=== PATIENT | female | born 1960 | race Caucasian/White ===

== ENCOUNTER → 2018-05-02 07:33 | Outpatient (CLI) | payer OTHER, SELFPAY ==
--- NOTE | 2018-05-02 07:35 | NM_ITS ---
CARDIOLITE SPECT MYOCARDIAL PERFUSION SCAN, REST AND STRESS: EXERCISE STRESS [facility] REVIEW QGS EF AND WALL MOTION EVALUATION: QPS - PERFUSION EVALUATION HISTORY: Chest pain, SOB, Syncope, Fatigue, CAD, HTN, Tobacco use DOSE: 10.11 mCi technetium 99m mibi intravenously at rest followed by 32.1 mCi technetium 99m mibi following the intravenous ministration of 0.4 mg of Lexiscan. Resting blood pressure is 151/78. Stress blood pressure 138/81. FINDINGS: Ejection fraction is calculated to be 74%. Uniform myocardial activity at both stress and rest gated images calculated ejection fraction of 74% with normal wall motion IMPRESSION: No scintigraphic evidence of Lexiscan-induced myocardial ischemia with normal ejection fraction normal wall motion
--- NOTE | 2018-05-02 07:54 | HMH.ITSHM ---
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 []PLAVIX ASA LISINOPRIL
== END ==
PROVIDERS: PCP Family Medicine; Visit Provider Internal Medicine
DX: I25.10 Atherosclerotic heart disease of native coronary artery without angina pectoris (principal); I20.9 Angina pectoris, unspecified; E78.5 Hyperlipidemia, unspecified; F17.200 Nicotine dependence, unspecified, uncomplicated; Z95.5 Presence of coronary angioplasty implant and graft
CPT/HCPCS: 78452; 93017; A9502; J2785

== ENCOUNTER 2018-10-07 07:42 | Day surgery (SDC) | payer MEDICAID, SELFPAY ==
[2018-10-07] VITALS (14 sets, daily range): BP systolic 96–120; BP diastolic 49–65; PULSE 55–68; RESP 16; TEMP 36.7; O2SAT 93–97; BMI 23.0
--- NOTE | 2018-10-07 07:30 | IR_ITS ---
CARDIAC CATHETERIZATION DATE OF CATHETERIZATION:10/07/2018 9:58 AM PROCEDURES: 1. Left heart catheterization 2. Left ventriculogram 3. Selective coronary angiogram 4. FFR of the left main and LAD artery 5. Drug-eluting stent deployment to the ostial left main artery INDICATION FOR TEST: 1. Typical angina pectoris 2. Coronary artery disease 3. Ischemic response to adenosine with an FFR index of 0.80 Informed consent was obtained prior to the procedure. COMPLICATIONS: None ESTIMATED BLOOD LOSS: Less than 10 ml. TECHNIQUE: One percent lidocaine used to anesthetize the right anterior aspect of the wrist. The right radial artery was accessed via the Seldinger technique. A 6 [place]an sheath was placed in the right radial artery. 2.5 mg of verapamil, 800 mcg of nitroglycerin, 1mg Lidocaine and 5000 U Heparin were given through the arterial sheath. The trap catheter was also used to perform left heart catheterization, left ventriculogram and selective coronary angiogram. At the end of the diagnostic angiogram 3000 units of heparin was administered intravenously giving an ACT of 247 seconds. An additional 2000 units of heparin was administered intravenously. A JL 3.5 guide catheter was placed in the ascending aorta and an FFR wire was normalized. The catheter was used intubate the left main artery and the wire was placed into the distal LAD. Adenosine was infused and the FFR index of 0.80. Given this met hemodynamic significance a 3.5 x 8 mm resolute Omi stent was deployed in the ostium the left main artery at 18 rigoberto reducing the hemodynamically severe stenosis to 0%. Excellent angiographic results were obtained at the end of procedure the apparatus was removed sheath was removed good hemostasis was achieved using TR banding patient transferred to the postop holding area in stable condition ANGIOGRAPHIC RESULTS: 1. The left main artery has an ostial eccentric angiographically indeterminate stenosis between 40 and 70% 2. The left anterior descending artery has proximal mild luminal irregularities and mid vessel mild luminal irregularities of 10% 3. The circumflex artery is a nondominant vessel with mild luminal irregularities of 10%. The first obtuse marginal artery is a small to medium 2 mm vessel and has a proximal eccentric 50% stenosis 4. The right coronary artery is a large dominant vessel and has stents in the proximal through mid segment. The stents have 30% concentric in-stent restenosis in the mid segment. Distally the vessel has mild luminal irregularities there are 20 and 30% stenoses in the proximal and mid PDA 5. The PERRY ventriculogram reveals normal 65% 6. The left ventricular end-diastolic pressure 20 to 25 mmHg IMPRESSION: 1. Angiographically indeterminate yet hemodynamically severe ostial LAD disease as described above 2. Successful stenting of the ostial left main artery hemodynamically severe disease reduced to 0% with 1 drug-eluting stent 3. Coronary artery disease as described above all of which is nonflow limiting 4. Normal ejection fraction 5. Elevated LVEDP consistent with diastolic dysfunction PLAN: 1. Dual antiplatelet therapy for one year because of the left main stent 2. Risk factor modification 3. LDL less than 55 4. Avoidance of tobacco products 5. Cardiac rehabilitation
[2018-10-07 08:38] LABS: Basophils # 0.1 K/mm3 (0-0.2); Basophils % 0.8 % (0.1-2.0); Eosinophils # 0.4 K/mm3 (0.0-0.4); Eosinophils % 3.7 % (0.1-12.0); Hematocrit 41.6 % (37.0-47.0); Hemoglobin 13.8 g/dL (12.2-16.2); Lymphocytes # 2.5 K/mm3 (0.7-4.5); Lymphocytes % 24.1 % (10-50); Mean Corpuscular HGB Conc 33.2 g/dL (31.8-35.4); Mean Corpuscular Hemoglobin 30.7 pg (27.0-31.2); Mean Corpuscular Volume 92.6 fl (81-99); Mean Platelet Volume 7.6 fl (7.4-10.4); Monocytes # 0.8 K/mm3 (0.1-1.0); Monocytes % 8.2 % (1.7-9.3); Neutrophils # 6.5 K/mm3 (1.8-7.8); Neutrophils % 63.2 % (37.0-80.0); Platelet Count 316 K/mm3 (142-424); Red Cell Distribution Width 14.1 % (11.5-17.5); White Blood Count 10.2 K/mm3 (4.8-10.8)
[2018-10-07 08:42] LABS: Anion Gap 13.1 mEq/L (5-15); Blood Urea Nitrogen 5 mg/dL (7-18); Carbon Dioxide 25 mmol/L (21.0-32.0); Chloride 106 mmol/L (98-107); Creatinine Clearance Estimated 71 mL/min (50-200); Creatinine,Serum 0.75 mg/dL (0.55-1.02); Estimated Glomerular Filt Rate 79 ml/min (>60); GFR (African American) 96 ML/MIN (>60); Glucose 99 mg/dL (74-106); Potassium 4.1 mmoL/L (3.5-5.1); Sodium 140 mmol/L (136-145)
[2018-10-07 13:15] LABS: CATHL Activated Clotting Time 247 SEC (74-125)
--- NOTE | 2018-10-07 13:59 | SUR.PHASEII ---
MEDICATION EDUCATION DONE BY DISCHARGING RN. NO NEW MEDICATIONS, ALL NECESSARY MEDICATIONS PREVIUSLY PRESCRIBED.
== END 2018-10-07 13:54 | disposition home or self-care (01) ==
LOC: CATHLAB 07:44
PROVIDERS: PCP Family Medicine; Visit Provider Internal Medicine
DX: I25.118 Atherosclerotic heart disease of native coronary artery with other forms of angina pectoris (principal); E78.4 Other hyperlipidemia; I11.9 Hypertensive heart disease without heart failure; I35.1 Nonrheumatic aortic (valve) insufficiency; R06.02 Shortness of breath
CPT/HCPCS: 80048; 85025; 85347; 92928; 93458; 93571; 99152; 99153; C1725; C1769; C1876; C9600; J0153; J1644; Q9967

== ENCOUNTER 2018-10-25 12:53 | Outpatient (RCR) | payer MEDICAID, SELFPAY | END 2018-12-30 13:13 | disposition home or self-care (01) | LOC: PT 12:53 | PROVIDERS: Visit Provider Internal Medicine | DX: Z95.5 Presence of coronary angioplasty implant and graft (principal) | CPT/HCPCS: 93798 ==

== ENCOUNTER → 2018-11-15 14:30 | Outpatient (CLI) | payer MEDICAID, SELFPAY ==
--- NOTE | 2018-11-15 14:51 | CA_ITS ---
PROCEDURE: 2-D M-mode and color Doppler study INDICATIONS FOR THE TEST: Chest pain COPD Heart Murmur Tobacco Smoking+ Palpitations Fatigue Syncope Edema Hypertension+Diabetes Mellitus Rheumatic Fever SOB+GOMEZ Obesity Hyperlipidemia+ Family History HD Additional History CAD PATIENT INFORMATION HEIGHT: 61 WEIGHT:118 GENDER: Female B/P:116/63 2-D/M-MODE INTERPRETATION: 2-D MEASUREMENTS OBSERVED VALUES IN CMS Right Ventricular Dimension (RVDd) 2.5 Interventricular Septum (Thickness)(IVsd) 0.7 Left Ventricular Internal Dimensions(LVIDd) 4.7 Left Ventricular Posterior Wall (Thickness)(LVPWd) 0.7 Aortic Root 2.5 Aortic Cusp Separation 1.9 Left Atrial Dimensions (LAD) 3.1 2D 1. Left atrium is mildly enlarged, left ventricle is normal size, left ventricle wall thickness is upper normal, preserved left ventricular systolic function, visually estimated ejection fraction 55% with no regional wall motion abnormality. 2. The right atrium and right ventricle are normal size and contractility. 3. The aortic valve is minimally thickened and fibrosed. 4. The mitral and tricuspid valve leaflets are minimally thickened. 5. The pulmonic valve is poorly visualized. 6. No significant pericardial effusion noted. DOPPLER INTERROGATION: Doppler interrogation of the aortic, mitral and tricuspid valvular presence of mild aortic, mild mitral and tricuspid regurgitation, calculated right ventricular systolic pressure is 28 mmHg, parameters are inconclusive. CONCLUSION: 1. Mildly enlarged left atrium, normal left ventricular size, visually estimated ejection fraction 55% with no regional wall motion abnormality, diastolic parameters are inconclusive. 2. Mild aortic, mild mitral and tricuspid regurgitation, calculated right ventricular systolic pressure is 28 mmHg. 3. No significant pericardial effusion noted.
[2018-11-15 16:03] LABS: Anion Gap 15.1 mEq/L (5-15); Blood Urea Nitrogen 7 mg/dL (7-18); Calcium 8.9 mg/dL (8.5-10.1); Carbon Dioxide 26 mmol/L (21.0-32.0); Chloride 103 mmol/L (98-107); Creatinine,Serum 0.89 mg/dL (0.55-1.02); Estimated Glomerular Filt Rate 65 ml/min (>60); GFR (African American) 79 ML/MIN (>60); Glucose 98 mg/dL (74-106); Potassium 4.1 mmoL/L (3.5-5.1); Sodium 140 mmol/L (136-145)
== END ==
PROVIDERS: Visit Provider Urology
DX: R06.02 Shortness of breath (principal); I25.10 Atherosclerotic heart disease of native coronary artery without angina pectoris; E78.5 Hyperlipidemia, unspecified; I11.9 Hypertensive heart disease without heart failure
CPT/HCPCS: 36415; 80048; 93306

== ENCOUNTER → 2019-11-06 07:18 | Outpatient (CLI) | payer OTHER, SELFPAY ==
--- NOTE | 2019-11-06 | CA_ITS ---
APPROVED REPORT Exam: Exercise Treadmill Technologist: Lorraine Jovel Ht: 5 ft 1 in Wt: 120 lbs BSA: 1.52 m2 HR: 74 bpm BP: 146/59 mmHg Indications: Chest pain, Shortness of Breath Medical History Medications: Alprazolam,,,,, Furosemide (LASIX),,,,, Isosorbide,,,,, Metoprolol,,,,, Atorvastatin,,,,, Montelukast,,,,, CloPIdogrel,,,,, BuPROPION,,,,, SpirOnolactone,,,,, Sumatriptan,,,,, Ranolazine,,,,, Stress Test Details Test: Talat HR Resting HR: 84 bpm Max Heart Rate (APMHR): 161 bpm Max HR Achieved: 135 bpm Target HR (85% APMHR): 136 bpm % of APMHR: 83 Recovery HR: 87 bpm BP Resting BP: 146.0/59.0 mmHg Max BP: 170.0/74.0 mmHg Recovery BP: 143.0/78.0 mmHg ECG Clinical Reason for Termination: Chest pain, Dyspnea Exercise duration: 09:33 min Highest Stage Achieved: Exercise capacity: 10.1 METs Stress ECG Conclusion Resting ECG: Normal sinus rhythm Abnormal stress test. Patient exercised on a talat protocol for 9 minutes and 33 seconds (stage III held) to peak heart rate of 135 bpm (target heart rate 137 bpm) without significant arrhythmias. She did have occasional PVC's. She complained of chest pain and shortness of air that prevented her from walking further. Less than 1.[address] segment depression noted inferiorly at peak stress. Maximum blood pressure 170/74 mmHg with 10.1 METS acheived. See the nuclear report for further information. Test Summary REST . . . . . . . Sitting REST 06:06 0.0 0.0 84 . 146/ 59 . . Stage 1 01:00 10.0 1.7 95 . . . . Stage 1 02:00 10.0 1.7 102 . . . . Stage 1 03:00 10.0 1.7 104 . 150/ 70 . . Stage 2 01:00 12.0 2.5 109 . . . . Stage 2 02:00 12.0 2.5 112 . . . . Stage 2 03:00 12.0 2.5 111 . 158/ 70 . . Stage 3 01:00 14.0 3.4 126 . . . . Stage 3 02:00 14.0 3.4 132 . . . . Stage 3 . . . . . . . Stage held Stage 3 03:00 14.0 3.4 132 . 170/ 74 . . Stage 3 . . . . . . . Stage resumed Stage 3 03:33 14.0 3.4 135 . 170/ 74 . Stop exercise at 09:33 RECOVERY 01:00 0.0 0.0 109 . 158/ 78 . . RECOVERY 02:00 0.0 0.0 91 . 158/ 78 . . RECOVERY 03:00 0.0 0.0 86 . 139/ 67 . . RECOVERY 04:00 0.0 0.0 85 . 139/ 67 . . RECOVERY 05:00 0.0 0.0 84 . 139/ 67 . . RECOVERY 06:00 0.0 0.0 83 . 139/ 67 . . RECOVERY 07:00 0.0 0.0 85 . 143/ 78 . . RECOVERY 07:17 0.0 0.0 85 . 143/ 78 . . Electronically signed by : Billy Adkins, 11/06/2019 21:07:00
--- NOTE | 2019-11-06 08:08 | NM_ITS ---
APPROVED REPORT Exam: Nuclear Stress Test Indication: chest pain, short of breath, fatigue Patient Location: Outpatient Stress Tech: Lorraine Jovel PR Tech:Tomasa BranchKARLA RT(R)(N) Ht: 5 ft 1 in Wt: 120 lbs HR: 74 bpm BP: 146/59 mmHg BSA: 1.52 m2 BMI: 22.6 History: chest pain, short of breath, fatigue Procedure: Patient exercised on Milind protocol 9.33 minutes and sec, resting heart rate 74 bpm, resting blood pressure 126/59 mmHg, with exercise maximum heart rate achived was 134 bpm which is Less than 85 % of the maximum predicted heart rate and blood pressure was 150/70 mmHg. Test was stopped due to Chest pain and shortness of breath. Patient has Good exercise capacity, achieved 10.1 METs of workload on treadmill, the blood pressure response to exercise was Adequate. Electrocardiogram Resting electrocardiogram showed sinus rhythm, with exercise there is less than 1.[address] segment depression noted from the baseline EKG. The EKG portion of the exercise Myoview is negative for ischemia. Cardiac Stress and Resting SPECT Images: Cardiac Stress and Resting SPECT images were obtained using technetium 99m Myoview 31.9 mCi stress and 10.70 mCi at rest. Gated SPECT for analysis of segmental wall motion and calculation of the ejection fraction also done. Cardiac stress and resting SPECT images show uniform myocardial activity without segmental perfusion abnormality, computer derived ejection fraction is over 65% with no regional wall motion abnormality, right ventricle is normal size and contractility. Conclusion: 1. The EKG portion of the exercise Myoview is negative for ischemia, patient has good exercise capacity achieved 10.1 mets of workload on treadmill, the blood pressure response to exercise was adequate, there was exercise-induced chest discomfort and shortness of breath. 2. No scintigraphic evidence of reversible ischemia seen at this level of exercise, computer derived ejection fraction is over 65% with no regional wall motion abnormality, right ventricle is normal size and contractility. 3. Abnormal stress test due to development chest pain and shortness of breath with exercise however the EKG and myocardial perfusion imaging did not show reversible ischemia. Electronically signed by : Billy Adkins, 11/06/2019 21:09:56
--- NOTE | 2019-11-06 08:56 | HMH.ITSHM ---
Current Home Medications as stated by this patient Alisa Dan or financial sales representative. [] spironolactone ranolazine metoprolol clopidpgrel atorvastatin asa protonix
== END ==
PROVIDERS: PCP Family Medicine; Visit Provider Urology
DX: R07.9 Chest pain, unspecified (principal); R06.02 Shortness of breath; R06.09 Other forms of dyspnea; R94.31 Abnormal electrocardiogram [ECG] [EKG]; I25.10 Atherosclerotic heart disease of native coronary artery without angina pectoris; E78.49 Other hyperlipidemia; F17.200 Nicotine dependence, unspecified, uncomplicated; I11.9 Hypertensive heart disease without heart failure; K21.9 Gastro-esophageal reflux disease without esophagitis
CPT/HCPCS: 78452; 93017; A9502

== ENCOUNTER 2019-11-28 08:22 | Day surgery (SDC) | payer OTHER, SELFPAY ==
[2019-11-28] VITALS (16 sets, daily range): BP systolic 139–149; BP diastolic 71–92; PULSE 65–84; RESP 16–20; TEMP 37; O2SAT 92–99; BMI 22.3
--- NOTE | 2019-11-28 | IR_ITS ---
APPROVED REPORT Patient Location: Outpatient PROCEDURES Left heart catheterization Left ventriculogram Selective coronary angiogram INDICATION Known coronary artery disease, Recurrent angina pectoris, Abnormal stress test Informed consent was obtained prior to the procedure. COMPLICATIONS None Estimated Blood Loss: less than 10 ml TECHNIQUE 1% lidocaine used anesthetize the right groin the right femoral artery was accessed via the Salinger technique and a 4 Lao sheath was placed in the right femoral artery. A JL4 JR4 catheter were used to perform left heart catheterization left ventriculogram and selective coronary angiogram. At the end of the procedure the patient was transferred to the postop holding area in stable condition for sheath removal ANGIOGRAPHIC RESULTS The left main artery Has a distal mild 20% [id number] stenosis The left anterior descending artery Has an ostial mild 20% stenosis with mild 10% mid vessel luminal irregularities The circumflex artery Nondominant normal The right coronary artery Is a dominant vessel and has a stent in the proximal through mid segment which has mild concentric 20 to 30% in-stent restenosis. There is excellent proximal distal transitioning of the stent. Distally the unga vessel has 20% and 30% stenoses The PERRY ventriculogram reveals Normal 65% The left ventricular end-diastolic pressure 10 mmHg IMPRESSION Coronary artery disease as described above Normal ejection fraction Widely patent right coronary stent as described above Normal left ventricular end-diastolic pressure PLAN 1. Medical management for likely endothelial dysfunction 2. Ongoing risk factor modification Electronically signed by : Cristóbal Carr, 11/28/2019 12:25:04
[2019-11-28 08:52] LABS: Chloride 109 mmol/L (98-107); Sodium 138 mmol/L (136-145)
[2019-11-28 08:53] LABS: Potassium 3.8 mmoL/L (3.5-5.1)
[2019-11-28 08:56] LABS: Anion Gap 6.8 mEq/L (5-15); Basophils # 0.1 K/mm3 (0-0.2); Blood Urea Nitrogen 8 mg/dl (7-17); Calcium 8.9 mg/dl (8.4-10.2); Carbon Dioxide 26 mmol/L (22.0-30.0); Creatinine Clearance Estimated 73 mL/min (50-200); Eosinophils # 0.3 K/mm3 (0.0-0.4); Eosinophils % 2.7 % (0.1-12.0); Estimated Glomerular Filt Rate 86 ml/min (>60); GFR (African American) 104 ML/MIN (>60); Glucose 102 mg/dl (74-100); Hematocrit 43.4 % (37.0-47.0); Hemoglobin 14.7 g/dL (12.2-16.2); Lymphocytes # 3.3 K/mm3 (0.7-4.5); Lymphocytes % 30.3 % (10-50); Mean Corpuscular HGB Conc 33.9 g/dL (31.8-35.4); Mean Corpuscular Hemoglobin 32.6 pg (27.0-31.2); Mean Platelet Volume 7.4 fl (7.4-10.4); Monocytes # 0.6 K/mm3 (0.1-1.0); Monocytes % 5.8 % (1.7-9.3); Neutrophils # 6.5 K/mm3 (1.8-7.8); Neutrophils % 60.3 % (37.0-80.0); Platelet Count 339 K/mm3 (142-424); Red Blood Count 4.52 M/mm3 (4.20-5.40); Red Cell Distribution Width 14.5 % (11.5-17.5); White Blood Count 10.8 K/mm3 (4.8-10.8)
== END 2019-11-28 15:13 | disposition home or self-care (01) ==
LOC: CATHLAB 08:23
PROVIDERS: PCP Family Medicine; Visit Provider Internal Medicine
DX: I25.118 Atherosclerotic heart disease of native coronary artery with other forms of angina pectoris (principal); I11.0 Hypertensive heart disease with heart failure; I50.30 Unspecified diastolic (congestive) heart failure; E78.5 Hyperlipidemia, unspecified; I35.1 Nonrheumatic aortic (valve) insufficiency; Z72.0 Tobacco use; Z95.5 Presence of coronary angioplasty implant and graft; Z79.02 Long term (current) use of antithrombotics/antiplatelets; Z79.899 Other long term (current) drug therapy
CPT/HCPCS: 80048; 85025; 93458; 99152; C1725; C1769; J1644; Q9967

== ENCOUNTER 2020-07-10 11:32 | Emergency (ER) | payer OTHER, SELFPAY ==
[2020-07-10 11:33] VITALS: BP 163/87; PULSE 83; RESP 18; TEMP 36.9; O2SAT 99; BMI 21.9
--- NOTE | 2020-07-10 11:33 | ECG_ITS ---
APPROVED REPORT Exam: Resting ECG HR:83 bpm ECG Measurements Heart Rate 83 AXES SD 122 P 72 QRSd 92 QRS 68 QT 372 T 45 QTc 437 Conclusion Normal sinus rhythm Normal ECG Electronically signed by : Parish Floyd, 07/11/2020 20:57:41
--- NOTE | 2020-07-10 11:35 | HMH.EDGENADL ---
ED Disposition Clinical Impression: Atypical chest pain Disposition: Home, Self-Care Condition on Discharge: Good Instructions: DI for Atypical Chest Pain Additional Instructions: Take blood pressure medication as instructed by Umer. Call Dr. Carr's office for follow-up appointment. Additional instructions for CHEST PAIN: Return immediately if worsening chest pain, vomiting, shortness of breath, fever, coughing of blood. Referrals: Celeste Hamilton [Primary Care Provider] - - Critical Care Critical Care Time: No Attestation: On , the high probability of a clinically significant, sudden or life threatening deterioration of the following system(s) required my full and direct attention, intervention and personal management. The time I documented below is in addition to time spent performing reported procedures but includes the following listed in this critical care notation. Medical Decision Making - Medical Records Medical records reviewed: Yes: I reviewed the patient's medical records. MR Mullins: Reviewed 3 prior left heart cath results, most recent one is in November 2019. See report below. Right coronary artery stent October 2017. Left main coronary artery stent September 2018. - Kael Inquiry Pt receiving controlled substance: No Vital Signs: 07/10/20 11:33 07/10/20 12:04 07/10/20 12:30 Temperature 98.4 F Temperature Source Oral Pulse Rate [Right Radial] 83 91 H 77 Respiratory Rate 18 Blood Pressure [Right Arm] 163/87 H 162/86 H 153/79 H Blood Pressure Mean [Right Arm] 112 111 103 Blood Pressure Source [Right Arm] Automatic Cuff Automatic Cuff Automatic Cuff Blood Pressure Position [Right Arm] Sitting Sitting Sitting 02 Sat by Pulse Oximetry 99 97 98 Oxygen Delivery Method Room Air Room Air Room Air 07/10/20 13:02 Temperature Temperature Source Pulse Rate [Right Radial] 75 Respiratory Rate Blood Pressure [Right Arm] 151/83 H Blood Pressure Mean [Right Arm] 105 Blood Pressure Source [Right Arm] Automatic Cuff Blood Pressure Position [Right Arm] Sitting 02 Sat by Pulse Oximetry 100 Oxygen Delivery Method Room Air - Lab Data Lab Results 07/10/20 11:39: WBC 8.7, RBC 4.44, Hgb 14.4, Hct 43.4, MCV 97.7, MCH 32.5 H, MCHC 33.3, RDW 14.5, Plt Count 342, MPV 7.8, Neut % (Auto) 55.5, Lymph % (Auto) 34.1, [place] % (Auto) 7.1, Eos % (Auto) 2.3, Baso % (Auto) 1.0, Neut # (Auto) 4.8, Lymph # (Auto) 3.0, [place] # (Auto) 0.6, Eos # (Auto) 0.2, Baso # (Auto) 0.1 07/10/20 11:39: Sodium 141, Potassium 3.9, Chloride 108 H, Carbon Dioxide 25, Anion Gap 11.9, BUN 6 L, Creatinine 0.70, Estimated Creat Clear 73, Estimated GFR 85, Est GFR ( Amer) 103, Glucose 111 H, Calcium 9.7, Troponin I < 0.01 07/10/20 11:39: SARS-CoV-2 IgG Ab (Rapid) Negative, SARS-CoV-2 IgM Ab (Rapid) Negative 07/10/20 14:13: Troponin I < 0.01 Result diagrams: 07/10/20 11:39 07/10/20 11:39 Orders (Tests/Meds): ED MEDICATIONS Discontinued Medications Generic Name Dose Route Start Last Admin Trade Name Freq PRN Reason Stop Dose Admin Aspirin 324 mg 07/10/20 11:41 07/10/20 11:43 Aspirin 81mg Chewable Tablet PO 07/10/20 11:42 324 mg ONCE ONE Administration ORDERS Category Date Time Status Consult to Cardiology [CONS] Routine Cons 07/10/20 13:47 Active Cervical spine XR 3 views [XR cervical spine 3V] Stat Exams 07/10/20 14:07 Taken Troponin I Q3H Lab 07/10/20 17:45 Ordered - Radiology Data #1 Image(s): Chest, C-Spine Image Reviewed: Yes I reviewed the patient's radiology image, Yes I have reviewed radiologist's interpretation PROCEDURE: XR CHEST 2V CLINICAL HISTORY: chest pain, SOA Chest pain and shortness of air, smoker COMPARISON: CR CXR2V XR chest 2V from 10/14/2017 CR CXR2V XR chest 2V from 10/10/[address] angio chest from 11/02/2018 CR CXR2V XR chest 2V from 11/02/2018 FINDINGS: The cardiomediastinal silhouette and pulmonary vascularity are within normal li
[2020-07-10 11:41] VITALS: BMI 21.9
--- NOTE | 2020-07-10 11:41 | XR_ITS ---
PROCEDURE: XR CHEST 2V CLINICAL HISTORY: chest pain, SOA Chest pain and shortness of air, smoker COMPARISON: CR CXR2V XR chest 2V from 10/14/2017 CR CXR2V XR chest 2V from 10/10/[address] angio chest from 11/02/2018 CR CXR2V XR chest 2V from 11/02/2018 FINDINGS: The cardiomediastinal silhouette and pulmonary vascularity are within normal limits. The lungs are clear without infiltrates, suspicious nodules, or pleural effusions. Changes of COPD. Coronary artery stent is present anteriorly No acute bony abnormalities. IMPRESSION: No acute findings. Dictated by: Viraj Cooper MD 07/10/2020 12:11 Viraj Cooper MD in [place] 07/10/2020 12:11
[2020-07-10 11:58] LABS: Basophils # 0.1 K/mm3 (0-0.2); Eosinophils # 0.2 K/mm3 (0.0-0.4); Eosinophils % 2.3 % (0.1-12.0); Hematocrit 43.4 % (37.0-47.0); Hemoglobin 14.4 g/dL (12.2-16.2); Lymphocytes % 34.1 % (10-50); Mean Corpuscular HGB Conc 33.3 g/dL (31.8-35.4); Mean Corpuscular Hemoglobin 32.5 pg (27.0-31.2); Mean Corpuscular Volume 97.7 fl (81-99); Mean Platelet Volume 7.8 fl (7.4-10.4); Monocytes # 0.6 K/mm3 (0.1-1.0); Monocytes % 7.1 % (1.7-9.3); Neutrophils # 4.8 K/mm3 (1.8-7.8); Neutrophils % 55.5 % (37.0-80.0); Platelet Count 342 K/mm3 (142-424); Red Blood Count 4.44 M/mm3 (4.20-5.40); Red Cell Distribution Width 14.5 % (11.5-17.5); White Blood Count 8.7 K/mm3 (4.8-10.8)
[2020-07-10 12:04] VITALS: BP 162/86; PULSE 91; O2SAT 97
[2020-07-10 12:04] LABS: Chloride 108 mmol/L (98-107); Sodium 141 mmol/L (136-145)
[2020-07-10 12:05] LABS: Potassium 3.9 mmoL/L (3.5-5.1)
[2020-07-10 12:07] LABS: Blood Urea Nitrogen 6 mg/dl (7-17); Creatinine Clearance Estimated 73 mL/min (50-200); Estimated Glomerular Filt Rate 85 ml/min (>60); GFR (African American) 103 ML/MIN (>60)
[2020-07-10 12:08] LABS: Anion Gap 11.9 mEq/L (5-15); Calcium 9.7 mg/dl (8.4-10.2); Carbon Dioxide 25 mmol/L (22.0-30.0); Glucose 111 mg/dl (74-100)
--- NOTE | 2020-07-10 12:12 | PC.NURSE ---
calling cardiology at this time.
[2020-07-10 12:20] LABS: Troponin I < 0.01 ng/ml (0.00-0.034)
[2020-07-10 12:26] LABS: Coronavirus 19 IgG Antibody Negative (Negative); Coronavirus 19 IgM Antibody Negative (Negative)
[2020-07-10 12:30] VITALS: BP 153/79; PULSE 77; O2SAT 98
[2020-07-10 13:02] VITALS: BP 151/83; PULSE 75; O2SAT 100
--- NOTE | 2020-07-10 13:41 | PC.NURSE ---
TREVON Champion to come see pt.
--- NOTE | 2020-07-10 14:07 | XR_ITS ---
PROCEDURE: XR CERVICAL SPINE 3V CLINICAL INDICATION: left arm pain COMPARISON: CT CSWO CT CERVICAL SPINE W/O CONT from 09/28/2013 CT CTAC CTA-CHEST from 06/05/[address] angio chest from 11/02/2018 FINDINGS: No fracture or dislocation. No lytic or blastic change. There is normal mineralization. Mild degenerative disc disease is present at C4-C5 and C5-C6. Small bilateral cervical ribs. Other findings:None. IMPRESSION: Degenerative changes with small bilateral cervical ribs Dictated by: Viraj Cooper MD 07/10/2020 15:09 Viraj Cooper MD in [facility] 07/10/2020 15:09
--- NOTE | 2020-07-10 14:18 | HMH.CNCARD ---
History of Present Illness Consult date: 07/10/20 Consult reason: chest pain Chief complaint: chest pain, left arm pain Additional Medical History:: 1. Coronary artery disease [facility], 2018, JOSE DAVID to RCA. [facility]. [facility], 09/2018, JOSE DAVID to ostial left main. Non-flow limiting CAD of remaining vessels. Normal LVEF. Elevated LVEDP. [facility]. [facility] 04/2019, 11/2019, ANGIOGRAPHIC RESULTS The left main artery Has a distal mild 20% [id number]-qlanyrmj stenosis The left anterior descending artery Has an ostial mild 20% stenosis with mild 10% mid vessel luminal irregularities The circumflex artery Nondominant normal The right coronary artery Is a dominant vessel and has a stent in the proximal through mid segment which has mild concentric 20 to 30% in-stent restenosis. There is excellent proximal distal transitioning of the stent. Distally the big sandy vessel has 20% and 30% stenoses The PERRY ventriculogram reveals Normal 65% The left ventricular end-diastolic pressure 10 mmHg IMPRESSION Coronary artery disease as described above Normal ejection fraction Widely patent right coronary stent as described above Normal left ventricular end-diastolic pressure PLAN 1. Medical management for likely endothelial dysfunction 2. Ongoing risk factor modification Electronically signed by : Cristóbal Carr, 11/28/2019 12:25:04 2. Hypertension A. [facility], 10/2018, 1. Mildly enlarged left atrium, normal left ventricular size, visually estimated ejection fraction 55% with no regional wall motion abnormality, diastolic parameters are inconclusive. 2. Mild aortic, mild mitral and tricuspid regurgitation, calculated right ventricular systolic pressure is 28 mmHg. 3. No significant pericardial effusion noted 3. Hyperlipidemia 4. Tobacco use History of present illness: 60-year-old white female with known coronary artery disease status post stenting of left main and RCA in the past with recent cardiac catheterization 11/2019 showing no significant coronary artery disease presented to the emergency department for complaint of left arm pain and chest pain. Patient relates a 3-day history of discomfort starting from mid forearm coming back up into the left shoulder and neck with some associated intermittent atypical stinging-like chest discomfort. Symptoms possibly worse with exercise but seem to be noticed more at rest. Left arm discomfort has been there off and on for 3 days with the intermittent chest discomfort lasting only seconds at a time. Patient denies missing any doses of her medications. She does not check her blood pressure at home. She denies any diaphoresis or significant shortness of breath associated with the symptoms. Patient was seen in the ER today with initial troponin being normal and EKG with no acute ST segment changes. Cardiology consulted for evaluation. History of left main stenting [facility] History Medical History: Reports:: Anxiety, Coronary Artery Disease, Hyperlipidemia, Hypertension Denies:: Cancer, Diabetes Mellitus Type 1, Diabetes Mellitus Type 2, Internal Pacemaker, MRSA, Seizures *Have you ever received a pneumonia vaccine?: No *Have you received a flu vaccine this season?: No Other Surgeries: Yes: Appendectomy (2010), Cardiac Catheterization, Coronary Stent, Hysterectomy-Partial (2003). No: Pacemaker Amputation: No Fractures: No - *Social History Smoking Status: Current every day smoker Tobacco Type: cigarettes # Packs/Day (cigarettes): 1 Alcohol Intake: never Substance Use Type: denies use *Occupational Status:: employed Housing: house Household Members: spouse *Travel in the last 8 weeks: Inside the [place] - Psychiatric History Pschychiatric History:: Reports:: Anxiety Family Hx:: Hypertension, Cancer Meds Home Medications Medication Instructions Recorded Confirmed Type Aspirin [Aspir 81] 81 mg PO DAILY 10/14/17 11/21/19 History Pantoprazole Sodium [Protonix 40mg 40 mg PO DAILY
[2020-07-10 14:50] LABS: Troponin I < 0.01 ng/ml (0.00-0.034)
[2020-07-10 15:11] VITALS: BP 149/85; PULSE 80; RESP 18; TEMP 36.9; O2SAT 100
== END 2020-07-10 15:11 | disposition home or self-care (01) ==
PROVIDERS: Emergency Provider Emergency Medicine; PCP Family Medicine
DX: R07.89 Other chest pain (principal); Z95.5 Presence of coronary angioplasty implant and graft; E78.5 Hyperlipidemia, unspecified; I10 Essential (primary) hypertension; I25.10 Atherosclerotic heart disease of native coronary artery without angina pectoris; F17.210 Nicotine dependence, cigarettes, uncomplicated; Z01.84 Encounter for antibody response examination; Z79.899 Other long term (current) drug therapy
CPT/HCPCS: 36415; 71046; 72040; 80048; 84484; 85025; 86328; 93005; 99283

== ENCOUNTER → 2020-09-17 10:33 | Outpatient (CLI) | payer OTHER, SELFPAY ==
--- NOTE | 2020-09-17 10:46 | XR_ITS ---
PROCEDURE: XR CHEST 2V CLINICAL HISTORY: chest pain COMPARISON: CR CXR2V XR chest 2V from 10/10/[address] angio chest from 11/02/2018 CR CXR2V XR chest 2V from 11/02/2018 CR XR CHEST 2V from 07/10/2020 FINDINGS: Background of chronic interstitial changes. No lobar consolidation, pleural effusions or pneumothorax. Cardiac size and central pulmonary vasculature within normal limits. Coronary arterial stents are noted. Visualized osseous structures are unremarkable. IMPRESSION: Background of chronic interstitial changes. No lobar consolidation or pleural effusions. Dictated by: Desire Grande 09/17/2020 11:13 Desire Grande in [facility] 09/17/2020 11:13
[2020-09-17 10:53] LABS: Basophils # 0.1 K/mm3 (0-0.2); Eosinophils # 0.3 K/mm3 (0.0-0.4); Eosinophils % 2.9 % (0.1-12.0); Hematocrit 44.3 % (37.0-47.0); Hemoglobin 14.3 g/dL (12.2-16.2); Lymphocytes # 2.5 K/mm3 (0.7-4.5); Lymphocytes % 23.3 % (10-50); Mean Corpuscular HGB Conc 32.3 g/dL (31.8-35.4); Mean Corpuscular Hemoglobin 31.9 pg (27.0-31.2); Mean Corpuscular Volume 98.7 fl (81-99); Mean Platelet Volume 7.6 fl (7.4-10.4); Monocytes # 0.7 K/mm3 (0.1-1.0); Monocytes % 6.1 % (1.7-9.3); Neutrophils % 66.7 % (37.0-80.0); Platelet Count 303 K/mm3 (142-424); Red Blood Count 4.49 M/mm3 (4.20-5.40); Red Cell Distribution Width 14.1 % (11.5-17.5); White Blood Count 10.5 K/mm3 (4.8-10.8)
[2020-09-17 11:12] LABS: Alanine Aminotransferase 13 U/L (12-78); Albumin Level 4.8 g/dl (3.5-5.0); Alkaline Phosphatase 91 U/L (38-126); Anion Gap 11.3 mEq/L (5-15); Aspartate Amino Transferase 20 U/L (14-36); Bilirubin,Direct 0.1 mg/dl (0.0-0.4); Bilirubin,Indirect 0.3 mg/dL (0.0-0.9); Bilirubin,Total 0.4 mg/dl (0.2-1.3); Bilirubin,Unconjugated 0.3 mg/dL (0.0-1.1); Blood Urea Nitrogen 8 mg/dl (7-17); Calcium 9.9 mg/dl (8.4-10.2); Carbon Dioxide 25 mmol/L (22.0-30.0); Chloride 107 mmol/L (98-107); Estimated Glomerular Filt Rate 85 ml/min (>60); GFR (African American) 103 ML/MIN (>60); Glucose 107 mg/dl (74-100); Potassium 4.3 mmoL/L (3.5-5.1); Sodium 139 mmol/L (136-145); Total Protein,Serum 7.7 g/dl (6.3-8.2)
[2020-09-17 11:23] LABS: Troponin I < 0.01 ng/ml (0.00-0.034)
[2020-09-17 11:29] LABS: Free T4 (Free Thyroxine) 1.32 ng/dl (0.78-2.19)
[2020-09-17 11:43] LABS: Thyroid Stimulating Hormone 3.12 uIU/mL (0.465-4.68)
== END ==
PROVIDERS: Visit Provider Urology
DX: R07.89 Other chest pain (principal); R06.02 Shortness of breath; I25.10 Atherosclerotic heart disease of native coronary artery without angina pectoris; I11.9 Hypertensive heart disease without heart failure; E78.5 Hyperlipidemia, unspecified
CPT/HCPCS: 36415; 71046; 80048; 80076; 84439; 84443; 84484; 85025

== ENCOUNTER → 2020-09-25 11:53 | Outpatient (CLI) | payer OTHER, SELFPAY ==
--- NOTE | 2020-09-25 | CA_ITS ---
APPROVED REPORT Exam: Pharmacologic Technologist: Lorraine Jovel Ht: 5 ft 2 in Wt: 123 lbs BSA: 1.55 m2 HR: 78 bpm BP: 151/84 mmHg Indications: Chest pain, Shortness of Breath Medical History Medications: Amlodipine,,,,, Alprazolam,,,,, Isosorbide,,,,, Aspirin,,,,, Metoprolol,,,,, Pantoprazole,,,,, Atorvastatin,,,,, Lasix,,,,, Montelukast,,,,, CloPIdogrel,,,,, SpirOnolactone,,,,, Sumatriptan,,,,, Stress Test Details Test: LEXISCAN HR Resting HR: 78 bpm Max Heart Rate (APMHR): 160.604021 bpm Max HR Achieved: 105 bpm Target HR (85% APMHR): 136.256827 bpm % of APMHR: 65.63 Recovery HR: 85 bpm BP Resting BP: 151.0/84.0 mmHg Max BP: 151.0/84.0 mmHg Recovery BP: 144.0/72.0 mmHg ECG Resting ECG: Normal sinus rhythm Clinical Exercise duration: 04:00 min Highest Stage Achieved: Stress ECG Conclusion Symptoms: Shortness of air, mild stomach discomfort, malaise. No chest pain. Arrhythmias/Ectopy: Occasional PVC ST-T Changes: No significant changes. Conclusion: Unremarkable Lexiscan stress. Myoview images reported separately. Electronically signed by : Cristóbal Carr, 09/27/2020 08:32:29
--- NOTE | 2020-09-25 11:53 | NM_ITS ---
APPROVED REPORT Exam: Nuclear Stress Test Indication: CAD, HTN, TOB USE, C.P., SPB, PALPTATIONS, SYNCOPE Patient Location: Outpatient Stress Tech: Lorraine Jovel OR Tech:Marlys LoyolaKARLA RT (R)(N)(M) Ht: 5 ft 1 in Wt: 123 lbs Bra Size: 32A HR: 78 bpm BP: 151/84 mmHg BSA: 1.54 m2 BMI: 23.2 History: CAD, HTN, TOB USE, C.P., SPB, PALPTATIONS, SYNCOPE Procedure: Patient received a 0.4 mg of intravenous Lexiscan, resting heart rate 78 bpm, resting blood pressure 151/84 mmHg, with Lexiscan maximum heart rate achived was 103 bpm which is % of the maximum predicted heart rate and blood pressure was 150/85 mmHg. With Lexiscan, patient denied any complaint of chest pain. SOA Cardiac Stress and Resting SPECT Images: Cardiac Stress and Resting SPECT images were obtained using technetium 99m Myoview 30.8 mCi stress and 10.73 mCi at rest. EF lower normal at 51%. No wall motion abnormalities. No fixed or reversible defects Conclusion: EF lower normal otherwise negative exam. Electronically signed by : Viraj Cooper MD 09/30/2020 13:28:07
== END ==
PROVIDERS: PCP Family Medicine; Visit Provider Physician Assistant
DX: R07.9 Chest pain, unspecified (principal); R06.02 Shortness of breath; I25.10 Atherosclerotic heart disease of native coronary artery without angina pectoris; I11.9 Hypertensive heart disease without heart failure; R94.31 Abnormal electrocardiogram [ECG] [EKG]; I51.89 Other ill-defined heart diseases; E78.5 Hyperlipidemia, unspecified; F17.200 Nicotine dependence, unspecified, uncomplicated
CPT/HCPCS: 78452; 93017; 93306; A9502; J2785

== ENCOUNTER → 2020-10-14 11:06 | Outpatient (CLI) | payer OTHER, SELFPAY | PROVIDERS: PCP Family Medicine; Visit Provider Urology | DX: R07.89 Other chest pain (principal); R06.02 Shortness of breath; R00.2 Palpitations; R94.31 Abnormal electrocardiogram [ECG] [EKG] | CPT/HCPCS: 93270 ==

== ENCOUNTER 2020-11-11 19:21 | Emergency (ER) | payer OTHER, SELFPAY ==
[2020-11-11 19:35] VITALS: BP 148/65; PULSE 86; RESP 21; TEMP 37; O2SAT 99; BMI 22.8
--- NOTE | 2020-11-11 19:52 | HMH.EDUTC ---
[facility] [place] Clinical Impression: Viral syndrome Disposition: Home, Self-Care Condition on Discharge: Good Instructions: DI for COVID-19 (Suspected or Confirmed ), Coronavirus Disease 2019, Preventing the Spread of Coronavirus Discharge Instructions Additional Instructions: *Monitor Temp, Over the counter Motrin or Tylenol as directed/as needed Tylenol every 4 hours and Motrin every 6 hours (as long as your family doctor has told you that you can take it) for fever or pain. and straight to ER if unable to lower temp less than 101.0 after medication given *Warm salt water gargles may help to soothe the throat *Throat Lozenges *Warm fluids like tea with honey may help to soothe the throat *Sleep elevated *Humidifier/Vaporizer Follow up IMMEDIATELY for new or worsening symptoms or no Noticeable improvement over the next 48-72 hours. 911 for difficulty breathing or swallowing You were tested for today for COVID19 your test result should be back in the next 24-48 hours, you may call to the [facility] to see if your test results are back in the next 48 hours [phone] [facility] hours are 9am-9pm You was given a handout with instructions for Self Quarantine and Self isolation for while you wait on test results and what to do if they are positive If you are positive the Health Dept will be contacting you also Referrals: Celeste Vazquez [Primary Care Provider] - As needed Forms: Work/School Release Time of Disposition: 19:56 Medical Decision Making - Kael Inquiry Pt receiving controlled substance: No Kael was queried for this patient: No Vital Signs: 11/11/20 19:35 Temperature 98.6 F Temperature Source Oral Pulse Rate [Right Brachial] 86 Respiratory Rate 21 Blood Pressure [Right Arm] 148/65 H Blood Pressure Mean [Right Arm] 92 Blood Pressure Source [Right Arm] Automatic Cuff Blood Pressure Position [Right Arm] Sitting 02 Sat by Pulse Oximetry 99 Oxygen Delivery Method Room Air Orders (Tests/Meds): ORDERS Category Date Time Status Covid-19 Nasal PCR ([facility]) Routine Lab 11/11/20 19:34 Received [facility] [place] - General Stated complaint: covid test Time Seen by Provider: 11/11/20 19:52 Mode of Arrival: Ambulatory Source of Information: Patient Limitations: No Limitations Description of Symptoms (Recalled from Triage Doc. by RN): PATIENT REQUESTING COVID TEST. 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 and her boss wanted her to come and get tested for COVID before returning to work - Related Data Home Medications Medication Instructions Recorded Confirmed Aspirin [Aspir 81] 81 mg PO DAILY 10/14/17 09/30/20 Pantoprazole Sodium [Protonix 40mg 40 mg PO DAILY 10/14/17 09/30/20 tablet] alprazolam 0.25 mg tablet 0.25 mg PO BID PRN 04/26/18 09/30/20 bupropion HCl 150 mg 24 hr tablet, 150 mg PO DAILY tab 10/31/19 09/30/20 extended release montelukast 10 mg tablet 10 mg PO DAILY tab 10/31/19 09/30/20 sumatriptan succinate 50 mg tablet 50 mg PO Q2H PRN tab 10/31/19 09/30/20 clopidogrel 75 mg tablet 75 mg PO DAILY tab 10/14/20 Previous Rx's Medication Instructions Recorded furosemide 20 mg tablet 20 mg PO DAILY #90 tab 09/12/19 ranolazine 1,000 mg 1,000 mg PO BID #180 tab 09/12/19 tablet,extended release,12 hr spironolactone 25 mg tablet 25 mg PO DAILY #90 tab 09/12/19 atorvastatin 40 mg tablet 40 mg PO DAILY #90 tab 06/27/20 metoprolol tartrate 100 mg tablet 100 mg PO BID #180 tab 07/15/20 isosorbide mo
[2020-11-11 19:53] VITALS: BP 148/65; PULSE 86; RESP 21; TEMP 37; O2SAT 99
== END 2020-11-11 19:55 | disposition home or self-care (01) ==
PROVIDERS: Emergency Provider Nurse Practitioner; PCP Family Medicine
DX: B34.9 Viral infection, unspecified (principal); Z20.822 Contact with and (suspected) exposure to COVID-19; I10 Essential (primary) hypertension; E78.5 Hyperlipidemia, unspecified; F41.9 Anxiety disorder, unspecified; F17.210 Nicotine dependence, cigarettes, uncomplicated; Z79.899 Other long term (current) drug therapy
CPT/HCPCS: 99202; G0463; U0003

== ENCOUNTER 2020-11-18 12:52 | Emergency (ER) | payer OTHER, SELFPAY ==
[2020-11-18 13:00] VITALS: BP 142/89; PULSE 81; RESP 22; TEMP 36.7; O2SAT 99; BMI 20.6
--- NOTE | 2020-11-18 13:26 | HMH.EDUTC ---
[facility] [place] Clinical Impression: COPD exacerbation Disposition: Home, Self-Care Condition on Discharge: Good Instructions: DI for Chronic Obstructive Pulmonary Disease Additional Instructions: Drink plenty of fluids. Take tylenol or ibuprofen for pain or fever. Take the medications as directed. Follow up with your regular doctor. GO TO THE ER FOR ANY WORSENING SYMPTOMS Don't start the oral steroids until tomorrow, since you had the shot here today. Prescriptions: methylPREDNISolone [Medrol] 4 mg PO DIRECTED 6 Days #21 tab.ds.pk Transmission Status: Received by [facility][id number] Benzonatate [Tessalon Perle 100mg Cap] 100 mg PO TIDP PRN #30 cap PRN Reason: Cough Transmission Status: Received by [facility][id number] Azithromycin [Z-Helio 250mg Tab*] 250 mg PO UD DOSE PK #6 tab Transmission Status: Received by [facility] #[id number] Referrals: Celeste Vazquez [Primary Care Provider] - Time of Disposition: 13:59 Medical Decision Making - Medical Records Medical records reviewed: No: I reviewed the patient's medical records. - Kael Inquiry Pt receiving controlled substance: No Vital Signs: 11/18/20 13:00 11/18/20 14:12 Temperature 98.1 F 98.1 F Temperature Source Oral Pulse Rate 81 Pulse Rate [Right Brachial] 81 Respiratory Rate 22 22 Blood Pressure 142/89 H Blood Pressure [Right Arm] 142/89 H Blood Pressure Mean [Right Arm] 106 Blood Pressure Source [Right Arm] Automatic Cuff Blood Pressure Position [Right Arm] Sitting 02 Sat by Pulse Oximetry 99 Oxygen Delivery Method Room Air Orders (Tests/Meds): ED MEDICATIONS Discontinued Medications Generic Name Dose Route Start Last Admin Trade Name Freq PRN Reason Stop Dose Admin Ceftriaxone Sodium 1 gm 11/18/20 13:56 11/18/20 14:11 Ceftriaxone 1gm Vial IM 11/18/20 13:57 1 gm ONCE ONE Administration Protocol Lidocaine HCl 0 ml 11/18/20 13:56 11/18/20 14:11 Lidocaine 1% 5ml Pf Vial IM 11/18/20 13:57 2.1 ml ONCE ONE Administration Methylprednisolone Sodium Succinate 125 mg 11/18/20 13:56 11/18/20 14:11 Methylprednisolone Sod Succ 125mg Vial IM 11/18/20 13:57 125 mg ONCE ONE Administration [facility] [place] - General Stated complaint: weezing, coughing Time Seen by Provider: 11/18/20 13:26 - History of Present Illness Provider Complaint: She states that she has been coughing and wheezing more that normal. She has a history of copd. She was recently treated with doxycycline for a sinus infection, but she states she has finished that antibiotic and now she is coughing and having chest congestion. She denies any fever/chills. - Related Data Home Medications Medication Instructions Recorded Confirmed Aspirin [Aspir 81] 81 mg PO DAILY 10/14/17 09/30/20 Pantoprazole Sodium [Protonix 40mg 40 mg PO DAILY 10/14/17 09/30/20 tablet] alprazolam 0.25 mg tablet 0.25 mg PO BID PRN 04/26/18 09/30/20 bupropion HCl 150 mg 24 hr tablet, 150 mg PO DAILY tab 10/31/19 09/30/20 extended release montelukast 10 mg tablet 10 mg PO DAILY tab 10/31/19 09/30/20 sumatriptan succinate 50 mg tablet 50 mg PO Q2H PRN tab 10/31/19 09/30/20 clopidogrel 75 mg tablet 75 mg PO DAILY tab 10/14/20 Previous Rx's Medication Instructions Recorded ranolazine 1,000 mg 1,000 mg PO BID #180 tab 09/12/19 tablet,extended release,12 hr spironolactone 25 mg tablet 25 mg PO DAILY #90 tab 09/12/19 atorvastatin 40 mg tablet 40 mg PO DAILY #90 tab 06/27/20 metoprolol tartrate 100 mg tablet 100 mg PO BID #180 tab 07/15/20 isosorbide mononitrate 60 mg 60 mg PO DAILY #30 tab 09/30/20 tablet,extended release 24 hr amlodipine 5 mg tablet 5 mg PO BID #60 tab 10/02/20 furosemide 20 mg tablet See Rx Instructions .ROUTE 11/15/20 .COMPLEX #90 tab Azithromycin [Z-Helio 250mg Tab*] 250 mg PO UD DOSE PK #6 tab 11/18/20 Benzonatate [Tessalon Perle 100mg 100 mg PO TIDP PRN #30 cap 11/18/20 Cap] meth
--- NOTE | 2020-11-18 13:29 | XR_ITS ---
PROCEDURE INFORMATION: Exam: XR Chest Exam date and time: 11/18/2020 1:29 PM Age: 60 years old Clinical indication: Patient HX: Smoker, h/o copd. C/O cough and SOB; Additional info: Cough, short of breath TECHNIQUE: Imaging protocol: XR of the chest. Views: 2 views. COMPARISON: CR XR CHEST 2V 09/17/2020 10:56 AM FINDINGS: Lungs: The lungs are hyperinflated, consistent with underlying small airways disease. Atelectatic changes within the lung bases without focal pneumonia. Pleural spaces: Unremarkable. No pleural effusion. No pneumothorax. Heart/Mediastinum: Unremarkable. No cardiomegaly. Bones/joints: Unremarkable. IMPRESSION: 1. The lungs are hyperinflated, consistent with underlying small airways disease. 2. Atelectatic changes within the lung bases without focal pneumonia.
[2020-11-18 14:12] VITALS: BP 142/89; PULSE 81; RESP 22; TEMP 36.7; O2SAT 99
== END 2020-11-18 14:25 | disposition home or self-care (01) ==
PROVIDERS: Emergency Provider Nurse Practitioner Family; PCP Family Medicine
DX: J44.1 Chronic obstructive pulmonary disease with (acute) exacerbation (principal); E78.5 Hyperlipidemia, unspecified; I10 Essential (primary) hypertension; F41.9 Anxiety disorder, unspecified; F17.210 Nicotine dependence, cigarettes, uncomplicated; Z79.899 Other long term (current) drug therapy
CPT/HCPCS: 71046; 96372; 99202; G0463

== ENCOUNTER → 2021-05-09 16:25 | Outpatient (CLI) | payer OTHER, SELFPAY ==
[2021-05-09 17:29] LABS: Basophils # 0.1 K/mm3 (0-0.2); Basophils % 1.3 % (0.1-2.0); Eosinophils # 0.2 K/mm3 (0.0-0.4); Eosinophils % 2.1 % (0.1-12.0); Hematocrit 41.7 % (37.0-47.0); Hemoglobin 14.1 g/dL (12.2-16.2); Lymphocytes % 31.4 % (10-50); Mean Corpuscular HGB Conc 33.9 g/dL (31.8-35.4); Mean Corpuscular Hemoglobin 31.4 pg (27.0-31.2); Mean Corpuscular Volume 92.6 fl (81-99); Mean Platelet Volume 8.3 fl (7.4-10.4); Monocytes # 0.6 K/mm3 (0.1-1.0); Neutrophils # 5.7 K/mm3 (1.8-7.8); Neutrophils % 59.2 % (37.0-80.0); Platelet Count 348 K/mm3 (142-424); Red Blood Count 4.51 M/mm3 (4.20-5.40); Red Cell Distribution Width 13.6 % (11.5-17.5); White Blood Count 9.6 K/mm3 (4.8-10.8)
[2021-05-09 17:42] LABS: Anion Gap 11.6 mEq/L (5-15); Blood Urea Nitrogen 9 mg/dl (7-17); Calcium 9.5 mg/dl (8.4-10.2); Carbon Dioxide 27 mmol/L (22.0-30.0); Chloride 106 mmol/L (98-107); Estimated Glomerular Filt Rate 73 ml/min (>60); GFR (African American) 89 ML/MIN (>60); Glucose 92 mg/dl (74-100); Potassium 4.6 mmoL/L (3.5-5.1); Sodium 140 mmol/L (136-145)
== END ==
PROVIDERS: Visit Provider Internal Medicine
DX: Z01.812 Encounter for preprocedural laboratory examination (principal); Z11.52 Encounter for screening for COVID-19; R06.02 Shortness of breath; I20.8 Other forms of angina pectoris; R94.31 Abnormal electrocardiogram [ECG] [EKG]; I11.9 Hypertensive heart disease without heart failure; E78.2 Mixed hyperlipidemia; I63.9 Cerebral infarction, unspecified; K21.9 Gastro-esophageal reflux disease without esophagitis; F17.200 Nicotine dependence, unspecified, uncomplicated
CPT/HCPCS: 36415; 80048; 85025; C9803; U0003; U0005

== ENCOUNTER 2021-05-12 06:47 | Day surgery (SDC) | payer OTHER, SELFPAY ==
[2021-05-12] VITALS (11 sets, daily range): BP systolic 142–190; BP diastolic 74–102; PULSE 63–71; RESP 12–18; TEMP 36.8; O2SAT 93–100; BMI 22.3
--- NOTE | 2021-05-12 07:08 | IR_ITS ---
APPROVED REPORT Patient Location: Outpatient Dolly Driver: KARLA Echols RT (R) PROCEDURES Left heart catheterization Left ventriculogram Selective coronary angiogram INDICATION History of left main artery stenting, Known multivessel coronary artery disease, Progressive angina pectoris Informed consent was obtained prior to the procedure. COMPLICATIONS None Estimated Blood Loss: less than 10 mls TECHNIQUE One percent lidocaine was used to anesthetize the right groin. The right femoral artery was accessed via the Seldinger technique. A 4-[place] sheath was placed in the right femoral artery. The JL-4 and JR-4 catheter was also used to perform left heart catheterization left ventriculogram and selective coronary angiogram. At the end of the procedure the patient was transferred to the post-op holding area in stable condition for arterial sheath removal. ANGIOGRAPHIC RESULTS The left main artery Has a stent in the ostial proximal segment which is widely patent free of in-stent restenosis with excellent proximal and distal transitioning The left anterior descending artery Has proximal smooth 10 to 20% stenosis with mild 10% diffuse luminal irregularities. Gives rise to a large bifurcating first diagonal artery which is widely patent The circumflex artery Is nondominant and has mild 10% luminal irregularities The right coronary artery Is a dominant vessel and has a stent in the mid segment which is widely patent with minimal smooth in-stent restenosis of approximately 10%. The distal vessel is widely patent The PERRY ventriculogram reveals Normal 65% The left ventricular end-diastolic pressure Elevated at 30 mmHg IMPRESSION Widely patent left main artery stent as described above is well is a widely patent mid dominant right coronary stent Normal ejection fraction Severely elevated LVEDP consistent with diastolic dysfunction which is almost certainly the etiology for patient's angina PLAN 1. Avoidance of pop and soft drinks 2. Treatment of diastolic dysfunction 3. Standard therapy for ischemic heart disease 4. Risk factor modification 5. Evaluation for obstructive sleep apnea Electronically signed by : Cristóbal Carr MD 05/12/2021 11:11:11
== END 2021-05-12 14:13 | disposition home or self-care (01) ==
LOC: CATHLAB 06:50
PROVIDERS: PCP Family Medicine; Visit Provider Internal Medicine
DX: I11.9 Hypertensive heart disease without heart failure (principal); I25.110 Atherosclerotic heart disease of native coronary artery with unstable angina pectoris; E78.2 Mixed hyperlipidemia; F17.210 Nicotine dependence, cigarettes, uncomplicated; K21.9 Gastro-esophageal reflux disease without esophagitis; R06.02 Shortness of breath; R94.31 Abnormal electrocardiogram [ECG] [EKG]; Z79.899 Other long term (current) drug therapy
CPT/HCPCS: 93458; 99152; C1725; C1769; J1644; Q9967

== ENCOUNTER → 2021-06-06 13:33 | Outpatient (CLI) | payer OTHER, SELFPAY ==
[2021-06-06 15:20] LABS: Anion Gap 11.3 mEq/L (5-15); Blood Urea Nitrogen 10 mg/dl (7-17); Calcium 9.7 mg/dl (8.4-10.2); Carbon Dioxide 27 mmol/L (22.0-30.0); Chloride 102 mmol/L (98-107); Estimated Glomerular Filt Rate 85 ml/min (>60); GFR (African American) 103 ML/MIN (>60); Glucose 88 mg/dl (74-100); Potassium 4.3 mmoL/L (3.5-5.1); Sodium 136 mmol/L (136-145)
== END ==
PROVIDERS: Urology; Visit Provider Internal Medicine
DX: R06.02 Shortness of breath (principal); R07.89 Other chest pain; I25.10 Atherosclerotic heart disease of native coronary artery without angina pectoris; I11.9 Hypertensive heart disease without heart failure; R94.31 Abnormal electrocardiogram [ECG] [EKG]; E78.2 Mixed hyperlipidemia; F17.200 Nicotine dependence, unspecified, uncomplicated; I51.89 Other ill-defined heart diseases; K21.9 Gastro-esophageal reflux disease without esophagitis
CPT/HCPCS: 36415; 80048

== ENCOUNTER → 2021-06-25 12:54 | Outpatient (CLI) | payer OTHER, SELFPAY ==
[2021-06-25 14:28] LABS: Anion Gap 10.1 mEq/L (5-15); Blood Urea Nitrogen 6 mg/dl (7-17); Calcium 9.2 mg/dl (8.4-10.2); Carbon Dioxide 30 mmol/L (22.0-30.0); Chloride 104 mmol/L (98-107); Estimated Glomerular Filt Rate 85 ml/min (>60); GFR (African American) 103 ML/MIN (>60); Glucose 100 mg/dl (74-100); Potassium 4.1 mmoL/L (3.5-5.1); Sodium 140 mmol/L (136-145)
== END ==
PROVIDERS: Visit Provider Physician Assistant
DX: I25.10 Atherosclerotic heart disease of native coronary artery without angina pectoris (principal); R06.02 Shortness of breath; R07.89 Other chest pain; I11.9 Hypertensive heart disease without heart failure; E78.5 Hyperlipidemia, unspecified; K21.9 Gastro-esophageal reflux disease without esophagitis; F17.200 Nicotine dependence, unspecified, uncomplicated
CPT/HCPCS: 36415; 80048

== ENCOUNTER 2021-08-31 14:13 | Emergency (ER) | payer OTHER, SELFPAY ==
[2021-08-31 15:14] VITALS: BP 157/82; PULSE 80; RESP 16; TEMP 36.8; O2SAT 96; BMI 22.8
--- NOTE | 2021-08-31 15:50 | HMH.EDUTC ---
[facility] – [place] Disposition Clinical Impression: TMJ (temporomandibular joint syndrome) Disposition: Home, Self-Care Condition on Discharge: Good Instructions: TMJ Syndrome (Alternative Therapy), Tension Headache, DI for Temporomandibular Disorder Additional Instructions: Take medication as prescribed FOllow up with Family Doctor if no improvement or any worsening of symptoms Follow up with ENT if pain in ear persists and dentist if you still continued to have TMJ pain Return if needed Straight to ER if any life threatening symptoms Prescriptions: Baclofen 5 mg PO TID PRN #15 tab PRN Reason: Muscle Spasm Transmission Status: Received by [id number] Referrals: Celeste Vazquez [Primary Care Provider] - Mannie Rodrigez MD [Physician] - Romeo Vides MD [Physician] - Time of Disposition: 16:31 Medical Decision Making - Kael Inquiry Pt receiving controlled substance: No Kael was queried for this patient: No Vital Signs: 08/31/21 15:14 08/31/21 16:37 Temperature 98.2 F 98.2 F Temperature Source Oral Pulse Rate 80 Pulse Rate [Left] 80 Respiratory Rate 16 16 Blood Pressure 157/82 H Blood Pressure [Right Arm] 157/82 H Blood Pressure Mean [Right Arm] 107 02 Sat by Pulse Oximetry 96 [facility] [place] HPI - General Stated complaint: lt ear/jaw pain Time Seen by Provider: 08/31/21 15:50 Mode of Arrival: Ambulatory Source of Information: Patient Limitations: No Limitations Description of Symptoms (Recalled from Triage Doc. by RN): pt c/o bilateral ear aches (L worse) radiating into her jaws and a BENJAMIN. x2 days HEENT Symptoms (Recalled from RN notes): Yes Resp Symptoms (Recalled from RN notes): No Skin Symptoms (Recalled from RN notes): No MS Symptoms (Recalled from RN notes): No Functional Status (Recalled from RN notes): wnl - History of Present Illness Provider Complaint: Patient states that she has been having muscle spasms in her neck and having tension headaches State that for the last couple of days she has been having bilateral ear pain and hurts around her ears when she opens her mouth pain shoots into both ears, State that she has been gritting her teeth where she is having pain in her neck/shoulders and not sure if that may have something to do with it or not but area under her ears are sore and hurt when she - Related Data Home Medications Medication Instructions Recorded Confirmed Aspirin [Aspir 81] 81 mg PO DAILY 10/14/17 07/08/21 Pantoprazole Sodium [Protonix 40mg 40 mg PO DAILY 10/14/17 07/08/21 tablet] alprazolam 0.25 mg tablet 0.25 mg PO BID PRN 04/26/18 07/08/21 bupropion HCl 150 mg 24 hr tablet, 150 mg PO DAILY tab 10/31/19 07/08/21 extended release montelukast 10 mg tablet 10 mg PO DAILY tab 10/31/19 07/08/21 sumatriptan succinate 50 mg tablet 50 mg PO Q2H PRN tab 10/31/19 07/08/21 clopidogrel 75 mg tablet 75 mg PO DAILY tab 10/14/20 07/08/21 Atorvastatin Calcium [Lipitor 40mg 40 mg PO DAILY 05/12/21 07/08/21 Tab] Ranolazine [Ranexa] 1,000 mg PO BID 05/12/21 07/08/21 Previous Rx's Medication Instructions Recorded spironolactone 50 mg tablet 50 mg PO DAILY #30 tab 05/26/21 metoprolol succinate 100 mg 100 mg PO DAILY #90 tab 06/10/21 tablet,extended release 24 hr amlodipine 10 mg tablet 10 mg PO BID #60 tab 07/08/21 losartan 100 mg tablet 100 mg PO DAILY #30 tab 07/08/21 furosemide 40 mg tablet See Rx Instructions .ROUTE 08/13/21 .COMPLEX #90 tab Baclofen 5 mg PO TID PRN #15 tab 08/31/21 Allergies Allergy/AdvReac Type Severity Reaction Status Date / Time No Known Allergies Allergy Verified 07/08/21 09:51 - Worker's Comp Is this a Worker's Comp case?: No H History - Hepatitis A Screen Drug use history?: No High risk sexual behaviors?: No History of sexually transmitted infection?: No Currently employed?: No Childcare worker?: No Do you have indoor plumbing?: Yes Do you have electricity?: Yes Attestation statement:: This
[2021-08-31 16:37] VITALS: BP 157/82; PULSE 80; RESP 16; TEMP 36.8
== END 2021-08-31 16:40 | disposition home or self-care (01) ==
PROVIDERS: Emergency Provider Nurse Practitioner; PCP Family Medicine
DX: M26.602 Left temporomandibular joint disorder, unspecified (principal); I10 Essential (primary) hypertension; E78.5 Hyperlipidemia, unspecified; F17.210 Nicotine dependence, cigarettes, uncomplicated; Z79.899 Other long term (current) drug therapy
CPT/HCPCS: 99213; G0463

== ENCOUNTER 2021-11-22 12:43 | Emergency (ER) | payer OTHER, SELFPAY ==
--- NOTE | 2021-11-22 12:46 | XR_ITS ---
PROCEDURE INFORMATION: Exam: XR Left Shoulder Exam date and time: 11/22/2021 12:55 PM Age: 61 years old Clinical indication: Pain and injury or trauma; Fall; Sprain or strain; Arm, lower and arm, upper; Upper arm; Injury date: 11/21/2021; Injury details: The PT fell down a ramp and tried to catch herself with her left arm. TECHNIQUE: Imaging protocol: XR Left shoulder. Views: 2 or more views. COMPARISON: CR XR HUMERUS LT 11/22/2021 12:52 PM FINDINGS: Bones/joints: Lateral down angulation of the acromion with respect to the humeral head. No evidence of acute osseous injury. Soft tissues: Normal. IMPRESSION: No evidence of acute osseous injury.
--- NOTE | 2021-11-22 12:46 | XR_ITS ---
PROCEDURE INFORMATION: Exam: XR Left Humerus Exam date and time: 11/22/2021 12:52 PM Age: 61 years old Clinical indication: Injury or trauma; Fall; Sprain or strain; Arm, lower and arm, upper; Injury date: 11/21/2021; Injury details: The PT fell down a ramp and tried to catch herself with her left arm. TECHNIQUE: Imaging protocol: XR Left humerus. Views: 2 or more views. COMPARISON: CR XR CHEST 2V 11/18/2020 1:41 PM FINDINGS: Bones/joints: Lateral down angulation of the acromion with respect to the humeral head. Soft tissues: Normal. IMPRESSION: 1. No evidence of acute osseous injury. 2. Potential for mild impingement mechanism.
[2021-11-22 12:56] VITALS: PULSE 85; RESP 17; TEMP 37.2; O2SAT 98; BMI 23.8
--- NOTE | 2021-11-22 13:18 | HMH.EDUTC ---
[facility] [place] Clinical Impression: Injury of left shoulder and upper arm Qualifiers: Encounter type: initial encounter Qualified Code(s): S49.92XA - Unspecified injury of left shoulder and upper arm, initial encounter Disposition: Home, Self-Care Condition on Discharge: Good Instructions: DI for Shoulder Pain Additional Instructions: Ice, gentle movements, meds as needed Follow up with PCP if no improvements. Xrays were negative for fracture, but may need MRI to rule out tear if still painful. Referrals: Celeste Vazquez [Primary Care Provider] - Forms: Work/School Release Time of Disposition: 13:45 Medical Decision Making - Kael Inquiry Pt receiving controlled substance: No Vital Signs: 11/22/21 12:56 Temperature 98.9 F Temperature Source Oral Pulse Rate [Left Radial] 85 Respiratory Rate 17 02 Sat by Pulse Oximetry 98 - Radiology Data #1 Image(s): Shoulder Image Reviewed: Yes I have reviewed radiologist's interpretation Preliminary Findings: Normal/NAD, No Fracture Seen PROCEDURE INFORMATION: Exam: XR Left Shoulder Exam date and time: 11/22/2021 12:55 PM Age: 61 years old Clinical indication: Pain and injury or trauma; Fall; Sprain or strain; Arm, lower and arm, upper; Upper arm; Injury date: 11/21/2021; Injury details: The PT fell down a ramp and tried to catch herself with her left arm. TECHNIQUE: Imaging protocol: XR Left shoulder. Views: 2 or more views. COMPARISON: CR XR HUMERUS LT 11/22/2021 12:52 PM FINDINGS: Bones/joints: Lateral down angulation of the acromion with respect to the humeral head. No evidence of acute osseous injury. Soft tissues: Normal. IMPRESSION: No evidence of acute osseous injury. #2 Image(s): Humerus Image Reviewed: Yes I have reviewed radiologist's interpretation Preliminary Findings: Normal/NAD, No Fracture Seen PROCEDURE INFORMATION: Exam: XR Left Humerus Exam date and time: 11/22/2021 12:52 PM Age: 61 years old Clinical indication: Injury or trauma; Fall; Sprain or strain; Arm, lower and arm, upper; Injury date: 11/21/2021; Injury details: The PT fell down a ramp and tried to catch herself with her left arm. TECHNIQUE: Imaging protocol: XR Left humerus. Views: 2 or more views. COMPARISON: CR XR CHEST 2V 11/18/2020 1:41 PM FINDINGS: Bones/joints: Lateral down angulation of the acromion with respect to the humeral head. Soft tissues: Normal. IMPRESSION: 1. No evidence of acute osseous injury. 2. Potential for mild impingement mechanism. [facility] [place] HPI - General Stated complaint: ao fall 11/21, left arm/shoulder pain Time Seen by Provider: 11/22/21 13:19 Source of Information: Patient Description of Symptoms (Recalled from Triage Doc. by RN): patient comes in today for left arm pain. patient fell over a yellow parking block last night. patient complains of pain in her left shoulder and humerus. HEENT Symptoms (Recalled from RN notes): No Resp Symptoms (Recalled from RN notes): No Skin Symptoms (Recalled from RN notes): No MS Symptoms (Recalled from RN notes): Yes Functional Status (Recalled from RN notes): wnl - History of Present Illness Provider Complaint: Patient was walking down a ramp last night, tripped, and landed on a concrete parking barrier. She isn't sure if she put her arm out to break her fall or not. She iced it last night and hoped it would feel better this morning. She is still having pain in her left shoulder. She is able to move it, but it is painful. No numbness or tingling in her hand. Onset (ago): day(s) (1) Location: left, upper extremity Radiation: non-radiation Relieving factors: none Exacerbating factors: none Associated symptoms: denies other symptoms Treatments prior to arrival: cold therapy - Related Data Home Medications
[2021-11-22 14:04] VITALS: BP 0/0; PULSE 85; RESP 17; TEMP 37.2
== END 2021-11-22 14:05 | disposition home or self-care (01) ==
PROVIDERS: Emergency Provider Physician Assistant; PCP Family Medicine
DX: S49.92XA Unspecified injury of left shoulder and upper arm, initial encounter (principal); I11.0 Hypertensive heart disease with heart failure; I50.9 Heart failure, unspecified; K21.9 Gastro-esophageal reflux disease without esophagitis; M25.50 Pain in unspecified joint; E78.5 Hyperlipidemia, unspecified; F41.9 Anxiety disorder, unspecified; Z79.02 Long term (current) use of antithrombotics/antiplatelets; Z79.82 Long term (current) use of aspirin; Z79.899 Other long term (current) drug therapy; Z82.49 Family history of ischemic heart disease and other diseases of the circulatory system; Z80.9 Family history of malignant neoplasm, unspecified; W01.198A Fall on same level from slipping, tripping and stumbling with subsequent striking against other object, initial encounter; Y92.481 Parking lot as the place of occurrence of the external cause
CPT/HCPCS: 73030; 73060; 99213; G0463

== ENCOUNTER 2022-02-10 12:33 | Emergency (ER) | payer OTHER, SELFPAY ==
[2022-02-10] VITALS (14 sets, daily range): BP systolic 169–193; BP diastolic 80–102; PULSE 72–87; RESP 16–18; TEMP 36.6–36.7; O2SAT 96–100; BMI 23.8; BMI 22.3
--- NOTE | 2022-02-10 12:31 | ECG_ITS ---
APPROVED REPORT Exam: Resting ECG HR:88 bpm ECG Measurements Heart Rate 88 AXES ME 116 P 55 QRSd 86 QRS 61 QT 361 T 26 QTc 407 Conclusion SINUS RHYTHM WITH SHORT ME INTERVAL POSSIBLE RIGHT VENTRICULAR CONDUCTION DELAY [RSR (QR) IN V1/V2] BORDERLINE ECG UNCONFIRMED REPORT Electronically signed by : Parish Floyd MD 02/10/2022 21:20:51
--- NOTE | 2022-02-10 13:00 | [facility]H.EDCP ---
ED Disposition Clinical Impression: Dizziness Chest pain Qualifiers: Chest pain type: unspecified Qualified Code(s): R07.9 - Chest pain, unspecified Disposition: Admitted As Inpatient Condition on Discharge: Fair Referrals: Provider,ReferralMD [Referring] - - Critical Care Critical Care Time: No Attestation: On 02/10/22, the high probability of a clinically significant, sudden or life threatening deterioration of the following system(s) required my full and direct attention, intervention and personal management. The time I documented below is in addition to time spent performing reported procedures but includes the following listed in this critical care notation. Medical Decision Making - Medical Records Medical records reviewed: Yes: I reviewed the patient's medical records. - Kael Inquiry Pt receiving controlled substance: No Vital Signs: 02/10/22 12:35 02/10/22 13:00 02/10/22 13:30 Temperature 98.1 F Temperature Source Oral Pulse Rate 84 81 Pulse Rate [Left Radial] 86 Respiratory Rate 18 18 18 Blood Pressure 179/95 H 181/94 H Blood Pressure [Right Arm] 169/86 H Blood Pressure Mean 116 124 Blood Pressure Mean [Right Arm] 113 Blood Pressure Source [Right Arm] Automatic Cuff Blood Pressure Position [Right Arm] Sitting 02 Sat by Pulse Oximetry 98 98 97 Oxygen Delivery Method Room Air 02/10/22 14:00 02/10/22 14:30 02/10/22 15:00 Temperature Temperature Source Pulse Rate 77 78 74 Pulse Rate [Left Radial] Respiratory Rate 18 18 18 Blood Pressure 171/85 H 181/90 H 191/90 H Blood Pressure [Right Arm] Blood Pressure Mean 113 112 117 Blood Pressure Mean [Right Arm] Blood Pressure Source [Right Arm] Blood Pressure Position [Right Arm] 02 Sat by Pulse Oximetry 99 100 100 Oxygen Delivery Method 02/10/22 15:30 02/10/22 16:00 02/10/22 16:30 Temperature Temperature Source Pulse Rate 73 78 77 Pulse Rate [Left Radial] Respiratory Rate 18 18 18 Blood Pressure 187/88 H 181/87 H 170/80 H Blood Pressure [Right Arm] Blood Pressure Mean 123 118 108 Blood Pressure Mean [Right Arm] Blood Pressure Source [Right Arm] Blood Pressure Position [Right Arm] 02 Sat by Pulse Oximetry 98 96 99 Oxygen Delivery Method - Lab Data Lab Results 02/10/22 12:40: WBC 10.7, RBC 4.91, Hgb 14.7, Hct 45.4, MCV 92.4, MCH 29.9, MCHC 32.3, RDW 13.6, Plt Count 344, MPV 9.5, Neut % (Auto) 60.2, Lymph % (Auto) 28.8, Toombs % (Auto) 7.5, Eos % (Auto) 2.0, Baso % (Auto) 1.5, Neut # (Auto) 6.4, Lymph # (Auto) 3.1, Toombs # (Auto) 0.8, Eos # (Auto) 0.2, Baso # (Auto) 0.2 02/10/22 12:40: Sodium 139, Potassium 3.7, Chloride 107, Carbon Dioxide 23, Anion Gap 12.7, BUN 5 L, Creatinine 0.70, Estimated Creat Clear 55, Estimated GFR 85, Est GFR ( Amer) 103, Glucose 112 H, Calcium 9.7, Troponin I < 0.01 Result diagrams: 02/10/22 12:40 02/10/22 12:40 Orders (Tests/Meds): ED MEDICATIONS Discontinued Medications Generic Name Dose Route Start Last Admin Trade Name Pato PRN Reason Stop Dose Admin Diazepam 2 mg 02/10/22 14:29 02/10/22 15:25 Diazepam 2mg Tablet PO 02/10/22 14:30 2 mg ONCE ONE Administration ORDERS Category Date Time Status Rapid PCR Covid and Flu A/B Stat Lab 02/10/22 16:48 Ordered Troponin I Q3H Lab 02/10/22 16:40 Received Troponin I Q3H Lab 02/10/22 19:30 Ordered Chest Pain HPI - General Chief Complaint: Chest Pain Stated Complaint: Chest Pain Time Seen by Provider: 02/10/22 13:00 Mode of Arrival: Ambulatory Limitations: No Limitations Description of Symptoms (Recalled from ER Triage Doc. by RN): c/o chest pain off and on for a week, states she almost passed out last night at work. - History of Present Illness HPI narrative: Patient presents complaining of episodic dizziness. She had an episode yesterday evening as well as again today. Symptoms lasted several minutes before subsiding spontaneously. S
--- NOTE | 2022-02-10 13:22 | XR_ITS ---
FINAL REPORT CLINICAL HISTORY: chest pain COMPARISON: November 18, 2020 FINDINGS: The heart size is normal. The mediastinum is normal. There is minimal scarring at the left lung base. There are no pleural effusions. There is no pneumothorax. There is no osseous abnormality. IMPRESSION: Minimal scarring at the left lung base. Reviewed, Interpreted and Dictated by Nacho Vila MD Transcribed by Kim Bean Authenticated and . [facility]
[2022-02-10 13:31] LABS: Basophils # 0.2 K/mm3 (0-0.2); Basophils % 1.5 % (0.1-2.0); Eosinophils # 0.2 K/mm3 (0.0-0.4); Hematocrit 45.4 % (37.0-47.0); Hemoglobin 14.7 g/dL (12.2-16.2); Lymphocytes # 3.1 K/mm3 (0.7-4.5); Lymphocytes % 28.8 % (10-50); Mean Corpuscular HGB Conc 32.3 g/dL (31.8-35.4); Mean Corpuscular Hemoglobin 29.9 pg (27.0-31.2); Mean Corpuscular Volume 92.4 fl (81-99); Mean Platelet Volume 9.5 fl (7.4-10.4); Monocytes # 0.8 K/mm3 (0.1-1.0); Monocytes % 7.5 % (1.7-9.3); Neutrophils # 6.4 K/mm3 (1.8-7.8); Neutrophils % 60.2 % (37.0-80.0); Platelet Count 344 K/mm3 (142-424); Red Blood Count 4.91 M/mm3 (4.20-5.40); Red Cell Distribution Width 13.6 % (11.5-17.5); White Blood Count 10.7 K/mm3 (4.8-10.8)
[2022-02-10 13:40] LABS: Anion Gap 12.7 mEq/L (5-15); Blood Urea Nitrogen 5 mg/dl (7-17); Calcium 9.7 mg/dl (8.4-10.2); Carbon Dioxide 23 mmol/L (22.0-30.0); Chloride 107 mmol/L (98-107); Creatinine Clearance Estimated 55 mL/min (50-200); Estimated Glomerular Filt Rate 85 ml/min (>60); GFR (African American) 103 ML/MIN (>60); Glucose 112 mg/dl (74-100); Potassium 3.7 mmoL/L (3.5-5.1); Sodium 139 mmol/L (136-145)
[2022-02-10 14:00] LABS: Troponin I < 0.01 ng/ml (0.00-0.034)
--- NOTE | 2022-02-10 14:26 | CT_ITS ---
FINAL REPORT CLINICAL HISTORY: dizzy FINDINGS: Axial images of the head were obtained without contrast. Coronal reformatted images were also obtained. This study was performed with techniques to keep radiation doses as low as reasonably achievable (ALARA). Individualized dose reduction techniques using automated exposure control or adjustment of mA and/or kV according to the patient's size were employed. There is mild atrophy. There is mild patchy decreased attenuation in the deep white matter which is greater than expected for patient's age. There is no evidence of intracranial hemorrhage or mass. There is no evidence of acute infarct. There is no evidence of shift of the midline structures. No skull abnormality is seen on the bone window images. IMPRESSION: Decreased attenuation in the deep white matter, greater than expected for patient's age. Recommend pre and post brain MRI. Reviewed, Interpreted and Dictated by Nacho Vila MD Transcribed by Hope Erickson Authenticated and [facility]
--- NOTE | 2022-02-10 16:48 | PC.NURSE ---
MAMI BEATTY on phone zhao j[facility]ston admit
--- NOTE | 2022-02-10 16:59 | PC.NURSE ---
obtained nasal swab on pt
[2022-02-10 17:04] LABS: Coronavirus 19, PCR Not Detected (NotDetected); Influenza A, PCR Not Detected (NotDetected); Influenza B, PCR Not Detected (NotDetected)
[2022-02-10 17:23] LABS: Troponin I < 0.01 ng/ml (0.00-0.034)
--- NOTE | 2022-02-10 18:52 | PC.NURSE ---
report called to floor
[2022-02-10 20:22] LABS: Troponin I < 0.01 ng/ml (0.00-0.034)
--- NOTE | 2022-02-10 21:53 | PC.NURSE ---
when doing assessment, pt decided to leave AMA, admission not completed due to this
== END 2022-02-10 19:17 | disposition admitted as inpatient to this hospital (09) ==
LOC: ER 16:56 → 2ND 18:42
PROVIDERS: Emergency Provider Emergency Medicine; PCP Family Medicine; Visit Provider Emergency Medicine
DX: R07.9 Chest pain, unspecified (principal); E78.5 Hyperlipidemia, unspecified; F17.210 Nicotine dependence, cigarettes, uncomplicated; I25.10 Atherosclerotic heart disease of native coronary artery without angina pectoris; I10 Essential (primary) hypertension; Z79.899 Other long term (current) drug therapy; Z95.5 Presence of coronary angioplasty implant and graft; Z20.822 Contact with and (suspected) exposure to COVID-19; R42 Dizziness and giddiness
CPT/HCPCS: 36415; 70450; 71045; 80048; 84484; 85025; 93005; 99284; C9803; G0378; U0003; U0005

== ENCOUNTER → 2022-02-12 09:38 | Outpatient (CLI) | payer OTHER, SELFPAY | PROVIDERS: Visit Provider Nurse Practitioner | DX: R42 Dizziness and giddiness (principal); R55 Syncope and collapse | CPT/HCPCS: 93270 ==

== ENCOUNTER → 2022-02-17 07:50 | Outpatient (CLI) | payer OTHER, SELFPAY ==
--- NOTE | 2022-02-17 07:51 | CA_ITS ---
FINAL REPORT TECHNIQUE: Color Doppler, duplex Doppler and caal scale sonography of the bilateral neck arterial vasculature was performed. Velocities were measured in the carotid arteries. Stenosis evaluation based on the validated velocity criteria. CLINICAL HISTORY: DIZZINESS,HTN,DM,SMOKER,HLD FINDINGS: The peak systolic velocity of the right common carotid artery is 77 cm/s. The peak systolic velocity of the right internal carotid artery is 96 cm/s and end diastolic velocity 12 cm/s. The ICA/CCA ratio is 1.32. A mild amount of plaque is present. The right external carotid artery is patent. The right vertebral artery is patent with antegrade flow. The peak systolic velocity of the left common carotid artery is 92 cm/s. The peak systolic velocity of the left internal carotid artery is 85 cm/s and end diastolic velocity 28 cm/s. The ICA/CCA ratio is 1.11. A mild amount of plaque is present. The left external carotid artery is patent.The left vertebral artery is patent with antegrade flow. IMPRESSION: Less than 50% bilateral carotid stenosis. Bilateral patent vertebral arteries with antegrade flow. If indicated, CTA or MRA could further evaluate. Reviewed, Interpreted and Dictated by Frandy Bui III, MD Transcribed by Ashley Patel Authenticated and . [facility]
--- NOTE | 2022-02-17 07:51 | CA_ITS ---
APPROVED REPORT EXAM: Comprehensive 2D, Doppler, and color-flow Echocardiogram Chairman And Ceo: Lara Maynard CRT Ht: 5 ft 2 in Wt: 125lbs BSA: 1.57 BP: 168/83 mmHg Indications: Shortness of Breath, Peripheral Edema, Hyperlipidemia, smoker,stents 2D Dimensions LVOT 2.02 cm (M/F) 1.5-2.5 LA Volume 25.40 mL LA Volume Index 16.20 mL/m2 (M/F) 16-34 M-Mode Dimensions RVDd 2.25 cm (0.9-2.6) LA Diam 2.78 cm (1.9-4.0) LVDd 4.54 cm (3.5-5.7) Ao Diam 3.73 cm (2.0-3.7) LVDs 3.29 cm (3.5-5.7) IVSd 1.40 cm (0.6-1.1) PWd 0.79 cm (0.6-1.1) EF (Teich) 53.60% FS 27.50% EDV (Teich) 94.40 mL TAPSE 1.43 (<1.7) ESV (Teich) 43.80 mL LV Diastology E Decel Time 247.00 (160-240 msec) E/A Ratio 0.60 MED E' 4.20 (< 7 cm/sec) MED A' 10.80 cm/s E'/MED E' Ratio 12.74 (>14) LAT E' 5.70 (<10 cm/sec) LAT A' 9.80 cm/s E/LAT E' Ratio 9.39 (>14) Aortic Valve AI PHT 458.00 ms AO Peak GR. 6.40 mmHg Mitral Valve MV E Max Mat. 54.00 (40-130 cm/s) MV A Velocity 88.00 (40-130 cm/s) E/A Ratio 0.60 MV Decel. Time 247.00 (160-240 ms) MV PHT 72.00 ms Pulmonary Valve PV Peak Velocity 143.00 (50-150 cm/s) Tricuspid Valve TR P. Velocity 209.00 cm/s RAP Estimate 10.00 mmHg RVSP 27.40 mmHg Left Ventricle Technically difficult study because of the patient factors and poor acoustic windows. Left atrium is mildly enlarged, left ventricle is normal size mild concentric left ventricular hypertrophy, estimated ejection fraction 55% with no regional wall motion abnormality, grade 1 diastolic dysfunction seen without tissue Doppler evidence of raise left atrial pressure. Right Ventricle Right atrium and right ventricle are normal size and contractility. Aortic Valve Aortic valve is thickened and calcified without aortic stenosis, there is mild aortic insufficiency. Mitral Valve Mitral valve is grossly normal, there is trace mitral regurgitation. Tricuspid Valve Tricuspid valve grossly normal, there is trace tricuspid regurgitation, tricuspid regurgitation jet velocity is inadequate for calculation of the right ventricular systolic pressure. Pulmonic Valve Pulmonic valve is poorly visualized. Great Vessels Aortic root is normal size. Inferior vena cava is poorly visualized. Pericardium No significant pericardial effusion noted. Conclusion 1. Mildly enlarged left atrium, normal left ventricular size, mild concentric left ventricular hypertrophy, estimated ejection fraction 55% with no regional wall motion abnormality, grade 1 diastolic dysfunction seen without tissue Doppler evidence of raise left atrial pressure. 2. Mild aortic, trace mitral and tricuspid regurgitation. 3. No significant pericardial effusion. 4. Inferior vena cava is poorly visualized. Electronically signed by : Billy Adkins MD 02/18/2022 07:15:02
--- NOTE | 2022-02-17 07:51 | CA_ITS ---
FINAL REPORT TECHNIQUE: Grayscale, color Doppler and duplex Doppler ultrasound of the kidneys, aorta and renal arteries was performed. Multiple velocities were measured. CLINICAL HISTORY: HTN,SMOKER,DM,HLD FINDINGS: Aorta velocity: 99 cm/sec Right kidney: 10.7 cm. No evidence of hydronephrosis or mass. Right intrarenal RI: 0.68 Right renal artery velocity: 192 cm/sec. Right RAR (Renal artery-Aortic Ratio): 1.94 Left Kidney: 10.1 cm. No evidence of hydronephrosis or mass. Left intrarenal RI: 0.70 Left renal artery velocity: 152 cm/sec. Left RAR (Renal Artery-Aortic Ratio): 1.53 IMPRESSION: No evidence of significant left renal artery stenosis. Less than 60% right renal artery stenosis. CT angiogram or postcontrast MR angiogram would be more sensitive for evaluation of possible renal artery stenosis. Reviewed, Interpreted and Dictated by Frandy Bui III, MD Transcribed by Ashley Patel Authenticated and [facility]
== END ==
PROVIDERS: Visit Provider Nurse Practitioner
DX: R06.09 Other forms of dyspnea (principal); R07.89 Other chest pain; R42 Dizziness and giddiness; R55 Syncope and collapse; I11.9 Hypertensive heart disease without heart failure; E78.2 Mixed hyperlipidemia
CPT/HCPCS: 93306; 93880; 93976

== ENCOUNTER → 2022-03-05 09:21 | Outpatient (CLI) | payer OTHER, SELFPAY ==
[2022-03-05 10:29] LABS: Blood Urea Nitrogen 7 mg/dl (7-17); Calcium 9.3 mg/dl (8.4-10.2); Carbon Dioxide 25 mmol/L (22.0-30.0); Chloride 105 mmol/L (98-107); Estimated Glomerular Filt Rate 85 ml/min (>60); GFR (African American) 103 ML/MIN (>60); Glucose 78 mg/dl (74-100); Sodium 140 mmol/L (136-145)
== END ==
PROVIDERS: PCP Family Medicine; Visit Provider Nurse Practitioner
DX: R06.02 Shortness of breath (principal); R07.89 Other chest pain; I25.10 Atherosclerotic heart disease of native coronary artery without angina pectoris; I11.9 Hypertensive heart disease without heart failure; R94.31 Abnormal electrocardiogram [ECG] [EKG]; E78.2 Mixed hyperlipidemia; I63.9 Cerebral infarction, unspecified; F17.200 Nicotine dependence, unspecified, uncomplicated
CPT/HCPCS: 36415; 80048

== ENCOUNTER 2022-04-25 13:04 | Emergency (ER) | payer OTHER, SELFPAY ==
--- NOTE | 2022-04-25 14:13 | EXP.UTC ---
Discharge Plan Disposition Patient Disposition: Home, Self-Care Condition: Good Prescriptions Prescriptions: New benzonatate [benzonatate] 100 mg capsule 100 mg PO TIDP PRN (Reason: Cough) Qty: 30 0RF methylprednisolone 4 mg Tablets,Dose Pack 4 mg PO DIRECTED Qty: 21 0RF cefdinir 300 mg capsule 300 mg PO BID Qty: 20 0RF No Action montelukast 10 mg tablet 10 mg PO DAILY sumatriptan succinate 50 mg tablet 50 mg PO Q2H PRN (Reason: migraines) ezetimibe 10 mg tablet 10 mg PO DAILY clopidogrel 75 mg tablet 75 mg PO DAILY citalopram 10 mg tablet 10 mg PO DAILY Label Comments: TAKE 1 TABLET BY MOUTH EVERY DAY cyanocobalamin (vitamin B-12) 1,000 mcg tablet 1,000 mcg PO DAILY cyanocobalamin (vitamin B-12) 1,000 mcg/mL solution 1,000 mcg SQ WEEKLY Label Comments: INJECT 1 ML INTO THE MUSCLE ONCE A WEEK FOR 30 DAYS. cholecalciferol (vitamin D3) 125 mcg (5,000 unit) tablet 125 mcg PO DAILY Label Comments: TAKE 1 TABLET BY MOUTH EVERY DAY valsartan 320 mg tablet 320 mg PO DAILY Qty: 30 5RF furosemide 40 mg tablet 40 mg PO DAILY Qty: 90 3RF Rx Instructions: TAKE 1 TABLET BY MOUTH EVERY DAY amlodipine 10 mg tablet 10 mg PO DAILY Qty: 30 5RF Rx Instructions: TAKE ONE TABLET BY MOUTH TWICE DAILY aspirin 81 MG tablet,delayed release (DR/EC) 81 mg PO DAILY pantoprazole 40 MG tablet,delayed release (DR/EC) 40 mg PO DAILY alprazolam 0.25 mg tablet 0.25 mg PO BID PRN (Reason: Anxiety) atorvastatin 40 MG tablet 40 mg PO DAILY ranolazine 1,000 MG tablet extended release 12 hr 1,000 mg PO BID metoprolol succinate 100 MG tablet extended release 24 hr 100 mg PO DAILY spironolactone 50 MG tablet 50 mg PO DAILY Referrals Follow up/Referrals: Provider,Referral, MD [Primary Care Provider] - See instructions Activity Restrictions/Add. Instructions Additional Instructions/Restrictions: Drink plenty of fluids. Take tylenol or ibuprofen for pain or fever. Take the medications as directed. Follow up with your regular doctor. GO TO THE ER FOR ANY WORSENING SYMPTOMS Don't start the oral steroids until tomorrow, since you had the shot here today. Clinical Impressions Clinical Impression: COPD exacerbation Stand Alone Forms Stand Alone Forms: Work/School Release Instructions Patient Instructions: Chronic Obstructive Pulmonary Disease Discharge ED [place]as [place] [facility] [place] Stated complaint: Cough,Whezzing,Congestion Time Seen by Provider: 04/25/22 14:13 History of Present Illness Provider Complaint: She states that she has been sick for the past 3 weeks. She has had a cough, chest congestion and sinus congestion. She took an antibiotic and pack of steroids that she finished about 4 days ago with no improvement in her cough or other symptoms. Related Data Home Medications Medication Instructions Recorded Confirmed aspirin 81 mg tablet,delayed 81 mg PO DAILY heart health 10/14/17 03/05/22 release pantoprazole 40 mg tablet,delayed 40 mg PO DAILY GERD 10/14/17 03/05/22 release alprazolam 0.25 mg tablet 0.25 mg PO BID PRN Anxiety 04/26/18 03/05/22 montelukast 10 mg tablet 10 mg PO DAILY COPD 10/31/19 03/05/22 sumatriptan succinate 50 mg tablet 50 mg PO Q2H PRN migraines 10/31/19 03/05/22 clopidogrel 75 mg tablet 75 mg PO DAILY antiplatelet 10/14/20 03/05/22 atorvastatin 40 mg tablet 40 mg PO DAILY Cholesterol 05/12/21 03/05/22 ranolazine 1,000 mg 1,000 mg PO BID Chest pain 05/12/21 03/05/22 tablet,extended release,12 hr metoprolol succinate 100 mg 100 mg PO DAILY High blood pressure 02/10/22 03/05/22 tablet,extended release 24 hr spironolactone 50 mg tablet 50 mg PO DAILY Edema 02/10/22 03/05/22 cholecalciferol (vitamin D3) 125 125 mcg PO DAILY 02/12/22 03/05/22 mcg (5,000 unit) tablet citalopram 10 mg tablet 10 m
--- NOTE | 2022-04-25 14:21 | XR_ITS ---
PROCEDURE INFORMATION: Exam: XR Chest Exam date and time: 04/25/2022 2:21 PM Age: 61 years old Clinical indication: Cough; Additional info: Cough, congestion TECHNIQUE: Imaging protocol: Radiologic exam of the chest. Views: 2 views. COMPARISON: CR XR CHEST PORTABLE 02/10/2022 1:35 PM FINDINGS: Lungs: Stable chronic interstitial prominence. No consolidation. Pleural spaces: Unremarkable. No pleural effusion. No pneumothorax. Heart/Mediastinum: Unremarkable. No cardiomegaly. Bones/joints: Unremarkable. IMPRESSION: No acute findings.
[2022-04-25 14:22] VITALS: BP 119/69; PULSE 74; RESP 17; TEMP 36.7; O2SAT 98; BMI 21.6
[2022-04-25 15:08] VITALS: BP 119/69; PULSE 74; RESP 17; TEMP 36.7
== END 2022-04-25 15:12 | disposition home or self-care (01) ==
PROVIDERS: Emergency Provider Nurse Practitioner Family
DX: J44.1 Chronic obstructive pulmonary disease with (acute) exacerbation (principal)
CPT/HCPCS: 71046; 96372; 99212; G0463; J0696

== ENCOUNTER 2022-09-09 17:13 | Emergency (ER) | payer OTHER, SELFPAY ==
[2022-09-09 17:35] VITALS: BP 188/84; PULSE 88; RESP 16; TEMP 36.8; O2SAT 99; BMI 22.8
--- NOTE | 2022-09-09 17:56 | XR_ITS ---
PROCEDURE INFORMATION: Exam: XR Chest Exam date and time: 09/09/2022 5:58 PM Age: 62 years old Clinical indication: Pain; On breathing; Additional info: Lung pain with cough TECHNIQUE: Imaging protocol: Radiologic exam of the chest. Views: 2 views. COMPARISON: CR XR CHEST 2V 04/25/2022 2:21 PM FINDINGS: Lungs: Unremarkable. No consolidation. Pleural spaces: Unremarkable. No pleural effusion. No pneumothorax. Heart/Mediastinum: Unremarkable. No cardiomegaly. Bones/joints: Unremarkable. IMPRESSION: No acute findings.
[2022-09-09 18:09] LABS: Apearance,Urine Clear (Clear); Color,Urine Yellow (Yellow)
[2022-09-09 18:10] LABS: Bilirubin,Urine Negative (Negative); Blood, Urine Negative (Negative); Glucose,Urine (UA) Negative (Negative); Ketones,Urine Negative (Negative); PH,Urine 5.5 (5.0-8.5); Protein,Urine Negative (Negative); Specific Gravity, Urine <= 1.005 (1.005-1.030); UTC Leukocyte Esterase,Urine Negative (Negative); UTC Nitrate,Urine Negative (Negative); Urobilinogen,Urine 0.2 EU/dl (0.2)
--- NOTE | 2022-09-09 18:23 | EXP.UTC ---
Discharge Plan Disposition Patient Disposition: Home, Self-Care Condition: Good Prescriptions Prescriptions: New fluticasone propionate [Flonase Allergy Relief] 50 mcg/actuation spray,suspension 1 spray intranasal DAILY Qty: 16 0RF Rx Instructions: administer into each nostril daily No Action montelukast 10 mg tablet 10 mg PO DAILY sumatriptan succinate 50 mg tablet 50 mg PO Q2H PRN (Reason: migraines) ezetimibe 10 mg tablet 10 mg PO DAILY clopidogrel 75 mg tablet 75 mg PO DAILY citalopram 10 mg tablet 10 mg PO DAILY Label Comments: TAKE 1 TABLET BY MOUTH EVERY DAY cyanocobalamin (vitamin B-12) 1,000 mcg tablet 1,000 mcg PO DAILY cyanocobalamin (vitamin B-12) 1,000 mcg/mL solution 1,000 mcg SQ WEEKLY Label Comments: INJECT 1 ML INTO THE MUSCLE ONCE A WEEK FOR 30 DAYS. cholecalciferol (vitamin D3) 125 mcg (5,000 unit) tablet 125 mcg PO DAILY Label Comments: TAKE 1 TABLET BY MOUTH EVERY DAY valsartan 320 mg tablet 320 mg PO DAILY Qty: 30 5RF furosemide 40 mg tablet 40 mg PO DAILY Qty: 90 3RF Rx Instructions: TAKE 1 TABLET BY MOUTH EVERY DAY amlodipine 10 mg tablet 10 mg PO DAILY Qty: 30 5RF Rx Instructions: TAKE ONE TABLET BY MOUTH TWICE DAILY spironolactone 50 mg tablet See Rx Instructions .ROUTE .COMPLEX Qty: 90 1RF Dose Instruction: TAKE 1 TABLET BY MOUTH EVERY DAY Rx Instructions: TAKE 1 TABLET BY MOUTH EVERY DAY aspirin 81 MG tablet,delayed release (DR/EC) 81 mg PO DAILY pantoprazole 40 MG tablet,delayed release (DR/EC) 40 mg PO DAILY alprazolam 0.25 mg tablet 0.25 mg PO BID PRN (Reason: Anxiety) atorvastatin 40 MG tablet 40 mg PO DAILY ranolazine 1,000 MG tablet extended release 12 hr 1,000 mg PO BID metoprolol succinate 100 MG tablet extended release 24 hr 100 mg PO DAILY benzonatate [benzonatate] 100 mg capsule 100 mg PO TIDP PRN (Reason: Cough) Qty: 30 0RF methylprednisolone 4 mg Tablets,Dose Pack 4 mg PO DIRECTED Qty: 21 0RF cefdinir 300 mg capsule 300 mg PO BID Qty: 20 0RF Referrals Follow up/Referrals: Provider,Referral, MD [Primary Care Provider] - See instructions Activity Restrictions/Add. Instructions Additional Instructions/Restrictions: Follow up with your Family Doctor if no improvemen or any worsening of symptoms in the next couple of days Straight to ER if develop any life threatening symptoms, fever chills or worsening of symptoms Over the counter Motrin and/or Tylenol if you have fever as directed on package Clinical Impressions Clinical Impression: Nasal sinus congestion Instructions Patient Instructions: DI for Nasal Congestion Discharge ED Provider: Nanette Carlisle [facility] [place] General Stated complaint: hurting in chest and lower back Mode of Arrival: Ambulatory Source of Information: Patient Limitations: No Limitations Time Seen by Provider: 09/09/22 18:24 Description of Symptoms (Recalled from Triage Doc. by RN): PATIENT C/O OCCASIONAL LUNG PAIN WITH COUGH, SINUS DRAINAGE, SORE THROAT, EAR ACHE, AND LOWER BACK PAIN HEENT Symptoms (Recalled from RN notes): No Resp Symptoms (Recalled from RN notes): Yes Skin Symptoms (Recalled from RN notes): No MS Symptoms (Recalled from RN notes): Yes Functional Status (Recalled from RN notes): WNL History of Present Illness Provider Complaint: Patient states that she has been having sinus pain and pressure, drainage in the back of her throat States that at times she has pain in her lower lungs in lower ribs front and back when she coughs but not every time, sore throat ear ache and achy like pain in her lower back on and off worse at times with movement States that she just got off antibiotics, State that she was worried that she may have sinus infection or something Related Data Home Medications Medication Instructions Recorded Confirmed aspi
[2022-09-09 18:46] VITALS: BP 188/84; PULSE 88; RESP 16; TEMP 36.8; O2SAT 99
== END 2022-09-09 19:08 | disposition home or self-care (01) ==
PROVIDERS: Emergency Provider Nurse Practitioner
DX: R07.89 Other chest pain (principal); M54.50 Low back pain, unspecified; R05.1 Acute cough; H92.03 Otalgia, bilateral; F17.210 Nicotine dependence, cigarettes, uncomplicated
CPT/HCPCS: 71046; 81003; 99212; 99214; G0463

== ENCOUNTER 2022-10-05 12:23 | Emergency (ER) | payer OTHER, SELFPAY ==
[2022-10-05 13:00] VITALS: BP 180/79; PULSE 78; RESP 20; TEMP 36.7; O2SAT 100; BMI 23.4
--- NOTE | 2022-10-05 13:12 | EXP.UTC ---
Discharge Plan Disposition Patient Disposition: Home, Self-Care Condition: Good Prescriptions Prescriptions: New meclizine 25 mg tablet 25 mg PO Q6HP PRN (Reason: dizziness) Qty: 30 1RF amoxicillin [amoxicillin] 875 mg tablet 875 mg PO Q12H Qty: 20 0RF methylprednisolone 4 mg Tablets,Dose Pack 4 mg PO DIRECTED Qty: 21 0RF No Action montelukast 10 mg tablet 10 mg PO DAILY sumatriptan succinate 50 mg tablet 50 mg PO Q2H PRN (Reason: migraines) ezetimibe 10 mg tablet 10 mg PO DAILY clopidogrel 75 mg tablet 75 mg PO DAILY citalopram 10 mg tablet 10 mg PO DAILY Label Comments: TAKE 1 TABLET BY MOUTH EVERY DAY cyanocobalamin (vitamin B-12) 1,000 mcg tablet 1,000 mcg PO DAILY cyanocobalamin (vitamin B-12) 1,000 mcg/mL solution 1,000 mcg SQ WEEKLY Label Comments: INJECT 1 ML INTO THE MUSCLE ONCE A WEEK FOR 30 DAYS. cholecalciferol (vitamin D3) 125 mcg (5,000 unit) tablet 125 mcg PO DAILY Label Comments: TAKE 1 TABLET BY MOUTH EVERY DAY valsartan 320 mg tablet 320 mg PO DAILY Qty: 30 5RF furosemide 40 mg tablet 40 mg PO DAILY Qty: 90 3RF Rx Instructions: TAKE 1 TABLET BY MOUTH EVERY DAY amlodipine 10 mg tablet 10 mg PO DAILY Qty: 30 5RF Rx Instructions: TAKE ONE TABLET BY MOUTH TWICE DAILY spironolactone 50 mg tablet See Rx Instructions .ROUTE .COMPLEX Qty: 90 1RF Dose Instruction: TAKE 1 TABLET BY MOUTH EVERY DAY Rx Instructions: TAKE 1 TABLET BY MOUTH EVERY DAY aspirin 81 MG tablet,delayed release (DR/EC) 81 mg PO DAILY pantoprazole 40 MG tablet,delayed release (DR/EC) 40 mg PO DAILY alprazolam 0.25 mg tablet 0.25 mg PO BID PRN (Reason: Anxiety) atorvastatin 40 MG tablet 40 mg PO DAILY ranolazine 1,000 MG tablet extended release 12 hr 1,000 mg PO BID metoprolol succinate 100 MG tablet extended release 24 hr 100 mg PO DAILY benzonatate [benzonatate] 100 mg capsule 100 mg PO TIDP PRN (Reason: Cough) Qty: 30 0RF methylprednisolone 4 mg Tablets,Dose Pack 4 mg PO DIRECTED Qty: 21 0RF cefdinir 300 mg capsule 300 mg PO BID Qty: 20 0RF fluticasone propionate [Flonase Allergy Relief] 50 mcg/actuation spray,suspension 1 spray intranasal DAILY Qty: 16 0RF Rx Instructions: administer into each nostril daily Referrals Follow up/Referrals: Celeste Muniz MD [Primary Care Provider] - See instructions Activity Restrictions/Add. Instructions Additional Instructions/Restrictions: Drink plenty of fluids. Take tylenol or ibuprofen for pain or fever. Take the medications as directed. Follow up with your regular doctor. GO TO THE ER FOR ANY WORSENING SYMPTOMS Clinical Impressions Clinical Impression: Otitis media, Benign paroxysmal positional vertigo Stand Alone Forms Stand Alone Forms: Work/School Release Instructions Patient Instructions: Middle Ear Infection, Benign Paroxysmal Positional Vertigo Discharge ED Provider: Blas Mayer [facility] General Stated complaint: dizzy,weakness,SOA Time Seen by Provider: 10/05/22 13:12 History of Present Illness Provider Complaint: She states that for the past 3 days she has had ear pain, sinus congestion, cough and dizziness. Related Data Home Medications Medication Instructions Recorded Confirmed aspirin 81 mg tablet,delayed 81 mg PO DAILY heart health 10/14/17 03/05/22 release pantoprazole 40 mg tablet,delayed 40 mg PO DAILY GERD 10/14/17 03/05/22 release alprazolam 0.25 mg tablet 0.25 mg PO BID PRN Anxiety 04/26/18 03/05/22 montelukast 10 mg tablet 10 mg PO DAILY COPD 10/31/19 03/05/22 sumatriptan succinate 50 mg tablet 50 mg PO Q2H PRN migraines 10/31/19 03/05/22 clopidogrel 75 mg tablet 75 mg PO DAILY antiplatelet 10/14/20 03/05/22 atorvastatin 40 mg tablet 40 mg PO DAILY Cholesterol 05/12/21 03/05/22 ranolazine 1,000 mg 1,000 mg
[2022-10-05 14:03] VITALS: BP 180/79; PULSE 78; RESP 20; TEMP 36.7; O2SAT 100
== END 2022-10-05 14:03 | disposition home or self-care (01) ==
PROVIDERS: Emergency Provider Nurse Practitioner Family; PCP Family Medicine
DX: H81.10 Benign paroxysmal vertigo, unspecified ear (principal); H66.90 Otitis media, unspecified, unspecified ear; R05.9 Cough, unspecified; J44.9 Chronic obstructive pulmonary disease, unspecified; F17.210 Nicotine dependence, cigarettes, uncomplicated; I11.9 Hypertensive heart disease without heart failure; E78.5 Hyperlipidemia, unspecified; K21.9 Gastro-esophageal reflux disease without esophagitis
CPT/HCPCS: 99212; 99214; G0463

== ENCOUNTER 2022-11-04 09:41 | Emergency (ER) | payer OTHER, SELFPAY ==
--- NOTE | 2022-11-04 09:39 | ECG_ITS ---
APPROVED REPORT Exam: Resting ECG HR:90 bpm ECG Measurements Heart Rate 90 AXES VA 134 P 55 QRSd 82 QRS 55 QT 362 T 30 QTc 410 Conclusion SINUS RHYTHM WITH OCCASIONAL VENTRICULAR PREMATURE COMPLEXES LEFT ATRIAL abnormality BORDERLINE ECG UNCONFIRMED REPORT Electronically signed by : Parish Floyd MD 11/05/2022 21:42:13
[2022-11-04 09:42] VITALS: BP 165/76; PULSE 94; RESP 20; TEMP 37; O2SAT 99; BMI 22.8
--- NOTE | 2022-11-04 09:44 | XR_ITS ---
FINAL REPORT CLINICAL HISTORY: chest pain for a few weeks COMPARISON: 09/09/2022 FINDINGS: A single portable view of the chest was obtained. The heart size and pulmonary vascularity are within normal limits. The mediastinum is within normal limits. No acute pulmonary abnormality is identified. The bony thorax is intact. IMPRESSION: No active cardiopulmonary disease. Reviewed, Interpreted and Dictated by Frandy Bui III, MD Transcribed by Francheska King Authenticated and . [facility]
--- NOTE | 2022-11-04 09:46 | HMH.EDGENADL ---
Discharge Plan Disposition Patient Disposition: Home, Self-Care Condition: Good Prescriptions Prescriptions: New azithromycin 250 mg tablet 250 mg PO DAILY 4 Days Qty: 4 0RF Rx Instructions: start on day 2 of therapy albuterol sulfate 90 mcg/actuation HFA aerosol inhaler 2 inh inhalation Q6H PRN (Reason: shortness of breath or wheezing) Qty: 8.5 0RF prednisone 20 mg tablet 60 mg PO BID 4 Days Qty: 12 0RF No Action montelukast 10 mg tablet 10 mg PO DAILY sumatriptan succinate 50 mg tablet 50 mg PO Q2H PRN (Reason: migraines) ezetimibe 10 mg tablet 10 mg PO DAILY clopidogrel 75 mg tablet 75 mg PO DAILY citalopram 10 mg tablet 10 mg PO DAILY Label Comments: TAKE 1 TABLET BY MOUTH EVERY DAY cyanocobalamin (vitamin B-12) 1,000 mcg tablet 1,000 mcg PO DAILY cyanocobalamin (vitamin B-12) 1,000 mcg/mL solution 1,000 mcg SQ WEEKLY Label Comments: INJECT 1 ML INTO THE MUSCLE ONCE A WEEK FOR 30 DAYS. cholecalciferol (vitamin D3) 125 mcg (5,000 unit) tablet 125 mcg PO DAILY Label Comments: TAKE 1 TABLET BY MOUTH EVERY DAY valsartan 320 mg tablet 320 mg PO DAILY Qty: 30 5RF furosemide 40 mg tablet 40 mg PO DAILY Qty: 90 3RF Rx Instructions: TAKE 1 TABLET BY MOUTH EVERY DAY amlodipine 10 mg tablet 10 mg PO DAILY Qty: 30 5RF Rx Instructions: TAKE ONE TABLET BY MOUTH TWICE DAILY spironolactone 50 mg tablet See Rx Instructions .ROUTE .COMPLEX Qty: 90 1RF Dose Instruction: TAKE 1 TABLET BY MOUTH EVERY DAY Rx Instructions: TAKE 1 TABLET BY MOUTH EVERY DAY aspirin 81 MG tablet,delayed release (DR/EC) 81 mg PO DAILY pantoprazole 40 MG tablet,delayed release (DR/EC) 40 mg PO DAILY alprazolam 0.25 mg tablet 0.25 mg PO BID PRN (Reason: Anxiety) atorvastatin 40 MG tablet 40 mg PO DAILY ranolazine 1,000 MG tablet extended release 12 hr 1,000 mg PO BID metoprolol succinate 100 MG tablet extended release 24 hr 100 mg PO DAILY benzonatate [benzonatate] 100 mg capsule 100 mg PO TIDP PRN (Reason: Cough) Qty: 30 0RF methylprednisolone 4 mg Tablets,Dose Pack 4 mg PO DIRECTED Qty: 21 0RF cefdinir 300 mg capsule 300 mg PO BID Qty: 20 0RF meclizine 25 mg tablet 25 mg PO Q6HP PRN (Reason: dizziness) Qty: 30 1RF amoxicillin [amoxicillin] 875 mg tablet 875 mg PO Q12H Qty: 20 0RF methylprednisolone 4 mg Tablets,Dose Pack 4 mg PO DIRECTED Qty: 21 0RF fluticasone propionate [Flonase Allergy Relief] 50 mcg/actuation spray,suspension 1 spray intranasal DAILY Qty: 16 0RF Rx Instructions: administer into each nostril daily Clinical Impressions Clinical Impression: Chest pain, COPD exacerbation Instructions Patient Instructions: Chronic Obstructive Pulmonary Disease, DI for Atypical Chest Pain Print Language Print Language: Bulgarian Discharge ED Provider: Milind Sam General Adult HPI General Chief complaint: Chest Pain Stated complaint: shortness of breath Time Seen by Provider: 11/04/22 11:25 History of Present Illness HPI narrative: Patient presents to the emergency department with 3-day history of progressive symptoms. Patient has had intermittent left-sided chest pain with associated shortness of breath and coughing. She states her pain is worse with coughing. Has a history of coronary artery disease with stenting x3. Denies any fever. Admits to chills. States she has been more short of breath with exertion. Describes a history of COPD Related Data Home Medications Medication Instructions Recorded Confirmed aspirin 81 mg tablet,delayed 81 mg PO DAILY heart health 10/14/17 03/05/22 release pantoprazole 40 mg tablet,delayed 40 mg PO DAILY GERD 10/14/17 03/05/22 release alprazolam 0.25 mg tablet 0.25 mg PO BID PRN Anxiety 04/26/18 03/05/22 montelukast 10 mg tablet 10 mg PO DAILY C
--- NOTE | 2022-11-04 09:51 | PC.NURSE ---
gave warm blanket
[2022-11-04 09:55] LABS: Coronavirus 19, PCR Not Detected (NotDetected); Influenza A, PCR Not Detected (NotDetected); Influenza B, PCR Not Detected (NotDetected)
[2022-11-04 09:58] LABS: Basophils # 0.1 K/mm3 (0-0.2); Basophils % 0.6 % (0.1-2.0); Eosinophils # 0.3 K/mm3 (0.0-0.4); Eosinophils % 2.1 % (0.1-12.0); Hematocrit 43.9 % (37.0-47.0); Hemoglobin 14.3 g/dL (12.2-16.2); Lymphocytes # 2.4 K/mm3 (0.7-4.5); Lymphocytes % 15.7 % (10-50); Mean Corpuscular HGB Conc 32.5 g/dL (31.8-35.4); Mean Corpuscular Volume 92.1 fl (81-99); Mean Platelet Volume 7.6 fl (7.4-10.4); Monocytes # 0.9 K/mm3 (0.1-1.0); Monocytes % 5.9 % (1.7-9.3); Neutrophils # 11.4 K/mm3 (1.8-7.8); Neutrophils % 75.6 % (37.0-80.0); Platelet Count 487 K/mm3 (142-424); Red Blood Count 4.77 M/mm3 (4.20-5.40); Red Cell Distribution Width 13.4 % (11.5-17.5); White Blood Count 15.1 K/mm3 (4.8-10.8)
[2022-11-04 10:00] VITALS: BP 118/105; PULSE 88; O2SAT 100
[2022-11-04 10:02] LABS: Alanine Aminotransferase 28 U/L (12-78); Albumin Level 4.3 g/dl (3.5-5.0); Albumin/Globulin Ratio 1.2 (1.1-1.8); Alkaline Phosphatase 146 U/L (38-126); Anion Gap 18.6 mEq/L (5-15); Aspartate Amino Transferase 37 U/L (14-36); Bilirubin,Total 0.4 mg/dl (0.2-1.3); Blood Urea Nitrogen 8 mg/dl (7-17); Calcium 9.2 mg/dl (8.4-10.2); Carbon Dioxide 23 mmol/L (22.0-30.0); Chloride 102 mmol/L (98-107); Creatinine Clearance Estimated 52 mL/min (50-200); Estimated Glomerular Filt Rate 101 ml/min (>60); GFR (African American) 123 ML/MIN (>60); Globulin 3.6 g/dL (1.3-3.2); Glucose 131 mg/dl (74-100); Potassium 3.6 mmoL/L (3.5-5.1); Sodium 140 mmol/L (136-145); Total Protein,Serum 7.9 g/dl (6.3-8.2)
[2022-11-04 10:05] LABS: MANUAL DIFFERENTIAL MANUAL DIFFERENTIAL (MANUAL DIFF)
[2022-11-04 10:24] LABS: Troponin I < 0.01 ng/ml (0.00-0.034)
[2022-11-04 10:29] VITALS: BMI 34.2
[2022-11-04 10:30] VITALS: BP 142/81; PULSE 89; O2SAT 98
[2022-11-04 10:34] VITALS: BMI 23.0
--- NOTE | 2022-11-04 10:58 | PC.NURSE ---
rounded on pt unhooked from data machine so pt could use restroom
[2022-11-04 11:02] LABS: Eosinophils % 1 % (0-3); Lymphocytes % 27 % (10-50); Monocytes % 2 % (2-9); Neutrophils % 70 % (42-76); Platelet Estimate Slight Increase; RBC Morphology Normal; Total Cells Counted 100
--- NOTE | 2022-11-04 11:05 | PC.NURSE ---
pt is now back in bed rehooked up, tap butt at bedside
--- NOTE | 2022-11-04 11:20 | PC.NURSE ---
MD at bedside, discussing care with patient
[2022-11-04 12:05] VITALS: BP 139/78; PULSE 84; RESP 16; TEMP 36.8; O2SAT 98
== END 2022-11-04 12:07 | disposition home or self-care (01) ==
PROVIDERS: Emergency Provider Emergency Medicine; PCP Family Medicine
DX: J44.1 Chronic obstructive pulmonary disease with (acute) exacerbation (principal); R07.9 Chest pain, unspecified; F17.210 Nicotine dependence, cigarettes, uncomplicated
CPT/HCPCS: 71045; 80053; 84484; 85007; 85025; 87635; 87636; 93005; 99285; C9803; U0003; U0005

== ENCOUNTER 2023-02-25 08:28 | Day surgery (SDC) | payer OTHER, SELFPAY ==
[2023-02-25] VITALS (15 sets, daily range): BP systolic 148–187; BP diastolic 71–108; PULSE 68–84; RESP 16–20; TEMP 36.9; O2SAT 93–100; BMI 23.8
--- NOTE | 2023-02-25 07:19 | IR_ITS ---
APPROVED REPORT Patient Location: Outpatient Retail Financial Analyst: KARLA Torrez RT (R) PROCEDURES Left heart catheterization Left ventriculogram Selective coronary angiogram Pigtail catheter in the abdominal aorta Abdominal aortography Repositioning of the pigtail catheter in the abdominal aorta Bilateral iliofemoral runoff INDICATION Coronary artery disease, History of coronary artery left main stenting, Progressive and accelerated angina pectoris, Known peripheral artery disease, Claudication Burnside class III, Informed consent was obtained prior to the procedure. COMPLICATIONS NONE Estimated Blood Loss: LESS THAN 10 ML TECHNIQUE One percent lidocaine was used to anesthetize the right groin. The right femoral artery was accessed via the Seldinger technique. A 5-Paraguayan sheath was placed in the right femoral artery. The JL-4 and JR-4 catheter was also used to perform left heart catheterization left ventriculogram and selective coronary angiogram. At the end of the cardiac catheterization a pigtail catheter was placed in the abdominal aorta and abdominal aortography was performed. The catheter was then repositioned and bilateral iliofemoral runoff was performed. At the end the procedure the apparatus was removed the patient was transferred to the postop putting in stable condition for sheath removal ANGIOGRAPHIC RESULTS The left main artery Has a stent in the proximal segment which extends the proximal LAD. The stent is widely patent with mild distal in-stent restenosis approximately 10% The left anterior descending artery Has a stent of the left main artery where the ostium is widely patent. There is a proximal 30 to 40% stenosis followed by wide patency until the midportion and then a concentric 40% stenosis is present. The LAD is large and wraps the apex. A large first diagonal artery is widely patent The circumflex artery Nondominant and normal The right coronary artery Is dominant and has has a stent in the proximal to mid segment which is widely patent with mild 30% mid vessel in-stent restenosis. The posterolateral branch has a mid vessel 30% stent The PERRY ventriculogram reveals Normal 60% The left ventricular end-diastolic pressure Elevated at 22 mmHg Suprarenal abdominal aorta is normal Renal arteries are normal Infrarenal abdominal aorta has 30% atheromatous plaque followed by tandem small aneurysms Bilateral common internal and external iliac arteries are patent with mild nonflow limiting atheromatous plaque Bilateral common femoral arteries are patent Bilateral profunda femoris arteries are patent Bilateral SFA and popliteal arteries are patent with mild atheromatous plaque There is three-vessel runoff below the knee bilaterally IMPRESSION Coronary disease as described above Preserved ejection fraction Elevated LVEDP 2 small infrarenal abdominal aortic aneurysms Slow flow down the lower extremities with no significant macrovascular atheromatous disease PLAN 1. Discontinue atorvastatin at this point given leg pain 2. Empirically start Requip 1 mg nightly for possible restless leg syndrome 3. If symptoms maximo in the next 4 to 6 weeks restart statin and see if symptoms recur 4. Medical management for coronary disease 5. Avoidance of tobacco products 6. Recommend abdominal CTA or abdominal aortic ultrasound to better quantitate size of abdominal aortic aneurysms 7. Consider Leqvio or other therapy to achieve therapeutic LDL Electronically signed by : Cristóbal Carr MD 02/25/2023 13:17:21
[2023-02-25 09:06] LABS: Basophils # 0.1 K/mm3 (0-0.2); Basophils % 0.8 % (0.1-2.0); Eosinophils # 0.2 K/mm3 (0.0-0.4); Eosinophils % 2.4 % (0.1-12.0); Hematocrit 44.6 % (37.0-47.0); Hemoglobin 14.6 g/dL (12.2-16.2); Lymphocytes # 2.7 K/mm3 (0.7-4.5); Lymphocytes % 28.7 % (10-50); Mean Corpuscular HGB Conc 32.7 g/dL (31.8-35.4); Mean Corpuscular Hemoglobin 29.3 pg (27.0-31.2); Mean Corpuscular Volume 89.5 fl (81-99); Mean Platelet Volume 8.3 fl (7.4-10.4); Monocytes # 0.6 K/mm3 (0.1-1.0); Monocytes % 6.1 % (1.7-9.3); Neutrophils # 5.9 K/mm3 (1.8-7.8); Neutrophils % 62.1 % (37.0-80.0); Platelet Count 321 K/mm3 (142-424); Red Blood Count 4.98 M/mm3 (4.20-5.40); Red Cell Distribution Width 14.2 % (11.5-17.5); White Blood Count 9.5 K/mm3 (4.8-10.8)
[2023-02-25 09:15] LABS: Anion Gap 12.8 mEq/L (5-15); Blood Urea Nitrogen 7 mg/dl (7-17); Calcium 9.1 mg/dl (8.4-10.2); Carbon Dioxide 22 mmol/L (22.0-30.0); Chloride 109 mmol/L (98-107); Creatinine Clearance Estimated 54 mL/min (50-200); Estimated Glomerular Filt Rate 73 ml/min (>60); GFR (African American) 88 ML/MIN (>60); Glucose 108 mg/dl (74-100); Potassium 3.8 mmoL/L (3.5-5.1); Sodium 140 mmol/L (136-145)
== END 2023-02-25 15:45 | disposition home or self-care (01) ==
PROVIDERS: PCP Family Medicine; Visit Provider Internal Medicine
DX: I25.118 Atherosclerotic heart disease of native coronary artery with other forms of angina pectoris (principal); F17.210 Nicotine dependence, cigarettes, uncomplicated; E78.5 Hyperlipidemia, unspecified; I70.213 Atherosclerosis of native arteries of extremities with intermittent claudication, bilateral legs; R94.31 Abnormal electrocardiogram [ECG] [EKG]; T82.855A Stenosis of coronary artery stent, initial encounter; Z79.899 Other long term (current) drug therapy; Z79.01 Long term (current) use of anticoagulants; I10 Essential (primary) hypertension
CPT/HCPCS: 36247; 75625; 80048; 85025; 93458; 99152; 99153; C1725; C1769; C1894; J1644; Q9966

== ENCOUNTER 2023-08-13 13:59 | Emergency (ER) | payer OTHER, SELFPAY ==
[2023-08-13 14:25] VITALS: BP 133/82; PULSE 87; RESP 20; TEMP 37; O2SAT 97; BMI 39.2
--- NOTE | 2023-08-13 14:40 | ED_ITS ---
Discharge Plan Disposition Patient Disposition: Home, Self-Care Condition: Good Prescriptions Prescriptions: New amoxicillin [amoxicillin] 500 mg tablet 500 mg PO TID 10 Days Qty: 30 0RF benzonatate [benzonatate] 100 mg capsule 100 mg PO TIDP PRN (Reason: Cough) Qty: 30 0RF ondansetron 4 mg Tablet,Disintegrating 4 mg PO Q8H PRN (Reason: Nausea) Qty: 8 0RF No Action montelukast 10 mg tablet 10 mg PO DAILY sumatriptan succinate 50 mg tablet 50 mg PO Q2H PRN (Reason: migraines) ezetimibe 10 mg tablet 10 mg PO DAILY clopidogrel 75 mg tablet 75 mg PO DAILY citalopram 10 mg tablet 10 mg PO DAILY Patient Comments: TAKE 1 TABLET BY MOUTH EVERY DAY cyanocobalamin (vitamin B-12) 1,000 mcg/mL solution 1,000 mcg SQ WEEKLY Patient Comments: INJECT 1 ML INTO THE MUSCLE ONCE A WEEK FOR 30 DAYS. cholecalciferol (vitamin D3) 125 mcg (5,000 unit) tablet 125 mcg PO DAILY Patient Comments: TAKE 1 TABLET BY MOUTH EVERY DAY amlodipine 10 mg tablet 10 mg PO DAILY Qty: 30 5RF Rx Instructions: TAKE ONE TABLET BY MOUTH TWICE DAILY furosemide 40 mg tablet 40 mg PO DAILY Qty: 90 3RF Rx Instructions: TAKE 1 TABLET BY MOUTH EVERY DAY ropinirole 1 mg tablet See Rx Instructions .ROUTE .COMPLEX Qty: 180 1RF Dose Instruction: TAKE 1 TABLET ORALLY TWICE A DAY Rx Instructions: TAKE 1 TABLET ORALLY TWICE A DAY aspirin 81 MG tablet,delayed release (DR/EC) 81 mg PO DAILY pantoprazole 40 MG tablet,delayed release (DR/EC) 40 mg PO DAILY alprazolam 0.25 mg tablet 0.25 mg PO BID PRN (Reason: Anxiety) metoprolol succinate 100 MG tablet extended release 24 hr 100 mg PO DAILY meclizine 25 mg tablet 25 mg PO Q6HP PRN (Reason: dizziness) Qty: 30 1RF albuterol sulfate 90 mcg/actuation HFA aerosol inhaler 2 inh inhalation Q6H PRN (Reason: shortness of breath or wheezing) Qty: 8.5 0RF valsartan 320 mg tablet 320 mg PO DAILY fluticasone propionate [Flonase Allergy Relief] 50 mcg/actuation spray,suspension 1 spray intranasal DAILY Rx Instructions: administer into each nostril daily spironolactone 50 mg tablet See Rx Instructions .ROUTE .COMPLEX Rx Instructions: TAKE 1 TABLET BY MOUTH EVERY DAY Referrals Follow up/Referrals: Celeste Muniz MD [Primary Care Provider] - See instructions Activity Restrictions/Add. Instructions Additional Instructions/Restrictions: Drink plenty of fluids. Take tylenol or ibuprofen for pain or fever. Take the medications as directed. Follow up with your regular doctor. GO TO THE ER FOR ANY WORSENING SYMPTOMS Clinical Impressions Clinical Impression: Bronchitis, Acute viral syndrome Instructions Patient Instructions: DI for Acute Bronchitis, DI for Viral Syndrome Discharge ED Provider: Blas Mayer [facility] General Stated complaint: cough, congestion, fever Mode of Arrival: Ambulatory Source of Information: Patient Limitations: No Limitations Time Seen by Provider: 08/13/23 14:30 Description of Symptoms (Recalled from Triage Doc. by RN): RECENTLY EXPOSED TO FLU HEENT Symptoms (Recalled from RN notes): Yes Resp Symptoms (Recalled from RN notes): No Skin Symptoms (Recalled from RN notes): No MS Symptoms (Recalled from RN notes): No Functional Status (Recalled from RN notes): WNL History of Present Illness Provider Complaint: She states that for the past 3 days she has had fever/chills/body aches, cough and congestion. Related Data Home Medications Medication Instructions Recorded Confirmed aspirin 81 mg tablet,delayed 81 mg PO DAILY heart health 10/14/17 02/25/23 release pantoprazole 40 mg tablet,delayed 40 mg PO DAILY GERD 10/14/17 02/25/23 release alprazolam 0.25 mg tablet 0.25 mg PO BID PRN Anxiety 04/26/18 02/25/23 montelukast 10 mg tablet 10 mg PO DAILY COPD 10/31/19 02/25/23 sumatriptan succinate 50 mg tablet 50 mg PO Q2H PRN migraines 10/31/19 02/25/23 clopidogrel 75 mg tablet 75 mg PO DAILY antiplatelet 10/14/20 02/25/23 metoprolol succinate 100 mg 100 mg PO DAILY High blood pressure 02/10/22 02/25/23 tablet,extended release 24 hr cholecalciferol (vitamin D3) 125 125 mcg PO DAILY . 02/12/22 02/25/23 mcg (5,000 unit) tablet citalopram 10 mg tablet 10 mg PO DAILY . 02/12/22 02/25/23 cyanocobalamin (vitamin B-12) 1,000 mcg SQ WEEKLY . 02/12/22 02/25/23 1,000 mcg/mL injection solution ezetimibe 10 mg tablet 10 mg PO DAILY . 03/05/22 02/25/23 fluticasone propionate 50 1 spray intranasal DAILY . 02/25/23 02/25/23 mcg/actuation nasal spray,suspension (Flonase Allergy Relief) spironolactone 50 mg tablet See Rx Instructions .Route 02/25/23 02/25/23 .COMPLEX . valsartan 320 mg tablet 320 mg PO DAILY . 02/25/23 02/25/23 Previous Rx's Medication Instructions Recorded amlodipine 10 mg tablet 10 mg PO DAILY High blood pressure 03/19/22 #30 tabs meclizine 25 mg tablet 25 mg PO Q6HP PRN dizziness #30 10/05/22 tabs albuterol sulfate 90 mcg/actuation 2 inh inhalation Q6H PRN shortness 11/04/22 aerosol inhaler of breath or wheezing #8.5 grams furosemide 40 mg tablet 40 mg PO DAILY Edema #90 tabs 11/17/22 ropinirole 1 mg tablet See Rx Instructions .Route 05/18/23 .COMPLEX #180 tabs amoxicillin 500 mg tablet 500 mg PO TID 10 days #30 tabs 08/13/23 benzonatate 100 mg capsule 100 mg PO TIDP PRN Cough #30 caps 08/13/23 ondansetron 4 mg disintegrating 4 mg PO Q8H PRN Nausea #8 tabs 08/13/23 tablet Allergies Allergy/AdvReac Type Severity Reaction Status Date / Time No Known Allergies Allergy Verified 02/10/23 15:03 Worker's Comp Is this a Worker's Comp case?: No [facility] Disclaimer: The information contained in this section may have been updated after the patient was seen, as this information can be updated by other users. Medical History Acid reflux Atypical angina HHD (hypertensive heart disease) HLD (hyperlipidemia) Social History Smoking Status: Current every day smoker tobacco type: cigarettes packs per day: 1 second hand exposure: No alcohol intake: never substance use type: denies use current occupational status: employed Travel in the last 8 weeks: None household members: significant other housing: house current occupational exposures/hazards: No ROS Obtained: Yes All systems reviewed & no additional complaints except as documented Constitutional Constitutional: Reports chills and Reports fever(s) Eyes Eyes: Denies eye discharge ENT Ears, Nose, Mouth, and Throat: Reports as per HPI Cardiovascular Cardiovascular: Denies chest pain Respiratory Respiratory: Denies chest congestion and Reports cough Gastrointestinal Gastrointestingal: Reports nausea; Denies abdominal pain, constipation, cramping, diarrhea or vomiting Musculoskeletal Musculoskeletal: Denies arthralgias Integumentary/Breasts Skin/Breast: Denies rash Neurologic Neurologic: Denies paresthesias Physical Exam General General appearance: alert and in no apparent distress Eye Eye exam: Present normal appearance, PERRL and EOMI ENT ENT exam: Present mucous membranes moist and normal external ear exam Expanded ENT Exam External ear exam: Present normal external inspection TM/Canal exam: Bilateral TM: erythema and bulging Nose exam: Absent sinus tenderness Nasal speculum exam: Bilateral: normal Mouth exam: Present normal external inspection; Absent drooling Teeth exam: Present normal inspection Throat exam: Present tonsillar erythema and tonsillomegaly Neck Neck exam: Present normal inspection, full ROM and trachea midline; Absent tenderness, lymphadenopathy or thyromegaly Chest Chest inspection: Present normal inspection and symmetric chest wall rise; Absent tenderness or rash Respiratory Respiratory exam: Present normal lung sounds bilaterally; Absent respiratory distress, wheezes, stridor or accessory muscle use Cardiovascular Cardiovascular exam: Present regular rate, normal rhythm and normal heart sounds Abdominal Exam Abdominal exam: Present soft; Absent distention, tenderness, guarding, rebound or rigidity Extremities Exam Extremities exam: Present normal inspection, full ROM and normal capillary refill; Absent tenderness or calf tenderness Back Exam Back exam: Present normal inspection and full ROM; Absent tenderness Neurological Exam Neurological exam: Present alert and oriented X3 Psychiatric Psychiatric exam: Present normal affect and normal mood Skin Skin exam: Present warm, dry, intact and normal color Lymphatic Lymphatic Findings: no adenopathy Medical Decision Making Medical Records Medical records reviewed: No I reviewed the patient's medical records. Kael Inquiry Pt receiving controlled substance: No Vital Signs: 08/13/23 14:25 Temperature 99.7 F H Temperature Source Oral Pulse Rate [Right Brachial] 99 H Respiratory Rate 20 Blood Pressure [Right Arm] 138/88 Blood Pressure Mean [Right Arm] 104 Blood Pressure Source [Right Arm] Automatic Cuff Blood Pressure Position [Right Arm] Sitting 02 Sat by Pulse Oximetry 97 Oxygen Delivery Method Room Air Lab Data Lab results reviewed: Yes I reviewed the patient's lab results.
[2023-08-13 14:59] LABS: UTC Influenza A Antigen Negative (Negative)
[2023-08-13 15:00] LABS: UTC Influenza B Antigen Negative (Negative)
[2023-08-13 15:07] VITALS: BP 133/82; PULSE 87; RESP 20; TEMP 37; O2SAT 97
[2023-08-13 15:23] LABS: Coronavirus 19, PCR Not Detected (NotDetected); Influenza B, PCR Not Detected (NotDetected)
[2023-08-13 16:39] LABS: Influenza A, PCR Detected (NotDetected)
== END 2023-08-13 15:18 | disposition home or self-care (01) ==
PROVIDERS: Emergency Provider Nurse Practitioner Family; PCP Family Medicine
DX: J10.1 Influenza due to other identified influenza virus with other respiratory manifestations (principal); J20.9 Acute bronchitis, unspecified; R50.9 Fever, unspecified; R05.9 Cough, unspecified; R09.81 Nasal congestion; F17.210 Nicotine dependence, cigarettes, uncomplicated; K21.9 Gastro-esophageal reflux disease without esophagitis; I10 Essential (primary) hypertension; E78.5 Hyperlipidemia, unspecified
CPT/HCPCS: 87636; 87804; 99212; 99214; G0463

== ENCOUNTER 2023-11-16 11:44 | Outpatient (CLI) | payer OTHER, SELFPAY ==
[2023-11-16 12:25] LABS: Basophils # 0.1 K/mm3 (0-0.2); Basophils % 1.5 % (0.1-2.0); Eosinophils # 0.3 K/mm3 (0.0-0.4); Eosinophils % 3.2 % (0.1-12.0); Hematocrit 43.1 % (37.0-47.0); Hemoglobin 14.3 g/dL (12.2-16.2); Lymphocytes # 2.6 K/mm3 (0.7-4.5); Lymphocytes % 30.2 % (10-50); Mean Corpuscular HGB Conc 33.1 g/dL (31.8-35.4); Mean Corpuscular Hemoglobin 30.3 pg (27.0-31.2); Mean Corpuscular Volume 91.4 fl (81-99); Mean Platelet Volume 7.8 fl (7.4-10.4); Monocytes # 0.7 K/mm3 (0.1-1.0); Neutrophils # 4.8 K/mm3 (1.8-7.8); Neutrophils % 57.1 % (37.0-80.0); Platelet Count 342 K/mm3 (142-424); Red Blood Count 4.72 M/mm3 (4.20-5.40); Red Cell Distribution Width 13.7 % (11.5-17.5); White Blood Count 8.5 K/mm3 (4.8-10.8)
[2023-11-16 12:40] LABS: D-Dimer 0.53 ug/mL (0.0-0.5)
[2023-11-16 12:55] LABS: Alanine Aminotransferase 26 U/L (12-78); Albumin Level 4.4 g/dl (3.5-5.0); Alkaline Phosphatase 96 U/L (38-126); Anion Gap 13.1 mEq/L (5-15); Aspartate Amino Transferase 25 U/L (14-36); Bilirubin,Direct 0.1 mg/dl (0.0-0.4); Bilirubin,Indirect 0.3 mg/dL (0.0-0.9); Bilirubin,Total 0.4 mg/dl (0.2-1.3); Bilirubin,Unconjugated 0.3 mg/dL (0.0-1.1); Blood Urea Nitrogen 5 mg/dl (7-17); Calcium 10.2 mg/dl (8.4-10.2); Carbon Dioxide 26 mmol/L (22.0-30.0); Chloride 106 mmol/L (98-107); Chol/HDL Ratio 6.9 (1-3.5); Cholesterol 249 mg/dl (140-200); Estimated Glomerular Filt Rate 72 ml/min (>60); GFR (African American) 88 ML/MIN (>60); Glucose 99 mg/dl (74-100); HDL Cholesterol 36 mg/dl (40-60); Magnesium 2.1 mg/dl (1.6-2.3); Potassium 4.1 mmoL/L (3.5-5.1); Sodium 141 mmol/L (136-145); Total Protein,Serum 7.3 g/dl (6.3-8.2); Triglycerides 340 mg/dl (30-150); VLDL Cholesterol 68 mg/dL (0-40)
[2023-11-16 13:06] LABS: Direct LDL Cholesterol 147.51 mg/dL (100-129)
[2023-11-16 13:11] LABS: Free T4 (Free Thyroxine) 1.15 ng/dl (0.78-2.19)
[2023-11-16 13:20] LABS: Troponin I < 0.01 ng/ml (0.00-0.034)
[2023-11-16 13:25] LABS: Thyroid Stimulating Hormone 2.21 uIU/mL (0.465-4.68)
== END 2023-11-16 23:59 | disposition home or self-care (01) ==
LOC: LAB 11:45
PROVIDERS: PCP Student in an Organized Health Care Education/Training Program; Visit Provider Nurse Practitioner
DX: R55 Syncope and collapse (principal); R42 Dizziness and giddiness; R06.02 Shortness of breath; R07.9 Chest pain, unspecified; R60.9 Edema, unspecified; I25.10 Atherosclerotic heart disease of native coronary artery without angina pectoris; R00.0 Tachycardia, unspecified; Z79.899 Other long term (current) drug therapy
CPT/HCPCS: 36415; 80048; 80061; 80076; 83735; 84439; 84443; 84484; 85025; 85378; 93270

== ENCOUNTER 2023-11-16 15:46 | Outpatient (CLI) | payer OTHER, SELFPAY ==
--- NOTE | 2023-11-16 15:51 | CT_ITS ---
FINAL REPORT TECHNIQUE: The patient was injected with IV contrast. Axial images were obtained through the chest in a PE protocol. 3-D reconstruction images were also performed. Individualized dose reduction techniques using automated exposure control or adjustment of the MA and/or KV according to patient's size were employed. CLINICAL HISTORY: dsypnea, chest pain, +ddimer COMPARISON: None FINDINGS: Mediastinal vasculature is adequately opacified. No pulmonary artery filling defects are identified to suggest PE. There is no aortic dissection. There is no axillary adenopathy. There is no hilar or mediastinal adenopathy. The heart size is normal. There is no pericardial or pleural effusion. Mild changes of centrilobular emphysema are present. There are a few scattered ground glass opacities noted in the lung hughes. There is a spiculated nodule in the left upper lobe measuring 7 mm in diameter, best seen on image #33. There is lobular wall thickening in the proximal abdominal aorta, likely secondary to mural thrombus. IMPRESSION: No pulmonary embolus or dissection. Spiculated left upper lobe nodule, 7 mm in size, as described above. According to Fleischner criteria, a follow-up CT in 6 months is recommended for further evaluation. Mild changes of centrilobular emphysema. Lobular wall thickening in the proximal abdominal aorta, likely mural thrombus. Reviewed, Interpreted and Dictated by Nacho Vila MD Transcribed by Beverly Fernandez Authenticated and . [facility]
[2023-11-16] MEDS: SODIUM CHLORIDE 0.9% 10ML SYR (RAD ONLY) 10 ML IV (16:15)
[2023-11-16] MEDS: 0.9 % SODIUM CHLORIDE 50 ML VIAL IV (16:15)
[2023-11-16] MEDS: IOPAMIDOL-370 (76%);100ML BOTTLE 70 ML IV (16:15)
== END 2023-11-16 23:59 | disposition home or self-care (01) ==
LOC: RAD 15:46
PROVIDERS: PCP Student in an Organized Health Care Education/Training Program; Visit Provider Nurse Practitioner
DX: R79.89 Other specified abnormal findings of blood chemistry (principal)
CPT/HCPCS: 71275; Q9967

== ENCOUNTER 2023-11-24 07:21 | Outpatient (CLI) | payer OTHER, SELFPAY ==
--- NOTE | 2023-11-24 | CA_ITS ---
APPROVED REPORT Exam: Pharmacologic Technologist: Suzy Mejía, Ht: 5 ft 2 in Wt: 140 lbs BSA: 1.64 m2 HR: 64 bpm BP: 164/92 mmHg Rhythm: NSR, low voltage QRS Medical History Medications: Amlodipine,,,,, Alprazolam,,,,, Aspirin,,,,, Metoprolol,,,,, Ropinirole,,,,, Albuterol,,,,, Montelukast,,,,, CloPIdogrel,,,,, Famotidine,,,,, BenzONATATE,,,,, Pantroprazole,,,,, Furosemide,,,,, Cardiac Risk Factors: HTN Stress Test Details Test: Milind HR Resting HR: 90 bpm Max Heart Rate (APMHR): 157 bpm Max HR Achieved: 148 bpm Target HR (85% APMHR): 133 bpm % of APMHR: 94 Recovery HR: 82 bpm HR response to stress: Normal HR response to stress BP Resting BP: 147.0/79 mmHg Max BP: 196/86 mmHg Recovery BP: 149.0/88.0 mmHg BP response to stress: Normal blood pressure response to stress. ECG Resting ECG: NSR, low voltage QRS, nonspecific T wave changes, Stress EC.[address] depression Arrhythmia: PVCs Recovery ECG: Return to baseline within 3 minutes of recovery Recovery Arrhythmia: PVCs Clinical Exercise duration: 07:16 min Highest Stage Achieved: Exercise capacity: 10.1 METs Overall Exercise Capacity for Age: Average Stress ECG Conclusion The patient was able to exercise for a total of 7 minutes, 17 seconds. She achieved a total of 10.1 METS. She has an average exercise capacity compared to age and sex matched peers. She has normal HR and BP response to exercise. She experinced mild SOA and head discomfort. No CP noted. Ectopy: Rare PVC noted. ST changes: 0.[address] depression Conclusion: Average exercise capacity. No ischemic changes on EKG at peak stress. Myoview images are reported separately. Test Summary REST . . . . . . . Sitting REST . . . . . . . Standing REST 04:28 0.0 0.0 90 . 147/ 79 . . Stage 1 01:00 10.0 1.7 104 . . . . Stage 1 02:00 10.0 1.7 109 . . . . Stage 1 03:00 10.0 1.7 116 . 188/ 80 . . Stage 2 01:00 12.0 2.5 122 . . . . Stage 2 02:00 12.0 2.5 124 . . . . Stage 2 03:00 12.0 2.5 126 . 196/ 86 . . Stage 3 01:00 14.0 3.4 136 . . . . Stage 3 01:16 14.0 3.4 141 . . . Stop exercise at 07:16 RECOVERY 01:00 0.0 0.0 123 . . . . RECOVERY 02:00 0.0 0.0 112 . 159/ 68 . . RECOVERY 03:00 0.0 0.0 101 . 149/ 80 . . RECOVERY 04:00 0.0 0.0 96 . 149/ 80 . . RECOVERY 05:00 0.0 0.0 93 . 149/ 73 . . RECOVERY 05:31 0.0 0.0 93 . 149/ 73 . . Electronically signed by : Krystal Benito MD 11/27/2023 01:43:56
--- NOTE | 2023-11-24 07:21 | NM_ITS ---
APPROVED REPORT Exam: Nuclear Stress Test Indication: CAD, HTN, HYPERLIPIDEMIA, TOB USE, FM HX, C.P., SOB, FATIGUE EDEMA Patient Location: Outpatient Stress Tech: Suzy Mejía MS Tech:Marlys Loyola KARLA RT (R)(N)(M) Ht: 5 ft 2 in Wt: 140 lbs Bra Size: 32B HR: 84 bpm BP: 142/87 mmHg BSA: 1.64 m2 TID: 1.17 BMI: 25.6 History: CAD, HTN, HYPERLIPIDEMIA, TOB USE, FM HX, C.P., SOB, FATIGUE EDEMA Procedure: Patient exercised on Milind protocol 7:16 minutes and sec, resting heart rate 84 bpm, resting blood pressure 142/87 mmHg, with exercise maximum heart rate achived was 142 bpm which is 90 % of the maximum predicted heart rate and blood pressure was 196/86 mmHg. Test was stopped due to FATIGUE. Patient denied any complaint of chest pain. Patient has average exercise capacity, achieved 10.1 METs of workload on treadmill, the blood pressure response to exercise was normal . Cardiac Stress and Resting SPECT Images: Cardiac Stress and Resting SPECT images were obtained using technetium 99m Myoview 31.9 mCi stress and 10.82 mCi at rest. Resting and stress imaging in supine and prone positions demonstrate no evidence of fixed or reversible perfusion defects. Gated imaging demonstrates normal global and regional LV systolic function. LVEF is calculated at 63%. Conclusion: No evidence of fixed or reversible perfusion defects. Gated imaging demonstrates normal global and regional LV systolic function. LVEF is calculated at 63%. Electronically signed by : Krystal Benito MD 11/27/2023 01:45:06
[2023-11-24] MEDS: SODIUM CHLORIDE 0.9% 10ML SYR (RAD ONLY) 10 ML IV ×2 (07:30→08:30)
[2023-11-24] MEDS: ISOTOPE MYOVIEW (PER STUDY) 1 DOSE IV (09:39)
== END 2023-11-24 23:59 | disposition home or self-care (01) ==
LOC: RAD 07:21
PROVIDERS: Visit Provider Nurse Practitioner
DX: R60.9 Edema, unspecified (principal); I25.10 Atherosclerotic heart disease of native coronary artery without angina pectoris; R55 Syncope and collapse; R06.02 Shortness of breath; R07.9 Chest pain, unspecified; R00.0 Tachycardia, unspecified; F17.210 Nicotine dependence, cigarettes, uncomplicated; I11.0 Hypertensive heart disease with heart failure
CPT/HCPCS: 78452; 93017; 93018; A9502

== ENCOUNTER 2023-11-30 07:49 | Outpatient (CLI) | payer OTHER, SELFPAY ==
--- NOTE | 2023-11-30 07:50 | US_ITS ---
FINAL REPORT CLINICAL HISTORY: hx of AAA COMPARISON: None FINDINGS: Sonographic images were obtained of the abdominal aorta. The abdominal aorta measures up to 1.8 cm in greatest dimension. The common iliac arteries are not well-seen secondary to overlying bowel gas but appear grossly unremarkable.. IMPRESSION: No evidence of aortic aneurysm. Reviewed, Interpreted and Dictated by Frandy Bui III, MD Transcribed by Beverly Fernandez Authenticated and [facility]
--- NOTE | 2023-11-30 08:17 | CA_ITS ---
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 Brake Repair: CHANO Zaldivar, RVS Ht: 5 ft 2 in Wt: 140lbs BSA: 1.64 BP: 146/61 mmHg Indications: AAA, Cp, Smoker, Edema, CAD-stents, SOA 2D Dimensions Left Atrium 2.71 cm F: 2.7 - 3.8 LA Volume 23.10 mL LA Volume Index [id number] mL/m2 (M/F) 16-34 M-Mode Dimensions RVDd 2.24 cm (0.9-2.6) LA Diam 3.40 cm (1.9-4.0) LVDd 5.16 cm (3.5-5.7) LVDs 3.32 cm (3.5-5.7) IVSd 0.84 cm (0.6-1.1) PWd 0.84 cm (0.6-1.1) EF (Teich) 64.80% EPSs 0.64 cm FS 35.70% EDV (Teich) 127.20 mL TAPSE 1.28 (<1.7) ESV (Teich) 44.80 mL LV Diastology E Decel Time 247 (160-240 msec) E/A Ratio 0.78 MED A' 8.20 cm/s LAT A' 10.20 cm/s Aortic Valve ANTONIO Index 1.76 cm2/m2 AoV Peak Mat. 148.0 (50-130 cm/s) AI PHT 332.00 ms AO Peak GR. 8.70 mmHg AO Mean GR. 4.10 (<5 mmHg) AO VTI 27.0 (18-25 cm) ANTONIO (VTI) 2.96 (2.5-4.5 cm2) Mitral Valve MV A Velocity 99.0 (40-130 cm/s) E/A Ratio 0.78 MV Mean Gr. 1.60 (<2mmHg) Tricuspid Valve TR P. Velocity 207.00 cm/s RAP Estimate 10.00 mmHg RVSP 27.20 mmHg Left Ventricle The left ventricle is normal size. The left ventricular systolic function is normal. The left ventricular ejection fraction is within the normal range. There is increased LV wall thickness. There is normal LV segmental wall motion. Transmitral Doppler flow pattern suggests impaired LV relaxation. LVEF is 55%. Right Ventricle The right ventricle is normal size. The right ventricular systolic function is normal. Atria The left atrium size is normal. The right atrium size is normal. The interatrial septum is not well-visualized. Aortic Valve The aortic valve is mildly thickened. There is no aortic valvular stenosis. Mild aortic regurgitation. Mitral Valve The mitral valve is normal in structure. No evidence of mitral valve stenosis. Trace mitral regurgitation. Tricuspid Valve The tricuspid valve leaflets are thin and pliable. Mild tricuspid regurgitation. RVSP is 20-25 mmHg. Pulmonic Valve The pulmonary valve is normal in structure. Trace pulmonic regurgitation. Great Vessels The aortic root is normal in size. The ascending aorta is not well-visualized. IVC is normal in size and collapses >50% with inspiration. Pericardium There is no pericardial effusion. Other Information Study Quality: Fair Conclusion Normal biventricular systolic function. Mild AI, mild TR. Electronically signed by : Krystal Benito MD 12/02/2023 11:02:03
== END 2023-11-30 23:59 | disposition home or self-care (01) ==
LOC: RAD 07:50
PROVIDERS: Visit Provider Nurse Practitioner
DX: I71.40 Abdominal aortic aneurysm, without rupture, unspecified (principal); R60.9 Edema, unspecified; R06.02 Shortness of breath; R00.0 Tachycardia, unspecified
CPT/HCPCS: 76770; 93306

== ENCOUNTER 2023-12-08 09:59 | Emergency (ER) | payer OTHER, SELFPAY ==
[2023-12-08 10:00] VITALS: BP 148/75; PULSE 92; RESP 18; TEMP 36.6; O2SAT 98; BMI 25.2
--- NOTE | 2023-12-08 10:14 | ECG_ITS ---
APPROVED REPORT Exam: Resting ECG HR:86 bpm ECG Measurements Heart Rate 86 AXES PA 134 P 58 QRSd 90 QRS 52 QT 351 T 20 QTc 394 Conclusion SINUS RHYTHM POSSIBLE LEFT ATRIAL ENLARGEMENT [-0.1mV P-WAVE IN V1/V2] POSSIBLE RIGHT VENTRICULAR CONDUCTION DELAY [RSR (QR) IN V1/V2] MODERATE ST DEPRESSION [0.05+ mV ST DEPRESSION] ABNORMAL ECG Electronically signed by : ROSSY SHAW, 12/08/2023 15:17:11
[2023-12-08 10:33] LABS: Microscopic, Urine URINE MICROSCOPIC (MICROSCOPIC)
[2023-12-08 10:45] VITALS: BP 132/77; PULSE 82; O2SAT 96
[2023-12-08 10:51] LABS: Chloride 103 mmol/L (98-107); Sodium 139 mmol/L (136-145)
--- NOTE | 2023-12-08 10:52 | XR_ITS ---
FINAL REPORT CLINICAL HISTORY: Nonspecific chest pain, shortness of breath COMPARISON: 11/04/2022 FINDINGS: No acute pulmonary opacity is present. There is no evidence of effusion or pneumothorax. Mediastinum is unremarkable. Heart size is normal. IMPRESSION: No acute abnormality. Reviewed, Interpreted and Dictated by Deborah Rendon MD Transcribed by Francheska King Authenticated and [facility]
[2023-12-08 10:53] LABS: Blood Urea Nitrogen 8 mg/dl (7-17); Creatinine Clearance Estimated 57 mL/min (50-200); Estimated Glomerular Filt Rate 72 ml/min (>60); GFR (African American) 88 ML/MIN (>60)
--- NOTE | 2023-12-08 10:53 | ED_ITS ---
Discharge Plan Disposition Patient Disposition: Home, Self-Care Chief Complaint: Recheck/Abnormal Lab/Rx Prescriptions Prescriptions: No Action montelukast 10 mg tablet 10 mg PO DAILY sumatriptan succinate 50 mg tablet 50 mg PO Q2H PRN (Reason: migraines) ezetimibe 10 mg tablet 10 mg PO DAILY methocarbamol 500 mg tablet PO Patient Comments: TAKE 1 TABLET BY MOUTH TWICE A DAY famotidine 40 mg tablet PO Patient Comments: TAKE 1 TABLET BY MOUTH TWICE A DAY citalopram 20 mg tablet PO Patient Comments: TAKE 1 TABLET BY MOUTH EVERY DAY folic acid 1 mg tablet PO Patient Comments: TAKE 1 TABLET BY MOUTH EVERY DAY clopidogrel 75 mg tablet 75 mg PO DAILY cyanocobalamin (vitamin B-12) 1,000 mcg/mL solution 1,000 mcg SQ WEEKLY Patient Comments: INJECT 1 ML INTO THE MUSCLE ONCE A WEEK FOR 30 DAYS. cholecalciferol (vitamin D3) 125 mcg (5,000 unit) tablet 125 mcg PO DAILY Patient Comments: TAKE 1 TABLET BY MOUTH EVERY DAY amlodipine 10 mg tablet 10 mg PO DAILY Qty: 30 5RF Rx Instructions: TAKE ONE TABLET BY MOUTH TWICE DAILY furosemide 40 mg tablet 40 mg PO DAILY Qty: 90 3RF Rx Instructions: TAKE 1 TABLET BY MOUTH EVERY DAY spironolactone 50 mg tablet See Rx Instructions .ROUTE .COMPLEX Qty: 90 1RF Dose Instruction: TAKE 1 TABLET BY MOUTH EVERY DAY Rx Instructions: TAKE 1 TABLET BY MOUTH EVERY DAY ropinirole 1 mg tablet See Rx Instructions .ROUTE .COMPLEX Qty: 180 1RF Dose Instruction: TAKE 1 TABLET ORALLY TWICE A DAY Rx Instructions: TAKE 1 TABLET ORALLY TWICE A DAY aspirin 81 MG tablet,delayed release (DR/EC) 81 mg PO DAILY pantoprazole 40 MG tablet,delayed release (DR/EC) 40 mg PO DAILY alprazolam 0.25 mg tablet 0.25 mg PO BID PRN (Reason: Anxiety) metoprolol succinate 100 MG tablet extended release 24 hr 100 mg PO DAILY meclizine 25 mg tablet 25 mg PO Q6HP PRN (Reason: dizziness) Qty: 30 1RF albuterol sulfate 90 mcg/actuation HFA aerosol inhaler 2 inh inhalation Q6H PRN (Reason: shortness of breath or wheezing) Qty: 8.5 0RF amoxicillin [amoxicillin] 500 mg tablet 500 mg PO TID 10 Days Qty: 30 0RF benzonatate [benzonatate] 100 mg capsule 100 mg PO TIDP PRN (Reason: Cough) Qty: 30 0RF ondansetron 4 mg Tablet,Disintegrating 4 mg PO Q8H PRN (Reason: Nausea) Qty: 8 0RF valsartan 320 mg tablet 320 mg PO DAILY fluticasone propionate [Flonase Allergy Relief] 50 mcg/actuation spray,suspension 1 spray intranasal DAILY Rx Instructions: administer into each nostril daily Referrals Follow up/Referrals: Radha Wise DO [Primary Care Provider] - See instructions Activity Restrictions/Add. Instructions Additional Instructions/Restrictions: At this time it was felt you are safe to be discharged home. If new or worsening symptoms please do not hesitate to return the emergency department. Please follow-up in 48 hours for repeat blood work as discussed. Please do not take your Lasix and have your medications adjusted by cardiology as discussed. Clinical Impressions Clinical Impression: Acute hypokalemia Discharge ED Provider: Clayton Mae General Adult HPI General Chief complaint: Recheck/Abnormal Lab/Rx Stated complaint: low potassium Time Seen by Provider: 12/08/23 10:15 Mode of Arrival: Ambulatory Source of Information: Patient Limitations: No Limitations Description of Symptoms (Recalled from ER Triage Doc. by RN): critically low potassium. was told to come here by pcp History of Present Illness HPI narrative: Patient is a 63-year-old female with past medical history of coronary artery disease status post stenting, COPD, hypertension, hyperlipidemia, leg swelling on Lasix who presents emergency department for evaluation of hypokalemia. Patient was reportedly seen by PCP for leg swelling and was started on Lasix daily over a month ago. Cath report from last year shows normal ejection fraction. When swelling got bad she was instructed to take Lasix twice a day for which she has. She reportedly had a potassium of 2.6 at clinic on Wednesday and had a repeated few days later for which it was still 2.7 after stopping the Lasix. No oral potassium repletion was prescribed at that point. Due to persistently low potassium she presents here for continued evaluation. She has had a dull achiness in her chest but states that is not true chest pain over the last 48 hours, no shortness of breath, no abdominal pain. There is some cramping of her legs with ambulation and generalized weakness. No other acute complaints at this time. Related Data Home Medications Medication Instructions Recorded Confirmed aspirin 81 mg tablet,delayed 81 mg PO DAILY heart health 10/14/17 11/16/23 release pantoprazole 40 mg tablet,delayed 40 mg PO DAILY GERD 10/14/17 11/16/23 release alprazolam 0.25 mg tablet 0.25 mg PO BID PRN Anxiety 04/26/18 11/16/23 montelukast 10 mg tablet 10 mg PO DAILY COPD 10/31/19 11/16/23 sumatriptan succinate 50 mg tablet 50 mg PO Q2H PRN migraines 10/31/19 11/16/23 clopidogrel 75 mg tablet 75 mg PO DAILY antiplatelet 10/14/20 11/16/23 metoprolol succinate 100 mg 100 mg PO DAILY High blood pressure 02/10/22 11/16/23 tablet,extended release 24 hr cholecalciferol (vitamin D3) 125 125 mcg PO DAILY . 02/12/22 11/16/23 mcg (5,000 unit) tablet cyanocobalamin (vitamin B-12) 1,000 mcg SQ WEEKLY . 02/12/22 11/16/23 1,000 mcg/mL injection solution ezetimibe 10 mg tablet 10 mg PO DAILY . 03/05/22 11/16/23 fluticasone propionate 50 1 spray intranasal DAILY . 02/25/23 11/16/23 mcg/actuation nasal spray,suspension (Flonase Allergy Relief) valsartan 320 mg tablet 320 mg PO DAILY . 02/25/23 11/16/23 citalopram 20 mg tablet mg PO 11/16/23 11/16/23 famotidine 40 mg tablet mg PO 11/16/23 11/16/23 folic acid 1 mg tablet PO 11/16/23 11/16/23 methocarbamol 500 mg tablet mg PO 11/16/23 11/16/23 Previous Rx's Medication Instructions Recorded amlodipine 10 mg tablet 10 mg PO DAILY High blood pressure 03/19/22 #30 tabs meclizine 25 mg tablet 25 mg PO Q6HP PRN dizziness #30 10/05/22 tabs albuterol sulfate 90 mcg/actuation 2 inh inhalation Q6H PRN shortness 11/04/22 aerosol inhaler of breath or wheezing #8.5 grams furosemide 40 mg tablet 40 mg PO DAILY Edema #90 tabs 05/30/23 amoxicillin 500 mg tablet 500 mg PO TID 10 days #30 tabs 08/13/23 benzonatate 100 mg capsule 100 mg PO TIDP PRN Cough #30 caps 08/13/23 ondansetron 4 mg disintegrating 4 mg PO Q8H PRN Nausea #8 tabs 08/13/23 tablet spironolactone 50 mg tablet See Rx Instructions .Route 10/14/23 .COMPLEX #90 tabs ropinirole 1 mg tablet See Rx Instructions .Route 11/18/23 .COMPLEX #180 tabs Allergies Allergy/AdvReac Type Severity Reaction Status Date / Time No Known Allergies Allergy Verified 11/16/23 11:05 [facility] Disclaimer: The information contained in this section may have been updated after the patient was seen, as this information can be updated by other users. Medical History Atypical angina Acid reflux HLD (hyperlipidemia) HHD (hypertensive heart disease) Social History Smoking Status: Current every day smoker tobacco type: cigarettes packs per day: 1 second hand exposure: No alcohol intake: never substance use type: denies use current occupational status: employed Travel in the last 8 weeks: None household members: significant other housing: house current occupational exposures/hazards: No ROS Obtained: Yes Systems reviewed as appropriate & no additional complaints except as documented Physical Exam General General appearance: alert and in no apparent distress Head Head exam: atraumatic and normocephalic Eye Eye exam: Present PERRL ENT ENT exam: Present mucous membranes moist Neck Neck exam: Present normal inspection Chest Chest inspection: Present normal inspection and symmetric chest wall rise Respiratory Respiratory exam: Present normal lung sounds bilaterally; Absent respiratory distress Cardiovascular Cardiovascular exam: Present regular rate and normal rhythm Abdominal Exam Abdominal exam: Present soft; Absent tenderness Extremities Exam Extremities exam: Present normal inspection Neurological Exam Neurological exam: Present alert and CN II-XII intact; Absent motor sensory deficit Psychiatric Psychiatric exam: Present normal affect Skin Skin exam: Present warm and dry Medical Decision Making Kael Inquiry Pt receiving controlled substance: No Vital Signs: 12/08/23 10:00 12/08/23 10:45 12/08/23 11:00 Temperature 97.9 F Temperature Source Oral Pulse Rate 82 83 Pulse Rate [Right] 92 H Respiratory Rate 18 Blood Pressure 132/77 132/77 Blood Pressure [Right Arm] 148/75 H Blood Pressure Mean [Right Arm] 99 02 Sat by Pulse Oximetry 98 96 97 Oxygen Delivery Method Room Air Room Air Room Air Lab Data Lab Results 12/08/23 10:20: WBC 8.8, RBC 4.84, Hgb 14.7, Hct 44.3, MCV 91.5, MCH 30.3, MCHC 33.1, RDW 13.6, Plt Count 355, MPV 8.1, Neut % (Auto) 59.8, Lymph % (Auto) 27.8, Kimble % (Auto) 7.8, Eos % (Auto) 2.6, Baso % (Auto) 1.9, Neut # (Auto) 5.3, Lymph # (Auto) 2.5, Kimble # (Auto) 0.7, Eos # (Auto) 0.2, Baso # (Auto) 0.2, Sodium 139, Potassium 3.0 L, Chloride 103, Carbon Dioxide 27, Anion Gap 12.0, BUN 8, Creatinine 0.80, Estimated Creat Clear 57, Estimated GFR 72, Est GFR ( Amer) 88, Glucose 113 H, Calcium 9.8, Magnesium 2.2, Total Bilirubin 0.3, AST 28, ALT 26, Alkaline Phosphatase 102, Troponin I < 0.01, Total Protein 8.0, Albumin 4.5, Globulin 3.5 H, Albumin/Globulin Ratio 1.3 12/08/23 10:29: Urine Color Yellow, Urine Appearance Clear, Urine pH 6.5, Ur Specific Danielson <= 1.005, Urine Protein Negative, Urine Glucose (UA) Negative, Urine Ketones Negative, Urine Blood Negative, Urine Nitrate Negative, Urine Bilirubin Negative, Urine Urobilinogen 0.2, Ur Leukocyte Esterase Negative, Urine WBC Occasional, Ur Squamous Epith Cells 5-10, Amorphous Sediment 1+, Urine Bacteria 1+ 12/08/23 10:20 12/08/23 10:20 Orders (Tests/Meds): ED MEDICATIONS Generic Name Dose Route Start Last Admin Trade Name Freq PRN Reason Stop Dose Admin Potassium Chloride/Water 100 mls @ 50 mls/hr 12/08/23 10:57 12/08/23 13:07 Potassium Chloride 20meq/100ml Ivpb IV 12/08/23 14:56 Not Given Q2H MARIO Sodium Chloride 10 ml 12/08/23 10:28 Sodium Chloride 0.9% 10ml Flush Syringe IV 01/07/24 10:27 NEEDED PRN Maintain IV Site Discontinued Medications Generic Name Dose Route Start Last Admin Trade Name Freq PRN Reason Stop Dose Admin Potassium Chloride 40 meq 12/08/23 10:57 12/08/23 11:05 Potassium Chloride 20meq Tab PO 12/08/23 10:58 40 meq ONCE ONE Administration ORDERS Category Date Time Status CXR --portable [XR chest portable] Stat Exams 12/08/23 10:52 Completed Complete Blood Count Auto Diff Stat Lab 12/08/23 10:20 Completed Comprehensive Metabolic Panel Stat Lab 12/08/23 10:20 Completed MG [Magnesium] Stat Lab 12/08/23 10:20 Completed Trop I [Troponin I] Stat Lab 12/08/23 10:20 Completed Troponin I Q3H Lab 12/08/23 14:00 Ordered Troponin I Q3H Lab 12/08/23 17:00 Ordered UA [Urinalysis and Microscopic] Stat Lab 12/08/23 10:29 Completed ECG Data Tracing #1: Independently interpreted by me rate is 86, rhythm is regular, axis is normal, no ST elevation in anatomical contiguous leads, QTc 394. Nonspecific changes in lateral leads. Medical Decision Narrative: In summary patient is a 63-year-old female past medical history described above presents emergency department for evaluation of hypokalemia and chest achiness. Patient is hemodynamically stable and nontoxic-appearing upon arrival, afebrile. Unfortunately I cannot see the potassium in the system, last potassium over a month ago was normal that was obtained here. Given this based on history I suspect hypokalemia secondary to Lasix. Lasix has been discontinued for a few days now. She will be given 40 mg orally empirically and workup will be conducted with hematologic labs, chest x-ray, EKG, troponin. Initial workup reviewed by me, hematologic labs remarkable for hypokalemia of 3.0 which will be repleted orally and IV. Initial troponin undetectably low. Urinalysis interpreted by me and not consistent with infection. Chest x-ray informally visualized by me, no acute lobar opacity or large pneumothorax. Formal read shows no acute abnormality. The patient was placed in observation status at 11:57 AM. Medical necessity for observational status is potassium repletion and cardiac monitoring. The patient was provided serial reevaluations and cardiac monitoring while awaiting results. After potassium repletion patient continued to be well-appearing. Given this patient is appropriate for discharge at this time we will follow-up on an outpatient basis within the next 48 hours for repeat blood work. 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
[2023-12-08 10:54] LABS: Alanine Aminotransferase 26 U/L (12-78); Albumin Level 4.5 g/dl (3.5-5.0); Albumin/Globulin Ratio 1.3 (1.1-1.8); Alkaline Phosphatase 102 U/L (38-126); Aspartate Amino Transferase 28 U/L (14-36); Bilirubin,Total 0.3 mg/dl (0.2-1.3); Carbon Dioxide 27 mmol/L (22.0-30.0); Globulin 3.5 g/dL (1.3-3.2)
[2023-12-08 10:54] LABS: Appearance,Urine CLEAR (Clear); Bilirubin,Urine Negative (Negative); Blood, Urine Negative (Negative); Color,Urine YELLOW (Yellow); Glucose,Urine (UA) Negative (Negative); Ketones,Urine Negative (Negative); Leukocyte Esterase,Urine Negative (Negative); Nitrate,Urine Negative (Negative); PH,Urine 6.5 (5.0-8.5); Protein,Urine Negative (Negative); Specific Gravity, Urine <= 1.005 (1.005-1.030); Urobilinogen,Urine 0.2 EU/dl (0.2)
[2023-12-08 10:55] LABS: Calcium 9.8 mg/dl (8.4-10.2); Glucose 113 mg/dl (74-100)
--- NOTE | 2023-12-08 10:59 | PC.NURSE ---
Dr. Mae notified of Potassium of 3.0.
[2023-12-08 11:00] VITALS: BP 132/77; PULSE 83; O2SAT 97
[2023-12-08] MEDS: KCl 20mEq/100ml 100 ML 50 MEQ IV (11:05)
[2023-12-08] MEDS: POTASSIUM CHLORIDE 20MEQ TAB 40 MEQ PO (11:05)
[2023-12-08 11:19] LABS: Basophils # 0.2 K/mm3 (0-0.2); Basophils % 1.9 % (0.1-2.0); Eosinophils # 0.2 K/mm3 (0.0-0.4); Eosinophils % 2.6 % (0.1-12.0); Hematocrit 44.3 % (37.0-47.0); Hemoglobin 14.7 g/dL (12.2-16.2); Lymphocytes # 2.5 K/mm3 (0.7-4.5); Lymphocytes % 27.8 % (10-50); Mean Corpuscular HGB Conc 33.1 g/dL (31.8-35.4); Mean Corpuscular Hemoglobin 30.3 pg (27.0-31.2); Mean Corpuscular Volume 91.5 fl (81-99); Mean Platelet Volume 8.1 fl (7.4-10.4); Monocytes # 0.7 K/mm3 (0.1-1.0); Monocytes % 7.8 % (1.7-9.3); Neutrophils # 5.3 K/mm3 (1.8-7.8); Neutrophils % 59.8 % (37.0-80.0); Platelet Count 355 K/mm3 (142-424); Red Blood Count 4.84 M/mm3 (4.20-5.40); Red Cell Distribution Width 13.6 % (11.5-17.5); White Blood Count 8.8 K/mm3 (4.8-10.8)
[2023-12-08 11:26] LABS: Magnesium 2.2 mg/dl (1.6-2.3)
[2023-12-08 11:39] LABS: Amorphous Sediment,Urine 1+ /lpf; Bacteria,Urine 1+ /lpf
[2023-12-08 11:40] LABS: WBC,Urine Occasional #/hpf (0-3)
[2023-12-08 11:46] LABS: Troponin I < 0.01 ng/ml (0.00-0.034)
[2023-12-08 13:28] VITALS: BP 132/77; PULSE 81; RESP 20; TEMP 36.7; O2SAT 99
== END 2023-12-08 13:29 | disposition home or self-care (01) ==
PROVIDERS: Emergency Provider Emergency Medicine; PCP Student in an Organized Health Care Education/Training Program
DX: E87.6 Hypokalemia (principal); M62.831 Muscle spasm of calf; R53.1 Weakness; J44.9 Chronic obstructive pulmonary disease, unspecified; F17.210 Nicotine dependence, cigarettes, uncomplicated; K21.9 Gastro-esophageal reflux disease without esophagitis; I11.9 Hypertensive heart disease without heart failure; I25.119 Atherosclerotic heart disease of native coronary artery with unspecified angina pectoris; E78.5 Hyperlipidemia, unspecified; Z95.5 Presence of coronary angioplasty implant and graft; Z79.899 Other long term (current) drug therapy
CPT/HCPCS: 71045; 80053; 81001; 83735; 84484; 85025; 93005; 96365; 96366; 99285

== ENCOUNTER 2024-01-03 13:38 | Emergency (ER) | payer OTHER, SELFPAY ==
[2024-01-03 13:50] VITALS: BP 154/73; PULSE 99; RESP 16; TEMP 36.7; O2SAT 97; BMI 25.6
--- NOTE | 2024-01-03 14:03 | XR_ITS ---
FINAL REPORT CLINICAL HISTORY: PAIN x 3 days. no known trauma FINDINGS: RIGHT KNEE 3 views of the right knee were obtained. There is no acute fracture or dislocation. Visualized joint spaces are normally aligned. Soft tissues are unremarkable. IMPRESSION: No acute bony abnormality. Reviewed, Interpreted and Dictated by Marybel Laboy MD Transcribed by Brenda Bueno Authenticated and [facility]
--- NOTE | 2024-01-03 14:17 | EXP.UTC ---
Discharge Plan Disposition Patient Disposition: Home, Self-Care Condition: Good Prescriptions Prescriptions: New diclofenac sodium [Arthritis Pain (diclofenac)] 1 % gel 2 g topical BID PRN (Reason: pain) Qty: 100 0RF Rx Instructions: apply to right knee as directed No Action montelukast 10 mg tablet 10 mg PO DAILY sumatriptan succinate 50 mg tablet 50 mg PO Q2H PRN (Reason: migraines) ezetimibe 10 mg tablet 10 mg PO DAILY methocarbamol 500 mg tablet PO Patient Comments: TAKE 1 TABLET BY MOUTH TWICE A DAY famotidine 40 mg tablet PO Patient Comments: TAKE 1 TABLET BY MOUTH TWICE A DAY citalopram 20 mg tablet PO Patient Comments: TAKE 1 TABLET BY MOUTH EVERY DAY folic acid 1 mg tablet PO Patient Comments: TAKE 1 TABLET BY MOUTH EVERY DAY furosemide [Lasix] 40 mg tablet 40 mg PO DAILY Qty: 30 3RF potassium chloride 10 mEq tablet extended release 10 meq PO DAILY Qty: 30 3RF ranolazine 500 mg tablet extended release 12 hr 500 mg PO BID Qty: 60 3RF clopidogrel 75 mg tablet 75 mg PO DAILY cyanocobalamin (vitamin B-12) 1,000 mcg/mL solution 1,000 mcg SQ WEEKLY Patient Comments: INJECT 1 ML INTO THE MUSCLE ONCE A WEEK FOR 30 DAYS. cholecalciferol (vitamin D3) 125 mcg (5,000 unit) tablet 125 mcg PO DAILY Patient Comments: TAKE 1 TABLET BY MOUTH EVERY DAY amlodipine 10 mg tablet 10 mg PO DAILY Qty: 30 5RF Rx Instructions: TAKE ONE TABLET BY MOUTH TWICE DAILY ropinirole 1 mg tablet See Rx Instructions .ROUTE .COMPLEX Qty: 180 1RF Dose Instruction: TAKE 1 TABLET ORALLY TWICE A DAY Rx Instructions: TAKE 1 TABLET ORALLY TWICE A DAY aspirin 81 MG tablet,delayed release (DR/EC) 81 mg PO DAILY pantoprazole 40 MG tablet,delayed release (DR/EC) 40 mg PO DAILY alprazolam 0.25 mg tablet 0.25 mg PO BID PRN (Reason: Anxiety) metoprolol succinate 100 MG tablet extended release 24 hr 100 mg PO DAILY meclizine 25 mg tablet 25 mg PO Q6HP PRN (Reason: dizziness) Qty: 30 1RF albuterol sulfate 90 mcg/actuation HFA aerosol inhaler 2 inh inhalation Q6H PRN (Reason: shortness of breath or wheezing) Qty: 8.5 0RF ondansetron 4 mg Tablet,Disintegrating 4 mg PO Q8H PRN (Reason: Nausea) Qty: 8 0RF valsartan 320 mg tablet 320 mg PO DAILY fluticasone propionate [Flonase Allergy Relief] 50 mcg/actuation spray,suspension 1 spray intranasal DAILY Rx Instructions: administer into each nostril daily Referrals Follow up/Referrals: Radha Wise DO [Primary Care Provider] - See instructions Activity Restrictions/Add. Instructions Additional Instructions/Restrictions: Use topical Medication as prescribed Follow up with your Family Doctor if knee pain continues or does not improve Return if needed Straight to ER if any life threatening symptoms Clinical Impressions Clinical Impression: Knee pain Instructions Patient Instructions: Diclofenac Topical (arthritis pain), How to Apply an Marvin Wrap Discharge ED Provider: Nanette Carlisle [facility] General Stated complaint: Pain swell/redness in R knee Mode of Arrival: Ambulatory Source of Information: Patient Limitations: No Limitations Time Seen by Provider: 01/03/24 14:17 Description of Symptoms (Recalled from Triage Doc. by RN): PATIENT C/O RIGHT KNEE PAIN THAT STARTED 2 DAYS AGO, NO KNOWN INJURY HEENT Symptoms (Recalled from RN notes): No Resp Symptoms (Recalled from RN notes): No Skin Symptoms (Recalled from RN notes): No MS Symptoms (Recalled from RN notes): Yes Functional Status (Recalled from RN notes): WNL History of Present Illness Provider Complaint: Patient state that she started having pain in her right knee States that pain is worse when tries to walk on the inside of her right knee States she has been taking Tylenol and ibuprofen but not helped much so today when it was still bothering her she came in to get it checked Denies known injury Related Data Home Medications Medication Instructions Recorded Confirmed aspirin 81 mg tablet,delayed 81 mg PO DAILY heart health 10/14/17 12/16/23 release pantoprazole 40 mg tablet,delayed 40 mg PO DAILY GERD 10/14/17 12/16/23 release alprazolam 0.25 mg tablet 0.25 mg PO BID PRN Anxiety 04/26/18 12/16/23 montelukast 10 mg tablet 10 mg PO DAILY COPD 10/31/19 12/16/23 sumatriptan succinate 50 mg tablet 50 mg PO Q2H PRN migraines 10/31/19 12/16/23 clopidogrel 75 mg tablet 75 mg PO DAILY antiplatelet 10/14/20 12/16/23 metoprolol succinate 100 mg 100 mg PO DAILY High blood pressure 02/10/22 12/16/23 tablet,extended release 24 hr cholecalciferol (vitamin D3) 125 125 mcg PO DAILY . 02/12/22 12/16/23 mcg (5,000 unit) tablet cyanocobalamin (vitamin B-12) 1,000 mcg SQ WEEKLY . 02/12/22 12/16/23 1,000 mcg/mL injection solution ezetimibe 10 mg tablet 10 mg PO DAILY . 03/05/22 12/16/23 fluticasone propionate 50 1 spray intranasal DAILY . 02/25/23 12/16/23 mcg/actuation nasal spray,suspension (Flonase Allergy Relief) valsartan 320 mg tablet 320 mg PO DAILY . 02/25/23 12/16/23 citalopram 20 mg tablet mg PO 11/16/23 12/16/23 famotidine 40 mg tablet mg PO 11/16/23 12/16/23 folic acid 1 mg tablet PO 11/16/23 12/16/23 methocarbamol 500 mg tablet mg PO 11/16/23 12/16/23 Previous Rx's Medication Instructions Recorded amlodipine 10 mg tablet 10 mg PO DAILY High blood pressure 03/19/22 #30 tabs meclizine 25 mg tablet 25 mg PO Q6HP PRN dizziness #30 10/05/22 tabs albuterol sulfate 90 mcg/actuation 2 inh inhalation Q6H PRN shortness 11/04/22 aerosol inhaler of breath or wheezing #8.5 grams ondansetron 4 mg disintegrating 4 mg PO Q8H PRN Nausea #8 tabs 08/13/23 tablet ropinirole 1 mg tablet See Rx Instructions .Route 11/18/23 .COMPLEX #180 tabs furosemide 40 mg tablet (Lasix) 40 mg PO DAILY #30 tabs 12/16/23 potassium chloride 10 mEq 10 meq PO DAILY #30 tabs 12/16/23 tablet,extended release ranolazine 500 mg tablet,extended 500 mg PO BID #60 tabs 12/16/23 release,12 hr diclofenac sodium 1 % topical gel 2 g topical BID PRN pain #100 grams 01/03/24 (Arthritis Pain (diclofenac)) Allergies Allergy/AdvReac Type Severity Reaction Status Date / Time No Known Allergies Allergy Verified 12/16/23 10:36 Worker's Comp Is this a Worker's Comp case?: No [facility] Disclaimer: The information contained in this section may have been updated after the patient was seen, as this information can be updated by other users. Medical History Atypical angina Acid reflux HLD (hyperlipidemia) HHD (hypertensive heart disease) Social History Smoking Status: Current every day smoker tobacco type: cigarettes packs per day: 1 second hand exposure: No alcohol intake: never substance use type: denies use current occupational status: employed Travel in the last 8 weeks: None household members: significant other housing: house current occupational exposures/hazards: No ROS Obtained: Yes All systems reviewed & no additional complaints except as documented and Yes Systems reviewed as appropriate & no additional complaints except as documented Constitutional Constitutional: Reports system reviewed and no additional complaints, except as documented, Reports as per HPI and Denies fever(s) ENT Ears, Nose, Mouth, and Throat: Reports system reviewed and no additional complaints, except as documented and Reports as per HPI Cardiovascular Cardiovascular: Reports system reviewed and no additional complaints, except as documented and Reports as per HPI Respiratory Respiratory: Reports system reviewed and no additional complaints, except as documented and Reports as per HPI Gastrointestinal Gastrointestingal: Reports system reviewed and no additional complaints, except as documented and as per HPI Musculoskeletal Musculoskeletal: Reports system reviewed and no additional complaints, except as documented, Reports as per HPI and Reports other Comments: Pain in right knee worse with walking denies known injury Physical Exam General General appearance: alert and in no apparent distress ENT ENT exam: Present mucous membranes moist Respiratory Respiratory exam: Present normal lung sounds bilaterally; Absent respiratory distress or wheezes Cardiovascular Cardiovascular exam: Present regular rate, normal rhythm and normal heart sounds Expanded Lower Extremity Exam Right: Leg image: 1. reports tenderness and pain when she walks or moves it certain ways, no discoloration noted, no swelling, no redness or warmth Knee exam: Present tenderness; Absent swelling, ecchymosis or erythema Lower leg exam: Present normal inspection Ankle exam: Present normal inspection Foot/toe exam: Present normal inspection Neurological Exam Neurological exam: Present alert, oriented X3 and normal gait Medical Decision Making Kael Inquiry Pt receiving controlled substance: No Kael was queried for this patient: No Vital Signs: 01/03/24 13:50 Temperature 98.1 F Temperature Source Oral Pulse Rate [Left Brachial] 99 H Respiratory Rate 16 Blood Pressure [Left Arm] 154/73 H Blood Pressure Mean [Left Arm] 100 Blood Pressure Source [Left Arm] Automatic Cuff Blood Pressure Position [Left Arm] Sitting 02 Sat by Pulse Oximetry 97 Oxygen Delivery Method Room Air Orders (Tests/Meds): ORDERS Category Date Time Status Knee XR right 3 views [XR knee RT 3V] Stat Exams 01/03/24 14:03 Ordered Radiology Data #1: Image(s): Knee Image Reviewed: Yes I have reviewed radiologist's interpretation No acute Bony abnormality
--- NOTE | 2024-01-03 15:41 | PC.NURSE ---
Rounded on pt. Updated that we are waiting on xray read. Pt provided with water.
[2024-01-03 16:48] VITALS: BP 154/73; PULSE 99; RESP 16; TEMP 36.7; O2SAT 97
== END 2024-01-03 16:51 | disposition home or self-care (01) ==
PROVIDERS: Emergency Provider Nurse Practitioner; PCP Student in an Organized Health Care Education/Training Program
DX: M25.561 Pain in right knee (principal)
CPT/HCPCS: 73562; 99212; 99214; G0463

== ENCOUNTER 2024-09-04 10:08 | Outpatient (CLI) | payer OTHER, SELFPAY ==
[2024-09-04 11:02] LABS: Chol/HDL Ratio 6.6 (1-3.5); Cholesterol 239 mg/dl (140-200); HDL Cholesterol 36 mg/dl (40-60); Triglycerides 203 mg/dl (30-150); VLDL Cholesterol 41 mg/dL (0-40)
[2024-09-04 11:13] LABS: Direct LDL Cholesterol 187.27 mg/dL (100-129)
== END 2024-09-04 23:59 | disposition home or self-care (01) ==
LOC: LAB 10:09
PROVIDERS: PCP Student in an Organized Health Care Education/Training Program; Visit Provider Nurse Practitioner
DX: I25.10 Atherosclerotic heart disease of native coronary artery without angina pectoris (principal); R07.89 Other chest pain; E78.2 Mixed hyperlipidemia
CPT/HCPCS: 36415; 80061

== ENCOUNTER 2024-09-14 07:40 | Outpatient (CLI) | payer OTHER, SELFPAY ==
--- NOTE | 2024-09-14 | CA_ITS ---
APPROVED REPORT Exam: Pharmacologic Technologist: Mago Lin Ht: 5 ft 2 in Wt: 139 lbs BSA: 1.64 m2 HR: 70 bpm BP: 145/76 mmHg Rhythm: Nsr Medical History Medical History: HTN, Hyperlipidemia, Smoking Medications: Albuterol, Alprazolam, Amlodipine, Aspirin, Citalopram, Clopidogrel, Famotidine, Flonase, Folic Acid, Meclizine, Ondansetron, Pantooprazole, Ranolazine ER, Ropinirole, Metopolol Succinate ER, Sumatriptan Succinate Allergies: No known drug allergies Cardiac Risk Factors: HTN, Hyperlipidemia, Smoking Stress Test Details Test: Lexiscan HR Resting HR: 70 bpm Max Heart Rate (APMHR): 156 bpm Target HR (85% APMHR): 133 bpm Recovery HR: 83 bpm BP Resting BP: 145.0/70.0 mmHg Recovery BP: 130.0/73.0 mmHg ECG Resting ECG: Nsr Stress ECG Conclusion Pt had no symptoms Pvcs, Freguent Trigeminy <1.5mm ST segment changes Non-diagnostic Lexiscan stress test Electronically signed by : Krystal Benito MD 09/17/2024 21:49:12
--- NOTE | 2024-09-14 08:00 | NM_ITS ---
APPROVED REPORT Exam: Nuclear Stress Test Indication: cad, 3 stents, htn, hyperlipidemia, tob use, fm hx, c.p., sob, palpitations, fatigue Patient Location: Outpatient Stress Tech: M[facility] Tech:Tomasa Branch, ARRT RT(R)(N) Ht: 5 ft 2 in Wt: 140 lbs HR: 71 bpm BP: 145/76 mmHg BSA: 1.64 m2 TID: 0.96 BMI: 25.6 History: cad, 3 stents, htn, hyperlipidemia, tob use, fm hx, c.p., sob, palpitations, fatigue Procedure: Patient received 0.4 mg of intravenous Lexiscan, resting heart rate 71 bpm, resting blood pressure 145/76 mmHg, with Lexiscan maximum heart rate achieved was 97 bpm which is % of the maximum predicted heart rate and blood pressure was 142/80 mmHg. With Lexiscan, patient denied any complaint of chest pain. Cardiac Stress and Resting SPECT Images: Cardiac Stress and Resting SPECT images were obtained using technetium 99m Myoview 32.0 mCi stress and 10.98 mCi at rest. Resting and stress imaging in supine and prone positions demonstrate no evidence of fixed or reversible perfusion defects. Gated imaging demonstrates normal global and regional LV systolic function. LVEF is calculated at 61%. Conclusion: No evidence of fixed or reversible perfusion defects. Gated imaging demonstrates normal global and regional LV systolic function. LVEF is calculated at 61%. Electronically signed by : Krystal Benito MD 09/17/2024 21:46:26
[2024-09-14] MEDS: REGADENOSON 0.4MG/5ML SYRINGE 0.4 MG IV (09:43)
[2024-09-14] MEDS: SODIUM CHLORIDE 0.9% 10ML SYR (RAD ONLY) 10 ML IV ×2 (09:44)
[2024-09-14] MEDS: ISOTOPE MYOVIEW (PER STUDY) 1 DOSE IV (09:44)
== END 2024-09-14 23:59 | disposition home or self-care (01) ==
LOC: RAD 07:41
PROVIDERS: PCP Student in an Organized Health Care Education/Training Program; Visit Provider Nurse Practitioner
DX: R07.89 Other chest pain (principal); I25.10 Atherosclerotic heart disease of native coronary artery without angina pectoris; E78.2 Mixed hyperlipidemia
CPT/HCPCS: 78452; 93017; 93018; A9502; J2785

== ENCOUNTER 2024-10-04 12:33 | Emergency (ER) | payer OTHER, SELFPAY ==
[2024-10-04] VITALS (7 sets, daily range): BP systolic 126–140; BP diastolic 65–75; PULSE 65–80; RESP 16–18; TEMP 36.6; O2SAT 96–98; BMI 24.7
--- NOTE | 2024-10-04 12:46 | CT_ITS ---
FINAL REPORT TECHNIQUE: Thin section axial images were obtained through the abdomen and pelvis after contrast injection per CT angiogram protocol. Multiplanar reconstruction images were obtained from the axial data. This exam was performed with techniques to keep radiation dose as low as reasonably achievable. This includes automated exposure control, adjustment of the MA and KVP, and iterative reconstruction technique. CLINICAL HISTORY: pain-aaa? FINDINGS: CTA: No abdominal aortic aneurysm or aortic dissection. There is mural thrombus within the abdominal aorta which is somewhat irregular with ulcerated plaque. The mesenteric arteries are normal. The renal arteries are patent. There is stenosis of the right renal artery at its origin. The iliac arteries are normal with mild atherosclerotic disease. NONVASCULAR: The gallbladder is present. There is a small exophytic lesion arising from the lower pole of the left kidney measuring 9 mm, indeterminate. The remaining solid abdominal organs are without acute abnormality. The GI tract is without acute abnormality. No lymphadenopathy or free fluid. No acute osseous abnormality. IMPRESSION: Abdominal aortic aneurysm. Atherosclerotic disease with ulcerated plaque of the patent branch vessels from the abdominal aorta. Reviewed, Interpreted and Dictated by Marybel Laboy MD Transcribed by Hope Erickson Authenticated and [facility]
--- NOTE | 2024-10-04 12:46 | CT_ITS ---
FINAL REPORT TECHNIQUE: Axial imaging of the chest is obtained after the administration of contrast. 3-D MIP reformatted images were also obtained and reviewed per PE protocol. This study was performed with techniques to keep radiation doses as low as reasonably achievable, (ALARA). Individualized dose reduction techniques using automated exposure control or adjustment of mA and/or kV according to the patient's size were employed. CLINICAL HISTORY: pain in chest, AAA? COMPARISON: 11/16/2023 FINDINGS: The pulmonary arteries are well filled. There is no evidence of pulmonary embolus. There is no aortic dissection. There is a small focal dissection of the proximal brachiocephalic artery well-seen on axial image 24, unchanged from prior. Heart size is normal. There is stable bilateral AP window lymphadenopathy. No hilar adenopathy is identified. There is a spiculated left upper lobe nodule, now measuring 10 mm on image 33 of series 5. Groundglass nodules are seen on image #37. One is seen in the left upper lobe and one in the left lower lobe, both are stable measuring 8 and 13 mm respectively. There is a 4 mm subpleural left lower lobe nodule well-seen on image 60, stable. There is a subpleural right lower lobe nodule measuring less than 5 mm, stable. No new nodules are seen on the right. There is no evidence of consolidation. There is no pleural or pericardial effusion. No acute osseous abnormality. IMPRESSION: No evidence of pulmonary embolism or aortic dissection. 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 Interval increase in size in left upper lobe spiculated nodule. Recommend PET/CT. Additional groundglass and less than 5 mm nodules, stable. Reviewed, Interpreted and Dictated by Marybel Laboy MD Transcribed by Hope Erickson Authenticated and [facility]
--- NOTE | 2024-10-04 12:51 | ED_ITS ---
Discharge Plan Disposition Patient Disposition: Home, Self-Care Condition: Good Chief Complaint: PAIN Prescriptions Prescriptions: No Action sumatriptan succinate 50 mg tablet 50 mg PO Q2H PRN (Reason: migraines) famotidine 40 mg tablet PO Patient Comments: TAKE 1 TABLET BY MOUTH TWICE A DAY citalopram 20 mg tablet PO Patient Comments: TAKE 1 TABLET BY MOUTH EVERY DAY folic acid 1 mg tablet PO Patient Comments: TAKE 1 TABLET BY MOUTH EVERY DAY clopidogrel 75 mg tablet 75 mg PO DAILY metoprolol succinate 25 mg tablet extended release 24 hr 25 mg PO DAILY Qty: 90 3RF rosuvastatin [Crestor] 40 mg tablet 40 mg PO DAILY Qty: 90 3RF Anoro Ellipta 62.5-25 mcg/actuation blister with device 1 inh inhalation ONCE Patient Comments: TAKE 1 PUFF BY MOUTH EVERY DAY Repatha SureClick 140 mg/mL pen injector 140 mg SQ Q2W Qty: 1 3RF amlodipine 10 mg tablet 10 mg PO DAILY Qty: 30 5RF Rx Instructions: TAKE ONE TABLET BY MOUTH TWICE DAILY aspirin 81 MG tablet,delayed release (DR/EC) 81 mg PO DAILY pantoprazole 40 MG tablet,delayed release (DR/EC) 40 mg PO DAILY alprazolam 0.25 mg tablet 0.25 mg PO BID PRN (Reason: Anxiety) meclizine 25 mg tablet 25 mg PO Q6HP PRN (Reason: dizziness) Qty: 30 1RF albuterol sulfate 90 mcg/actuation HFA aerosol inhaler 2 inh inhalation Q6H PRN (Reason: shortness of breath or wheezing) Qty: 8.5 0RF fluticasone propionate [Flonase Allergy Relief] 50 mcg/actuation spray,suspension 1 spray intranasal DAILY Rx Instructions: administer into each nostril daily Referrals Follow up/Referrals: Radha Wise DO [Primary Care Provider] - See instructions Activity Restrictions/Add. Instructions Additional Instructions/Restrictions: Follow-up with PCP as soon as possible regarding test results If symptoms worsen or or return return to the ER Potassium enriched foods such as bananas, melons, tomatoes, Clinical Impressions Clinical Impression: Acute chest wall pain, Abdominal aneurysm, Acute hypokalemia, Lung nodule, multiple Instructions Patient Instructions: Aortic Aneurysm, DI for Pulmonary Nodule Print Language Print Language: Kyrgyz Discharge ED Provider: DeJohn,Luz M General Adult HPI <Marco Antonio Fang ([facility]), FIELD SPECIALIST - Last Filed: 10/04/24 15:17> General Chief complaint: PAIN Stated complaint: Spasming pain under left breast Time Seen by Provider: 10/04/24 12:41 Mode of Arrival: Ambulatory Source of Information: Patient Limitations: No Limitations History of Present Illness HPI narrative: 67-year-old female presents for pain just under the left breast for over 3 weeks but has increased the last couple of days. Patient states just after her stress test she started having these muscle cramps that are so bad they can bring her to her knees. Related Data Home Medications ?Medication ?Instructions ?Recorded ?Confirmed aspirin 81 mg tablet,delayed 81 mg PO DAILY heart health 10/14/17 09/18/24 release pantoprazole 40 mg tablet,delayed 40 mg PO DAILY GERD 10/14/17 09/18/24 release alprazolam 0.25 mg tablet 0.25 mg PO BID PRN Anxiety 04/26/18 09/18/24 sumatriptan succinate 50 mg tablet 50 mg PO Q2H PRN migraines 10/31/19 09/18/24 clopidogrel 75 mg tablet 75 mg PO DAILY antiplatelet 10/14/20 09/18/24 fluticasone propionate 50 1 spray intranasal DAILY . 02/25/23 09/18/24 mcg/actuation nasal spray,suspension (Flonase Allergy Relief) citalopram 20 mg tablet mg PO 11/16/23 09/18/24 famotidine 40 mg tablet mg PO 11/16/23 09/18/24 folic acid 1 mg tablet PO 11/16/23 09/18/24 umeclidinium 62.5 mcg-vilanterol 1 inh inhalation ONCE 09/18/24 09/18/24 25 mcg/actuation powdr for inhalation (Anoro Ellipta) Previous Rx's ?Medication ?Instructions ?Recorded amlodipine 10 mg tablet 10 mg PO DAILY High blood pressure 03/19/22 #30 tabs meclizine 25 mg tablet 25 mg PO Q6HP PRN dizziness #30 10/05/22 tabs albuterol sulfate 90 mcg/actuation 2 inh inhalation Q6H PRN shortness 11/04/22 aerosol inhaler of breath or wheezing #8.5 grams metoprolol succinate 25 mg 25 mg PO DAILY #90 tabs 09/04/24 tablet,extended release 24 hr rosuvastatin 40 mg tablet (Crestor) 40 mg PO DAILY #90 tabs 09/04/24 evolocumab 140 mg/mL subcutaneous 140 mg SQ Q2W #1 mL 09/18/24 pen injector (Arabella MargaritoGera) Allergies Allergy/AdvReac Type Severity Reaction Status Date / Time No Known Allergies Allergy Verified 09/18/24 09:57 PFSH <Marco Antonio Fang ([facility]), FIELD SPECIALIST - Last Filed: 10/04/24 15:17> PFSH Disclaimer: The information contained in this section may have been updated after the patient was seen, as this information can be updated by other users. Medical History (Reviewed 10/04/24 @ 12:53 by Marco Antonio Fang ([facility]), FIELD SPECIALIST) Atypical angina Acid reflux HLD (hyperlipidemia) HHD (hypertensive heart disease) Social History (Reviewed 10/04/24 @ 12:53 by Marco Antonio [facility] FIELD SPECIALIST) Smoking Status: Current every day smoker tobacco type: cigarettes packs per day: 1 second hand exposure: No alcohol intake: never substance use type: denies use current occupational status: employed Travel in the last 8 weeks: None household members: significant other housing: house current occupational exposures/hazards: No Have you lived/traveled outside [place] in past 30 days?: No Contact w/someone who lives/traveled outside [place] past 30 days?: No Exposure to someone with infectious disease in past 14 days?: No Do you have a fever (greater than 100.4 F or 38 C)?: No Have you tested positive for COVID-19: No Exposed to someone with COVID-19 in past 14 days?: No Do you have a sore throat?: No Do you have a cough?: No Do you have any weakness?: No Do you have any diarrhea?: No Are you experiencing any unusual bleeding?: No Do you have any muscle aches/pain?: Yes Do you have any abdominal pain?: No Are you experiencing loss of taste or smell?: No Other Medical History Have you received the Flu Vaccine for this season: No Have you received the Pneumonia Vaccine: No <[facility] FIELD SPECIALIST - Last Filed: 04/16/25 15:17> ROS Obtained: Yes Systems reviewed as appropriate & no additional complaints except as documented Musculoskeletal Musculoskeletal: Reports system reviewed and no additional complaints, except as documented, Reports as per HPI and Reports muscle cramps Physical Exam <Marco Antonio Fang ([facility]), FIELD SPECIALIST - Last Filed: 10/04/24 15:17> General General appearance: alert and in no apparent distress Eye Eye exam: Present normal appearance ENT ENT exam: Present normal exam and mucous membranes moist Chest Chest inspection: Present normal inspection, symmetric chest wall rise and tenderness (Just under left breast) Respiratory Respiratory exam: Present normal lung sounds bilaterally Cardiovascular Cardiovascular exam: Present regular rate and normal rhythm Neurological Exam Neurological exam: Present alert and oriented X3 Skin Skin exam: Present warm and intact Lymphatic Lymphatic Findings: no adenopathy Medical Decision Making <Marco Antonio Fang ([facility]), FIELD SPECIALIST - Last Filed: 10/04/24 15:17> Medical Records Medical records reviewed: Yes I reviewed the patient's medical records. Screening: Per USPSTF and CDC recommendations, given the prevalence of disease in our region, it is our hospital?s policy to screen for HIV and viral Hepatitis for all patients aged 18 and over and those with ongoing risk factors. Kael Inquiry Pt receiving controlled substance: No Kael was queried for this patient: No Vital Signs: 10/04/24 12:39 10/04/24 12:45 10/04/24 12:49 Temperature 97.8 F Temperature Source Oral Pulse Rate 80 76 Pulse Rate [Radial] 78 Respiratory Rate 18 Blood Pressure 139/75 Blood Pressure [Right Arm] 139/75 Blood Pressure Mean [Right Arm] 96 Blood Pressure Source [Right Arm] Automatic Cuff Blood Pressure Position [Right Arm] Sitting 02 Sat by Pulse Oximetry 98 98 97 Oxygen Delivery Method Room Air 10/04/24 14:00 10/04/24 14:04 Temperature Temperature Source Pulse Rate 66 67 Pulse Rate [Radial] Respiratory Rate Blood Pressure 140/74 126/65 Blood Pressure [Right Arm] Blood Pressure Mean [Right Arm] Blood Pressure Source [Right Arm] Blood Pressure Position [Right Arm] 02 Sat by Pulse Oximetry 98 96 Oxygen Delivery Method Room Air Room Air Lab Data Lab results reviewed: Yes I reviewed the patient's lab results. Lab Results 10/04/24 13:03: WBC 12.8 H, RBC 4.86, Hgb 14.2, Hct 41.6, MCV 85.6, MCH 29.2, MCHC 34.1, RDW 13.5, Plt Count 384, MPV 9.3, Neut % (Auto) 69.3, Lymph % (Auto) 21.9, Harper % (Auto) 6.1, Eos % (Auto) 1.7, Baso % (Auto) 0.7, Neut # (Auto) 8.9 H, Lymph # (Auto) 2.8, Harper # (Auto) 0.8, Eos # (Auto) 0.2, Baso # (Auto) 0.1, Sodium 142, Potassium 3.1 L, Chloride 107, Carbon Dioxide 23, Anion Gap 15.1 H, BUN 7, Creatinine 0.80, Estimated Creat Clear 55, Estimated GFR 72, Est GFR ( Amer) 87, Glucose 119 H, Calcium 9.1, Magnesium 2.3, Total Bilirubin 0.4, AST 18, ALT 17, Alkaline Phosphatase 110, Troponin I < 0.01, Total Protein 7.8, Albumin 4.3, Globulin 3.5 H, Albumin/Globulin Ratio 1.2, HCV Ab ROYAL w/Rflx PCR Qn Negative, HIV Ag/Ab Combo Qual Negative 10/04/24 13:03 10/04/24 13:03 Orders (Tests/Meds): ED MEDICATIONS Discontinued Medications Generic Name Dose Route Start Last Admin Trade Name Freq PRN Reason Stop Dose Admin Iopamidol 80 ml 10/04/24 13:49 10/04/24 13:50 Iopamidol-370 (76%);100ml Bottle IV 10/04/24 13:50 80 ml ONCE ONE Administration Potassium Chloride 20 meq 10/04/24 14:55 10/04/24 15:04 Potassium Chloride 20meq Tab PO 10/04/24 14:56 20 meq ONCE ONE Administration Sodium Chloride 40 ml 10/04/24 13:49 10/04/24 13:50 0.9 % Sodium Chloride 50 Ml Vial IV 10/04/24 13:50 40 ml ONCE ONE Administration Sodium Chloride 10 ml 10/04/24 13:49 10/04/24 13:50 Sodium Chloride 0.9% 10ml Syr (Rad Only) IV 10/04/24 13:50 10 ml ONCE ONE Administration ORDERS Category Date Time Status CT angio abdomen pelvis Stat Cat Scan 10/04/24 12:46 Completed CTA Chest [CT angio chest PE protocol] Stat Cat Scan 10/04/24 12:46 Completed POCUS Point of Care (ER Only) Stat Exams 10/04/24 12:49 Completed CBC w/Auto Diff [Complete Blood Count Auto Diff] Stat Lab 10/04/24 13:03 Completed CMP [Comprehensive Metabolic Panel] Stat Lab 10/04/24 13:03 Completed HIV Combo Stat Lab 10/04/24 13:03 Completed Hepatitis C Ab Qual. W/ RFX Stat Lab 10/04/24 13:03 Completed Magnesium Stat Lab 10/04/24 13:03 Completed Trop I [Troponin I] Stat Lab 10/04/24 13:03 Completed Medical Decision Narrative: In summary patient is a 64-year-old female who presents to the emergency department for evaluation of pain just below the left breast for couple of months but over the last few days the pain has increased. Patient is hemodynamically stable upon arrival, afebrile. Unremarkable physical exam. Differential diagnosis includes PE, muscle cramp. Initial workup will be conducted with labs which show a low potassium, CT abdomen that shows abdominal aneurysm and CT chest shows multiple nodules patient notified the need to follow-up with PCP for further workup. Initial inventions include CT scan, p.o. challenge patient tolerated well, p.o. potassium given for hypokalemia. Initial workup reviewed by dc labs shows low potassium p.o. potassium given, CTA shows abdominal aneurysm, CTA of chest shows multiple lung nodules,no PE. Upon repeat evaluation patient was able to tolerate p.o. fluids and pain has improved. Given this patient is appropriate for discharge at this time with close follow- up with PCP regarding CTA of the chest and CTA of the abdomen <Luz Nance MD - Last Filed: 10/04/24 13:16> Vital Signs: 10/04/24 12:39 10/04/24 12:45 10/04/24 12:49 Temperature 97.8 F Temperature Source Oral Pulse Rate 80 76 Pulse Rate [Radial] 78 Respiratory Rate 18 Blood Pressure 139/75 Blood Pressure [Right Arm] 139/75 Blood Pressure Mean [Right Arm] 96 Blood Pressure Source [Right Arm] Automatic Cuff Blood Pressure Position [Right Arm] Sitting 02 Sat by Pulse Oximetry 98 98 97 Oxygen Delivery Method Room Air 10/04/24 14:00 10/04/24 14:04 Temperature Temperature Source Pulse Rate 66 67 Pulse Rate [Radial] Respiratory Rate Blood Pressure 140/74 126/65 Blood Pressure [Right Arm] Blood Pressure Mean [Right Arm] Blood Pressure Source [Right Arm] Blood Pressure Position [Right Arm] 02 Sat by Pulse Oximetry 98 96 Oxygen Delivery Method Room Air Room Air Lab Data Lab Results 10/04/24 13:03: WBC 12.8 H, RBC 4.86, Hgb 14.2, Hct 41.6, MCV 85.6, MCH 29.2, MCHC 34.1, RDW 13.5, Plt Count 384, MPV 9.3, Neut % (Auto) 69.3, Lymph % (Auto) 21.9, Harper % (Auto) 6.1, Eos % (Auto) 1.7, Baso % (Auto) 0.7, Neut # (Auto) 8.9 H, Lymph # (Auto) 2.8, Harper # (Auto) 0.8, Eos # (Auto) 0.2, Baso # (Auto) 0.1, Sodium 142, Potassium 3.1 L, Chloride 107, Carbon Dioxide 23, Anion Gap 15.1 H, BUN 7, Creatinine 0.80, Estimated Creat Clear 55, Estimated GFR 72, Est GFR ( Amer) 87, Glucose 119 H, Calcium 9.1, Magnesium 2.3, Total Bilirubin 0.4, AST 18, ALT 17, Alkaline Phosphatase 110, Troponin I < 0.01, Total Protein 7.8, Albumin 4.3, Globulin 3.5 H, Albumin/Globulin Ratio 1.2, HCV Ab ROYAL w/Rflx PCR Qn Negative, HIV Ag/Ab Combo Qual Negative Orders (Tests/Meds): ED MEDICATIONS Discontinued Medications Generic Name Dose Route Start Last Admin Trade Name Freq PRN Reason Stop Dose Admin Iopamidol 80 ml 10/04/24 13:49 10/04/24 13:50 Iopamidol-370 (76%);100ml Bottle IV 10/04/24 13:50 80 ml ONCE ONE Administration Potassium Chloride 20 meq 10/04/24 14:55 10/04/24 15:04 Potassium Chloride 20meq Tab PO 10/04/24 14:56 20 meq ONCE ONE Administration Sodium Chloride 40 ml 10/04/24 13:49 10/04/24 13:50 0.9 % Sodium Chloride 50 Ml Vial IV 10/04/24 13:50 40 ml ONCE ONE Administration Sodium Chloride 10 ml 10/04/24 13:49 10/04/24 13:50 Sodium Chloride 0.9% 10ml Syr (Rad Only) IV 10/04/24 13:50 10 ml ONCE ONE Administration ORDERS Category Date Time Status CT angio abdomen pelvis Stat Cat Scan 10/04/24 12:46 Completed CTA Chest [CT angio chest PE protocol] Stat Cat Scan 10/04/24 12:46 Completed POCUS Point of Care (ER Only) Stat Exams 10/04/24 12:49 Completed CBC w/Auto Diff [Complete Blood Count Auto Diff] Stat Lab 10/04/24 13:03 Completed CMP [Comprehensive Metabolic Panel] Stat Lab 10/04/24 13:03 Completed HIV Combo Stat Lab 10/04/24 13:03 Completed Hepatitis C Ab Qual. W/ RFX Stat Lab 10/04/24 13:03 Completed Magnesium Stat Lab 10/04/24 13:03 Completed Trop I [Troponin I] Stat Lab 10/04/24 13:03 Completed Procedures <Luz Nance MD - Last Filed: 10/04/24 13:16> Limited Ultrasound Indication:: soft tissue pain Findings:: Indication: Soft tissue pain Identified structures: Ribs and intercostal muscles breast tissue Location: Left inframammary fold Findings: Normal no lymph nodes or masses visualized or patient has point tenderness Impression: Normal limited soft tissue ultrasound Images saved saved to the permanent archive. The study was technically adequate. Soft tissue CPT codes Neck: 43651-10 Upper extremity: 33104-22 Axilla: 27353-67 Chest wall: 00161-85 Breast: 78815-77 (complete), 27494-71-[RT/LT] (limited) Upper back: 46445-31 Abdominal wall: 40399-78 Pelvic wall: 15786-03 Lower extremity: 08437-90 Other soft tissue: 55234-06 This study was performed by me, and I personally interpreted all images/videos. Based on my clinical judgment, these images were [adequate/inadequate] and [did/did not] necessitate further imaging. Critical Care <Marco Antonio Fang ([facility]), FIELD SPECIALIST - Last Filed: 10/04/24 15:17> Critical Care Time Critical Care Time: No
--- NOTE | 2024-10-04 13:04 | ECG_ITS ---
APPROVED REPORT Exam: Resting ECG HR:72 bpm ECG Measurements Heart Rate 72 AXES ME 147 P 68 QRSd 90 QRS 75 QT 373 T 58 QTc 397 Conclusion SINUS RHYTHM POSSIBLE RIGHT VENTRICULAR CONDUCTION DELAY [RSR (QR) IN V1/V2] No STEMI Electronically signed by : ANJALI MIRELES, 10/06/2024 23:31:03
[2024-10-04 13:16] LABS: Basophils # 0.1 K/mm3 (0-0.2); Basophils % 0.7 % (0.1-2.0); Eosinophils # 0.2 K/mm3 (0.0-0.4); Eosinophils % 1.7 % (0.1-12.0); Hematocrit 41.6 % (37.0-47.0); Hemoglobin 14.2 g/dL (12.2-16.2); Lymphocytes # 2.8 K/mm3 (0.7-4.5); Lymphocytes % 21.9 % (10-50); Mean Corpuscular HGB Conc 34.1 g/dL (31.8-35.4); Mean Corpuscular Hemoglobin 29.2 pg (27.0-31.2); Mean Corpuscular Volume 85.6 fl (81-99); Mean Platelet Volume 9.3 fl (7.4-10.4); Monocytes # 0.8 K/mm3 (0.1-1.0); Monocytes % 6.1 % (1.7-9.3); Neutrophils # 8.9 K/mm3 (1.8-7.8); Neutrophils % 69.3 % (37.0-80.0); Nucleated Red Blood Cells # 0 10^3/uL; Nucleated Red Blood Cells % 0 %; Platelet Count 384 K/mm3 (142-424); Red Blood Count 4.86 M/mm3 (4.20-5.40); Red Cell Distribution Width 13.5 % (11.5-17.5); White Blood Count 12.8 K/mm3 (4.8-10.8)
[2024-10-04 13:28] LABS: Alanine Aminotransferase 17 U/L (12-78); Albumin Level 4.3 g/dl (3.5-5.0); Albumin/Globulin Ratio 1.2 (1.1-1.8); Alkaline Phosphatase 110 U/L (38-126); Anion Gap 15.1 mEq/L (5-15); Aspartate Amino Transferase 18 U/L (14-36); Bilirubin,Total 0.4 mg/dl (0.2-1.3); Blood Urea Nitrogen 7 mg/dl (7-17); Calcium 9.1 mg/dl (8.4-10.2); Carbon Dioxide 23 mmol/L (22.0-30.0); Chloride 107 mmol/L (98-107); Creatinine Clearance Estimated 55 mL/min (50-200); Estimated Glomerular Filt Rate 72 ml/min (>60); GFR (African American) 87 ML/MIN (>60); Globulin 3.5 g/dL (1.3-3.2); Glucose 119 mg/dl (74-100); Magnesium 2.3 mg/dl (1.6-2.3); Potassium 3.1 mmoL/L (3.5-5.1); Sodium 142 mmol/L (136-145); Total Protein,Serum 7.8 g/dl (6.3-8.2)
[2024-10-04 13:49] LABS: Troponin I < 0.01 ng/ml (0.00-0.034)
[2024-10-04] MEDS: SODIUM CHLORIDE 0.9% 10ML SYR (RAD ONLY) 10 ML IV (13:50)
[2024-10-04] MEDS: IOPAMIDOL-370 (76%);100ML BOTTLE 80 ML IV (13:50)
[2024-10-04] MEDS: 0.9 % SODIUM CHLORIDE 50 ML VIAL 40 ML IV (13:50)
[2024-10-04 14:30] LABS: HIV Combo NEGATIVE (Negative)
[2024-10-04 14:37] LABS: Hepatitis C Ab Qual. W/ RFX NEGATIVE (Negative)
[2024-10-04] MEDS: POTASSIUM CHLORIDE 20MEQ TAB 20 MEQ PO (15:04)
== END 2024-10-04 15:26 | disposition home or self-care (01) ==
PROVIDERS: Nurse Practitioner Family; Emergency Provider Student in an Organized Health Care Education/Training Program; PCP Student in an Organized Health Care Education/Training Program
DX: R07.89 Other chest pain (principal); I71.40 Abdominal aortic aneurysm, without rupture, unspecified; E87.6 Hypokalemia; R91.8 Other nonspecific abnormal finding of lung field; Z11.59 Encounter for screening for other viral diseases; Z11.4 Encounter for screening for human immunodeficiency virus [HIV]
CPT/HCPCS: 71275; 74174; 80053; 83735; 84484; 85025; 86803; 87389; 93005; 99285; Q9967

== ENCOUNTER 2025-04-05 10:20 | Outpatient (CLI) | payer OTHER, SELFPAY ==
[2025-04-05 10:53] LABS: Hematocrit 38.4 % (37.0-47.0); Hemoglobin 12.4 g/dL (12.2-16.2); Immature Granulocytes % 0.3 %; Mean Corpuscular HGB Conc 32.3 g/dL (31.8-35.4); Mean Corpuscular Hemoglobin 29.5 pg (27.0-31.2); Mean Corpuscular Volume 91.2 fl (81-99); Nucleated Red Blood Cells % 0 %; Platelet Count 325 K/mm3 (142-424); Red Blood Count 4.21 M/mm3 (4.20-5.40); Red Cell Distribution Width-SD 47.0 fL; White Blood Count 10.1 K/mm3 (4.8-10.8)
[2025-04-05 11:20] LABS: Alanine Aminotransferase 16 U/L (12-78); Albumin Level 4.0 g/dl (3.5-5.0); Alkaline Phosphatase 113 U/L (38-126); Anion Gap 14.4 mEq/L (5-15); Aspartate Amino Transferase 15 U/L (14-36); Bilirubin,Direct 0.2 mg/dl (0.0-0.4); Bilirubin,Indirect 0.2 mg/dL (0.0-0.9); Bilirubin,Total 0.4 mg/dl (0.2-1.3); Bilirubin,Unconjugated 0.2 mg/dL (0.0-1.1); Blood Urea Nitrogen 12 mg/dl (7-17); Calcium 9.2 mg/dl (8.4-10.2); Carbon Dioxide 22 mmol/L (22.0-30.0); Chloride 109 mmol/L (98-107); Cholesterol 70 mg/dl (140-200); Creatinine,Serum 0.80 mg/dl (0.52-1.04); Estimated Glomerular Filt Rate 72 ml/min (>60); GFR (African American) 87 ML/MIN (>60); Glucose 110 mg/dl (74-100); HDL Cholesterol 36 mg/dl (40-60); Magnesium 2.3 mg/dl (1.6-2.3); Potassium 4.4 mmoL/L (3.5-5.1); Sodium 141 mmol/L (136-145); Total Protein,Serum 6.4 g/dl (6.3-8.2); Triglycerides 117 mg/dl (30-150)
[2025-04-05 11:35] LABS: Free T4 (Free Thyroxine) 1.18 ng/dl (0.78-2.19)
[2025-04-05 11:50] LABS: Thyroid Stimulating Hormone 2.93 uIU/mL (0.465-4.68)
== END 2025-04-05 23:59 | disposition home or self-care (01) ==
LOC: LAB 10:21
PROVIDERS: PCP Student in an Organized Health Care Education/Training Program; Visit Provider Nurse Practitioner
DX: E78.5 Hyperlipidemia, unspecified (principal); I25.10 Atherosclerotic heart disease of native coronary artery without angina pectoris; I11.9 Hypertensive heart disease without heart failure
CPT/HCPCS: 36415; 80048; 80061; 80076; 83735; 84439; 84443; 85025

== ENCOUNTER 2025-05-31 15:35 | Inpatient (IN) | payer OTHER, SELFPAY ==
[2025-05-31] VITALS (8 sets, daily range): BP systolic 121–146; BP diastolic 68–77; PULSE 66–90; RESP 17–24; TEMP 36.9–37.2; O2SAT 93–100; BMI 23.8; BMI 24.6
--- NOTE | 2025-05-31 15:37 | ECG_ITS ---
APPROVED REPORT Exam: Resting ECG HR:81 bpm ECG Measurements Heart Rate 81 AXES ID 146 P 79 QRSd 86 QRS 77 QT 359 T 38 QTc 397 Conclusion Normal sinus rhythm Normal axis Normal intervals No STEMI Electronically signed by : Dusty Landrum, 05/31/2025 23:21:58
--- NOTE | 2025-05-31 15:51 | XR_ITS ---
PROCEDURE INFORMATION: Exam: XR Chest Exam date and time: 05/31/2025 4:33 PM Age: 64 years old Clinical indication: Pain; Chest pressure; Additional info: Epigastic/chest pain TECHNIQUE: Imaging protocol: Radiologic exam of the chest. Views: 1 view. COMPARISON: CT ANGIO CHEST 05/31/2025 4:31 PM FINDINGS: Lungs: Mild scarring and atelectasis in the lower lungs. Mildly flat diaphragms suggests underlying emphysema. Pleural spaces: Unremarkable. No pleural effusion. No pneumothorax. Heart/Mediastinum: Unremarkable. No cardiomegaly. Vasculature: Vascular calcifications. Bones/joints: Unremarkable. IMPRESSION: No acute findings.
[2025-05-31 15:58] LABS: Hematocrit 39.4 % (37.0-47.0); Hemoglobin 12.5 g/dL (12.2-16.2); Immature Granulocytes % 0.4 %; Mean Corpuscular HGB Conc 31.7 g/dL (31.8-35.4); Mean Corpuscular Hemoglobin 28.8 pg (27.0-31.2); Mean Corpuscular Volume 90.8 fl (81-99); Nucleated Red Blood Cells % 0 %; Platelet Count 349 K/mm3 (142-424); Red Blood Count 4.34 M/mm3 (4.20-5.40); Red Cell Distribution Width-SD 45.2 fL; White Blood Count 13.4 K/mm3 (4.8-10.8)
[2025-05-31 16:05] LABS: Albumin Level 4.6 g/dl (3.5-5.0); Chloride 109 mmol/L (98-107); Potassium 3.4 mmoL/L (3.5-5.1); Sodium 144 mmol/L (136-145)
[2025-05-31 16:08] LABS: Alanine Aminotransferase 12 U/L (12-78); Albumin/Globulin Ratio 1.4 (1.1-1.8); Alkaline Phosphatase 93 U/L (38-126); Anion Gap 14.4 mEq/L (5-15); Aspartate Amino Transferase 17 U/L (14-36); Bilirubin,Total 0.4 mg/dl (0.2-1.3); Blood Urea Nitrogen 8 mg/dl (7-17); Carbon Dioxide 24 mmol/L (22.0-30.0); Creatinine Clearance Estimated 53 mL/min (50-200); Creatinine,Serum 0.80 mg/dl (0.52-1.04); Estimated Glomerular Filt Rate 72 ml/min (>60); GFR (African American) 87 ML/MIN (>60); Globulin 3.2 g/dL (1.3-3.2); Lipase 48 U/L (23-300); Total Protein,Serum 7.8 g/dl (6.3-8.2)
[2025-05-31 16:09] LABS: Calcium 9.1 mg/dl (8.4-10.2); Glucose 108 mg/dl (74-100)
[2025-05-31] MEDS: FAMOTIDINE 20MG/2ML VIAL 20 MG IV (16:22)
[2025-05-31] MEDS: ASPIRIN 325MG TABLET 325 MG PO (16:22)
[2025-05-31] MEDS: SODIUM CHLORIDE 0.9% 10ML VIAL 8 ML IV (16:22)
--- NOTE | 2025-05-31 16:25 | CT_ITS ---
PROCEDURE INFORMATION: Exam: CTA Abdomen and Pelvis With Contrast Exam date and time: 05/31/2025 4:31 PM Age: 64 years old Clinical indication: Abdominal pain; Generalized; Prior surgery; Surgery date: 6+ months; Surgery type: Appendix removed; Additional info: Abdominal pain, radiating to chest and back TECHNIQUE: Imaging protocol: Computed tomographic angiography of the abdomen and pelvis with contrast. Exam focused on the arteries. 3D rendering (Not supervised by radiologist): MIP and/or 3D reconstructed images were created by the technologist. Radiation optimization: All CT scans at this facility use at least one of these dose optimization techniques: automated exposure control; mA and/or kV adjustment per patient size (includes targeted exams where dose is matched to clinical indication); or iterative reconstruction. Contrast material: ISO 370; Contrast volume: 80 ml; Contrast route: INTRAVENOUS (IV); COMPARISON: CT ANGIO ABDOMEN PELVIS 10/04/2024 1:47 PM FINDINGS: Aorta: Moderate intra-arterial plaque/thrombus in the abdominal aorta. There is a focal chronic dissection of the infrarenal abdominal aorta. Celiac and mesenteric arteries: Mild chronic SMA stenosis. Renal arteries: Mild stenosis of the origin of the right renal artery. There is an accessory left renal artery. 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 Left iliac arteries: No occlusion or significant stenosis. Other arteries: The arteries demonstrate severe atherosclerotic disease. Liver: Hyperemia of the liver around the gallbladder. Gallbladder and biliary ducts: Dilated gallbladder with gallbladder wall thickening and pericholecystic edema. Pancreas: Unremarkable. No mass. No ductal dilation. Spleen: Unremarkable. No splenomegaly. Adrenal glands: Unremarkable. No mass. Kidneys and ureters: Low attenuation renal lesions measuring up to 7 mm in diameter are incompletely characterized, but are likely cysts. No followup imaging is warranted. Stomach and bowel: Small duodenal diverticulum. Appendix: The appendix is absent. Intraperitoneal space: Unremarkable. No free air. No significant fluid collection. Lymph nodes: Unremarkable. No enlarged lymph nodes. Urinary bladder: Limited evaluation of the urinary bladder due to low urine volume. Reproductive: Status post hysterectomy. Bones/joints: No acute fracture. Soft tissues: Tiny fat containing umbilical hernia. Other findings: Please see separate report for CT chest. IMPRESSION: 1. Acute cholecystitis. 2. Limited evaluation of the urinary bladder due to low urine volume. Please exclude infection clinically.
--- NOTE | 2025-05-31 16:25 | CT_ITS ---
PROCEDURE INFORMATION: Exam: CTA Chest With Contrast Exam date and time: 05/31/2025 4:31 PM Age: 64 years old Clinical indication: Pain; Chest pressure; Additional info: Abdominal pain, radiating to back and chest TECHNIQUE: Imaging protocol: Computed tomographic angiography of the chest with contrast. Exam focused on the arteries. 3D rendering (Not supervised by radiologist): MIP and/or 3D reconstructed images were created by the technologist. Radiation optimization: All CT scans at this facility use at least one of these dose optimization techniques: automated exposure control; mA and/or kV adjustment per patient size (includes targeted exams where dose is matched to clinical indication); or iterative reconstruction. Contrast material: ISO 370; Contrast volume: 80 ml; Contrast route: INTRAVENOUS (IV); COMPARISON: CT ANGIO CHEST PE PROTOCOL 10/04/2024 1:47 PM FINDINGS: Pulmonary arteries: No pulmonary emboli. Aorta: No aortic dissection. Lungs: Status post left upper lobectomy. Mild scarring and atelectasis in the lower lungs. Mild centrilobular emphysema. Pleural spaces: Unremarkable. No pneumothorax. No pleural effusion. Heart: Unremarkable. No cardiomegaly. No pericardial effusion. Coronary arteries: Moderate to severe coronary arterial calcification, indicating the presence of coronary artery disease. Lymph nodes: Unremarkable. No enlarged lymph nodes. Bones/joints: Unremarkable. No acute fracture. Soft tissues: Unremarkable. Other findings: Please see separate report for abdomen/pelvis. IMPRESSION: 1. No aortic dissection. 2. No pulmonary emboli. 3. Moderate to severe coronary arterial calcification, indicating the presence of coronary artery disease. If the patient has associated symptoms, recommend management as per chest pain guidelines. If the patient is asymptomatic, consider reviewing modifiable cardiovascular risk factors and managing as per guidelines for primary prevention. COMMENTS: The presence of pulmonary emphysema on CT is an independent risk factor for lung cancer. In the absence of a history or active diagnosis of lung cancer, it is recommended that this patient with emphysema be evaluated for enrollment in a low dose CT lung cancer screening program.
[2025-05-31 16:37] LABS: Troponin I < 0.01 ng/ml (0.00-0.034)
[2025-05-31] MEDS: IOPAMIDOL-370 (76%);100ML BOTTLE 80 ML IV (16:38)
[2025-05-31] MEDS: SODIUM CHLORIDE 0.9% 10ML SYR (RAD ONLY) 10 ML IV (16:38)
[2025-05-31] MEDS: 0.9 % SODIUM CHLORIDE 50 ML VIAL IV (16:38)
--- NOTE | 2025-05-31 16:53 | [facility].EDCP ---
Discharge Plan Disposition Patient Disposition: Admitted Condition: Good Prescriptions Prescriptions: No Action sumatriptan succinate 50 mg tablet 50 mg PO Q2H PRN (Reason: migraines) famotidine 40 mg tablet PO Patient Comments: TAKE 1 TABLET BY MOUTH TWICE A DAY citalopram 20 mg tablet PO Patient Comments: TAKE 1 TABLET BY MOUTH EVERY DAY folic acid 1 mg tablet PO Patient Comments: TAKE 1 TABLET BY MOUTH EVERY DAY clopidogrel 75 mg tablet 75 mg PO DAILY metoprolol succinate 25 mg tablet extended release 24 hr 25 mg PO DAILY Qty: 90 3RF rosuvastatin [Crestor] 40 mg tablet 40 mg PO DAILY Qty: 90 3RF Anoro Ellipta 62.5-25 mcg/actuation blister with device 1 inh inhalation ONCE Patient Comments: TAKE 1 PUFF BY MOUTH EVERY DAY montelukast 10 mg tablet 10 mg PO DAILY Patient Comments: TAKE 1 TABLET BY MOUTH NIGHTLY. AT BEDTIME potassium chloride 10 mEq tablet,ER particles/crystals 10 meq PO ONCE Patient Comments: TAKE 1 TABLET BY MOUTH EVERY DAY dapagliflozin propanediol [Farxiga] 10 mg tablet 10 mg PO DAILY Patient Comments: TAKE 1 TABLET BY MOUTH EVERY DAY amlodipine 10 mg tablet 10 mg PO DAILY Qty: 30 5RF Rx Instructions: TAKE ONE TABLET BY MOUTH TWICE DAILY Repatha SureClick 140 mg/mL pen injector 140 mg SQ Q2W 90 Days Qty: 7 3RF aspirin 81 MG tablet,delayed release (DR/EC) 81 mg PO DAILY pantoprazole 40 MG tablet,delayed release (DR/EC) 40 mg PO DAILY alprazolam 0.25 mg tablet 0.25 mg PO BID PRN (Reason: Anxiety) meclizine 25 mg tablet 25 mg PO Q6HP PRN (Reason: dizziness) Qty: 30 1RF albuterol sulfate 90 mcg/actuation HFA aerosol inhaler 2 inh inhalation Q6H PRN (Reason: shortness of breath or wheezing) Qty: 8.5 0RF fluticasone propionate [Flonase Allergy Relief] 50 mcg/actuation spray,suspension 1 spray intranasal DAILY Rx Instructions: administer into each nostril daily Referrals Follow up/Referrals: Radha Wise DO [Primary Care Provider, Family Practice] - See instructions Clinical Impressions Clinical Impression: Acute cholecystitis Print Language Print Language: Honduran Discharge ED Provider: Dusty Landrum General Chief Complaint: Chest Pain Stated Complaint: CP Time Seen by Provider: 05/31/25 15:46 Mode of Arrival: Ambulatory Source of Information: Patient Description of Symptoms (Recalled from ER Triage Doc. by RN): PATIENT PRESENTS TO ED FOR MID EPIGASTRIC PAIN THAT RADIATES TO THE CHEST AND BACK. STATES THIS PAIN STARTED LAST NIGHT AND HAS ONLY GOTTEN WORSE. REPORTS SOME NAUSEA, NO V/D. History of Present Illness HPI narrative: This is a 64-year-old female patient, with past medical history of hypertension, hyperlipidemia, COPD, and known aortic aneurysm with mural thrombus, who is presenting to the emergency department today for evaluation of epigastric abdominal pain. Patient tells me that last night she was sleeping and was woken up from sleep with acute onset substernal pain that radiated upwards into the chest as well as into her back. She states that today her pain has somewhat decreased in nature but is still persisted. She states that she still does feel pain in her back and between her shoulder blades. She has not had any nausea or vomiting. She did not note diaphoresis at the onset of her pain. Her pain does not radiate into her arms or her jaws. She has had no gastrointestinal symptoms otherwise. Related Data Home Medications ?Medication ?Instructions ?Recorded ?Confirmed aspirin 81 mg tablet,delayed 81 mg PO DAILY heart health 10/14/17 04/05/25 release pantoprazole 40 mg tablet,delayed 40 mg PO DAILY GERD 10/14/17 04/05/25 release alprazolam 0.25 mg tablet 0.25 mg PO BID PRN Anxiety 04/26/18 04/05/25 sumatriptan succinate 50 mg tablet 50 mg PO Q2H PRN migraines 10/31/19 04/05/25 clopidogrel 75 mg tablet 75 mg PO DAILY antiplatelet 10/14/20 04/05/25 fluticasone propionate 50 1 spray intranasal DAILY . 02/25/23 04/05/25 mcg/actuation nasal spray,suspension (Flonase Allergy Relief) citalopram 20 mg tablet mg PO 11/16/23 04/05/25 famotidine 40 mg tablet mg PO 11/16/23 04/05/25 folic acid 1 mg tablet PO 11/16/23 04/05/25 umeclidinium 62.5 mcg-vilanterol 1 inh inhalation ONCE 09/18/24 04/05/25 25 mcg/actuation powdr for inhalation (Anoro Ellipta) dapagliflozin propanediol 10 mg 10 mg PO DAILY 04/05/25 04/05/25 tablet (Farxiga) montelukast 10 mg tablet 10 mg PO DAILY 04/05/25 04/05/25 potassium chloride 10 mEq 10 meq PO ONCE 04/05/25 04/05/25 tablet,extended release(part/cryst) Previous Rx's ?Medication ?Instructions ?Recorded amlodipine 10 mg tablet 10 mg PO DAILY High blood pressure 03/19/22 #30 tabs meclizine 25 mg tablet 25 mg PO Q6HP PRN dizziness #30 10/05/22 tabs albuterol sulfate 90 mcg/actuation 2 inh inhalation Q6H PRN shortness 11/04/22 aerosol inhaler of breath or wheezing #8.5 grams metoprolol succinate 25 mg 25 mg PO DAILY #90 tabs 09/04/24 tablet,extended release 24 hr rosuvastatin 40 mg tablet (Crestor) 40 mg PO DAILY #90 tabs 09/04/24 evolocumab 140 mg/mL subcutaneous 140 mg SQ Q2W 90 days #7 mL 01/09/25 pen injector (Repatha SureClick) Allergies Allergy/AdvReac Type Severity Reaction Status Date / Time No Known Allergies Allergy Verified 04/05/25 09:49 [facility] Disclaimer: The information contained in this section may have been updated after the patient was seen, as this information can be updated by other users. Medical History Atypical angina Acid reflux HLD (hyperlipidemia) HHD (hypertensive heart disease) Social History Smoking Status: Current every day smoker tobacco type: cigarettes packs per day: 1 second hand exposure: No alcohol intake: never substance use type: denies use current occupational status: employed Travel in the last 8 weeks?: None household members: significant other housing: house current occupational exposures/hazards: No Have you lived/traveled outside [place] in past 30 days?: No Contact w/someone who lives/traveled outside US past 30 days?: No Exposure to someone with infectious disease in past 14 days?: No Do you have a fever (greater than 100.4 F or 38 C)?: No Have you tested positive for COVID-19?: No Exposed to someone with COVID-19 in past 14 days?: No Do you have a sore throat?: No Do you have a cough?: No Do you have any weakness?: No Do you have any diarrhea?: No Are you experiencing any unusual bleeding?: No Do you have any muscle aches/pain?: No Do you have any abdominal pain?: No Are you experiencing loss of taste or smell?: No Other Medical History Have you received the Flu Vaccine for this season: No Have you received the Pneumonia Vaccine: No ROS Obtained: Yes Systems reviewed as appropriate & no additional complaints except as documented Physical Exam General General appearance: other (See MDM) Respiratory Respiratory exam: Present other (See MDM) Cardiovascular Cardiovascular exam: Present other (See MDM) Neurological Exam Neurological exam: Present other (See MDM) HEART Score HEART Score HEART Score assessment performed?: No Procedures Miscellaneous Procedure Procedure Performed: Limited cardiac ultrasound note Indication: Substernal pain. Identified cardiac views: [Cardiac parasternal long axis] [Cardiac parasternal short axis] [Cardiac apical four-chamber] [Cardiac subxiphoid] Findings: Cardiac activity: Present Gross wall motion: Normal Pericardial effusion: Absent Right heart strain: Absent Impression: Normal limited cardiac echo Images were saved to permanent archive This study was technically adequate CPT: 20793 This study was performed by nc and I personally interpreted all images/videos. Based on my clinical judgment these images were adequate and did not necessitate further imaging. Limited right upper quadrant ultrasound Indication: Epigastric and right upper quadrant tenderness Identified structures: Gallbladder, gallbladder wall, bile duct Findings: Sonographic Blue sign: Absent Gallstones: Absent Sludge: Absent Pericholecystic fluid: Absent Maximal gallbladder wall thickness (mm): Less than 3 mm normal Common bile duct with (mm): Less than 6 mm normal Impression: Normal gallbladder without cholelithiasis, cholecystitis, or choledocholithiasis Images were saved to permanent archive This study was technically adequate CPT: 48455-37 This study was performed by nc and I personally interpreted all images/videos. Based on my clinical judgment these images were adequate and did not necessitate further imaging. Limited aortic ultrasound note Indication: Epigastric and back pain Identified structures: The abdominal aorta was examined in both transverse and longitudinal, from the diaphragmatic hiatus to the aortic bifurcation. Findings No evidence of aortic aneurysm Impression: Normal limited ultrasound of the aorta Images were saved to permanent archive This study was technically adequate CPT: 92369-50 This study was performed by me and I personally interpreted all images/videos. Based on my clinical judgment these images were adequate and did necessitate further imaging. Critical Care Critical Care Time Critical Care Time: No Medical Decision Making Medical Records Medical records reviewed: Yes I reviewed the patient's medical records. Kael Inquiry Pt receiving controlled substance: No Kael was queried for this patient: No Vital Signs Vital Signs: 05/31/25 15:38 05/31/25 15:42 05/31/25 15:42 Temperature 98.5 F 98.5 F Temperature Source Oral Pulse Rate 90 83 Pulse Rate [Right] 83 Respiratory Rate 20 20 Blood Pressure 146/74 H 146/74 H Blood Pressure [Right Arm] 146/74 H Blood Pressure Mean [Right Arm] 98 02 Sat by Pulse Oximetry 98 100 100 Oxygen Delivery Method 05/31/25 16:00 05/31/25 16:30 05/31/25 17:00 Temperature Temperature Source Pulse Rate 81 79 66 Pulse Rate [Right] Respiratory Rate 20 24 24 Blood Pressure 128/77 141/77 H 143/68 H Blood Pressure [Right Arm] Blood Pressure Mean [Right Arm] 02 Sat by Pulse Oximetry 99 93 L 95 Oxygen Delivery Method Room Air 05/31/25 17:32 Temperature Temperature Source Pulse Rate Pulse Rate [Right] Respiratory Rate 21 Blood Pressure 121/76 Blood Pressure [Right Arm] Blood Pressure Mean [Right Arm] 02 Sat by Pulse Oximetry Oxygen Delivery Method Lab Data Labs: Lab Results 05/31/25 15:44: WBC 13.4 H, RBC 4.34, Hgb 12.5, Hct 39.4, MCV 90.8, MCH 28.8, MCHC 31.7 L, RDW 13.4, Plt Count 349, MPV 9.6, Neut % (Auto) 66.1, Lymph % (Auto) 22.3, Faulk % (Auto) 8.6, Eos % (Auto) 2.2, Baso % (Auto) 0.4, Neut # (Auto) 8.9 H, Lymph # (Auto) 3.0, Faulk # (Auto) 1.2 H, Eos # (Auto) 0.3, Baso # (Auto) 0.1, Sodium 144, Potassium 3.4 L, Chloride 109 H, Carbon Dioxide 24, Anion Gap 14.4, BUN 8, Creatinine 0.80, Estimated Creat Clear 53, Estimated GFR 72, Est GFR ( Amer) 87, Glucose 108 H, Calcium 9.1, Total Bilirubin 0.4, AST 17, ALT 12, Alkaline Phosphatase 93, Troponin I < 0.01, Total Protein 7.8, Albumin 4.6, Globulin 3.2, Albumin/Globulin Ratio 1.4, Lipase 48 05/31/25 15:44 05/31/25 15:44 Response Orders (Tests/Meds): ED MEDICATIONS Generic Name Dose Route Start Last Admin Trade Name Freq PRN Reason Stop Dose Admin Piperacillin Sod/Tazobactam 100 mls @ 200 mls/hr 05/31/25 17:45 Sod 4.5 gm/ Sodium Chloride IV 06/10/25 17:44 Q8H MARIO Sodium Chloride 8 ml 05/31/25 15:51 05/31/25 16:22 Sodium Chloride 0.9% 10ml Vial IV 06/30/25 15:50 8 ml NEEDED PRN Administration dilute pepcid Sodium Chloride 10 ml 05/31/25 16:36 05/31/25 16:38 Sodium Chloride 0.9% 10ml Syr (Rad Only) IV 06/30/25 16:35 10 ml NEEDED PRN Administration Maintain IV Site Discontinued Medications Generic Name Dose Route Start Last Admin Trade Name Freq PRN Reason Stop Dose Admin Aspirin 325 mg 05/31/25 15:51 05/31/25 16:22 Aspirin 325mg Tablet PO 05/31/25 15:52 325 mg ONCE ONE Administration Famotidine 20 mg 05/31/25 15:51 05/31/25 16:22 Famotidine 20mg/2ml Vial IV 05/31/25 15:52 20 mg ONCE ONE Administration Iopamidol 80 ml 05/31/25 16:36 05/31/25 16:38 Iopamidol-370 (76%);100ml Bottle IV 05/31/25 16:37 80 ml ONCE ONE Administration Potassium Chloride 40 meq 05/31/25 16:49 05/31/25 17:16 Potassium Chloride 20meq/15ml Udc PO 05/31/25 16:50 40 meq ONCE ONE Administration Sodium Chloride 50 ml 05/31/25 16:36 05/31/25 16:38 0.9 % Sodium Chloride 50 Ml Vial IV 05/31/25 16:37 50 ml ONCE ONE Administration ORDERS Category Date Time Status CT angio abdomen pelvis Stat Cat Scan 05/31/25 16:25 Completed CTA Chest [CT angio chest - dissection] Stat Cat Scan 05/31/25 16:25 Completed Chest XR -- portable [XR chest portable] Stat Exams 05/31/25 15:51 Completed POCUS Point of Care (ER Only) Stat Exams 05/31/25 16:01 Ordered CBC w/Auto Diff [Complete Blood Count Auto Diff] Stat Lab 05/31/25 15:44 Completed CMP [Comprehensive Metabolic Panel] Stat Lab 05/31/25 15:44 Completed Lipase Stat Lab 05/31/25 15:44 Completed Troponin I Q3H Lab 05/31/25 19:00 Ordered Troponin I Q3H Lab 05/31/25 22:00 Ordered Troponin I Stat Lab 05/31/25 15:44 Completed MDM Narrative Medical Decision Narrative: This is a 64-year-old female patient who is presenting to the emergency department today for evaluation of sudden onset epigastric pain that woke her from sleep last night and radiates into her chest as well into her back and between her shoulder blades. Patient's comorbidities include hypertension, hyperlipidemia, COPD, GERD, and known aortic aneurysm with known thrombus. On initial evaluation of the patient they were resting comfortably in no acute distress and nontoxic in appearance. They are hemodynamically stable, saturating well room air, and are neurologically intact. On physical examination her heart and lungs are clear to auscultation bilaterally. She has epigastric tenderness of the right upper quadrant abdominal tenderness. No lower abdominal tenderness. No lower extremity pitting edema or erythema. Differential diagnosis includes ACS/NJ, aortic dissection, pericarditis, myocarditis, pancreatitis, gastritis, Diana lithiasis, choledocholithiasis, cholecystitis, intra-abdominal abscess, pneumoperitoneum, among others. Workup was initiated with hematologic labs as well as a chest x-ray, CTA of the chest, and CTA of the abdomen and pelvis. I did also perform bedside POCUS assessment of the gallbladder, heart, and aorta. I did not appreciate any aneurysmal dilation of the aorta within the abdomen. I did not appreciate any evidence of reduced ejection fraction, large pericardial effusion, or evidence of right heart strain. No evidence of cholecystitis, pericholecystic fluid, or cholelithiasis. The patient does have a sonographic Blue sign, but she also has tenderness when the probe is over other regions of the abdomen as well. Labs were personally turbid by me and demonstrate a mild leukocytosis of 13. No actionable anemia. She has mild hypokalemia with no other electrolyte derangements or evidence of acute kidney injury. Troponin is less than 0.01. LFTs are normal. Given my ultrasounds were unremarkable for right upper quadrant pathology and she does have a history of aortic pathology I decided to proceed with a CTA of the chest abdomen and pelvis. The CTAs were interpreted by radiology and they actually called acute cholecystitis with pericholecystic edema. Following CT scan I did evaluate the patient with ultrasound again at the bedside and I still do not see any pericholecystic fluid or any other abnormalities that are appreciated on the scan. Given that I have 2 conflicting studies, I discussed this case directly with general surgery who stated that in the setting of right upper quadrant tenderness, a CT read showing acute cholecystitis, and a leukocytosis that they would admit the patient to the hospital for IV antibiotics and further workup in the morning with a formal right upper quadrant ultrasound. I discussed this case directly with the internal medicine service who agreed to evaluate the patient in the emergency department. After our discussion and their evaluation have agreed to admit the patient to their service and accept primary responsibility of the patient moving forward.
[2025-05-31] MEDS: POTASSIUM CHLORIDE 20MEQ/15ML UDC 40 MEQ PO (17:16)
--- NOTE | 2025-05-31 17:29 | PC.NURSE ---
Gen surgery parks recreation coordinator, , paged for
--- NOTE | 2025-05-31 17:48 | PC.NURSE ---
HS notified of the need for a bed to admit to the hospitalist.
--- NOTE | 2025-05-31 17:51 | P.HP_ITS ---
History of Present Illness *Admission Date: 05/31/25 *Reason for visit:: abdominal pain *History of present illness: Ms. Ponce is a 64-year-old female with history of lung cancer status post lobectomy in January, COPD, CAD, hypertension. Presents with abdominal pain that started last night. Woke her from sleep. CTA of the abdomen showed acute cholecystitis with Tyrese cholecystic fluid. Pain radiates to her chest and back. Has not had anything to eat today. Does have some nausea but no eamon vomiting. Denies fever. On workup in the ER, found of elevated white count of [address] as stated above with cholecystitis. [id number] ultrasound performed by ER physician however was reported relatively unremarkable. Surgery was consulted and recommended admission and formal ultrasound in the morning. Will initiate Zosyn and have repeat labs in the morning. N.p.o. at midnight. Patient stable on room air. On evaluation after arrival to the floor, she is independently mobile and ambulatory to the bathroom. Has pain in her abdomen on exam, most exquisite in right upper quadrant. Stable on room air. Alert and oriented x 4. [facility] Disclaimer: The information contained in this section may have been updated after the patient was seen, as this information can be updated by other users. Medical History Atypical angina Acid reflux HLD (hyperlipidemia) HHD (hypertensive heart disease) Social History Smoking Status: Current every day smoker tobacco type: cigarettes packs per day: 1 second hand exposure: No alcohol intake: never substance use type: denies use current occupational status: employed Travel in the last 8 weeks?: None household members: significant other housing: house current occupational exposures/hazards: No Have you lived/traveled outside US in past 30 days?: No Contact w/someone who lives/traveled outside US past 30 days?: No Exposure to someone with infectious disease in past 14 days?: No Do you have a fever (greater than 100.4 F or 38 C)?: No Have you tested positive for COVID-19?: No Exposed to someone with COVID-19 in past 14 days?: No Do you have a sore throat?: No Do you have a cough?: No Do you have any weakness?: No Do you have any diarrhea?: No Are you experiencing any unusual bleeding?: No Do you have any muscle aches/pain?: No Do you have any abdominal pain?: No Are you experiencing loss of taste or smell?: No Other Medical History Have you received the Flu Vaccine for this season: No Have you received the Pneumonia Vaccine: No Review of Systems Review of Systems Review of systems (narrative): 14 point review of systems performed, pertinent positives and negatives as per [facility] Meds Home Medications and Allergies Home Medications ?Medication ?Instructions ?Recorded ?Confirmed ?Type aspirin 81 mg tablet,delayed 81 mg PO DAILY heart heal th 10/14/17 04/05/25 History release pantoprazole 40 mg tablet,delayed 40 mg PO DAILY GERD 10/14/17 04/05/25 History release alprazolam 0.25 mg tablet 0.25 mg PO BID PRN Anxiety 1 06/26/17 04/05/25 History sumatriptan succinate 50 mg tablet 50 mg PO Q2H PRN mi graines 10/31/19 04/05/25 History clopidogrel 75 mg tablet 75 mg PO DAILY antiplatelet 10/14/20 04/05/25 History amlodipine 10 mg tablet 10 mg PO DAILY High blood pr essure 03/19/22 04/05/25 Rx #30 tabs meclizine 25 mg tablet 25 mg PO Q6HP PRN dizziness #30 10/05/22 04/05/25 Rx tabs albuterol sulfate 90 mcg/actuation 2 inh inhalation Q6 H PRN shortness 11/04/22 04/05/25 Rx aerosol inhaler of breath or wheezing #8.5 g angel fluticasone propionate 50 1 spray intranasal DAILY . 0 02/25/23 04/05/25 History mcg/actuation nasal spray,suspension (Flonase Allergy Relief) citalopram 20 mg tablet mg PO 11/16/23 04/05/25 Hist ory famotidine 40 mg tablet mg PO 11/16/23 04/05/25 Hist ory folic acid 1 mg tablet PO 11/16/23 04/05/25 History metoprolol succinate 25 mg 25 mg PO DAILY #90 tabs 04/05/25 Rx tablet,extended release 24 hr rosuvastatin 40 mg tablet (Crestor) 40 mg PO DAILY #90 tabs 09/04/24 04/05/25 Rx umeclidinium 62.5 mcg-vilanterol 1 inh inhalation ONCE 09/18/24 04/05/25 History 25 mcg/actuation powdr for inhalation (Anoro Ellipta) evolocumab 140 mg/mL subcutaneous 140 mg SQ Q2W 90 day s #7 mL 01/09/25 04/05/25 Rx pen injector (Repatha SureClick) dapagliflozin propanediol 10 mg 10 mg PO DAILY 5 04/05/25 History tablet (Farxiga) montelukast 10 mg tablet 10 mg PO DAILY 04/05/2503/21 History potassium chloride 10 mEq 10 meq PO ONCE 04/05/2503/21 History tablet,extended release(part/cryst) New Prescriptions to Start Prescriptions: Allergies Allergy/AdvReac Type Severity Reaction Status Date / Time No Known Allergies Allergy Verified 04/05/25 09:49 Exam Data for Last 24 hours Vital signs and Labs for Last 24 Hours: Temp Pulse Resp BP Pulse Ox O2 Del Method 98.5 F 66 21 121/76 95 Room Air 05/31/25 15:42 05/31/25 17:00 05/31/25 17:32 05/31/25 17:32 05/31/25 17:00 05/31/25 16:00 Laboratory Results - last 24 hr 05/31/25 15:44: WBC 13.4 H, RBC 4.34, Hgb 12.5, Hct 39.4, MCV 90.8, MCH 28.8, MCHC 31.7 L, RDW 13.4, Plt Count 349, MPV 9.6, Neut % (Auto) 66.1, Lymph % (Auto) 22.3, [place] % (Auto) 8.6, Eos % (Auto) 2.2, Baso % (Auto) 0.4, Neut # (Auto) 8.9 H, Lymph # (Auto) 3.0, [place] # (Auto) 1.2 H, Eos # (Auto) 0.3, Baso # (Auto) 0.1, Sodium 144, Potassium 3.4 L, Chloride 109 H, Carbon Dioxide 24, Anion Gap 14.4, BUN 8, Creatinine 0.80, Estimated Creat Clear 53, Estimated GFR 72, Est GFR ( Amer) 87, Glucose 108 H, Calcium 9.1, Total Bilirubin 0.4, AST 17, ALT 12, Alkaline Phosphatase 93, Troponin I < 0.01, Total Protein 7.8, Albumin 4.6, Globulin 3.2, Albumin/Globulin Ratio 1.4, Lipase 48 I & O for Last 24 hours: Intake & Output 05/28/25 05/29/25 05/30/25 05/31/25 23:59 23:59 23:59 23:59 Weight 58.967 kg Constitutional Constitutional: no acute distress, average body habitus and cooperative *Routine HEENT Exam Head: Present normocephalic Eye: Present EOMI and PERRL ENT: Present mucous membranes moist *Routine Neck Exam Neck: Present supple; Absent lymphadenopathy Routine Chest/Breast/Axilla Exam Comments: Scar left side of chest consistent with lobectomy. Well-healed *Routine Respiratory Exam Respiratory: Present CTA bilaterally and prolonged expiratory phase; Absent wheezes or crackles *Routine Cardiovascular Exam Cardiovascular: Present RRR *Routine Abdominal Exam Abdominal: Present soft, normoactive bowel sounds and tenderness (Diffuse but most exquisite in right upper quadrant.); Absent rebound *Routine Rectal Exam Rectal:: deferred *Routine Genitalia Exam Genitalia:: deferred *Routine Extremities Exam Extremities: Absent cyanosis, clubbing or edema *Routine Skin Exam Skin: Present warm; Absent rash *Routine Neurological Exam Neurological: Present alert, oriented X3 and moving all extremities; Absent altered mental status Assessment and Plan *Assessment and plan (1) Acute cholecystitis: Status: Acute Category: Medical Code(s): K81.0 - Acute cholecystitis (2) HLD (hyperlipidemia): Status: Chronic Qualifiers: Hyperlipidemia type: mixed hyperlipidemia Qualified Code(s): E78.2 - Mixed hyperlipidemia Category: Medical Code(s): E78.5 - Hyperlipidemia, unspecified (3) HHD (hypertensive heart disease): Status: Chronic Qualifiers: Heart failure presence: without heart failure Qualified Code(s): I11.9 - Hypertensive heart disease without heart failure Category: Medical Code(s): I11.9 - Hypertensive heart disease without heart failure (4) Tobacco dependence syndrome: Status: Chronic Category: Medical Code(s): F17.200 - Nicotine dependence, unspecified, uncomplicated (5) Coronary arteriosclerosis: Status: Chronic Category: Medical Code(s): I25.10 - Atherosclerotic heart disease of [place] coronary artery without angina pectoris (6) COPD (chronic obstructive pulmonary disease): Status: Acute Category: Medical Code(s): J44.9 - Chronic obstructive pulmonary disease, unspecified Plan 64-year-old female with history of lung cancer status post lobectomy, hypertension, CAD, COPD, questionable aortic aneurysm with mural thrombus. Evaluated for abdominal pain. Discussed case with ER physician, request admission for further evaluation and treatment of suspected cholecystitis. I did do a admit for further care. Surgery consulted to evaluate the morning. Initiate empiric antibiotics. Ultrasound ordered for the morning. Problems addressed as follows: Right upper quadrant pain Suspected acute cholecystitis Leukocytosis - CT per my review with Tyrese cholecystic fluid. Exam consistent with Blue sign. White count 13. Initiate Zosyn 4.5 g every 8 hours. - Repeat CBC, CMP, magnesium ordered for the morning. - Hemoglobin 12.5. Bilirubin 0.4, AST 17, ALT 12, alk phos 93. Lipase normal at 48. - Morphine 4 mg as needed every 4 hours for moderate to severe pain. Hydrocodone 5 mg as needed every 6 hours for mild to moderate pain. Tylenol as needed 650 mg every 4-6 hours for mild pain. Monitor for toxicity. - N.p.o. at midnight, initiate LR at 100 cc an hour starting at 1 AM. Clear liquids until midnight - Surgery consulted to evaluate in the morning. - Kidney function normal BUN 8, creatinine 0.8. Surgical optimization: - Echo obtained 11/30/2023 showing normal BiV function with mild AI and mild TR. RVSP 20 to 25 mmHg. EF 55%. - Patient follows with cardiology, last seen on 04/05/2025. - Was seen for hypertension, CAD, questionable abdominal aortic aneurysm with mural thrombus. CT obtained this year with no abdominal aortic aneurysm. There is mural thrombus with ulcerated plaque of the patent branch vessels from the abdominal aorta however. Given her normal Myoview earlier this year, stable blood pressure, normal echo, no indication for further optimization at this time. - Follows with oncology for history of lung cancer, had lobectomy of left upper lobe performed in January of this year. Stable on room air. Caution with anesthesia but given her stability on room air, no indication for further pulmonary clearance prior to surgery. - Patient is average risk for elevated risk procedure of cholecystectomy/intra- abdominal procedure. - No history of cirrhosis, diabetes, end-stage renal disease. Able to perform ADLs without chest pain or anginal equivalents. Does have some mild shortness of breath with exertion after lobectomy but has never required oxygen. -Recommend proceeding with cholecystectomy if deemed necessary by surgery. COPD: Continue DuoNebs as needed every 6 hours. Resume umeclidinium/vilanterol daily CAD Hypertension -Reports it has been well over a year since her last heart cath. No stents in the past year. - Will hold home Crestor, dapagliflozin Plavix, aspirin, Repatha in the setting of potential surgery. - Hold amlodipine 10 mg in the morning for now surgery due to risk of intraoperative hypotension. - Hold metoprolol succinate 25 mg daily unless blood pressure elevated in the morning above systolic 160 full code N.p.o. at midnight Holding on anticoagulation with possible surgery in the
--- NOTE | 2025-05-31 18:22 | PC.NURSE ---
report called to KEVIN Carter for room 214
[2025-05-31 19:50] LABS: Troponin I < 0.01 ng/ml (0.00-0.034)
[2025-05-31] MEDS: MORPHINE 4MG/ML SYRINGE 4 MG IV (20:21)
[2025-05-31] MEDS: PIPERACILLIN/TAZO 4.5 GM in 0.9 % SODIUM CHLORIDE 100 ML IV (20:21)
[2025-05-31] MEDS: PANTOPRAZOLE 40MG TABLET 40 MG PO (20:22)
[2025-05-31] MEDS: HYDROCODONE/APAP 5/325 MG TABLET 1 TAB PO (20:59)
[2025-06-01] VITALS (17 sets, daily range): BP systolic 97–152; BP diastolic 43–79; PULSE 66–84; RESP 14–19; TEMP 36.1–37; O2SAT 94–99; BMI 25.2
--- NOTE | 2025-06-01 | US_ITS ---
FINAL REPORT CLINICAL HISTORY: abd pain FINDINGS: RIGHT UPPER QUADRANT ULTRASOUND Technique: Ultrasound images of the right upper quadrant were obtained. Limited images of the liver parenchyma is normal in echogenicity. Trace amount of sludge is seen in the gallbladder. The gallbladder wall measures in the upper limits of normal with pericholecystic fluid. The common duct measures 7 mm. There may be sludge in the distal common duct. There may be a small echogenic focus in the distal common duct, cannot exclude a small stone. The right kidney is unremarkable. IMPRESSION: Sludge and possible small stone in the distal common bile duct. Please correlate with laboratory values. Gallbladder wall thickening with trace pericholecystic fluid, acute cholecystitis is not excluded in the appropriate clinical setting Reviewed, Interpreted and Dictated by Nacho Vila MD Transcribed by Hope Erickson Authenticated and [facility]
[2025-06-01] MEDS: LACTATED RINGERS 1000ML 1,000 ML 100 ML IV (00:50)
[2025-06-01] MEDS: PIPERACILLIN/TAZO 4.5 GM in 0.9 % SODIUM CHLORIDE 100 ML IV ×4 (00:50→21:12)
--- NOTE | 2025-06-01 02:50 | PC.NURSE ---
Pt AOx4, pleasant. C/o some abdominal pain earlier in the shift, which was treated per AUG. Pt reports pain relief since then. Currently NPO for possible procedure in the AM. Pt tolerating room air. Currently resting in bed with eyes open. Denies pain or any additional needs at this time. Respirations even and unlabored. Bed is low, locked, and call light is in reach.
[2025-06-01 06:03] LABS: Hematocrit 34.3 % (37.0-47.0); Immature Granulocytes % 0.3 %; Mean Corpuscular HGB Conc 31.5 g/dL (31.8-35.4); Mean Corpuscular Hemoglobin 29.0 pg (27.0-31.2); Mean Corpuscular Volume 92.0 fl (81-99); Nucleated Red Blood Cells % 0 %; Platelet Count 295 K/mm3 (142-424); Red Blood Count 3.73 M/mm3 (4.20-5.40); Red Cell Distribution Width-SD 45.8 fL; White Blood Count 10.3 K/mm3 (4.8-10.8)
--- NOTE | 2025-06-01 06:03 | EXP.SURG.CON ---
History of Present Illness *Admission Date: 05/31/25 *Reason for visit:: Cholecystitis *History of present illness: Patient is a 64-year-old female from [facility] with history of lung cancer status post lobectomy (left upper lobe) in January with COPD, coronary artery disease, prior CVA, hypertension, GERD. On dual antiplatelet therapy. She awoke on 05/31/2025 with abdominal pain radiating into her chest and back with associated nausea. Evaluation in the emergency department revealed mild leukocytosis. She was found to have right upper quadrant tenderness. [id number] ultrasound done by the ER physician was reportedly unremarkable. CTA of the abdomen and pelvis revealed findings of acute cholecystitis. She was admitted for inpatient management for presumed cholecystitis and started on antibiotics. . [facility] Disclaimer: The information contained in this section may have been updated after the patient was seen, as this information can be updated by other users. Medical History Atypical angina Acid reflux HLD (hyperlipidemia) HHD (hypertensive heart disease) Social History Smoking Status: Current every day smoker tobacco type: cigarettes packs per day: 1 second hand exposure: No alcohol intake: never substance use type: denies use current occupational status: employed Travel in the last 8 weeks?: None household members: significant other housing: house current occupational exposures/hazards: No Have you lived/traveled outside US in past 30 days?: No Contact w/someone who lives/traveled outside US past 30 days?: No Exposure to someone with infectious disease in past 14 days?: No Do you have a fever (greater than 100.4 F or 38 C)?: No Have you tested positive for COVID-19?: No Exposed to someone with COVID-19 in past 14 days?: No Do you have a sore throat?: No Do you have a cough?: No Do you have any weakness?: No Do you have any diarrhea?: No Are you experiencing any unusual bleeding?: No Do you have any muscle aches/pain?: No Do you have any abdominal pain?: No Are you experiencing loss of taste or smell?: No Meds Home Medications and Allergies Home Medications ?Medication ?Instructions ?Recorded ?Confirmed ?Type aspirin 81 mg tablet,delayed 81 mg PO DAILY heart health 10/14/17 05/31/25 History release pantoprazole 40 mg tablet,delayed 40 mg PO DAILY GERD 10/14/17 05/31/25 History release alprazolam 0.25 mg tablet 0.25 mg PO BID PRN Anxiety 04/26/18 05/31/25 History sumatriptan succinate 50 mg tablet 50 mg PO DAILYP PRN migraines 10/31/19 06/01/25 History clopidogrel 75 mg tablet 75 mg PO DAILY antiplatelet 10/14/20 05/31/25 History amlodipine 10 mg tablet 10 mg PO DAILY High blood pressure 03/19/22 05/31/25 Rx #30 tabs meclizine 25 mg tablet 25 mg PO Q6HP PRN dizziness #30 10/05/22 05/31/25 Rx tabs albuterol sulfate 90 mcg/actuation 2 inh inhalation Q6H PRN shortness 11/04/22 05/31/25 Rx aerosol inhaler of breath or wheezing #8.5 grams fluticasone propionate 50 1 spray intranasal DAILY . 02/25/23 05/31/25 History mcg/actuation nasal spray,suspension (Flonase Allergy Relief) citalopram 20 mg tablet 20 mg PO DAILY 11/16/23 05/31/25 History famotidine 40 mg tablet 40 mg PO BID 11/16/23 05/31/25 History folic acid 1 mg tablet 1 mg PO DAILY 11/16/23 05/31/25 History metoprolol succinate 25 mg 25 mg PO DAILY #90 tabs 09/04/24 05/31/25 Rx tablet,extended release 24 hr rosuvastatin 40 mg tablet (Crestor) 40 mg PO DAILY #90 tabs 09/04/24 05/31/25 Rx umeclidinium 62.5 mcg-vilanterol 1 inh inhalation DAILY 09/18/24 06/01/25 History 25 mcg/actuation powdr for inhalation (Anoro Ellipta) evolocumab 140 mg/mL subcutaneous 140 mg SQ Q2W 90 days #7 mL 01/09/25 05/31/25 Rx pen injector (Arabella Wei) dapagliflozin propanediol 10 mg 10 mg PO DAILY 04/05/25 05/31/25 History tablet (Farxiga) montelukast 10 mg tablet 10 mg PO HS 04/05/25 06/01/25 History gabapentin 300 mg capsule 300 mg PO BID 05/31/25 05/31/25 History New Prescriptions to Start Prescriptions: Allergies Allergy/AdvReac Type Severity Reaction Status Date / Time No Known Allergies Allergy Verified 04/05/25 09:49 Exam (Inpt) Vital signs and Labs for Last 24 Hours: Temp Pulse Resp BP Pulse Ox O2 Del Method 98.4 F 66 16 97/43 L 97 Room Air 06/01/25 04:00 06/01/25 04:00 06/01/25 04:00 06/01/25 04:00 06/01/25 04:00 06/01/25 05:00 Laboratory Results - last 24 hr 05/31/25 15:44: WBC 13.4 H, RBC 4.34, Hgb 12.5, Hct 39.4, MCV 90.8, MCH 28.8, MCHC 31.7 L, RDW 13.4, Plt Count 349, MPV 9.6, Neut % (Auto) 66.1, Lymph % (Auto) 22.3, [place] % (Auto) 8.6, Eos % (Auto) 2.2, Baso % (Auto) 0.4, Neut # (Auto) 8.9 H, Lymph # (Auto) 3.0, [place] # (Auto) 1.2 H, Eos # (Auto) 0.3, Baso # (Auto) 0.1, Sodium 144, Potassium 3.4 L, Chloride 109 H, Carbon Dioxide 24, Anion Gap 14.4, BUN 8, Creatinine 0.80, Estimated Creat Clear 53, Estimated GFR 72, Est GFR ( Amer) 87, Glucose 108 H, Calcium 9.1, Total Bilirubin 0.4, AST 17, ALT 12, Alkaline Phosphatase 93, Troponin I < 0.01, Total Protein 7.8, Albumin 4.6, Globulin 3.2, Albumin/Globulin Ratio 1.4, Lipase 48 05/31/25 19:05: Troponin I < 0.01 I & O for Labs for Last 24 Hours: Intake & Output 05/29/25 05/30/25 05/31/25 06/01/25 11:59 11:59 11:59 11:59 Intake Total 200 / 200 Output Total 0 / 0 Balance 200 / 200 Weight 137 lb 8 oz Constitutional: no acute distress Head: Present normocephalic GI: Present soft and tenderness Comments:: Tenderness, right upper quadrant Results Labs 06/01/25 05:17 06/01/25 05:17 Labs: Laboratory Results - last 24 hr 05/31/25 15:44: WBC 13.4 H, RBC 4.34, Hgb 12.5, Hct 39.4, MCV 90.8, MCH 28.8, MCHC 31.7 L, RDW 13.4, Plt Count 349, MPV 9.6, Neut % (Auto) 66.1, Lymph % (Auto) 22.3, [place] % (Auto) 8.6, Eos % (Auto) 2.2, Baso % (Auto) 0.4, Neut # (Auto) 8.9 H, Lymph # (Auto) 3.0, [place] # (Auto) 1.2 H, Eos # (Auto) 0.3, Baso # (Auto) 0.1, Sodium 144, Potassium 3.4 L, Chloride 109 H, Carbon Dioxide 24, Anion Gap 14.4, BUN 8, Creatinine 0.80, Estimated Creat Clear 53, Estimated GFR 72, Est GFR ( Amer) 87, Glucose 108 H, Calcium 9.1, Total Bilirubin 0.4, AST 17, ALT 12, Alkaline Phosphatase 93, Troponin I < 0.01, Total Protein 7.8, Albumin 4.6, Globulin 3.2, Albumin/Globulin Ratio 1.4, Lipase 48 05/31/25 19:05: Troponin I < 0.01 Assessment and Plan *Assessment and plan (1) Acute cholecystitis: Status: Acute Category: Medical Code(s): K81.0 - Acute cholecystitis Plan Clinical acute cholecystitis. Check official ultrasound. Consider risk assessment from cardiopulmonary standpoint. If patient clinically improves with antibiotics potential for holding on urgent cholecystectomy several days while holding clopidogrel.
[2025-06-01 06:11] LABS: Hemoglobin 11.0 g/dL (12.2-16.2)
[2025-06-01 06:14] LABS: Albumin Level 3.6 g/dl (3.5-5.0); Chloride 112 mmol/L (98-107)
[2025-06-01 06:15] LABS: Potassium 3.8 mmoL/L (3.5-5.1); Sodium 141 mmol/L (136-145)
[2025-06-01 06:17] LABS: Alanine Aminotransferase 85 U/L (12-78); Alkaline Phosphatase 116 U/L (38-126); Anion Gap 10.8 mEq/L (5-15); Aspartate Amino Transferase 217 U/L (14-36); Bilirubin,Total 0.4 mg/dl (0.2-1.3); Blood Urea Nitrogen 7 mg/dl (7-17); Carbon Dioxide 22 mmol/L (22.0-30.0); Creatinine Clearance Estimated 56 mL/min (50-200); Creatinine,Serum 0.80 mg/dl (0.52-1.04); Estimated Glomerular Filt Rate 72 ml/min (>60); GFR (African American) 87 ML/MIN (>60)
[2025-06-01 06:18] LABS: Albumin/Globulin Ratio 1.4 (1.1-1.8); Calcium 8.1 mg/dl (8.4-10.2); Globulin 2.5 g/dL (1.3-3.2); Glucose 91 mg/dl (74-100); Magnesium 2.4 mg/dl (1.6-2.3); Total Protein,Serum 6.1 g/dl (6.3-8.2)
--- NOTE | 2025-06-01 07:39 | HMH.PHAINT1 ---
Pharmacy Intervention Comments: HOME MEDICATION LIST VERIFIED USING LIST FROM OUTPATIENT PHARMACY AND PT INTERVIEW
[2025-06-01] MEDS: HYDROCODONE/APAP 5/325 MG TABLET 1 TAB PO ×2 (08:13→21:13)
--- NOTE | 2025-06-01 08:42 | HMH.PHAAMS2 ---
- Antimicrobial Stewardship Review culture & sensitivity review Stewardship interventions: culture & sensitivity review
--- NOTE | 2025-06-01 08:46 | HMH.PHAAMS2 ---
- Antimicrobial Stewardship Review culture & sensitivity review Stewardship interventions: culture & sensitivity review (CURRENTLY ON ZOSYN FOR ACUTE ABDOMEN, WBC DOWN FROM 13.4K TO 10.3K, AFEBRILE.)
--- NOTE | 2025-06-01 12:11 | EXP.ACUTE.PN ---
Subjective *Date: 06/01/25 *Time: 12:47 Interval history: Still having upper abdominal pain, most prominent right upper quadrant. Interval improvement today. Labs show improvement in white count but bump in liver enzymes. Stable on room air. Afebrile. No nausea or vomiting. Ultrasound obtained today. Medical Exam Vital signs and Labs for Last 24 Hours: Vital Signs Temp Pulse Pulse Resp BP BP Pulse Ox 06/01/25 09:00 06/01/25 08:00 06/01/25 08:00 98.6 F 78 16 98/46 L 97 06/01/25 06:33 06/01/25 05:00 06/01/25 04:00 98.4 F 66 16 97/43 L 97 06/01/25 03:00 06/01/25 01:00 05/31/25 23:00 05/31/25 21:00 05/31/25 20:00 05/31/25 19:00 05/31/25 18:30 98.7 F 75 23 138/75 98 05/31/25 18:30 17 138/75 05/31/25 18:30 99.0 F 74 20 138/75 05/31/25 18:09 05/31/25 18:00 23 145/72 H 05/31/25 17:32 21 121/76 05/31/25 17:00 66 24 143/68 H 95 05/31/25 16:30 79 24 141/77 H 93 L 05/31/25 16:00 81 20 128/77 99 05/31/25 15:42 98.5 F 83 20 146/74 H 100 05/31/25 15:42 98.5 F 83 20 146/74 H 100 05/31/25 15:38 90 146/74 H 98 O2 Del Method 06/01/25 09:00 Room Air 06/01/25 08:00 Room Air 06/01/25 08:00 Room Air 06/01/25 06:33 Room Air 06/01/25 05:00 Room Air 06/01/25 04:00 Room Air 06/01/25 03:00 Room Air 06/01/25 01:00 Room Air 05/31/25 23:00 Room Air 05/31/25 21:00 Room Air 05/31/25 20:00 Room Air 05/31/25 19:00 Room Air 05/31/25 18:30 Room Air 05/31/25 18:30 05/31/25 18:30 05/31/25 18:09 Room Air 05/31/25 18:00 05/31/25 17:32 05/31/25 17:00 05/31/25 16:30 05/31/25 16:00 Room Air 05/31/25 15:42 05/31/25 15:42 05/31/25 15:38 Intake and Output 05/31/25 06/01/25 06/01/25 23:59 07:59 15:59 Intake Total 100 / 100 100 / 200 100 / 200 Output Total 0 / 0 Balance 100 / 100 100 / 200 100 / 200 Intake: Intake, Total IV Amount 100 / 100 100 / 200 100 / 200 Piperacillin/Tazo 4.5 gm In 0.9 100 / 100 % Sodium Chloride 100 ml @ 200 mls/hr IV Q6H [facility] Rx#:[id number] Piperacillin/Tazo 4.5 gm In 0.9 100 / 100 100 / 100 % Sodium Chloride 100 ml @ 200 mls/hr IV Q8H [facility] Rx#: [id number] Output: Output, Urine Amount 0 / 0 Other: Number of Unmeasured Voids 1 Weight 60.781 kg 62.369 kg Patient Weight 06/01/25 23:59 Weight 62.369 kg Laboratory Results - last 24 hr 05/31/25 15:44: WBC 13.4 H, RBC 4.34, Hgb 12.5, Hct 39.4, MCV 90.8, MCH 28.8, MCHC 31.7 L, RDW 13.4, Plt Count 349, MPV 9.6, Neut % (Auto) 66.1, Lymph % (Auto) 22.3, [place] % (Auto) 8.6, Eos % (Auto) 2.2, Baso % (Auto) 0.4, Neut # (Auto) 8.9 H, Lymph # (Auto) 3.0, [place] # (Auto) 1.2 H, Eos # (Auto) 0.3, Baso # (Auto) 0.1, Sodium 144, Potassium 3.4 L, Chloride 109 H, Carbon Dioxide 24, Anion Gap 14.4, BUN 8, Creatinine 0.80, Estimated Creat Clear 53, Estimated GFR 72, Est GFR ( Amer) 87, Glucose 108 H, Calcium 9.1, Total Bilirubin 0.4, AST 17, ALT 12, Alkaline Phosphatase 93, Troponin I < 0.01, Total Protein 7.8, Albumin 4.6, Globulin 3.2, Albumin/Globulin Ratio 1.4, Lipase 48 05/31/25 19:05: Troponin I < 0.01 06/01/25 05:17: WBC 10.3, RBC 3.73 L, Hgb 11.0 L D, Hct 34.3 L, MCV 92.0, MCH 29.0, MCHC 31.5 L, RDW 13.6, Plt Count 295, MPV 9.9, Neut % (Auto) 62.5, Lymph % (Auto) 23.4, [place] % (Auto) 10.9 H, Eos % (Auto) 2.2, Baso % (Auto) 0.7, Neut # (Auto) 6.4, Lymph # (Auto) 2.4, [place] # (Auto) 1.1 H, Eos # (Auto) 0.2, Baso # (Auto) 0.1, Sodium 141, Potassium 3.8, Chloride 112 H, Carbon Dioxide 22, Anion Gap 10.8, BUN 7, Creatinine 0.80, Estimated Creat Clear 56, Estimated GFR 72, Est GFR ( Amer) 87, Glucose 91, Calcium 8.1 L, Magnesium 2.4 H, Total Bilirubin 0.4, AST 217 H D, ALT 85 H D, Alkaline Phosphatase 116, Total Protein 6.1 L, Albumin 3.6 D, Globulin 2.5, Albumin/Globulin Ratio 1.4 I & O for Labs for Last 24 Hours: Intake & Output 05/29/25 05/30/25 05/31/25 06/01/25 23:59 23:59 23:59 23:59 Intake Total 100 / 100 200 / 200 Output Total 0 / 0 Balance 100 / 100 200 / 200 Weight 60.781 kg 62.369 kg Constitutional: Present no acute distress, average body habitus, chronically ill appearing and cooperative Respiratory: Present normal respiratory effort; Absent rhonchi, wheezes or crackles Cardiac: Present Reg Rate and Rhythm GI: Present soft, tenderness (Right upper quadrant, positive Blue sign) and normal bowel sounds; Absent distention, guarding or rebound Extremities: Present normal inspection and full ROM Skin: Present intact; Absent erythema Neuro: Present Grossly Intact, alert, awake, oriented x 3 and moves all extremities Assessment and Plan *Assessment and plan (1) Acute cholecystitis: Status: Acute Category: Medical Code(s): K81.0 - Acute cholecystitis (2) HLD (hyperlipidemia): Status: Chronic Qualifiers: Hyperlipidemia type: mixed hyperlipidemia Qualified Code(s): E78.2 - Mixed hyperlipidemia Category: Medical Code(s): E78.5 - Hyperlipidemia, unspecified (3) HHD (hypertensive heart disease): Status: Chronic Qualifiers: Heart failure presence: without heart failure Qualified Code(s): I11.9 - Hypertensive heart disease without heart failure Category: Medical Code(s): I11.9 - Hypertensive heart disease without heart failure (4) Tobacco dependence syndrome: Status: Chronic Category: Medical Code(s): F17.200 - Nicotine dependence, unspecified, uncomplicated (5) Coronary arteriosclerosis: Status: Chronic Category: Medical Code(s): I25.10 - Atherosclerotic heart disease of [place] coronary artery without angina pectoris (6) COPD (chronic obstructive pulmonary disease): Status: Acute Category: Medical Code(s): J44.9 - Chronic obstructive pulmonary disease, unspecified Plan 64-year-old female with history of lung cancer status post lobectomy, hypertension, CAD, COPD, questionable aortic aneurysm with mural thrombus. Evaluated for abdominal pain. Discussed case with ER physician, request admission for further evaluation and treatment of suspected cholecystitis. I did do a admit for further care. Surgery consulted to evaluate the morning. Initiate empiric antibiotics. Ultrasound ordered for the morning. Problems addressed as follows: Right upper quadrant pain Suspected acute cholecystitis Leukocytosis - White count improved to 10.3. Hemoglobin 11. Liver enzymes bumped with bilirubin 0.4, AST 217, ALT 85. Kidney function stable with BUN 7, creatinine 0.8 - Repeat CBC, CMP, magnesium ordered for the morning. -Given elevation in liver enzymes, ultrasound obtained of the right upper quadrant. Shows concern for common bile duct at 7 mm. Possible stone in distal CBD. Gallbladder has sludge and noncalcified stones. -Discussed case with surgery, recommend GI consult prior to cholecystectomy given possible CBD obstruction. Discussed case with, planning to do ERCP today. Continue to keep patient n.p.o. -Aspirin and Plavix have been on hold since yesterday morning - Morphine 4 mg as needed every 4 hours for moderate to severe pain. Hydrocodone 5 mg as needed every 6 hours for mild to moderate pain. Tylenol as needed 650 mg every 4-6 hours for mild pain. Monitor for toxicity. -Remains NPO. Surgical optimization: - Echo obtained 11/30/2023 showing normal BiV function with mild AI and mild TR. RVSP 20 to 25 mmHg. EF 55%. - Patient follows with cardiology, last seen on 04/05/2025. - Was seen for hypertension, CAD, questionable abdominal aortic aneurysm with mural thrombus. CT obtained this year with no abdominal aortic aneurysm. There is mural thrombus with ulcerated plaque of the patent branch vessels from the abdominal aorta however. Given her normal Myoview earlier this year, stable blood pressure, normal echo, no indication for further optimization at this time. - Follows with oncology for history of lung cancer, had lobectomy of left upper lobe performed in January of this year. Stable on room air. Caution with anesthesia but given her stability on room air, no indication for further pulmonary clearance prior to surgery. - Patient is average risk for elevated risk procedure of cholecystectomy/intra-abdominal procedure. - No history of cirrhosis, diabetes, end-stage renal disease. Able to perform ADLs without chest pain or anginal equivalents. Does have some mild shortness of breath with exertion after lobectomy but has never required oxygen. -Recommend proceeding with cholecystectomy if deemed necessary by surgery. - Aspirin and Plavix last dose taken morning of 05/31 COPD: Continue DuoNebs as needed every 6 hours. Continue umeclidinium/vilanterol daily CAD Hypertension -Reports it has been well over a year since her last heart cath. No stents in the past year. - Will hold home Crestor, dapagliflozin Plavix, aspirin, Repatha in the setting of potential surgery. - Hold amlodipine 10 mg in the morning for now surgery due to risk of intraoperative hypotension. - Hold metoprolol succinate 25 mg daily unless blood pressure elevated in the morning above systolic 160 - Blood pressure soft this morning at 98/46. full code N.p.o. at midnight Holding on anticoagulation with possible surgery in the
[2025-06-01] MEDS: UMECLIDINIUM/VILANTEROL 62.5/25MCG INHALER 1 PUFF IH (13:00)
--- NOTE | 2025-06-01 14:04 | EXP.HP ---
History of Present Illness *Admission Date: 05/31/25 *History of present illness: Mrs. Dan is a 64-year-old inpatient female scheduled this afternoon for ERCP secondary to choledocholithiasis. The patient presented with primarily right upper quadrant abdominal pain. This radiated into the chest and back with associated nausea. She had mild leukocytosis. Her xnaaz-hq-phov ultrasound by the ED physician was unremarkable. Her CTA of the abdomen revealed findings of acute cholecystitis. Her right upper quadrant ultrasound today showed sludge and possible small stone in the distal common bile duct with some gallbladder wall thickening and trace of pericholecystic fluid. Her liver chemistries yesterday were normal but today her AST alejo to 217 (from 17) and ALT 285 (from 12). Her alkaline phosphatase 116 and total bilirubin 0.4 were normal. The examination is deemed medically necessary for diagnostic/therapeutic ERCP. The patient has been seen, interviewed and examined prior to the procedure by both myself and the anesthesia provider. [facility] Disclaimer: The information contained in this section may have been updated after the patient was seen, as this information can be updated by other users. Medical History Atypical angina Acid reflux HLD (hyperlipidemia) HHD (hypertensive heart disease) Social History Smoking Status: Current every day smoker tobacco type: cigarettes packs per day: 1 second hand exposure: No alcohol intake: never substance use type: denies use current occupational status: employed Travel in the last 8 weeks?: None household members: significant other housing: house current occupational exposures/hazards: No Have you lived/traveled outside [place] in past 30 days?: No Contact w/someone who lives/traveled outside US past 30 days?: No Exposure to someone with infectious disease in past 14 days?: No Do you have a fever (greater than 100.4 F or 38 C)?: No Have you tested positive for COVID-19?: No Exposed to someone with COVID-19 in past 14 days?: No Do you have a sore throat?: No Do you have a cough?: No Do you have any weakness?: No Do you have any diarrhea?: No Are you experiencing any unusual bleeding?: No Do you have any muscle aches/pain?: No Do you have any abdominal pain?: No Are you experiencing loss of taste or smell?: No Other Medical History Have you received the Flu Vaccine for this season: No Have you received the Pneumonia Vaccine: No Review of Systems Review of Systems Review of systems (narrative): Negative *Cardiovascular Comments: Negative *Gastrointestinal Comments: Negative *Genitourinary Comments: Negative *Musculoskeletal Comments: Negative *Neurologic Comments: Negative Meds Home Medications and Allergies Home Medications ?Medication ?Instructions ?Recorded ?Confirmed ?Type aspirin 81 mg tablet,delayed 81 mg PO DAILY heart health 10/14/17 05/31/25 History release pantoprazole 40 mg tablet,delayed 40 mg PO DAILY GERD 10/14/17 05/31/25 History release alprazolam 0.25 mg tablet 0.25 mg PO BID PRN Anxiety 04/26/18 05/31/25 History sumatriptan succinate 50 mg tablet 50 mg PO DAILYP PRN migraines 10/31/19 06/01/25 History clopidogrel 75 mg tablet 75 mg PO DAILY antiplatelet 10/14/20 05/31/25 History amlodipine 10 mg tablet 10 mg PO DAILY High blood pressure 03/19/22 05/31/25 Rx #30 tabs meclizine 25 mg tablet 25 mg PO Q6HP PRN dizziness #30 10/05/22 05/31/25 Rx tabs albuterol sulfate 90 mcg/actuation 2 inh inhalation Q6H PRN shortness 11/04/22 05/31/25 Rx aerosol inhaler of breath or wheezing #8.5 grams fluticasone propionate 50 1 spray intranasal DAILY . 02/25/23 05/31/25 History mcg/actuation nasal spray,suspension (Flonase Allergy Relief) citalopram 20 mg tablet 20 mg PO DAILY 11/16/23 05/31/25 History famotidine 40 mg tablet 40 mg PO BID 11/16/23 05/31/25 History folic acid 1 mg tablet 1 mg PO DAILY 11/16/23 05/31/25 History metoprolol succinate 25 mg 25 mg PO DAILY #90 tabs 09/04/24 05/31/25 Rx tablet,extended release 24 hr rosuvastatin 40 mg tablet (Crestor) 40 mg PO DAILY #90 tabs 09/04/24 05/31/25 Rx umeclidinium 62.5 mcg-vilanterol 1 inh inhalation DAILY 09/18/24 06/01/25 History 25 mcg/actuation powdr for inhalation (Anoro Ellipta) evolocumab 140 mg/mL subcutaneous 140 mg SQ Q2W 90 days #7 mL 01/09/25 05/31/25 Rx pen injector (Repgaila MargaritoClick) dapagliflozin propanediol 10 mg 10 mg PO DAILY 04/05/25 05/31/25 History tablet (Farxiga) montelukast 10 mg tablet 10 mg PO HS 04/05/25 06/01/25 History gabapentin 300 mg capsule 300 mg PO BID 05/31/25 05/31/25 History New Prescriptions to Start Prescriptions: Allergies Allergy/AdvReac Type Severity Reaction Status Date / Time No Known Allergies Allergy Verified 04/05/25 09:49 Exam Data for Last 24 hours Vital signs and Labs for Last 24 Hours: Temp Pulse Resp BP Pulse Ox O2 Del Method 98.6 F 78 16 98/46 L 97 Room Air 06/01/25 13:30 06/01/25 13:30 06/01/25 13:30 06/01/25 13:30 06/01/25 13:30 06/01/25 13:30 Laboratory Results - last 24 hr 05/31/25 15:44: WBC 13.4 H, RBC 4.34, Hgb 12.5, Hct 39.4, MCV 90.8, MCH 28.8, MCHC 31.7 L, RDW 13.4, Plt Count 349, MPV 9.6, Neut % (Auto) 66.1, Lymph % (Auto) 22.3, [place] % (Auto) 8.6, Eos % (Auto) 2.2, Baso % (Auto) 0.4, Neut # (Auto) 8.9 H, Lymph # (Auto) 3.0, [place] # (Auto) 1.2 H, Eos # (Auto) 0.3, Baso # (Auto) 0.1, Sodium 144, Potassium 3.4 L, Chloride 109 H, Carbon Dioxide 24, Anion Gap 14.4, BUN 8, Creatinine 0.80, Estimated Creat Clear 53, Estimated GFR 72, Est GFR ( Amer) 87, Glucose 108 H, Calcium 9.1, Total Bilirubin 0.4, AST 17, ALT 12, Alkaline Phosphatase 93, Troponin I < 0.01, Total Protein 7.8, Albumin 4.6, Globulin 3.2, Albumin/Globulin Ratio 1.4, Lipase 48 05/31/25 19:05: Troponin I < 0.01 06/01/25 05:17: WBC 10.3, RBC 3.73 L, Hgb 11.0 L D, Hct 34.3 L, MCV 92.0, MCH 29.0, MCHC 31.5 L, RDW 13.6, Plt Count 295, MPV 9.9, Neut % (Auto) 62.5, Lymph % (Auto) 23.4, [place] % (Auto) 10.9 H, Eos % (Auto) 2.2, Baso % (Auto) 0.7, Neut # (Auto) 6.4, Lymph # (Auto) 2.4, [place] # (Auto) 1.1 H, Eos # (Auto) 0.2, Baso # (Auto) 0.1, Sodium 141, Potassium 3.8, Chloride 112 H, Carbon Dioxide 22, Anion Gap 10.8, BUN 7, Creatinine 0.80, Estimated Creat Clear 56, Estimated GFR 72, Est GFR ( Amer) 87, Glucose 91, Calcium 8.1 L, Magnesium 2.4 H, Total Bilirubin 0.4, AST 217 H D, ALT 85 H D, Alkaline Phosphatase 116, Total Protein 6.1 L, Albumin 3.6 D, Globulin 2.5, Albumin/Globulin Ratio 1.4 I & O for Last 24 hours: Intake & Output 05/29/25 05/30/25 05/31/25 06/01/25 23:59 23:59 23:59 23:59 Intake Total 100 / 100 200 / 200 Output Total 0 / 0 Balance 100 / 100 200 / 200 Weight 134 lb 137 lb 8 oz *Routine HEENT Exam Head: Present normocephalic Eye: Present EOMI and PERRL ENT: Present mucous membranes moist *Routine Neck Exam Neck: Present supple *Routine Respiratory Exam Respiratory: Present CTA bilaterally *Routine Cardiovascular Exam Cardiovascular: Present RRR *Routine Abdominal Exam Abdominal: Present soft and normoactive bowel sounds; Absent tenderness *Routine Rectal Exam Rectal:: deferred *Routine Genitalia Exam Genitalia:: deferred *Routine Extremities Exam Extremities: Absent cyanosis, clubbing or edema *Routine Skin Exam Skin: Present warm; Absent rash *Routine Neurological Exam Neurological: Present alert and oriented X3 Assessment and Plan *Assessment and plan (1) Choledocholithiasis: Status: Acute Category: Medical Code(s): K80.50 - Calculus of bile duct without cholangitis or cholecystitis without obstruction (2) Right upper quadrant abdominal pain: Status: Acute Category: Medical Code(s): R10.11 - Right upper quadrant pain (3) Transaminitis: Status: Acute Category: Medical Code(s): R74.01 - Elevation of levels of liver transaminase levels Plan A/P: 1. Right upper quadrant abdominal pain with spike in transaminases and sonographic evidence of choledocholithiasis is the preprocedural diagnosis. The patient will be anesthetized/sedated using MAC sedation. The patient has been seen and examined. Cardiac and lung assessment prior to the examination is stable. Proceed with planned diagnostic/therapeutic ERCP.
--- NOTE | 2025-06-01 14:11 | P.PCN_ITS ---
[facility] Procedure Note Date: 06/01/25 Time: 15:38 Procedure Note:: ERCP procedure Report: Endoscopic retrograde cholangiopancreatography with needle-knife sphincterotomy Endoscopist: Dinh Brown II, MD Referring Physician: Blas Thakur MD/Radha Wise DO Date of Procedure: June 01, 2025 Equipment: Olympus 180 side viewing endoscope duodenoscope Sedation: MAC sedation Indication: Mrs. Dan is a 64-year-old inpatient female scheduled this afternoon for ERCP secondary to choledocholithiasis. The patient presented with primarily right upper quadrant abdominal pain. This radiated into the chest and back with associated nausea. She had mild leukocytosis. Her teero-vs-ynnp ultrasound by the ED physician was unremarkable. Her CTA of the abdomen revealed findings of acute cholecystitis. Her right upper quadrant ultrasound today showed sludge and possible small stone in the distal common bile duct with some gallbladder wall thickening and trace of pericholecystic fluid. Her liver chemistries yesterday were normal but today her AST alejo to 217 (from 17) and ALT to 85 (from 12). Her alkaline phosphatase 116 and total bilirubin 0.4 were normal. The patient has been on anticoagulation with Plavix and her last dose was yesterday. The examination is deemed medically necessary for diagnostic/therapeutic ERCP. Procedure: Prior to the procedure, a history and physical exam was performed, and patient's medications and allergies were reviewed. The risks (including pancreatitis), benefits and alternatives of the sedation and procedure were discussed with the patient. All questions were answered and informed consent was obtained. The patient was brought to the fluoroscopic radiology room. Patient identification and proposed procedure were verified by the physician and the nurse. The patient was placed in a swimmer's position between left lateral decubitus and prone position and the scope was passed under direct vision. Throughout the procedure, the patient's blood pressure, pulse, and oxygen saturations were monitored continuously. The ERCP was accomplished without difficulty. The patient tolerated the procedure well. Findings: The duodenoscope was passed directly into the upper esophagus and advanced to the second portion of the duodenum. The esophagus, stomach and duodenum were grossly normal. The fluoroscopic C arm was then placed into position prior to cannulation with the duodenoscope was centered in a L-shaped position fluoroscopically in the second portion of duodenum. The entire endoscopic exam was done in conjunction with fluoroscopy. The cannula was then inserted through the duodenoscope channel and preloaded with low osmolar contrast. The ampulla was located within a duodenal diverticulum making the positioning for cannulation more difficult and complicated. The ampulla was gently pulled via traction of the adjacent left-sided mucosa into a position where cannulation was more readily achieved. The pancreatic duct was freely cannulated very easily but there was a common channel making bile duct cannulation more difficult. A guidewire was placed deeply into the pancreatic duct and then a needle-knife was utilized to do needle-knife biliary sphincterotomy. After this needle-knife biliary sphincterotomy there was marked extravasation of bile without any sludge or stones. Free guidewire cannulation of the common bile duct was not achieved after several attempts because of the positioning of ampulla, diverticulum and common channel. After several attempts and the passage of a large amount of berry bile, the procedure was ended. Impression: 1. Presumptive choledocholithiasis status post needle-knife sphincterotomy with appearance of decompression and excellent bile flow into the duodenum Plan: I will follow the patient for clinical and biochemical improvement. The ampulla location (within duodenal diverticulum) made biliary cannulation difficult so needle-knife sphincterotomy was performed with excellent extravasation of bile. I will administer Indocin x 2 suppositories (100 mg) since this positioning can be associated with greater risk of pancreatitis.
[2025-06-01] MEDS: INDOMETHACIN 50MG SUPPOSITORY 100 MG RC (15:17)
--- NOTE | 2025-06-01 15:44 | P.PNANES_ITS ---
[facility] Anesthesia Record Part I Anesthesia Record I Intake, IV Amount: 700 Hydration: Adequate Estimated blood loss (mL): 0 Urine output (mL): 0 Blood Products used (#): none Blood Pressure: 134/71 SaO2: 95 Pulse Rate: 68 Airway Patency: Patent Respiratory Rate: 16 Temperature: 97 F Patient is:: Drowsy and Stable Stable to PACU at:: 15:40
--- NOTE | 2025-06-01 15:44 | EXP.ANES.CKL ---
[facility] Disclaimer: The information contained in this section may have been updated after the patient was seen, as this information can be updated by other users. Medical History Atypical angina Acid reflux HLD (hyperlipidemia) HHD (hypertensive heart disease) Social History Smoking Status: Current every day smoker tobacco type: cigarettes packs per day: 1 second hand exposure: No alcohol intake: never substance use type: denies use current occupational status: employed Travel in the last 8 weeks?: None household members: significant other housing: house current occupational exposures/hazards: No [facility] Anesthesia Checklist Patient Identification Patient Identification: Arm Band Structural Data Admitted From: Inpatient Planned Operative Procedure/s: ERCP Consent for Planned Operative Procedure(s) Verified: Yes Verified Documents: Surgical Consent and History and Physical NPO Status Verified Time NPO: 00:00 Additional verifications Anesthesia Reactions: No Airway Assessment Mallampati Score:: Class II C-Spine Mobility Assessed: Yes TMJ Mobility Assessed: Yes Dentition: Good Dentition Neurological Assessment Level of Consciousness: Awake, Alert and Appropriate Anesthesia Plan Anesthesia Risk discussed: Yes Anesthesia Plan: Verified ASA Class: III Anesthesia Type: General
--- NOTE | 2025-06-01 15:52 | XR_ITS ---
FINAL REPORT CLINICAL HISTORY: ERCP IN OR 73.47 MGY 1:59 MIN FINDINGS: FLUOROSCOPY LESS THAN 1 HOUR HISTORY: Fluoroscopy guidance. FINDINGS: Fluoroscopic guidance was provided for ERCP in the OR. A single spot film was obtained. A total of 1:59 minutes of fluoroscopy time were used. DAP: 73.47 mGy IMPRESSION: As above. Reviewed, Interpreted and Dictated by Nacho Vila MD Transcribed by Francheska King Authenticated and [facility]
--- NOTE | 2025-06-01 15:55 | SUR.PHASEI ---
called report to arturo reeves
--- NOTE | 2025-06-01 19:48 | P.PNANES_ITS ---
[facility] Anesthesia Record Part II Anesthesia Record Part II Discharge Time: 16:10 Destination: Medical Surgical Department PACU nurse assessment reviewed?: Yes Patient Condition:: Good Anesthesia Complications:: None Swallowing reflex intact?: Yes Airway Patency: Patent Cyanosis?: No Blood Pressure: 129/69 SaO2: 99 Respiratory Rate: 16 Pulse Rate: 70 Temperature: 97.9 F Mental Status: Alert & Oriented Pain level:: 0 Nausea and/or vomitting:: None Intake, IV Amount: 0 Hydration: Adequate
[2025-06-01] MEDS: PANTOPRAZOLE 40MG TABLET 40 MG PO (21:12)
[2025-06-02] VITALS: BP 105/56; PULSE 70; RESP 16; TEMP 36.8; O2SAT 96
[2025-06-02] MEDS: PIPERACILLIN/TAZO 4.5 GM in 0.9 % SODIUM CHLORIDE 100 ML IV ×2 (02:18→09:52)
[2025-06-02 04:00] VITALS: BP 100/52; PULSE 76; RESP 16; TEMP 36.8; O2SAT 97; BMI 25.1
[2025-06-02] MEDS: UMECLIDINIUM/VILANTEROL 62.5/25MCG INHALER 1 PUFF IH (06:19)
[2025-06-02 07:24] LABS: Albumin Level 3.8 g/dl (3.5-5.0); Chloride 113 mmol/L (98-107); Potassium 3.8 mmoL/L (3.5-5.1); Sodium 143 mmol/L (136-145)
[2025-06-02 07:26] LABS: Blood Urea Nitrogen 14 mg/dl (7-17); Creatinine Clearance Estimated 56 mL/min (50-200); Creatinine,Serum 0.80 mg/dl (0.52-1.04); Estimated Glomerular Filt Rate 72 ml/min (>60); GFR (African American) 87 ML/MIN (>60); Hematocrit 33.1 % (37.0-47.0); Hemoglobin 10.8 g/dL (12.2-16.2); Immature Granulocytes % 0.3 %; Mean Corpuscular HGB Conc 32.6 g/dL (31.8-35.4); Mean Corpuscular Hemoglobin 29.5 pg (27.0-31.2); Mean Corpuscular Volume 90.4 fl (81-99); Nucleated Red Blood Cells % 0 %; Platelet Count 301 K/mm3 (142-424); Red Blood Count 3.66 M/mm3 (4.20-5.40); Red Cell Distribution Width-SD 43.0 fL; White Blood Count 9.9 K/mm3 (4.8-10.8)
[2025-06-02 07:27] LABS: Alanine Aminotransferase 129 U/L (12-78); Albumin/Globulin Ratio 1.5 (1.1-1.8); Alkaline Phosphatase 145 U/L (38-126); Anion Gap 14.8 mEq/L (5-15); Aspartate Amino Transferase 208 U/L (14-36); Bilirubin,Total 0.7 mg/dl (0.2-1.3); Calcium 8.1 mg/dl (8.4-10.2); Carbon Dioxide 19 mmol/L (22.0-30.0); Globulin 2.6 g/dL (1.3-3.2); Glucose 96 mg/dl (74-100); Magnesium 2.3 mg/dl (1.6-2.3); Total Protein,Serum 6.4 g/dl (6.3-8.2)
[2025-06-02 07:53] VITALS: BP 109/61; PULSE 81; RESP 18; TEMP 36.7; O2SAT 97
--- NOTE | 2025-06-02 09:04 | HMH.PHAAMS2 ---
- Antimicrobial Stewardship Review culture & sensitivity review Stewardship interventions: culture & sensitivity review, reviewed - no change Comments: NO SPECIMAN, UNDERWENT ERCP YESTERDAY, CURRENTLY ON ZOSYN FOR CHOLECYSTITIS, WBC DOWN FROM 10.3K/mm3 TO 9.9 K/mm3, REMAINS AFEBRILE OVER 24 HR.
--- NOTE | 2025-06-02 09:58 | EXP.SURG.PN ---
Subjective Narrative: States she is feeling pretty good this morning. Wanting to try liquids. Requesting to go home, if at all possible. Exam Data for Last 24 hours Vital signs and Labs for Last 24 Hours: Temp Pulse Resp BP Pulse Ox O2 Del Method 98.1 F 81 18 109/61 L 97 Room Air 06/02/25 07:53 06/02/25 07:53 06/02/25 07:53 06/02/25 07:53 06/02/25 07:53 06/02/25 07:53 Laboratory Results - last 24 hr 06/02/25 06:30: WBC 9.9, RBC 3.66 L, Hgb 10.8 L, Hct 33.1 L, MCV 90.4, MCH 29.5, MCHC 32.6, RDW 13.1, Plt Count 301, MPV 10.0, Neut % (Auto) 75.2, Lymph % (Auto) 17.5, [place] % (Auto) 6.5, Eos % (Auto) 0.0 L, Baso % (Auto) 0.5, Neut # (Auto) 7.4, Lymph # (Auto) 1.7, [place] # (Auto) 0.6, Eos # (Auto) 0.0, Baso # (Auto) 0.1, Sodium 143, Potassium 3.8, Chloride 113 H, Carbon Dioxide 19 L, Anion Gap 14.8, BUN 14 D, Creatinine 0.80, Estimated Creat Clear 56, Estimated GFR 72, Est GFR ( Amer) 87, Glucose 96, Calcium 8.1 L, Magnesium 2.3, Total Bilirubin 0.7, AST 208 H, ALT 129 H D, Alkaline Phosphatase 145 H, Total Protein 6.4, Albumin 3.8, Globulin 2.6, Albumin/Globulin Ratio 1.5 I & O for Last 24 hours: Intake & Output 05/30/25 05/31/25 06/01/25 06/02/25 23:59 23:59 23:59 23:59 Intake Total 100 / 100 2099 100 / 100 Output Total 0 / 0 0 / 0 Balance 100 / 100 2099 100 / 100 Weight 60.781 kg 62.369 kg 61.915 kg Constitutional Constitutional: no acute distress and cooperative Comments: Does not appear to be in pain. *Routine Respiratory Exam Respiratory: Present normal respiratory effort and able to speak in complete sentences Comments: No audible wheezing. No dyspnea. *Routine Cardiovascular Exam Comments: Regular. *Routine Abdominal Exam Comments: Soft. Focally tender RUQ and epigastrium (moreso RUQ) without guarding. No diffuse tenderness. No distention. No hernias. *Routine Extremities Exam Comments: No edema. Progress Note: A&P Assessment and plan (1) Acute cholecystitis: Status: Acute Assessment and plan: Tender exam. Transaminitis likely due to inflamed GB. ERCP demonstrated free flow of bile, strongly suggesting no CDL. LFTs this am slightly worse than yesterday. Possibly due to ERCP instrumentation of CBD. Patient strongly desires to go home. I recommend starting clears and advancing to full liquids. Will also repeat CMP this afternoon. IF she can tolerate full liquids without worsening symptoms AND her LFTs are improving, I would be comfortable with discharge and short-interval follow-up with local surgeons on Mon/Tue while DAPT continues to wear off. If either of these are not true, I would plan cholecystectomy tomorrow. Risks and benefits of the surgery were discussed with the patient. She states she understands and agrees with this plan. (2) Choledocholithiasis: Status: Acute (3) Transaminitis: Status: Acute
--- NOTE | 2025-06-02 12:52 | EXP.DC.SUM ---
General Admission date:: 05/31/25 Discharge date: 06/02/25 HPI HPI HPI: Mrs. Dan is a 64-year-old inpatient female scheduled this afternoon for ERCP secondary to choledocholithiasis. The patient presented with primarily right upper quadrant abdominal pain. This radiated into the chest and back with associated nausea. She had mild leukocytosis. Her [id number] ultrasound by the ED physician was unremarkable. Her CTA of the abdomen revealed findings of acute cholecystitis. Her right upper quadrant ultrasound today showed sludge and possible small stone in the distal common bile duct with some gallbladder wall thickening and trace of pericholecystic fluid. Her liver chemistries yesterday were normal but today her AST alejo to 217 (from 17) and ALT 285 (from 12). Her alkaline phosphatase 116 and total bilirubin 0.4 were normal. The examination is deemed medically necessary for diagnostic/therapeutic ERCP. The patient has been seen, interviewed and examined prior to the procedure by both myself and the anesthesia provider. Hospital Course Hospital Course Hospital Course: 64-year-old female with history of lung cancer status post lobectomy, hypertension, CAD, COPD, questionable aortic aneurysm with mural thrombus. Evaluated for abdominal pain. Discussed case with ER physician, request admission for further evaluation and treatment of suspected cholecystitis. Admitted for evaluation and surgical consultation. Found to have choledocholithiasis. GI consulted and performed ERCP. Given her interval improvement in symptoms, will discharge home and have close follow-up to allow for 5 days of being off DAPT therapy prior to cholecystectomy. Tolerating liquid diet. Problems addressed as follows: Right upper quadrant pain Suspected acute cholecystitis Leukocytosis -White count elevated on admission at 13. Initiated on empiric antibiotics with Zosyn. Showed improvement with normal white count at 9.9 on day of discharge. LFTs marginally elevated with bilirubin normal at 0.5, AST dropped from 280-124. ALT and alk phos elevated but stable on serial labs after ERCP at 123 and 148 respectively. Given elevation in liver enzymes, ultrasound obtained of the right upper quadrant. Shows concern for common bile duct at 7 mm. Possible stone in distal CBD. Gallbladder has sludge and noncalcified stones. GI was consulted along with surgery. Surgery recommended ERCP prior to cholecystectomy given CBD obstruction and questionable dilation. ERCP performed on 06/01. Sphincterotomy performed. Had drainage of sludge and bile. Tolerated procedure well. Following morning symptoms showing some improvement. LFTs with marginal bump. Improved on serial monitoring however. Tolerating p.o. intake without pain. Discharged home with recommendation of continuing liquid diet. Hold aspirin and Plavix until follows up with surgery for cholecystectomy. Counseled on return criteria including fever, nausea, vomiting, worsening abdominal pain. Last dose of aspirin and Plavix taken on the morning of 05/31. Surgical optimization: - Echo obtained 11/30/2023 showing normal BiV function with mild AI and mild TR. RVSP 20 to 25 mmHg. EF 55%. - Patient follows with cardiology, last seen on 04/05/2025. - Was seen for hypertension, CAD, questionable abdominal aortic aneurysm with mural thrombus. CT obtained this year with no abdominal aortic aneurysm. There is mural thrombus with ulcerated plaque of the patent branch vessels from the abdominal aorta however. Given her normal Myoview earlier this year, stable blood pressure, normal echo, no indication for further optimization at this time. - Follows with oncology for history of lung cancer, had lobectomy of left upper lobe performed in January of this year. Stable on room air. Caution with anesthesia but given her stability on room air, no indication for further pulmonary clearance prior to surgery. - Patient is average risk for elevated risk procedure of cholecystectomy/intra-abdominal procedure. - No history of cirrhosis, diabetes, end-stage renal disease. Able to perform ADLs without chest pain or anginal equivalents. Does have some mild shortness of breath with exertion after lobectomy but has never required oxygen. -Recommend proceeding with cholecystectomy if deemed necessary by surgery. - Aspirin and Plavix last dose taken morning of 05/31 COPD: Continue umeclidinium/vilanterol daily. Stable on room air CAD Hypertension -Reports it has been well over a year since her last heart cath. No stents in the past year. Will hold home Crestor, dapagliflozin Plavix, aspirin, Repatha in the setting of potential surgery. Resume blood pressure regimen at discharge. Total time spent on discharge 32 minutes in counseling, documentation, chart review, and direct care with patient. Exam Data for Last 24 hours Vital signs and Labs for Last 24 Hours: Temp Pulse Resp BP Pulse Ox O2 Del Method 98.1 F 81 18 109/61 L 97 Room Air 06/02/25 07:53 06/02/25 07:53 06/02/25 07:53 06/02/25 07:53 06/02/25 07:53 06/02/25 10:22 Laboratory Results - last 24 hr 06/02/25 06:30: WBC 9.9, RBC 3.66 L, Hgb 10.8 L, Hct 33.1 L, MCV 90.4, MCH 29.5, MCHC 32.6, RDW 13.1, Plt Count 301, MPV 10.0, Neut % (Auto) 75.2, Lymph % (Auto) 17.5, [place] % (Auto) 6.5, Eos % (Auto) 0.0 L, Baso % (Auto) 0.5, Neut # (Auto) 7.4, Lymph # (Auto) 1.7, [place] # (Auto) 0.6, Eos # (Auto) 0.0, Baso # (Auto) 0.1, Sodium 143, Potassium 3.8, Chloride 113 H, Carbon Dioxide 19 L, Anion Gap 14.8, BUN 14 D, Creatinine 0.80, Estimated Creat Clear 56, Estimated GFR 72, Est GFR ( Amer) 87, Glucose 96, Calcium 8.1 L, Magnesium 2.3, Total Bilirubin 0.7, AST 208 H, ALT 129 H D, Alkaline Phosphatase 145 H, Total Protein 6.4, Albumin 3.8, Globulin 2.6, Albumin/Globulin Ratio 1.5 I & O for Last 24 hours: Intake & Output 05/30/25 05/31/25 06/01/25 06/02/25 23:59 23:59 23:59 23:59 Intake Total 100 / 100 2099 / 2099 200 / 200 Output Total 0 / 0 Balance 100 / 100 2099 / 2099 199 / 199 Weight 60.781 kg 62.369 kg 61.915 kg Constitutional Constitutional: no acute distress and chronically ill appearing *Routine HEENT Exam Head: Present normocephalic Eye: Present EOMI and PERRL ENT: Present mucous membranes moist *Routine Neck Exam Neck: Present supple; Absent lymphadenopathy *Routine Respiratory Exam Respiratory: Present CTA bilaterally; Absent respiratory distress, rhonchi, stridor or wheezes *Routine Cardiovascular Exam Cardiovascular: Present RRR *Routine Abdominal Exam Abdominal: Present soft, normoactive bowel sounds and tenderness (Mild tenderness in right upper quadrant, improved from admission. No rebound or guarding) *Routine Rectal Exam Patient deferred: visual exam *Routine Exam Patient deferred: external exam *Routine Extremities Exam Extremities: Absent cyanosis, clubbing or edema *Routine Skin Exam Skin: Present intact and warm; Absent rash *Routine Neurological Exam Neurological: Present alert, oriented X3 and moving all extremities; Absent altered mental status Routine Psychiatric Exam Psychiatric: Present anxious Results Data Completed and Pending Labs on day of discharge: Labs from last 24 hours 06/02/25 06:30 WBC 9.9 RBC 3.66 L Hgb 10.8 L Hct 33.1 L MCV 90.4 MCH 29.5 MCHC 32.6 RDW 13.1 Plt Count 301 MPV 10.0 Neut % (Auto) 75.2 Lymph % (Auto) 17.5 [place] % (Auto) 6.5 Eos % (Auto) 0.0 L Baso % (Auto) 0.5 Neut # (Auto) 7.4 Lymph # (Auto) 1.7 [place] # (Auto) 0.6 Eos # (Auto) 0.0 Baso # (Auto) 0.1 Sodium 143 Potassium 3.8 Chloride 113 H Carbon Dioxide 19 L Anion Gap 14.8 BUN 14 D Creatinine 0.80 Estimated Creat Clear 56 Estimated GFR 72 Est GFR ( Amer) 87 Glucose 96 Calcium 8.1 L Magnesium 2.3 Total Bilirubin 0.7 AST 208 H ALT 129 H D Alkaline Phosphatase 145 H Total Protein 6.4 Albumin 3.8 Globulin 2.6 Albumin/Globulin Ratio 1.5 DS: Diagnosis Discharge Diagnosis (1) Acute cholecystitis: Status: Acute Code(s): K81.0 - Acute cholecystitis (2) Choledocholithiasis: Status: Acute Code(s): K80.50 - Calculus of bile duct without cholangitis or cholecystitis without obstruction (3) Transaminitis: Status: Acute Code(s): R74.01 - Elevation of levels of liver transaminase levels (4) COPD (chronic obstructive pulmonary disease): Status: Chronic Code(s): J44.9 - Chronic obstructive pulmonary disease, unspecified (5) Infrarenal abdominal aortic aneurysm, without rupture: Status: Chronic Code(s): I71.43 - Infrarenal abdominal aortic aneurysm, without rupture (6) CAD (coronary artery disease): Status: Chronic Code(s): I25.10 - Atherosclerotic heart disease of [place] coronary artery without angina pectoris (7) Tobacco dependence syndrome: Status: Chronic Code(s): F17.200 - Nicotine dependence, unspecified, uncomplicated (8) History of lobectomy of lung: Status: Acute Code(s): Z90.2 - Acquired absence of lung [part of] Meds Home Medications and Allergies Home Medications ?Medication ?Instructions ?Recorded ?Confirmed ?Type aspirin 81 mg tablet,delayed 81 mg PO DAILY heart health 10/14/17 05/31/25 History release Held on 06/02/25. Instructions: pending surgical removal of Gallbladder pantoprazole 40 mg tablet,delayed 40 mg PO DAILY GERD 10/14/17 05/31/25 History release alprazolam 0.25 mg tablet 0.25 mg PO BID PRN Anxiety 04/26/18 05/31/25 History sumatriptan succinate 50 mg tablet 50 mg PO DAILYP PRN migraines 10/31/19 06/01/25 History clopidogrel 75 mg tablet 75 mg PO DAILY antiplatelet 10/14/20 05/31/25 History Held on 06/02/25. Instructions: pending surgical removal of Gallbladder amlodipine 10 mg tablet 10 mg PO DAILY High blood pressure 03/19/22 05/31/25 Rx Held on 06/02/25. #30 tabs Instructions: pending surgical removal of Gallbladder meclizine 25 mg tablet 25 mg PO Q6HP PRN dizziness #30 10/05/22 05/31/25 Rx tabs albuterol sulfate 90 mcg/actuation 2 inh inhalation Q6H PRN shortness 11/04/22 05/31/25 Rx aerosol inhaler of breath or wheezing #8.5 grams fluticasone propionate 50 1 spray intranasal DAILY . 02/25/23 05/31/25 History mcg/actuation nasal spray,suspension (Flonase Allergy Relief) citalopram 20 mg tablet 20 mg PO DAILY 11/16/23 05/31/25 History famotidine 40 mg tablet 40 mg PO BID 11/16/23 05/31/25 History folic acid 1 mg tablet 1 mg PO DAILY 11/16/23 05/31/25 History metoprolol succinate 25 mg 25 mg PO DAILY #90 tabs 09/04/24 05/31/25 Rx tablet,extended release 24 hr rosuvastatin 40 mg tablet (Crestor) 40 mg PO DAILY #90 tabs 09/04/24 05/31/25 Rx Held on 06/02/25. Instructions: pending surgical removal of Gallbladder umeclidinium 62.5 mcg-vilanterol 1 inh inhalation DAILY 09/18/24 06/01/25 History 25 mcg/actuation powdr for inhalation (Anoro Ellipta) evolocumab 140 mg/mL subcutaneous 140 mg SQ Q2W 90 days #7 mL 01/09/25 05/31/25 Rx pen injector (gailvaleriano PimentelElijahdom) dapagliflozin propanediol 10 mg 10 mg PO DAILY 04/05/25 05/31/25 History tablet (Farxiga) montelukast 10 mg tablet 10 mg PO HS 04/05/25 06/01/25 History gabapentin 300 mg capsule 300 mg PO BID 05/31/25 05/31/25 History amoxicillin 875 mg-potassium 1 tab PO BID 5 days #10 tabs 06/02/25 Rx clavulanate 125 mg tablet hydrocodone 5 mg-acetaminophen 325 1 tab PO Q6HP PRN Mild To Moderate 06/02/25 Rx mg tablet Pain (1-6) 3 days #11 tabs New Prescriptions to Start Prescriptions: amoxicillin-pot clavulanate Blas Thakur hydrocodone-acetaminophen Blas Thakur Allergies Allergy/AdvReac Type Severity Reaction Status Date / Time No Known Allergies Allergy Verified 04/05/25 09:49 Discharge Plan Disposition Patient Disposition: Home, Self-Care Condition: Good Discharge Order Discharge Orders: Discharge Order (Routine); Ordered 06/02/25 Ordered By: Blas Thakur Follow up Plan Follow up with: Frandy Stratton MD [Staff Physician, General Surgery] - 06/07/25 9:45 am Prescriptions/Medication Reconciliation: New hydrocodone-acetaminophen 5-325 mg Tablet 1 tab PO Q6HP PRN (Reason: Mild To Moderate Pain (1-6)) 3 Days Qty: 11 0RF amoxicillin-pot clavulanate 875-125 mg tablet 1 tab PO BID 5 Days Qty: 10 0RF Continued sumatriptan succinate 50 mg tablet 50 mg PO DAILYP PRN (Reason: migraines) famotidine 40 mg tablet 40 mg PO BID Patient Comments: TAKE 1 TABLET BY MOUTH TWICE A DAY citalopram 20 mg tablet 20 mg PO DAILY Patient Comments: TAKE 1 TABLET BY MOUTH EVERY DAY folic acid 1 mg tablet 1 mg PO DAILY Patient Comments: TAKE 1 TABLET BY MOUTH EVERY DAY metoprolol succinate 25 mg tablet extended release 24 hr 25 mg PO DAILY Qty: 90 3RF Anoro Ellipta 62.5-25 mcg/actuation blister with device 1 inh inhalation DAILY Patient Comments: TAKE 1 PUFF BY MOUTH EVERY DAY montelukast 10 mg tablet 10 mg PO HS Patient Comments: TAKE 1 TABLET BY MOUTH NIGHTLY. AT BEDTIME dapagliflozin propanediol [Farxiga] 10 mg tablet 10 mg PO DAILY Patient Comments: TAKE 1 TABLET BY MOUTH EVERY DAY Repatha SureClick 140 mg/mL pen injector 140 mg SQ Q2W 90 Days Qty: 7 3RF pantoprazole 40 MG tablet,delayed release (DR/EC) 40 mg PO DAILY alprazolam 0.25 mg tablet 0.25 mg PO BID PRN (Reason: Anxiety) meclizine 25 mg tablet 25 mg PO Q6HP PRN (Reason: dizziness) Qty: 30 1RF albuterol sulfate 90 mcg/actuation HFA aerosol inhaler 2 inh inhalation Q6H PRN (Reason: shortness of breath or wheezing) Qty: 8.5 0RF fluticasone propionate [Flonase Allergy Relief] 50 mcg/actuation spray,suspension 1 spray intranasal DAILY Rx Instructions: administer into each nostril daily gabapentin 300 mg capsule 300 mg PO BID Held clopidogrel 75 mg tablet 75 mg PO DAILY Hold Instructions: pending surgical removal of Gallbladder rosuvastatin [Crestor] 40 mg tablet 40 mg PO DAILY Qty: 90 3RF Hold Instructions: pending surgical removal of Gallbladder amlodipine 10 mg tablet 10 mg PO DAILY Qty: 30 5RF Hold Instructions: pending surgical removal of Gallbladder Rx Instructions: TAKE ONE TABLET BY MOUTH TWICE DAILY aspirin 81 MG tablet,delayed release (DR/EC) 81 mg PO DAILY Hold Instructions: pending surgical removal of Gallbladder Problem Reconciliation Problems Reviewed?: Yes Patient Discharge Instructions ACTIVITY: Continue current activity DIET: continue same diet Patient Instructions: Endoscopic Retrograde Cholangiopancreatography, DI for Chronic Obstructive Pulmonary Disease, DI for Cholecystitis, Stop Light COPD Print Language: Ukrainian Providers Primary Care Provider: Radha Wise Provider: Blas Thakur Attending Provider: Blas Thakur
[2025-06-02 13:24] LABS: Albumin Level 4.4 g/dl (3.5-5.0); Chloride 114 mmol/L (98-107); Sodium 145 mmol/L (136-145)
[2025-06-02 13:25] LABS: Potassium 3.5 mmoL/L (3.5-5.1)
[2025-06-02 13:27] LABS: Alanine Aminotransferase 123 U/L (12-78); Anion Gap 16.5 mEq/L (5-15); Aspartate Amino Transferase 124 U/L (14-36); Blood Urea Nitrogen 26 mg/dl (7-17); Carbon Dioxide 18 mmol/L (22.0-30.0); Creatinine Clearance Estimated 56 mL/min (50-200); Creatinine,Serum 0.90 mg/dl (0.52-1.04); Estimated Glomerular Filt Rate 63 ml/min (>60); GFR (African American) 76 ML/MIN (>60)
[2025-06-02 13:28] LABS: Albumin/Globulin Ratio 1.6 (1.1-1.8); Alkaline Phosphatase 148 U/L (38-126); Bilirubin,Total 0.5 mg/dl (0.2-1.3); Calcium 8.9 mg/dl (8.4-10.2); Globulin 2.8 g/dL (1.3-3.2); Glucose 93 mg/dl (74-100); Total Protein,Serum 7.2 g/dl (6.3-8.2)
--- NOTE | 2025-06-04 10:07 | SW/DCPLANNER ---
Spoke with patient on the phone. Patient stated that she is doing good. Patient stated that she is aware of her upcoming appointment. 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 Patient stated that she has no concerns or questions at this time. Tramaine Zapata
== END 2025-06-02 14:51 | disposition home or self-care (01) | DRG 446 ==
LOC: ER 17:50 → 2ND 18:10
PROVIDERS: Internal Medicine Gastroenterology; Admitting Provider Internal Medicine Adolescent Medicine; Emergency Provider Student in an Organized Health Care Education/Training Program; PCP Student in an Organized Health Care Education/Training Program; Visit Provider Internal Medicine Adolescent Medicine
PROC: 0FJB8ZZ Inspection of Hepatobiliary Duct, Via Natural or Artificial Opening Endoscopic (ICD-10-PCS; CPT 43260; principal; 2025-06-01 14:30)
DX: K80.42 Calculus of bile duct with acute cholecystitis without obstruction (principal); I25.10 Atherosclerotic heart disease of native coronary artery without angina pectoris; J44.9 Chronic obstructive pulmonary disease, unspecified; R74.01 Elevation of levels of liver transaminase levels; E78.2 Mixed hyperlipidemia; I51.3 Intracardiac thrombosis, not elsewhere classified; K57.10 Diverticulosis of small intestine without perforation or abscess without bleeding; I11.9 Hypertensive heart disease without heart failure; F17.210 Nicotine dependence, cigarettes, uncomplicated; K21.9 Gastro-esophageal reflux disease without esophagitis; Z85.118 Personal history of other malignant neoplasm of bronchus and lung; Z90.2 Acquired absence of lung [part of]; Z79.82 Long term (current) use of aspirin; Z79.02 Long term (current) use of antithrombotics/antiplatelets; Z79.899 Other long term (current) drug therapy
CPT/HCPCS: 36415; 71045; 71275; 74019; 74174; 76000; 76705; 80053; 83690; 83735; 84484; 85025; 93005; 94640; 99231; 99285; C1769; C1889; J1308; J2270; J2543; J7120; Q9967

== ENCOUNTER 2025-06-08 12:17 | Outpatient (CLI) | payer OTHER, SELFPAY ==
--- OUTSIDE RECORDS SUMMARY | 2025-04-09 12:00 | XMS_ITS | Encounter Summary ---
Author Organization [place] [address] Care Team Providers Care Airplane Gas Tank Liner Assembler Name Role Phone Kathryn Newell MD Unavailable [phone] Cristóbal Carr MD Unavailable [phone] Radha Wise DO Primary Care Provider [phone] Naz Lara RN Unavailable Resendizseptember CLINICAL DOCUMENTATION SPEC Unavailable [phone] Corry Bansal RN Unavailable [phone] Reason for Referral * MRI/CAT Scan (Urgent) - Closed Specialty Diagnoses / Procedures Referred By Contac t Referred To Contact Radiology Diagnoses Adenocarcinoma of lung, unspecified laterality (HCC) Procedures MRI BRAIN W WO CONTRAST Tara Fofana MD [address] [place] [address] Phone: tel: fax: [facility] [address] [facility] [place] [address] Phone: tel: Referral ID Status Reason Start Date Expiration Date Visits Re quested Visits Authorized [id number] Closed 03/01/2025 03/01/2026 1 1 Reason for Visit * MRI/CAT Scan (Urgent) - Closed Specialty Diagnoses / Procedures Referred By Contjack t Referred To Contact Radiology Diagnoses Adenocarcinoma of lung, unspecified laterality (HCC) Procedures MRI BRAIN W WO CONTRAST Tara Fofana MD [address] [place] [id number] Phone: tel: fax: [facility] [address] [place] [address] Phone: tel: Referral ID Status Reason Start Date Expiration Date Visits Re quested Visits Authorized [id number] Closed 03/01/2025 03/01/2026 1 1 Encounter Details Date Type Department Care Team (Latest Contact Info) Description 04/09/2025 1:00 PM EDT - 04/09/2025 11:59 PM EDT Hospital Encounter [facility] [address] [place] [address] Tara Fofana MD [address] [place] [address] Adenocarcinoma of lung, unspecified laterality (HCC) Discharge Disposition: Home or Self Care Social History Tobacco Use Types Packs/Day Years Used Date Smoking Tobacco: Every Day Cigarettes 0.8 49.1 Started: 04/17/1976; Last attempted to quit: 01/21/2025 Smokeless Tobacco: Never Comments:She has nicotine pa tches that she will be starting in the future Alcohol Use Standard Drinks/Week Comments Not Currently 0 (1 standard drink = 0.6 oz pur e alcohol) [facility] Utilities Answer Date Recorded In the past 12 months has e [employer], gas, oil, or water [employer] threatened to shut off services in your home? No 01/23/2025 Overall Financial Resource Strain (CARDIA) Answe r Date Recorded How hard is it for you to pa y for the very basics like food, housing, medical care, and heating? Somewhat hard 01/23/2025 PHQ-2 Answer Date Recorded PHQ-2 Total Score 0 01/23/2025 [facility] Occupat ional Health - Occupational Stress Questionnaire Answer Date Recorded Do you feel stress - tense, restless, nervous, or anxious, or unable to sleep at night because your mind is troubled all the time - these days? To some extent 01/23/2025 Exercise Vital Sign Answer Date Recorde d On average, how many days pe r week do you engage in moderate to strenuous exercise (like a brisk walk)? 0 days 01/23/2025 On average, how many minutes do you engage in exercise at this level? 0 min 01/23/2025 Hunger Vital Sign Answer Date Recorded Within the past 12 months, y ou worried that your food would run out before you got the money to buy more. Sometimes true Within the past 12 months, t he food you bought just didn't last and you didn't have money to get more. Sometimes true [facility]24 [facility] IP Transportation Answer D ate Recorded In the past 12 months, has l ack of reliable transportation kept you from medical appointments, meetings, work or from getting things needed for daily living? No 01/23/2025 Comments No Sex and Gender Information Value Date Recorded Sex Assigned at Not on file Legal Sex Female 5:11 AM EDT Gender Identity Not on file Sexual Orientation Not on file documented as of this encounter Functional Status * Is the person deaf or does he/she have serious difficulty hearing? Answer Date of Assessment Author No 06/23/2019 4:41 PM Anuradha Hooker RMA * Is the person blind or does he/she have serious difficulty seeing even when wearing glasses? Answer Date of Assessment Author No 06/23/2019 4:41 PM Anuradha Hooker RMA * Does this person have serious difficulty walking or climbing stairs? Answer Date of Assessment Author No 06/23/2019 4:41 PM Anuradha Hooker RMA * Does this person have difficulty dressing or bathing? Answer Date of Assessment Author No 06/23/2019 4:41 PM Anuradha Hooker RMA * Because of a physical, mental or emotional condition, does this person have difficulty doing errands alone such as visiting a doctor's office or shopping? Answer Date of Assessment Author No 06/23/2019 4:41 PM Anuradha Hooker RMA documented as of this encounter Mental Status * Because of a physical, mental or emotional condition, does this person have serious difficulty concentrating, remembering or making decisions? Answer Entry Date Author No 06/23/2019 4:41 PM Anuradha Hooker RMA documented in this encounter Medications at Time of Discharge acetaminophen 325 mg Oral Tab Take by mouth every 4 hours as needed for Pain. amLODIPine (NORVASC) 10 mg Oral Tablet TAKE 1 TABLET BY MOUTH EVERY DAY 100 Tablet 1 5 aspirin 81 mg Oral Tablet, Delayed Release (E.C.) Take 1 Tablet by mouth every morning. 5 Blood-Glucose Meter [facility] KitIndications:Gluc ose intolerance (impaired glucose tolerance) Use to check blood sugars up to twice daily 1 Kit 2 citalopram (CELEXA) 20 mg Oral TabletIndications:G AD (generalized anxiety disorder) Take 1 Tablet by mouth daily. 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 5 EASY TOUCH ALCOHOL PREP PADS Top Pads, MedicatedIndication s:Glucose intolerance (impaired glucose tolerance) USE WHEN CHECK BLOOD SUGARS UP TO TWICE DAILY 100 Each 11 3 folic acid (FOLVITE) 1 mg Oral Tablet TAKE 1 TABLET BY MOUTH EVERY DAY 100 Tablet 1 5 FREESTYLE LITE STRIPS [facility] StripIndications:Gl ucose intolerance (impaired glucose tolerance) USE TO CHECK BLOOD SUGARS UP TO TWICE DAILY 100 Strip 11 4 Lancets [facility] MiscIndications:Glu cose intolerance (impaired glucose tolerance) Use to check blood sugars up to twice daily 100 Each 11 2 metoprolol succinate (TOPROL-XL) 25 mg Oral Tablet Sustained Release 24 hr Take 25 mg by mouth every morning. 5 montelukast (SINGULAIR) 10 mg Oral TabletIndications:S easonal allergic rhinitis, unspecified trigger Take 1 Tablet by mouth nightly. at bedtime 90 Tablet 3 4 pantoprazole (PROTONIX) 40 mg Oral Tablet, Delayed Release (E.C.) Take 1 Tablet by mouth 2 times daily. 90 Tablet 3 5 potassium chloride SA (KLOR-CON M) 10 mEq Oral Tab Sust.Rel. Particle/CrystalInd ications:Hypokalemi a TAKE 1 TABLET BY MOUTH EVERY DAY 30 Tablet 5 REPATHA SURECLICK 140 mg/mL SubQ Pen Injector INJECT 140 MG SUBCUTANEOUSLY EVERY 2 WEEKS 5 rosuvastatin (CRESTOR) 40 mg Oral TabletIndications:O ther hyperlipidemia Take 1 Tablet by mouth nightly for 360 days. 90 Tablet 3 5 03/03/20 26 albuterol-ipratropi um (DUO-NEB) 3 mg-0.5 mg(2.5 mg base)/3 mL Inhl Solution for NebulizationIndicat ions:COPD with acute exacerbation (HCC) Take 3 mL by nebulization every 6 hours as needed for Shortness of Breath. 12 mL 1 5 05/21/20 25 ALPRAZolam (XANAX) 0.25 mg Oral TabletIndications:G AD (generalized anxiety disorder) Take 1 Tablet by mouth 2 times daily as needed. for anxiety 60 Tablet 2 5 05/21/20 25 dapagliflozin propanediol (FARXIGA) 10 mg Oral Tablet Take 1 Tablet by mouth daily. 90 Tablet 5 05/21/20 25 ketorolac (TORADOL) 10 mg Oral TabletIndications:A denocarcinoma of left lung (HCC) Take 1 Tablet by mouth every 6 hours for 4 days. 16 Tablet 5 04/13/20 25 lidocaine (LIDODERM) 5 % Top Adhesive Patch, MedicatedIndication s:Rib pain Place 1 Patch onto the skin every 12 hours. 10 Patch 5 04/20/20 25 SUMAtriptan (IMITREX) 50 mg Oral TabletIndications:O ther migraine, not intractable, without status migrainosus Take 1 Tablet by mouth once as needed for up to 1 dose. 1 Tablet 5 04/20/20 25 documented as of this encounter Discharge Disposition Disposition Code Departure Means Destination Home or Self Care documented in this encounter Plan of Treatment Upcoming Encounters Date Type Department Care Team (Late st Contact Info) Description 07/04/2025 1:45 PM EST Office Visit [facility] Pulmonology [facility] [address] [phone] Franklin Salmeron MD [address] [address] 07/27/2025 11:00 AM EST Appointment [facility] [place] [facility] [address] [address] Tara Fofana MD [address] [place] [address] 07/30/2025 11:00 AM EST Appointment [facility] [place] [address] 07/30/2025 11:40 AM EST [facility]ment [facility] [place] [address] Tara Fofana MD [address] [place] [address] documented as of this encounter Goals Goal Patient Goal Type Associated Problems Recent Progress Patient-Stated? Author Blood Pressure < 140/90 Blood Pressure 132/78(2024 11:49 AM EST) No Nicole Amador LPN Maintain a healthy diet, exercise regularly and maintain an ideal body weight General No Anuradha Haro, RMA BMI (Calculated) < 30 General 24.2(05/07/20 25 11:45 AM EST) No Nicole Amador LPN Stay Tobacco Free Lifestyle No Anuradha Haro, RMA HEMOGLOBIN A1C < 7.0 Result Component 6.1( 2:05 PM EST) No Nicole Amador LPN documented as of this encounter Procedures Procedure Name Priority Date/Time Associated Diagnosis Comments MRI BRAIN W WO CONTRAST MARCO ANTONIO 04/09/2025 3:41 PM EDT Adenocarcinoma of lung, unspecified laterality (HCC) documented in this encounter Results * MRI BRAIN W WO CONTRAST (04/09/2025 3:41 PM EDT) Anatomical Region Laterality Modality Head Magnetic Resonan ce 04/09/2025 3:41 PM EDT Impressions 04/09/2025 4:00 PM EDT No acute or enhancing abnormality. Moderate but chronic periventricular and subcortical white matter disease. No evidence of metastatic disease or malignancy. - Note: Radiology results need to be interpreted within a comprehensive clinical context. If you have questions about the radiology report, please contact the office of the ordering clinician. Narrative 04/09/2025 4:00 PM EDT MRI BRAIN W WO CONTRAST 04/09/2025 3:41 PM CLINICAL HISTORY: C34.90-Malignant neoplasm of unspecified part of unspecified bronchus or lung (HCC)-ICD-10-CM. COMPARISON: 03/04/2022 PROCEDURE COMMENTS: Multiplanar multiecho MR imaging of the brain per protocol before and following IV contrast administration. Gadolinium contrast given as recorded in Epic. FINDINGS: Midline structures normally formed. Ventricles normal. No evidence of acute stroke, mass, or hemorrhage. Diffusion imaging normal. No abnormal enhancement. Major vascular flow voids preserved, suggesting patency. Moderate periventricular and subcortical white matter change present unchanged from the prior study and compatible with small vessel ischemic change with demyelinating disease not excluded but less likely. Included portions of the paranasal sinuses, mastoids, and orbits unremarkable. Procedure Note Blsa Galvan MD - 04/09/2025 MRI BRAIN W WO CONTRAST 04/09/2025 3:41 PM CLINICAL HISTORY: C34.90-Malignant neoplasm of unspecified part ofunspecified bronchus or lung (HCC)-ICD-10-CM. COMPARISON: 03/04/2022 PROCEDURE COMMENTS: Multiplanar multiecho MR imaging of the brain perprotocol before and following IV contrast administration. Gadolinium contrast givenas recorded in Epic. FINDINGS: Midline structures normally formed. Ventricles normal. No evidence ofacute stroke, mass, or hemorrhage. Diffusion imaging normal. No abnormal enhancement. Major vascular flow voids preserved, suggesting patency.Moderate periventricular and subcortical white matter change present unchanged fromthe prior study and compatible with small vessel ischemic change withdemyelinating disease not excluded but less likely. Included portions of the paranasal sinuses, mastoids, and orbitsunremarkable. IMPRESSION: No acute or enhancing abnormality. Moderate but chronic periventricular and subcortical white matter disease. No evidence ofmetastatic disease or malignancy. - Note: Radiology results need to be interpreted within a comprehensiveclinical context. If you have questions about the radiology report, please contactthe office of the ordering clinician. Tara Fofana MD [facility] [place] ORDERABLES Final Result documented in this encounter Visit Diagnoses Diagnosis Adenocarcinoma of lung, unspecified laterality (HCC) documented in this encounter Administered Medications Inactive Administered Medications - up to 1 most recent administrations Medication Order MAR Action Action Date Dose Rate Site gadoterate meglumine (DOTAREM) solution 10 mL 10 mL, Intravenous, ONCE PRN, 1 dose, Starting on Wed04/09/25 at 1453, Until Wed04/09/25 at 1528, Radiology Procedure, VESICANT , MRI (Contrasts) Given 04/09/2025 3:28 PM EDT 10 mL Right Arm sodium chloride 0.9% syringe Intravenous, ONCE PRN, 1 dose, Starting on Wed04/09/25 at 1453, Until Wed04/09/25 at 1529, Line Care, Flush peripheral lines every 12 hours, central lines every 8 hours, and after IV medication, MRI (Contrasts) Given 04/09/2025 3:29 PM EDT Right Arm documented in this encounter Care Teams Airplane Gas Tank Liner Assembler Relationship Specialty Start Date End Date Radha Wise DO [address] [place] [address] PCP - General Family Medicine 10/02/23 Kathryn Newell MD Physician Internal Medicine-Gastroenter ology 11/27/14 Cristóbal Carr MD [address] [facility] [address] [place], [place] [id number] Physician Internal Medicine-Cardiovascu lar Disease 02/13/22 Naz Lara, RN Oncology Nurse Navigator 10/13/2404/14 Jinny Resendiz, CLINICAL DOCUMENTATION SPEC Sql Engineer 10/16/24 Corry Bansal, RN Registered Nurse 02/07/25 documented as of this encounter
--- OUTSIDE RECORDS SUMMARY | 2025-04-12 13:45 | XMS_ITS | Encounter Summary ---
Author Organization [place] [address] Care Team Providers Care Entry Examiner Name Role Phone Kathryn Newell MD Unavailable [phone] Cristóbal Carr MD Unavailable [phone] Radha Wise DO Primary Care Provider [phone] Naz Lara RN Unavailable ResendizSeptember WEB DEVELOPMENT MANAGER Unavailable [phone] Corry Bansal RN Unavailable Encounter Details Date Type Department Care Team (Latest Contact Info) Description 04/12/2025 2:45 PM EDT - 04/12/2025 2:56 PM EDT Hospital Encounter [place] [address] [place] [address] Adenocarcinoma of lung, unspecified laterality (HCC) Discharge [...] drink = 0.6 oz pur e alcohol) [facility] Utilities Answer Date Recorded In the past 12 months has e electric, gas, oil, or water company threatened to shut off services in your home? No 01/23/2025 Overall Financial Resource Strain (CARDIA) Answe r Date Recorded How hard is it for you to pa y for the very basics like food, housing, medical care, and heating? Somewhat hard 01/23/2025 PHQ-2 Answer Date Recorded PHQ-2 Total Score 0 01/23/2025 [facility] Occupat ional Health - Occupational Stress [...] money to get more. Sometimes true 10/2024 [facility] IP Transportation Answer D ate Recorded In [...] by mouth every morning. 5 Blood-Glucose Meter [facility] [place] KitIndications:Gluc ose intolerance (impaired glucose tolerance) Use to check blood sugars up to twice daily 1 Kit 2 citalopram (CELEXA) 20 mg Oral TabletIndications:G AD (generalized anxiety disorder) Take 1 Tablet by mouth daily. 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 5 EASY TOUCH ALCOHOL PREP PADS Top Pads, MedicatedIndication s:Glucose intolerance (impaired glucose tolerance) USE WHEN CHECK BLOOD SUGARS UP TO TWICE DAILY 100 Each 11 3 folic acid (FOLVITE) 1 mg Oral Tablet TAKE 1 TABLET BY MOUTH EVERY DAY 100 Tablet 1 5 FREESTYLE LITE STRIPS [facility] [place] StripIndications:Gl ucose intolerance (impaired glucose tolerance) USE TO CHECK BLOOD SUGARS UP TO TWICE DAILY 100 Strip 11 4 Lancets Misc MiscIndications:Glu cose intolerance (impaired glucose tolerance) Use [...] hours for 4 days. 16 Tablet 5 10/24/20 25 lidocaine (LIDODERM) 5 % Top Adhesive Patch, MedicatedIndication s:Rib pain Place 1 Patch onto the skin every 12 hours. 10 Patch 5 04/20/20 SUMAtriptan (IMITREX) 50 mg Oral TabletIndications:O ther migraine, not intractable, without status migrainosus Take 1 Tablet by mouth once as needed for up to 1 dose. 1 Tablet 04/20/20 documented as of this encounter Discharge Disposition Disposition Code Departure Means Destination Home or Self Care documented in this encounter Plan of Treatment Upcoming Encounters Date Type Department Care Team (Late st Contact Info) Description 07/04/2025 1:45 PM EST Office Visit [facility] Pulmonology [facility] [address] [place] [address] [phone] Franklin Salmeron MD [address] [address] 07/27/2025 11:00 AM EST Appointment [facility] [place] [facility] [address] [place] [address] Tara Fofana MD [address] [place] [phone] 07/30/2025 11:00 AM EST Appointment [facility] [place], [place] [phone] 07/30/2025 11:40 AM EST Appointment [facility] [place], [place] [phone] Tara Fofana MD [address] [place] [phone] documented as of this encounter Goals Goal Patient Goal Type Associated Problems Recent Progress Patient-Stated? Author Blood Pressure < 140/90 Blood Pressure 132/78(2024 11:49 AM EST) No Nicole Amador LPN Maintain a healthy diet, exercise regularly and maintain an ideal body weight General No Anuradha Haro ZENIAJordi BMI (Calculated) < 30 General 24.2(05/07/20 25 11:45 AM EST) No Nicole Amador LPN Stay Tobacco Free Lifestyle No Anuradha Haro ZENIAJordi HEMOGLOBIN A1C < 7.0 Result Component 6.1( 2:05 PM EST) No Nicole Amador LPN documented as of this encounter Procedures Procedure Name Priority Date/Time Associated Diagnosis Comments CBC WITH DIFF STAT 04/12/2025 2:56 PM EDT Adenocarcinoma of lung, unspecified laterality (HCC) COMPREHENSIVE METABOLIC PANEL STAT 04/12/2025 2:56 PM EDT Adenocarcinoma of lung, unspecified laterality (HCC) documented in this encounter Results * (ABNORMAL) COMPREHENSIVE METABOLIC PANEL (04/12/2025 2:56 PM EDT) Sodium 142 136 - 145 mmol/L 04/12/2025 3:25 PM EDT [facility] Potassium 3.8 3.5 - 5.0 mmol/L 04/12/2025 3:25 PM EDT [facility] Chloride 107 98 - 107 mmol/L 04/12/2025 3:25 PM EDT [facility] Total CO2 22 22 - 29 mmol/L 04/12/2025 3:25 PM EDT [facility] Anion Gap 13 7 - 16 mmol/L 04/12/2025 3:25 PM EDT [facility] Calcium 9.5 8.8 - 10.4 mg/dL 04/12/2025 3:25 PM EDT [facility] Glucose Lvl 116(H) 70 - 99 mg/dL 04/12/2025 3:25 PM EDT [facility] BUN 9 8 - 23 mg/dL 04/12/2025 3:25 PM EDT [facility] Creatinine 0.82 0.51 - 1.30 mg/dL 04/12/2025 3:25 PM EDT [facility] Albumin 4.4 3.2 - 4.6 gm/dL 04/12/2025 3:25 PM EDT [facility] Total Protein 7.4 6.4 - 8.3 gm/dL 04/12/2025 3:25 PM EDT [facility] Bili Total 0.3 0.2 - 1.3 mg/dL 04/12/2025 3:25 PM EDT [facility] ALT 9 <=41 U/L 04/12/2025 3:25 PM EDT [facility] AST 9 <=40 U/L 04/12/2025 3:25 PM EDT [facility] Alk Phos 120 36 - 123 U/L 04/12/2025 3:25 PM EDT [facility] eGFR (CKD-EPIcr 2020) 79 >=60 mL/min/1.7 3 m2 04/12/2025 3:25 PM EDT [facility] Comment:Estimated GFR was ca lculated using the CKD-EPIcr (2020) equation refit without race. The equation is recommended by the National Kidney Foundation - [place] [employer] of Nephrology Task Force. Blood VENOUS BLOOD / Unknown Venipuncture / Unknown 04/12/2025 2:56 PM EDT 04/12/2025 2:56 PM EDT Tara Fofana MD CHEMISTRY ORDERABLES Fin al Result [facility] [address] [place] [id number] * (ABNORMAL) CBC WITH DIFF (04/12/2025 2:56 PM EDT) WBC 8.5 3.7 - 10.3 x10(3)/mcL 04/12/2025 3:10 PM EDT [facility] RBC 4.32 3.90 - 5.20 x10(6)/mcL 04/12/2025 3:10 PM EDT [facility] Hgb 12.8 11.2 - 15.7 g/dL 04/12/2025 3:10 PM EDT [facility] Hct 39.6 34.0 - 45.0 % 04/12/2025 3:10 PM EDT [facility] MCV 91.7 80.0 - 100.0 fL 04/12/2025 3:10 PM EDT [facility] MCH 29.6 26.0 - 34.0 pg 04/12/2025 3:10 PM EDT [facility] MCHC 32.3 30.7 - 35.5 g/dL 04/12/2025 3:10 PM EDT [facility] RDW 13.7 <=14.9 % 04/12/2025 3:10 PM EDT [facility] Platelet 370(H) 155 - 369 x10(3)/mcL 04/12/2025 3:10 PM EDT [facility] MPV 9.6 8.8 - 12.5 fL 04/12/2025 3:10 PM EDT [facility] Neut # Prelim 4.1 1.6 - 6.1 x10(3)/mcL 04/12/2025 3:10 PM EDT [facility] Comment:Preliminary automate d absolute neutrophil count. Value may change if manual differential is indicated. Neut Percent 48.4 % 04/12/2025 3:10 PM EDT [facility] Comment:Neutrophils equals s egs plus bands Imm Gran% 0.1 % 04/12/2025 3:10 PM EDT [facility] Comment:Automated count of m etamyelocytes, myelocytes and promyelocytes. Lymph Percent 35.0 % 04/12/2025 3:10 PM EDT [facility] Meigs Percent 8.3 % 04/12/2025 3:10 PM EDT [facility] Eos Percent 7.8 % 04/12/2025 3:10 PM EDT [facility] Baso Percent 0.4 % 04/12/2025 3:10 PM EDT [facility] Neut # 4.1 1.6 - 6.1 x10(3)/mcL 04/12/2025 3:10 PM EDT [facility] Comment:Neutrophils equals s egs plus bands IMMGRAN# 0.0 0.0 - 0.1 x10(3)/mcL 04/12/2025 3:10 PM EDT [facility] Comment:Automated count of m etamyelocytes, myelocytes and promyelocytes. An absolute IG <0.1 is reported as 0.0. Lymph # 3.0 1.2 - 3.9 x10(3)/mcL 04/12/2025 3:10 PM EDT [facility] Meigs # 0.7 0.3 - 0.9 x10(3)/mcL 04/12/2025 3:10 PM EDT [facility] Eos# 0.7(H) 0.0 - 0.5 x10(3)/mcL 04/12/2025 3:10 PM EDT [facility] Baso # 0.0 0.0 - 0.1 x10(3)/mcL 04/12/2025 3:10 PM EDT [facility] Blood VENOUS BLOOD / Unknown Venipuncture / Unknown 04/12/2025 2:56 PM EDT 04/12/2025 2:56 PM EDT Tara Fofana MD HEMATOLOGY ORDERABLES Fi nal Result [facility] [address] [place] [address] documented in this encounter Visit Diagnoses Diagnosis Adenocarcinoma of lung, unspecified laterality (HCC) documented in this encounter Care Teams Entry Examiner Relationship Specialty Start Date End Date Radha Wise DO [address] [place], [place] [phone] PCP - General Family Medicine 10/02/23 Kathryn Newell MD Physician Internal Medicine-Gastroenter ology 11/27/14 Cristóbal Carr MD [address] [facility] [address] [place], [place] [phone] Physician Internal Medicine-Cardiovascu lar Disease 02/13/22 Naz Lara, RN Oncology Nurse Navigator 10/13/2404/14 Jinny Resendiz, WEB DEVELOPMENT MANAGER Mold Closer Helper 10/16/24 Corry Bansal, RN Registered Nurse 02/07/25 documented as of this encounter
--- OUTSIDE RECORDS SUMMARY | 2025-04-12 13:57 | XMS_ITS | Encounter Summary ---
Author [place] [address] Care Team Providers Care Senior Inspector Name Role Phone Kathryn Newell MD Unavailable [phone] Cristóbal Carr MD Unavailable [phone] Radha Wise DO Primary Care Provider [phone] Naz Lara RN Unavailable Resendizseptember LAP MACHINE TENDER Unavailable [phone] Corry Bansal RN Unavailable [phone] Reason for Visit * Reason Comments Follow-up Adenocarcinoma of le ft lung Encounter Details Date Type Department Care Team (Latest Contact Info) Description 04/12/2025 2:57 PM EDT - 04/12/2025 11:59 PM EDT Hospital Encounter [facility] [place] [address] Radah Wise DO [address] [place] [address] Tara Fofana MD [address] [place] [id number] Adenocarcinoma of left lung (HCC) (Primary Dx) Discharge Disposition: Home or Self Care Social History Tobacco Use Types Packs/Day Years Used Date Smoking Tobacco: Every Day Cigarettes 0.8 49.1 Started: 04/17/1976; Last attempted to quit: 01/21/2025 Smokeless Tobacco: Never Tobacco Cessation:Ready to Q uit: Not Asked; Counseling Given: Not Answered Comments:She has nicotine patches that she will be starting in the future Alcohol Use Standard Drinks/Week Comments Not Currently 0 (1 standard drink = 0.6 oz pur e alcohol) [facility] Utilities Answer Date Recorded In the past 12 months has th e electric, gas, oil, or water company threatened to shut off services in your home? No 01/23/2025 Overall Financial Resource Strain (CARDIA) Answe r Date Recorded How hard is it for you to pa y for the very basics like food, housing, medical care, and heating? Somewhat hard 01/23/2025 PHQ-2 Answer Date Recorded PHQ-2 Total Score 0 01/23/2025 [facility] - Occupational Stress [...] money to get more. Sometimes true 10/2024 [facility] IP Transportation Answer D [...] on file documented as of this encounter Last Filed Vital Signs Vital Sign Reading Time Taken Comments Blood Pressure 125/67 04/12/2025 3:06 PM EDT Pulse 81 04/12/2025 3:06 PM EDT Temperature 36.9 C (98.4 F) 04/12/2025 3:06 PM EDT Respiratory Rate 16 04/12/2025 3:06 PM EDT Oxygen Saturation 98% 04/12/2025 3:06 PM EDT Inhaled Oxygen Concentration - - Weight 58.3 kg (128 lb 8 oz) 04/12/2025 3:06 PM EDT Height 157.5 cm (5' 2 ) 04/12/2025 3:06 PM EDT Body Mass Index 23.5 04/12/2025 3:06 PM EDT documented in this encounter Functional Status * Is the [...] by mouth every morning. 5 Blood-Glucose Meter [facility] KitIndications:Gluc ose intolerance (impaired glucose tolerance) Use to check blood sugars up to twice daily 1 Kit 2 citalopram (CELEXA) 20 mg Oral TabletIndications:G AD (generalized anxiety disorder) Take 1 Tablet by mouth daily. 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 5 dexAMETHasone (DECADRON) 4 mg Oral TabletIndications:A denocarcinoma of left lung (HCC) Take 1 tablet (4 mg) orally twice daily day before chemotherapy and days 2, 3, 4 each cycle (skip day 1 as will receive IV in treatment suite). 24 Tablet 1 5 EASY TOUCH ALCOHOL PREP PADS Top Pads, MedicatedIndication s:Glucose intolerance (impaired glucose tolerance) USE WHEN CHECK BLOOD SUGARS UP TO TWICE DAILY 100 Each 11 3 folic acid (FOLVITE) 1 mg Oral Tablet TAKE 1 TABLET BY MOUTH EVERY DAY 100 Tablet 1 5 FREESTYLE LITE STRIPS [facility] StripIndications:Gl ucose intolerance (impaired glucose tolerance) USE TO CHECK BLOOD SUGARS UP TO TWICE DAILY 100 Strip 11 4 Lancets [facility] MiscIndications:Glu cose intolerance (impaired glucose tolerance) Use [...] BY MOUTH EVERY DAY 30 Tablet 5 prochlorperazine (COMPAZINE) 10 mg Oral TabletIndications:A denocarcinoma of left lung (HCC) Take 1 tablet by mouth every 6 hours as needed for nausea and vomiting. 30 Tablet 5 5 REPATHA SURECLICK 140 mg/mL SubQ Pen [...] or Self Care documented in this encounter Progress Notes * Tara Fofana MD - 04/12/2025 3:00 PM EDT Images from the original note were not included. Patient: Alisa Dan [facility]: [id number] Date of : 1960 Age: 64 y.o. Date of Service: 04/12/2025 HEMATOLOGY/ONCOLOGY FOLLOW-UP NOTE Primary adapted physical education aide/oncologist: No care forensics team director to display CANCER DIAGNOSIS: [id number] - Lung adenocarcinoma, left OTHER PERTINENT MEDICAL HISTORY: COPD, HTN, DM CAD s/p PC TREATMENT: 01/22/2025: SOHAM and MLND INTERVAL HISTORY: Chief Complaint Patient presents with Follow-up Adenocarcinoma of left lung Patient is a 64 y.o. female who presents for follow-up. She feels okay and does not have any new complaints. Overall doing good. She still has pain at the surgical site and had ablation which did notreally help. She says she would like to go ahead with chemotherapy. REVIEW OF SYSTEMS: Review of Systems Constitutional: Negative for malaise/fatigue and weight loss. Respiratory: Negative for cough and shortness of breath. Neurological: Negative for dizziness. HISTORY: Medical, Surgical, Social, Family histories were reviewed MEDICATIONS: Current Outpatient Medications Medication acetaminophen 325 mg Oral Tab albuterol-ipratropium (DUO-NEB) 3 mg-0.5 mg(2.5 mg base)/3 mL Inhl Solution for Nebulization ALPRAZolam (XANAX) 0.25 mg Oral Tablet amLODIPine (NORVASC) 10 mg Oral Tablet aspirin 81 mg Oral Tablet, Delayed Release (E.C.) Blood-Glucose Meter [facility] Kit citalopram (CELEXA) 20 mg Oral Tablet clopidogreL (PLAVIX) 75 mg Oral Tablet dapagliflozin propanediol (FARXIGA) 10 mg Oral Tablet EASY TOUCH ALCOHOL PREP PADS Top Pads, Medicated folic acid (FOLVITE) 1 mg Oral Tablet FREESTYLE LITE STRIPS [facility] Strip ketorolac (TORADOL) 10 mg Oral Tablet Lancets [facility] lidocaine (LIDODERM) 5 % Top Adhesive Patch, Medicated metoprolol succinate (TOPROL-XL) 25 mg Oral Tablet Sustained Release 24 hr montelukast (SINGULAIR) 10 mg Oral Tablet pantoprazole (PROTONIX) 40 mg Oral Tablet, Delayed Release (E.C.) potassium chloride SA (KLOR-CON M) 10 mEq Oral Tab Sust.Rel. Particle/Crystal REPATHA SURECLICK 140 mg/mL SubQ Pen Injector rosuvastatin (CRESTOR) 40 mg Oral Tablet Current Facility-Administered Medications Medication Dose Route Frequency Last Rate Last Admin cyanocobalamin injection 1,000 mcg 1,000 mcg Intramuscular Q30 Days 1,000 mcg at 10/29/23 1433 PHYSICAL EXAM: Vitals: 04/12/25 1506 BP: 125/67 Pulse: 81 Resp: 16 Temp: 98.4 ??F (36.9 ??C) SpO2: 98% Wt Readings from Last 3 Encounters: 04/12/25 128 lb 8 oz (58.3 kg) 03/30/25 131 lb (59.4 kg) 03/26/25 130 lb (59 kg) ECO Physical Exam Constitutional: General: She is not in acute distress. Appearance: Normal appearance. She is not ill-appearing. Eyes: Extraocular Movements: Extraocular movements intact. Cardiovascular: Rate and Rhythm: Normal rate. Pulmonary: Effort: Pulmonary effort is normal. No respiratory distress. Abdominal: General: Abdomen is flat. Musculoskeletal: General: Normal range of motion. Neurological: General: No focal deficit present. Mental Status: She is alert and oriented to person, place, and time. LABS: WBC (x10(3)/mcL) Date Value 04/12/2025 8.5 10/05/2016 8.5 Hgb Date Value 04/12/2025 12.8 g/dL 10/05/2016 13.8 gm/dL Hct (%) Date Value 04/12/2025 39.6 10/05/2016 40.9 Platelet (x10(3)/mcL) Date Value 04/12/2025 370 (H) 10/05/2016 321 Neut Percent (%) Date Value 04/12/2025 48.4 10/05/2016 46.4 Total Protein (gm/dL) Date Value 03/08/2025 7.4 01/22/2017 7.7 Albumin (gm/dL) Date Value 03/08/2025 4.3 01/22/2017 4.4 Bili Total (mg/dL) Date Value 03/08/2025 0.3 01/22/2017 0.2 ALT Date Value 03/08/2025 9 U/L 01/22/2017 8 IU/L Alk Phos Date Value 03/08/2025 117 U/L 01/22/2017 103 IU/L Sodium (mmol/L) Date Value 03/30/2025 142 01/22/2017 143 Potassium (mmol/L) Date Value 03/30/2025 3.5 01/22/2017 3.8 Anion Gap (mmol/L) Date Value 03/30/2025 14 01/22/2017 17 (H) Calcium (mg/dL) Date Value 03/30/2025 9.1 01/22/2017 9.4 Glucose Lvl (mg/dL) Date Value 03/30/2025 112 (H) 01/22/2017 84 BUN (mg/dL) Date Value 03/30/2025 9 01/22/2017 6 Creatinine (mg/dL) Date Value 03/30/2025 0.77 01/22/2017 0.75 Creatinine-iSTAT (mg/dL) Date Value 02/03/2023 0.7 GFR Non Afr Am Date Value 01/15/2021 83 mL/min/1.73 m2 01/22/2017 >60 IMAGING: MRI BRAIN W WO CONTRAST Result Date: 04/09/2025 No acute or enhancing abnormality. Moderate but chronic periventricular and subcortical white matter disease. No evidence of metastatic disease or malignancy. - Note: Radiology results need to be interpreted within a comprehensive clinical context. If you have questions about the radiology report, please contact the office of the ordering clinician. XR CHEST AP PORTABLE Result Date: 03/27/2025 Lungs clear. Heart size normal. No acute disease. No evidence of pneumothorax. Stable appearance ofchest in comparison to prior study of 03/14/2025. IR US GUIDED NEEDLE PLACEMENT Result Date: 03/27/[address] guided cryoneurolysis of left 8th-10 ICNs. See that report for further details. CT CRYOABLATION UPPER EXTREMITY NERVE Result Date: 03/27/[address]-guided cryoneurolysis the left eighth-10th rib intercostal nerves. IR INJECTION ANESTHETIC AGENT INTERCOSTAL NERVE MULTIPLE Result Date: 03/14/2025 Uncomplicated left eighth-10th intercostal nerve blocks. XR CHEST AP PORTABLE Result Date: 03/14/2025 No pneumothorax. - Note: Radiology results need to be interpreted within a comprehensive clinical context. If you have questions about the radiology report, please contact the office of the ordering clinician. PATHOLOGY/INVESTIGATIONS REVIEWED: Lab Results Component Value Date FINALDX 01/22/2025 A) Lymph nodes, station 10L, excision: - Two benign lymph nodes. - Negative for cytologic atypia or malignancy. B) Lymph nodes, station 7, excision: - Two benign lymph nodes. - Negative for cytologic atypia or malignancy. C) Lymph nodes, station 5, excision: - Two benign lymph nodes. - Negative for cytologic atypia or malignancy. D) Lymph nodes, station 11L, excision: - One of nine lymph nodes positive for metastatic carcinoma, metastatic tumor size: 1.5 mm. E) Lymph nodes, station 9L, excision: - Two benign lymph nodes. - Negative for cytologic atypia or malignancy. F) Lung, left upper lobe, lobectomy: - Moderately differentiated adenocarcinoma, solid and acinar subtype, size: 1.4 cm. - Second synchronous primary well-differentiated adenocarcinoma, acinar and lepidic subtype, size: 6 mm. - Atypica adenomatous hyperplasia, size: 2 mm. - No visceral pleura invasion is identified. - All surgical margins are negative for tumor. - Five benign peribronchial lymph nodes and one benign intraparenchymal lymph nodes. FINALDX 10/31/2024 Lung, left upper lobe, biopsy: - Fragments of bronchial type mucosa, fibrovascular tissue and fibrin, negative for granuloma or malignancy. ASSESSMENT & PLAN Assessment & Plan 64 yo F w/ PMH of COPD, HTN, DM and CAD s/p PCI recently diagnosed with [id number] Lung adenocarcinoma of left side s/p surgery - here to discuss adjuvant therapy. I reviewed her path in detail again and explained that she had 1 small metastatic focus in the lymph node which makes it stage II disease. 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 Based on these findings I think chemotherapy in the adjuvant setting would be a reasonable idea. Reviewed benefit and risks of chemotherapy and survival advantagewhich is small but real. Reviewed side effects and expected toxicities and answered all the questions. She would like to wait for a week before starting treatment. She does not want port. MRI brain was negative. Plan: NSCLC: s/p surgery. Needs adjuvant chemotherapy. She would be a candidate for [id number] clinical trial Diabetes mellitus: Follow-up with primary care. Dispo: No follow-ups on file. Thank you for the opportunity to assist in the care of this patient, please feel free to contact meif I can be of any assistance. Tara Fofana MD Hematology and Medical Oncology [facility] documented in this encounter Plan of Treatment Upcoming Encounters Date Type Department Care Team (Late st Contact Info) Description 07/04/2025 1:45 PM EST Office Visit SEP Pulmonology [facility] [address] [phone] Franklin Salmeron MD [address] [address] 07/27/2025 11:00 AM EST Appointment [facility] [address] [place] [address] Tara Fofana MD [address] [place] [address] [phone] 07/30/2025 11:00 AM EST Appointment [facility] [place], [place] [id number] 07/30/2025 11:40 AM EST Appointment [facility] [place], [place] [id number] Tara Fofana MD [address] [place] [address] documented as of this encounter Goals Goal Patient Goal Type Associated Problems Recent Progress Patient-Stated? Author Blood Pressure < 140/90 Blood Pressure 132/78(2024 11:49 AM EST) No Nicole Amador LPN Maintain a healthy diet, exercise regularly and maintain an ideal body weight General No Anuradha Haro, RMA BMI (Calculated) < 30 General 24.2(05/07/20 11:45 AM EST) No Nicole Amador LPN Stay Tobacco Free Lifestyle No Anuradha Haro RMA HEMOGLOBIN A1C < 7.0 Result Component 6.1( 2:05 PM EST) No Nicole Amador LPN documented as of this encounter Visit Diagnoses Diagnosis Adenocarcinoma of left lung (HCC)- Primary documented in this encounter Discontinued Medications Medication Sig Discontinue Reason Start Date End Da te folic acid (FOLVITE) 1 mg Oral TabletIndications:Adenoc arcinoma of left lung (HCC) Take 1 Tablet by mouth daily. Start taking folic acid at least 7 days before chemotherapy. DELETE-Duplicate 04/12/2025 04/12/2025 documented as of this encounter Care Teams Senior Inspector Relationship Specialty Start Date End Date Radha Wise DO [address] [place], [place] [id number] PCP - General Family Medicine 10/02/23 Kathryn Newell MD Physician Internal Medicine-Gastroenter ology 11/27/14 Cristóbal Carr MD [address] [place] [address] Physician Internal Medicine-Cardiovascu lar Disease 02/13/22 Naz Lara, RN Oncology Nurse Navigator 10/13/2404/14 Jinny Resendiz MSW Rn Disease Management 10/16/24 Corry Bansal, RN Registered Nurse 02/07/25 documented as of this encounter
--- OUTSIDE RECORDS SUMMARY | 2025-04-12 13:57 | XMS_ITS | Encounter Summary ---
Author Organization [place] [address] Care Team Providers Care Telegraph Plant Maintainer Name Role Phone Kathryn Newell MD Unavailable [phone] Cristóbal Carr MD Unavailable [phone] Radha Wise DO Primary Care Provider [phone] Naz Lara RN Unavailable Martín September RECRUITER MANAGER Unavailable [phone] Corry Bansal RN Unavailable [phone] Encounter Details Date Type Department Care Team (Latest Contact Info) Description 04/12/2025 2:57 PM EDT - 04/12/2025 11:59 PM EDT Hospital Encounter [facility] [place] [address] [place] [address] Adenocarcinoma of left lung (HCC) (Primary Dx) [...] drink = 0.6 oz pur e alcohol) [facility] Utilities Answer Date Recorded In the [...] Date Recorded PHQ-2 Total Score 0 01/23/2025 [facility] - Occupational [...] money to get more. Sometimes true 10/2024 [facility] IP Transportation Answer D ate Recorded In [...] Author No 06/23/2019 4:41 PM Anuradha Hooker MollyELIO * Does this person have difficulty dressing [...] Author No 06/23/2019 4:41 PM Anuradha Hooker Molly ELIO documented in this encounter Medications at Time of Discharge acetaminophen 325 mg Oral Tab Take by mouth every 4 hours as needed for Pain. amLODIPine (NORVASC) 10 mg Oral Tablet TAKE 1 TABLET BY MOUTH EVERY DAY 100 Tablet 1 5 aspirin 81 mg Oral Tablet, Delayed Release (E.C.) Take 1 Tablet by mouth every morning. 5 Blood-Glucose Meter [facility] KitIndications:Gluc ose intolerance (impaired glucose tolerance) Use to check blood sugars up to twice daily 1 Kit 2 citalopram (CELEXA) 20 mg Oral TabletIndications:G AD (generalized anxiety disorder) Take 1 Tablet by mouth daily. 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 30 Tablet 5 04/12/2025 dexAMETHasone (DECADRON) 4 mg Oral TabletIndications :Adenocarcinoma of left lung (HCC) Take 1 tablet (4 mg) orally twice daily day before chemotherapy and days 2, 3, 4 each cycle (skip day 1 as will receive IV in treatment suite). 24 Tablet 1 04/12/2025 folic acid (FOLVITE) 1 mg Oral TabletIndications :Adenocarcinoma of left lung (HCC) Take 1 Tablet by mouth daily. Start taking folic acid at least 7 days before chemotherapy. 04/12/2025 5 documented in this encounter Discharge Disposition Disposition Code Departure Means Destination Home or Self Care documented in this encounter Progress Notes * Corry Bansal RN - 04/12/2025 3:30 PM EDT Patient in clinic today for RN Education Visit. RN provided patient with copy of Chemotherapy Guidelines Packet, as well as medication specific information sheets for Carboplatin and Pemetrexed. Reviewed potential side effects of chemotherapy treatment and strategies to manage side effects. All questions and concerns addressed at this time. Home medications sent to [facility] in [place]. Consent has been signed. Plan to start C1D1 in the next week or so. Pt to let us know when she is ready to schedule. documented in this encounter Plan of Treatment Upcoming Encounters Date Type Department Care Team (Late st Contact Info) Description 07/04/2025 1:45 PM EST Office Visit [facility] Pulmonology [facility] [address] [phone] Franklin Salmeron MD [address] [address] 07/27/2025 11:00 AM EST [facility] [address] [place] [address] Tara Fofana MD [address] [place] [address] [phone] 07/30/2025 11:00 AM EST Appointment [facility] [place], [place] [phone] 07/30/2025 11:40 AM EST Appointment [facility] [place] [address] Tara Fofana MD [address] [place] [address] [phone] documented as of this encounter Goals Goal [...] HEMOGLOBIN A1C < 7.0 Result Component 6.1( 5 2:05 PM EST) No Marjorie Nicole Vela LPN documented as of this encounter Visit Diagnoses Diagnosis Adenocarcinoma of left lung (HCC)- Primary documented in this encounter Care Teams Telegraph Plant Maintainer Relationship Specialty Start Date End Date Radha Wise DO [address] [place] [phone] PCP - General Family Medicine 10/02/23 Kathryn Newell MD Physician Internal Medicine-Gastroenter ology 11/27/14 Cristóbal Carr MD [address] [place], [place] [phone] Physician Internal Medicine-Cardiovascu lar Disease 02/13/22 Naz Lara, RN Oncology Nurse Navigator 10/13/2404/14 Jinny Resendiz MSW Staffing Assistant 10/16/24 Corry Bansal, RN Registered Nurse 02/07/25 documented as of this encounter
--- OUTSIDE RECORDS SUMMARY | 2025-04-30 15:40 | XMS_ITS | Encounter Summary ---
Author Organization [place] [address] Care Team Providers Care Woodworking Machine Operator Name Role Phone Kathryn Newell MD Unavailable [phone] Cristóbla Carr MD Unavailable [phone] Radha Wise DO Primary Care Provider + [phone] Naz Lara RN Unavailable [phone] September GAME PROGRAMMER Unavailable [phone] Corry Bansal RN Unavailable [phone] Tara Fofana MD Unavailable [phone] Reason for Referral * MRI/CAT Scan (Routine) - Pending Review Specialty Diagnoses / Procedures Referred By Contac t Referred To Contact Radiology Diagnoses Adenocarcinoma of left lung (HCC) Procedures CT CHEST ABDOMEN PELVIS WO ORAL WITH IV CONTRAST Tara Fofana MD [address] [place] [address] Phone: tel: fax: Referral ID Status Reason Start Date Expiration Date V isits Requested Visits Authorized [id number] Pending Review 04/30/2025 04/30/2026 1 1 Reason for Visit * Reason Comments Follow-up Adenocarcinoma of le ft lung Encounter Details Date Type Department Care Team (Latest Contact Info) Description 04/30/2025 3:40 PM EST - 04/30/2025 11:59 PM EST Hospital Encounter Cancer Care Medical Oncology [address] [place], [place] [id number] Radha Wise DO [address] [place], [place] [id number] Tara Fofana MD [address] [place] [address] [phone] Adenocarcinoma of left lung (HCC) (Primary Dx) [...] drink = 0.6 oz pur e alcohol) [facility] Utilities Answer Date Recorded In the past [...] Date Recorded PHQ-2 Total Score 0 01/23/2025 [facility] [place] of Occupat ional Health - Occupational Stress [...] money to get more. Sometimes true 10/2024 [facility] IP Transportation Answer D ate Recorded [...] Sign Reading Time Taken Comments Blood Pressure 124/74 04/30/2025 3:45 PM EST Pulse 80 04/30/2025 3:45 PM EST Temperature - - Respiratory Rate 16 04/30/2025 3:45 PM EST Oxygen Saturation 98% 04/30/2025 3:45 PM EST Inhaled Oxygen Concentration - - Weight 58.1 kg (128 lb) 04/30/2025 3:45 PM EST Height 157.5 cm (5' 2 ) 04/30/2025 3:45 PM EST Body Mass Index 23.41 04/30/2025 3:45 PM EST documented in this encounter Functional Status * Is the person deaf or does he/she have serious difficulty hearing? Answer Date of Assessment Author No 06/23/2019 4:41 PM EST Anuradha Angel RMA * Is the person blind or does he/she have serious difficulty seeing even when wearing glasses? Answer Date of Assessment Author No 06/23/2019 4:41 PM EST Anuradha Angel RMA * Does this person have serious difficulty walking or climbing stairs? Answer Date of Assessment Author No 06/23/2019 4:41 PM Anuradha Hooker RMA * Does this person have difficulty dressing or bathing? Answer Date of Assessment Author No 06/23/2019 4:41 PM EST Anuradha Angel RMA * Because of a physical, mental or emotional condition, does this person have difficulty doing errands alone such as visiting a doctor's office or shopping? Answer Date of Assessment Author No 06/23/2019 4:41 PM JAY king AnuradhaELIO Montanez documented as of this encounter Mental Status * Because of a physical, mental or emotional condition, does this person have serious difficulty concentrating, remembering or making decisions? Answer Entry Date Author No 06/23/2019 4:41 PM Anuradha Hooker ZENIA BarnesJordi documented in this encounter Medications at Time of Discharge acetaminophen 325 mg Oral Tab Take by mouth every 4 hours as needed for Pain. amLODIPine (NORVASC) 10 mg Oral Tablet TAKE 1 TABLET BY MOUTH EVERY DAY 100 Tablet 1 5 aspirin 81 mg Oral Tablet, Delayed Release (E.C.) Take 1 Tablet by mouth every morning. 5 Blood-Glucose Meter [facility] KitIndications:Gluc ose intolerance (impaired glucose tolerance) Use to check blood sugars up to twice daily 1 Kit 2 citalopram (CELEXA) 20 mg Oral TabletIndications:G AD (generalized anxiety disorder) Take 1 Tablet by mouth daily. 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 10 Patch 5 metoprolol succinate (TOPROL-XL) 25 mg Oral Tablet [...] mouth daily. 90 Tablet 5 05/21/20 25 gabapentin (NEURONTIN) 300 mg Oral CapsuleIndications: Adenocarcinoma of left lung (HCC) Take 1 Capsule by mouth 2 times daily for 30 days. 60 Capsule 2 5 05/30/20 documented as of this encounter Ordered Prescriptions Prescription Sig Dispense Quantity Refills Last Filled Start Date End Date gabapentin (NEURONTIN) 300 mg Oral CapsuleIndications :Adenocarcinoma of left lung (HCC) Take 1 Capsule by mouth 2 times daily for 30 days. 60 Capsule 2 04/30/2025 documented in this encounter Discharge Disposition Disposition Code Departure Means Destination Home or Self Care documented in this encounter Progress Notes * Tara Fofana MD - 04/30/2025 3:40 PM ESTAssociated Problem(s): Adenocarcinoma of left lung (HCC) Orders: CBC WITH DIFF; Future COMPREHENSIVE METABOLIC PANEL; Future gabapentin (NEURONTIN) 300 mg Oral Capsule; Take 1 Capsule by mouth 2 times daily for [address] CHEST ABDOMEN PELVIS WO ORAL WITH IV CONTRAST; Future * Tara Fofana MD - 04/30/2025 3:40 PM EST Images from the original note were not included. Patient: Alisa Dan CSN: [id number] Date of : 1960 Age: 64 y.o. Date of Service: 04/30/2025 HEMATOLOGY/ONCOLOGY FOLLOW-UP NOTE Primary sports analyst/oncologist: No care project manager/team coach to display CANCER DIAGNOSIS: pT1bN1 - Lung adenocarcinoma, left OTHER PERTINENT MEDICAL HISTORY: COPD, HTN, DM CAD s/p PC TREATMENT: 01/22/2025: SOHAM and MLND INTERVAL HISTORY: Chief Complaint Patient presents with Follow-up Adenocarcinoma of left lung Patient is a 64 y.o. female who presents for follow-up. Still has pain at the surgical site and would like to try something for it. Otherwise, feels fatigued and tired and no other complaints. REVIEW OF SYSTEMS: Review of Systems Constitutional: Positive for malaise/fatigue. Negative for weight loss. Respiratory: Negative for cough and shortness of breath. Pain at the surgical site Neurological: Negative for dizziness. HISTORY: Medical, Surgical, Social, Family histories were reviewed MEDICATIONS: Current Outpatient Medications Medication acetaminophen 325 mg Oral Tab albuterol-ipratropium (DUO-NEB) 3 mg-0.5 mg(2.5 mg base)/3 mL Inhl Solution for Nebulization ALPRAZolam (XANAX) 0.25 mg Oral Tablet amLODIPine (NORVASC) 10 mg Oral Tablet aspirin 81 mg Oral Tablet, Delayed Release (E.C.) Blood-Glucose Meter [facility] Kit citalopram (CELEXA) 20 mg Oral Tablet clopidogreL (PLAVIX) 75 mg Oral Tablet dapagliflozin propanediol (FARXIGA) 10 mg Oral Tablet dexAMETHasone (DECADRON) 4 mg Oral Tablet EASY TOUCH ALCOHOL PREP PADS Top Pads, Medicated folic acid (FOLVITE) 1 mg Oral Tablet FREESTYLE LITE STRIPS [facility] Strip Lancets [facility] lidocaine (LIDODERM) 5 % Top Adhesive Patch, Medicated metoprolol succinate (TOPROL-XL) 25 mg Oral Tablet Sustained Release 24 hr montelukast (SINGULAIR) 10 mg Oral Tablet pantoprazole (PROTONIX) 40 mg Oral Tablet, Delayed Release (E.C.) potassium chloride SA (KLOR-CON M) 10 mEq Oral Tab Sust.Rel. Particle/Crystal prochlorperazine (COMPAZINE) 10 mg Oral Tablet REPATHA SURECLICK 140 mg/mL SubQ Pen Injector rosuvastatin (CRESTOR) 40 mg Oral Tablet Current Facility-Administered Medications Medication Dose Route Frequency Last Rate Last Admin cyanocobalamin injection 1,000 mcg 1,000 mcg Intramuscular Q30 Days 1,000 mcg at 10/29/23 1433 PHYSICAL EXAM: Vitals: 04/30/25 1545 BP: 124/74 Pulse: 80 Resp: 16 SpO2: 98% Wt Readings from Last 3 Encounters: 04/30/25 128 lb (58.1 kg) 04/12/25 128 lb 8 oz (58.3 kg) 03/30/25 131 lb (59.4 kg) ECO Physical Exam Constitutional: General: She [...] to person, place, and time. LABS: WBC Date Value 04/12/2025 8.5 x10(3)/mcL 04/05/2025 10.1 X10(3)/MCL Hgb Date Value 04/12/2025 12.8 g/dL 10/05/2016 13.8 gm/dL Hemoglobin (GM/DL) Date Value 04/05/2025 12.4 Hct (%) Date Value 04/12/2025 39.6 10/05/2016 40.9 Hematocrit (%) Date Value 04/05/2025 38.4 Platelet Date Value 04/12/2025 370 x10(3)/mcL (H) 04/05/2025 325 X10(3)/MCL Neut Percent (%) Date Value 04/12/2025 48.4 10/05/2016 46.4 Total Protein (gm/dL) Date Value 04/12/2025 7.4 01/22/2017 7.7 Albumin (gm/dL) Date Value 04/12/2025 4.4 01/22/2017 4.4 Bili Total (mg/dL) Date Value 04/12/2025 0.3 01/22/2017 0.2 ALT Date Value 04/12/2025 9 U/L 01/22/2017 8 IU/L Alk Phos Date Value 04/12/2025 120 U/L 01/22/2017 103 IU/L Sodium (mmol/L) Date Value 04/12/2025 142 01/22/2017 143 Potassium (mmol/L) Date Value 04/12/2025 3.8 01/22/2017 3.8 Anion Gap (mmol/L) Date Value 04/12/2025 13 01/22/2017 17 (H) Calcium (mg/dL) Date Value 04/12/2025 9.5 01/22/2017 9.4 Glucose Lvl (mg/dL) Date Value 04/12/2025 116 (H) 01/22/2017 84 BUN (mg/dL) Date Value 04/12/2025 9 01/22/2017 6 Creatinine (mg/dL) Date Value 04/12/2025 0.82 01/22/2017 0.75 Creatinine-iSTAT (mg/dL) Date Value 02/03/2023 [...] malignancy. ASSESSMENT & PLAN Assessment & Plan Adenocarcinoma of left lung (HCC) Orders: CBC WITH DIFF; Future COMPREHENSIVE METABOLIC PANEL; Future gabapentin (NEURONTIN) 300 mg Oral Capsule; Take 1 Capsule by mouth 2 times daily for [address] CHEST ABDOMEN PELVIS WO ORAL WITH IV CONTRAST; Future 64 yo F w/ PMH of COPD, HTN, DM and CAD s/p PCI recently diagnosed with [id number] Lung adenocarcinoma of left side s/p surgery - here to discuss adjuvant therapy. I reviewed her path in detail again and explained that she had 1 small metastatic focus in the lymph node which makes it stage II disease. 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 Discussed guidelines which recommends adjuvant chemotherapy x 4. Also reviewed LACE meta-analysis which has shown about 5% survival benefit with adjuvant chemotherapy vs none. 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 Recurrence risk with Stage II lung cancer is estimated to be about 50% with no adjuvant therapy. All questions answered. After listening to above and discussing with her son - she decided to just do surveillance without chemotherapy. Scan ordered. MRI brain was negative. Plan: NSCLC: Surveillance without chemotherapy. Scans ordered. Diabetes mellitus: Follow-up with primary care. Post-op pain: Start Gabapentin 300mg bid - start with once a day dose x 1 week and then build up totwice a day. Dispo: Return in about 3 months (around 07/31/2025). Thank you for the opportunity to assist in the care of this patient, please feel free to contact meif I can be of any assistance. Tara Fofana MD Hematology and Medical Oncology [facility] documented in this encounter Plan of Treatment Upcoming Encounters Date Type Department Care Team (Late st Contact Info) Description 07/04/2025 1:45 PM EST Office Visit SEP Pulmonology [facility] [address] [phone] Franklin Salmeron MD [address] [address] 07/27/2025 11:00 AM EST Appointment [facility] [address] [place] [address] Tara Fofana MD [address] [place] [place] [phone] 07/30/2025 11:00 AM EST Appointment [facility] [place], [place] [phone] 07/30/2025 11:40 AM EST [facility]ment [facility] [place] [address] Tara Fofana MD [address] [place] [phone] Scheduled Orders Name Type Priority Associated Diagnoses Orde r Schedule CBC WITH DIFF Lab STAT Adenocarcinoma of left lung (HCC) Expected: 04/30/2025, Expires: 04/26/2026 COMPREHENSIVE METABOLIC PANEL Lab STAT Adenocarcinoma of left lung (HCC) Expected: 04/30/2025, Expires: 04/26/2026 CT CHEST ABDOMEN PELVIS WO ORAL WITH IV CONTRAST Imaging Routine Adenocarcinoma of left lung (HCC) 1 Occurrences starting 04/30/2025 until 04/30/2026 documented as of this encounter Goals Goal Patient Goal Type Associated Problems Recent Progress Patient-Stated? Author Blood Pressure < 140/90 Blood Pressure 132/78(2024 11:49 AM EST) No Nicole Amador LPN Maintain a healthy diet, exercise regularly and maintain an ideal body weight General No Andrey Haroselma Barnes, RMA BMI (Calculated) < 30 General 24.2(05/07/20 25 11:45 AM EST) No Nicole Amador LPN Stay Tobacco Free Lifestyle No Anuradha Haro, RMJordi HEMOGLOBIN A1C < 7.0 Result Component 6.1( 5 2:05 PM EST) No Nicole Amador LPN documented as of this encounter Visit Diagnoses Diagnosis Adenocarcinoma of left lung (HCC)- Primary documented in this encounter Care Teams Woodworking Machine Operator Relationship Specialty Start Date End Date Radha Wise DO [address] [place] [address] PCP - General Family Medicine 10/02/23 Kathryn Newell MD Physician Internal Medicine-Gastroenter ology 11/27/14 Cristóbal Carr MD [address] [facility] [address] [place] [address] Physician Internal Medicine-Cardiovascu lar Disease 02/13/22 Naz Lara, RN Oncology Nurse Navigator 10/13/2404/14 Jinny Resendiz MSW [employer] Civil Engineer 10/16/24 Corry Bansal, KEVIN Registered Nurse 02/07/25 Tara Fofana MD [address] [place] [address] [phone] Internal Medicine-Hematology and Oncology 04/30/25 documented as of this encounter
--- OUTSIDE RECORDS SUMMARY | 2025-05-07 11:30 | XMS_ITS | Encounter Summary ---
Author Organization [place] [address] Care Team Providers Care Firebrick Layer Helper Name Role Phone Kathryn Newell MD Unavailable [phone] Cristóbal Carr MD Unavailable [phone] Radha Wise DO Primary Care Provider + [phone] September LUBRICATING MACHINE TENDER Unavailable [phone] Corry Bansal RN Unavailable [phone] Tara Fofana MD Unavailable [phone] Reason for Referral * Vascular Imaging (Routine) - Closed Specialty Diagnoses / Procedures Referred By Contac t Referred To Contact Radiology Diagnoses Infrarenal abdominal aortic aneurysm (AAA) without rupture Procedures [facility] AORTA ILIAC IVC COMPLETE Jose De Jesus Gregory MD [address] [place] [address] Phone: tel: fax: [facility] [address] [place] [address] Phone: tel: fax: Referral ID Status Reason Start Date Expiration Date Visits Re quested Visits Authorized [id number] Closed 05/07/2025 05/07/2027 1 1 Reason for Visit * Reason Comments Abdominal Aortic Aneurysm New Patient ca rdiology consult Encounter Details Date Type Department Care Team (Late st Contact Info) Description 05/07/2025 11:30 AM EST Office Visit [facility]P Vascular Surg Edg [address] [place] [address] Jose De Jesus Gregory MD [address] [place] [address] Infrarenal abdominal aortic aneurysm (AAA) without rupture (Primary Dx) Social History Tobacco Use Types Packs/Day Years Used Date Smoking Tobacco: Every Day Cigarettes 0.8 49.1 Started: 04/17/1976; Last attempted to quit: 01/21/2025 Smokeless Tobacco: Never Comments:She has nicotine pa tches that she will be starting in the future Alcohol Use Standard Drinks/Week Comments Not Currently 0 (1 standard drink = 0.6 oz pur e alcohol) [facility] Utilities Answer Date Recorded In the past 12 months has e [employer], gas, oil, or water [employer] threatened to shut off services in your home? No 01/23/2025 Overall Financial Resource Strain (CARDIA) Answe r Date Recorded How hard is it for you to pa y for the very basics like food, housing, medical care, and heating? Somewhat hard 01/23/2025 PHQ-2 Answer Date Recorded PHQ-2 Total Score 0 01/23/2025 [facility] Kimber[place] of Occupat ional Health - Occupational Stress [...] money to get more. Sometimes true 10/2024 [facility] IP Transportation Answer D ate Recorded [...] Sign Reading Time Taken Comments Blood Pressure 132/78 05/07/2025 11:49 AM EST Pulse 90 05/07/2025 11:45 AM EST Temperature 36.5 C (97.7 F) 05/07/2025 11:45 AM EST Respiratory Rate - - Oxygen Saturation - - Inhaled Oxygen Concentration - - Weight 59.9 kg (132 lb) 05/07/2025 11:45 AM EST Height 157.5 cm (5' 2 ) 05/07/2025 11:45 AM EST Body Mass Index 24.14 05/07/2025 11:45 AM EST documented in this encounter Functional Status [...] Entry Date Author No 06/23/2019 4:41 PM EST Anuradha Angel RMA documented in this encounter Progress Notes * Jose De Jesus Gregory MD - 05/07/2025 11:30 AM EST Subjective: We have been asked by [facility] to provide initial consultation on Alisa History of Present Illness The patient is a 64 y.o. female: Aorta/Iliac Aneurysm diagnosed on CT reportedly. States referring provider was going to send images. No previous abdominal surgeries. No family history of aneurysm. Takes ASA, statin, and Plavix daily. Daily smoker .5 ppd. HPI Scans were at [facility]. Mental Health Nurse Practitioner Dr. Barrera. [facility]. Patients past medical, family and social histories were reviewed and updated. There are no changes except as noted. Past Medical History[1] Patient Active Problem List Diagnosis Date Noted Abdominal aneurysm 03/08/2025 Aortic valve regurgitation 03/08/2025 Benign paroxysmal positional vertigo 03/08/2025 Chronic pain of both knees 03/08/2024 Other chest pain 12/24/2023 Adenocarcinoma of left lung (HCC) 11/25/2023 Low serum vitamin B12 10/25/2023 Controlled substance agreement signed 10/22/2023 Prediabetes 10/22/2023 Primary hypertension 02/16/2022 Centrilobular emphysema (HCC) 11/09/2018 Atherosclerosis of aorta 11/09/2018 Diastolic dysfunction 11/09/2018 History of Clostridium difficile infection 09/13/2018 REBEKAH (generalized anxiety disorder) 09/24/2016 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 06/23/2016 Mixed hyperlipidemia 10/03/2014 Tobacco abuse 06/06/2014 Migraine Surgical History[2] Family History[3] Social History Tobacco Use Smoking status: Every Day Current packs/day: 0.50 Average packs/day: 0.8 packs/day for 49.0 years (39.0 ttl pk-yrs) Types: Cigarettes Start date: 04/17/1976 Last attempt to quit: 01/21/2025 Smokeless tobacco: Never Tobacco comments: She has nicotine patches that she will be starting in the future Substance Use Topics Alcohol use: Not Currently Current Outpatient Medications Medication Instructions acetaminophen 325 mg Oral Tab EVERY 4 HOURS PRN albuterol-ipratropium (DUO-NEB) 3 mg-0.5 mg(2.5 mg base)/3 mL Inhl Solution for Nebulization 3 mL, Nebulization, EVERY 6 HOURS PRN ALPRAZolam (XANAX) 0.25 mg, Oral, 2 TIMES DAILY PRN, for anxiety amLODIPine (NORVASC) 10 mg, Oral, DAILY aspirin 81 mg, Oral, EVERY MORNING Blood-Glucose Meter Misc Kit Use to check blood sugars up to twice daily citalopram (CELEXA) 20 mg, Oral, DAILY clopidogreL (PLAVIX) 75 mg, Oral, DAILY dapagliflozin propanediol (FARXIGA) 10 mg, Oral, DAILY dexAMETHasone (DECADRON) 4 mg Oral Tablet Take 1 tablet (4 mg) orally twice daily day before chemotherapy and days 2, 3, 4 each cycle (skip day 1 as will receive IV in treatment suite). EASY TOUCH ALCOHOL PREP PADS Top Pads, Medicated USE WHEN CHECK BLOOD SUGARS UP TO TWICE DAILY folic acid (FOLVITE) 1 mg Oral Tablet Oral, DAILY FREESTYLE LITE STRIPS Misc Strip USE TO CHECK BLOOD SUGARS UP TO TWICE DAILY Lancets Misc Misc Use to check blood sugars up to twice daily lidocaine (LIDODERM) 5 % Top Adhesive Patch, Medicated 1 Patch, Transdermal, *EVERY 12 HOURS metoprolol succinate (TOPROL-XL) 25 mg, EVERY MORNING montelukast (SINGULAIR) 10 mg, Oral, NIGHTLY, at bedtime pantoprazole (PROTONIX) 40 mg, Oral, 2 TIMES DAILY potassium chloride SA (KLOR-CON M) 10 mEq Oral Tab Sust.Rel. Particle/Crystal 10 mEq, Oral, DAILY prochlorperazine (COMPAZINE) 10 mg Oral Tablet Take 1 tablet by mouth every 6 hours as needed for nausea and vomiting. REPATHA SURECLICK 140 mg/mL SubQ Pen Injector INJECT 140 MG SUBCUTANEOUSLY EVERY 2 WEEKS rosuvastatin (CRESTOR) 40 mg, Oral, NIGHTLY Allergies[4] Review of Systems Constitutional: Negative for appetite change, chills, fatigue and fever. Respiratory: Negative for chest tightness and shortness of breath. Cardiovascular: Negative for chest pain. Gastrointestinal: Positive for abdominal pain. Genitourinary: Negative for flank pain. Musculoskeletal: Positive for back pain. Negative for gait problem. All other systems reviewed and are negative. Objective: There were no vitals filed for this visit.There is no height or weight on file to calculate BMI. Physical Exam Constitutional: General: She is not in acute distress. HENT: Head: Normocephalic and atraumatic. Mouth/Throat: Pharynx: Oropharynx is clear. Eyes: General: No scleral icterus. Cardiovascular: Rate and Rhythm: Normal rate. Pulmonary: Effort: No respiratory distress. Abdominal: Palpations: Abdomen is soft. There is no pulsatile mass. Neurological: General: No focal deficit present. Mental Status: She is oriented to person, place, and time. Assessment and Plan: Diagnoses and all orders for this visit: Infrarenal abdominal aortic aneurysm (AAA) without rupture presents today in consultation of evaluation for AAA. I explained that I have not received any imaging from referring provider so I cannot comment on if she has a AAA or not. Will obtain duplex to evaluate for AAA. She inquired about the symptoms of symptomatic AAA or ruptured AAA. Discussed severe lower abdominal or lower back pain can be a sign of this. Once again, I cannot comment onthe risk of rupture for this patient as I do not have any scans that allowing me to confirm she hasa AAA and the size of it. She states she is trying to quit smoking. I also encouraged her to stop smoking. I spent more than 4 minutes explaining that nicotine is a direct irritant to the lining of the arteries and will eventually cause bigger problems and further blockages within the vascular system. I encouraged her to change up her routine which will help her stop nicotine habits. All questions answered I will call with results of Ultrasound and discuss mgt. Note written by Kimani Perdomo MA acting as scribe for Jose De Jesus Gregory MD I have reviewed this note and it accurately reflects my work and decisions made during this visit. Signed: Jose De Jesus Gregory MD [1] Past Medical History: Diagnosis Date Adenocarcinoma of left lung (HCC) 01/2025 Anemia Angina pectoris Anxiety Arthritis Bilateral chronic knee pain Bronchitis, chronic (HCC) Bruises easily CAD (coronary artery disease) 3 stents Cervical dysplasia Chest discomfort 10/04/2024 admitted Clotting disorder no specific name was given but thin blood COPD (chronic obstructive pulmonary disease) (HCC) GOMEZ (dyspnea on exertion) since surgery 01/22/2025 Emphysema lung (HCC) Generalized weakness since surgery 01/22/2025 GERD (gastroesophageal reflux disease) Heart murmur ? History of atherosclerotic heart disease Hyperlipidemia Hypertension Hypertensive heart disease without heart failure Hypokalemia 01/2025 Infrarenal abdominal aortic aneurysm (AAA) without rupture 11/18/2023 Noted on report from [facility] 10/2023 Aorta ultrasound 11/2023- not well visualized due to bowel CT follow up ordered by [facility] CTA 09/2024 reported no AAA Loss of appetite 01/2025 Lung nodule Migraine Motion sickness Nausea occasional since surgery 01/22/2025 Pneumonia history Prediabetes Rib pain 03/2025 left ribs and under left breast Urinary tract infection in the past [2] Past Surgical History: Procedure Laterality Date APPENDECTOMY BREAST BIOPSY Right 10/17/2014 us biopsy right BRONCHOSCOPY 10/31/2024 COLONOSCOPY 2010 normal COLONOSCOPY N/A 10/29/2014 Surgeon: Kathryn Newell MD; Location: [facility]; Service: Endoscopy CORONARY ANGIOPLASTY WITH STENT PLACEMENT 11/04/2017 2 stents placed+ 1 stent HYSTERECTOMY, TOTAL 1980s severe dysplasia of cervix IR US GUIDED NEEDLE PLACEMENT 03/27/2025 IR US GUIDED NEEDLE PLACEMENT [facility] IR LYMPH NODE DISSECTION Left 01/22/2025 Surgeon: Jared Lock MD; Location: [facility]; Service: Thoracic THORACOSCOPY Left 01/22/2025 left Robotic Assisted thoracic Surgery left upper lobe lobectomy with mediastinal lymph node dissection; Surgeon: Jared Lock MD; Location: [facility]; Service: Thoracic UPPER GASTROINTESTINAL ENDOSCOPY N/A 10/29/2014 ESOPHAGOGASTRODUODENOSCOPY with biopsy, brushings and COLONOSCOPY with biopsy; Surgeon: Kathryn Newell MD; Location: [facility]; Service: Endoscopy [3] Family History Problem Relation Age of Onset Other Mother pneumonia Other Father issues with pancreas Diabetes Sister Asthma Sister Esophageal Cancer Brother Liver Disease Brother Early Brother Boating accident Mental Illness Son High Blood Pressure Daughter Anesth Problems Neg Hx [4] No Known Allergies documented in this encounter Miscellaneous Notes * Patient Instructions - Kimani Perdomo MA - 05/07/2025 11:30 AM EST If you do not receive a phone call from us a week after your scan please give us a call @ [phone] documented in this encounter Plan of Treatment Upcoming Encounters Date Type Department Care Team (Late st Contact Info) Description 07/04/2025 1:45 PM EST Office Visit SEP Pulmonology [facility] [address] [phone] Franklin Salmeron MD [address] [address] 07/27/2025 11:[address] [facility] [address] [place] [address] Tara Fofana MD [address] [place] [phone] 07/30/2025 11:00 AM EST Appointment [facility] [place], [place] [phone] 07/30/2025 11:40 AM EST [facility]ointment [facility] [place] [address] Tara Fofana MD [address] [place] [phone] documented as of this encounter Goals Goal [...] Amador LPN documented as of this encounter Results * [facility] AORTA ILIAC IVC COMPLETE (05/31/2025 9:33 AM EST) Anatomical Region Laterality Modality Abdomen, Vascular Vascular Imagi ng 05/31/2025 9:16 AM EST Impressions 05/31/2025 9:59 AM EST Conclusions * No evidence of abdominal aortic or bilateral iliac aneurysm. * Normal Doppler flow velocities noted throughout the aorta and common iliac arteries. * The celiac artery and superior mesenteric artery appear widely patent. Narrative Procedure Note Romulo Wolf MD - 05/31/2025 IMPRESSION Conclusions * No evidence of abdominal aortic or bilateral iliac aneurysm. * Normal Doppler flow velocities noted throughout the aorta and commoniliac arteries. * The celiac artery and superior mesenteric artery appear widelypatent. us Jose De Jesus Grgeory MD IMG VASCULAR ORDERABLES Fin al Result documented in this encounter Visit Diagnoses Diagnosis Infrarenal abdominal aortic aneurysm (AAA) without rupture- Primary Infrarenal abdominal aortic aneurysm (AAA) without rupture documented in this encounter Care Teams Firebrick Layer Helper Relationship Specialty Start Date End Date Radha Wise DO [address] [place] [address] PCP - General Family Medicine 10/02/23 Kathryn Newell MD Physician Internal Medicine-Gastroenterolog y 11/27/14 Cristóbal Carr MD [address] [place] [address] [place], [place] [id number] Physician Internal Medicine-Cardiovascular Disease 02/13/22 Jinny Resendiz, LUBRICATING MACHINE TENDER Control Room Tender 10/16/24 Corry Bansal, RN Registered Nurse 02/07/25 Tara Fofana MD [address] [place] [address] Internal Medicine-Hematology and Oncology 04/30/25 documented as of this encounter
--- OUTSIDE RECORDS SUMMARY | 2025-05-31 09:00 | XMS_ITS | Encounter Summary ---
Author Organization [place] [address] Care Team Providers Care Yard Switch Operator Name Role Phone Kathryn Newell MD Unavailable [phone] Cristóbal Carr MD Unavailable [phone] Radha Wise DO Primary Care Provider + [phone] September NECK BAND OPERATOR Unavailable [phone] Corry Bansal RN Unavailable [phone] Tara Fofana MD Unavailable [phone] Reason for Referral * Vascular Imaging (Routine) - Closed Specialty Diagnoses / Procedures Referred By Contac t Referred To Contact Radiology Diagnoses Infrarenal abdominal aortic aneurysm (AAA) without rupture Procedures [facility] AORTA ILIAC IVC COMPLETE Jose De Jesus Gregory MD [address] [place] [address] Phone: tel: fax: [facility] [address] [place] [address] Phone: tel: fax: Referral ID Status Reason Start Date Expiration Date Visits Re quested Visits Authorized [id number] Closed 05/07/2025 05/07/2027 1 1 Reason for Visit * Vascular Imaging (Routine) - Closed Specialty Diagnoses / Procedures Referred By Contac t Referred To Contact Radiology Diagnoses Infrarenal abdominal aortic aneurysm (AAA) without rupture Procedures [facility] ILIAC IVC COMPLETE Jose De Jesus Gregory MD [address] [place] [address] [place] [address] Phone: tel: fax: [facility] [address] [place] [address] Phone: tel: fax: Referral ID Status Reason Start Date Expiration Date Visits Re quested Visits Authorized [id number] Closed 05/07/2025 05/07/2027 1 1 Encounter Details Date Type Department Care Team (Latest Contact Info) Description 05/31/2025 9:00 AM EST - 05/31/2025 11:59 PM EST Hospital Encounter [facility] [address] [place] [address] Jose De Jesus Gregory MD [address] [place] [address] [place] [address] Infrarenal abdominal aortic aneurysm (AAA) without rupture Discharge Disposition: Home or Self Care Social History Tobacco Use Types Packs/Day Years Used Date Smoking Tobacco: Every Day Cigarettes 0.8 49.1 Started: 04/17/1976; Last attempted to quit: 01/21/2025 Smokeless Tobacco: Never Comments:She has nicotine pa tches that she will be starting in the future Alcohol Use Standard Drinks/Week Comments Not Currently 0 (1 standard drink = 0.6 oz pur e alcohol) [facility] Utilities Answer Date Recorded In [...] Date Recorded PHQ-2 Total Score 0 01/23/2025 [facility] [place] of Occupat ional Health - Occupational Stress [...] money to get more. Sometimes true 10/2024 [facility] IP Transportation Answer D ate Recorded In [...] Entry Date Author No 06/23/2019 4:41 PM JAY Adame Anuradha king RMA documented in this encounter Medications at Time of Discharge albuterol (PROAIR HFA) 90 mcg/actuation Inhl HFA Aerosol InhalerIndications: Shortness of breath,Tobacco abuse INHALE 2 PUFFS BY MOUTH EVERY 4 HOURS NEEDED FOR WHEEZE 8.5 Each 2 5 acetaminophen 325 mg Oral Tab Take by mouth every 4 hours as needed for Pain. albuterol-ipratropi um (DUO-NEB) 3 mg-0.5 mg(2.5 mg base)/3 mL Inhl Solution for NebulizationIndicat ions:COPD with acute exacerbation (HCC) Take 3 mL by nebulization every 6 hours as needed for Shortness of Breath. 12 mL 1 5 ALPRAZolam (XANAX) 0.25 mg Oral TabletIndications:G AD (generalized anxiety disorder) Take 1 Tablet by mouth 2 times daily as needed. for anxiety 60 Tablet 2 5 amLODIPine (NORVASC) 10 mg Oral Tablet TAKE 1 TABLET BY MOUTH EVERY DAY 100 Tablet 1 5 aspirin 81 mg Oral Tablet, Delayed Release (E.C.) Take 1 Tablet by mouth every morning. 5 Blood-Glucose Meter [facility] KitIndications:Gluc ose intolerance (impaired glucose tolerance) Use to check blood sugars up to twice daily 1 Kit 2 citalopram (CELEXA) 20 mg Oral TabletIndications:G AD (generalized anxiety disorder) Take 1 Tablet by mouth daily. 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 5 dapagliflozin propanediol (FARXIGA) 10 mg Oral Tablet Take 1 Tablet by mouth daily. 90 Tablet 5 dexAMETHasone (DECADRON) 4 mg Oral TabletIndications:A [...] TO TWICE DAILY 100 Strip 11 4 gabapentin (NEURONTIN) 300 mg Oral CapsuleIndications: Adenocarcinoma of left lung (HCC) Take 1 Capsule by mouth 2 times daily. 5 Lancets Misc MiscIndications:Glu cose intolerance (impaired glucose [...] days. 90 Tablet 3 5 03/03/20 26 documented as of this encounter Discharge Disposition Disposition Code Departure Means Destination Home or Self Care documented in this encounter Plan of Treatment Upcoming Encounters Date Type Department Care Team (Late st Contact Info) Description 07/04/2025 1:45 PM EST Office Visit [facility] Pul[facility] [address] [facility] Building [address] [place] [phone] Franklin Salmeron MD [address] [address] 07/27/2025 11:[address] [address] [place] [address] Tara Fofana MD [address] [place] [id number] 07/30/2025 11:00 AM EST Appointment [facility] [place], [place] [phone] 07/30/2025 11:40 AM EST [facility]ment [facility] [place] [address] Tara Fofana MD [address] [place] [phone] documented as of this encounter Goals Goal [...] Procedure Name Priority Date/Time Associated Diagnosis Comments [facility] AORTA ILIAC IVC COMPLETE Routine 05/31/2025 9:33 AM EST Infrarenal abdominal aortic aneurysm (AAA) without rupture documented in this encounter Results * [facility] AORTA ILIAC IVC COMPLETE (05/31/2025 9:33 AM [...] Diagnosis Infrarenal abdominal aortic aneurysm (AAA) without rupture documented in this encounter Care Teams Yard Switch Operator Relationship Specialty Start Date End Date Radha Wise DO [address] [place] [id number] PCP - General Family Medicine 10/02/23 Kathryn Newell MD Physician Internal Medicine-Gastroenterolog y 11/27/14 Cristóbal Carr MD [address] [place] [address] Physician Internal Medicine-Cardiovascular Disease 02/13/22September E, NECK BAND OPERATOR Float Phlebotomist 10/16/24 Corry Bansal, RN Registered Nurse 02/07/25 Tara Fofana MD [address] [place] [address] Internal Medicine-Hematology and Oncology 04/30/25 documented as of this encounter
[2025-06-08 09:14] VITALS: BMI 23.8
--- OUTSIDE RECORDS SUMMARY | 2025-06-08 12:20 | XMS_ITS | Encounter Summary ---
Author Organization [place] [address] Care Team Providers Care Research Staff Member Name Role Phone Kathryn Newell MD Unavailable [phone] Cristóbal Carr MD Unavailable [phone] Radha Wise DO Primary Care Provider + [phone] Naz Lara RN Unavailable Martín September PRECISION AGRICULTURE TECHNICIAN Unavailable [phone] Corry Bansal RN Unavailable [phone] Reason for Visit * Reason Onset Date Comments Other 04/10/2025 Encounter Details Date Type Department Care Team (Late st Contact Info) Description 04/10/2025 Telephone [facility] Vascular Surg [address] [facility] [address] [place] [address] Jose De Jesus Gregory MD [address] [place] [address] [id number] Other Social History Tobacco Use Types Packs/Day Years Used Date Smoking Tobacco: Every Day Cigarettes 0.8 49.1 Started: 04/17/1976; Last attempted to quit: 01/21/2025 Smokeless Tobacco: Never Comments:She has nicotine pa tches that she will be starting in the future Alcohol Use Standard Drinks/Week Comments Not Currently 0 (1 standard drink = 0.6 oz pur e alcohol) [facility] Utilities Answer Date Recorded In the past [...] Date Recorded PHQ-2 Total Score 0 [facility]2025 [facility] - Occupational Stress Questionnaire Answer Date Recorded [...] money to get more. Sometimes true [facility]20[facility] IP Transportation Answer D ate Recorded [...] Anuradha Hooker RMA documented in this encounter Miscellaneous Notes * Telephone Encounter - Esperanza Neff, Francoisrical Staff - 04/17/2025 8:11 AM EDT Appointment made for 05-07-25 * Telephone Encounter - Esperanza Neff Clerical Staff - 04/10/2025 8:44 AM EDT Received referral fro [facility] for aorta aneurysm the results are suppose to be on a cta I cannot fine any information I left message for patient to call me be sure and ask wheren she had testing done and have them fax it over to us referred to Dr South documented in this encounter Plan of Treatment Upcoming Encounters Date Type Department Care Team (Late st Contact Info) Description 07/04/2025 1:45 PM EST Office Visit [facility] Pulmonology [facility] [address] [phone] Franklin Salmeron MD [address] [address] 07/27/2025 11:[address] [facility] [address] [place] [address] Tara Fofana MD [address] [place] [address] 07/30/2025 11:00 AM EST Appointment [place] [address] 07/30/2025 11:40 AM EST Appointment [facility] [place] [address] Tara Fofana MD [address] [place] [phone] documented as of this encounter Goals Goal [...] documented as of this encounter Visit Diagnoses Not on filedocumented in this encounter Care Teams Research Staff Member Relationship Specialty Start Date End Date Radha Wise DO [address] [place] [id number] PCP - General Family Medicine 10/02/23 Kathryn Newell MD Physician Internal Medicine-Gastroenter ology 11/27/14 Cristóbal Carr MD [address] [place] [address] [facility] [place] [place] [address] Physician Internal Medicine-Cardiovascu lar Disease 02/13/22 Naz Lara, RN Oncology Nurse Navigator 10/13/2404/14 Jinny Resendiz MSW Amortization Clerk 10/16/24 Corry Bansal, RN Registered Nurse 02/07/25 documented as of this encounter
--- OUTSIDE RECORDS SUMMARY | 2025-06-08 12:20 | XMS_ITS | Encounter Summary ---
Author Organization [place] [address] Care Team Providers Care Cyber Defense Analyst Name Role Phone Kathryn Newell MD Unavailable [phone] Cristóbal Carr MD Unavailable [phone] Radha Wise DO Primary Care Provider [phone] Naz Lara RN Unavailable Resendizseptember FISH FILLETER Unavailable [phone] Corry Bansal RN Unavailable [phone] Reason for Visit * Reason Comments Medication Refill Encounter Details Date Type Department Care Team (Late st Contact Info) Description 04/19/2025 Refill [facility] [address] [place] [address] Radha Wise DO [address] [employer] [place] [id number] Medication Refill Social History Tobacco Use Types Packs/Day Years Used Date Smoking Tobacco: Every Day Cigarettes 0.8 49.1 Started: 04/17/1976; Last attempted to quit: 01/21/2025 Smokeless Tobacco: Never Comments:She has nicotine pa tches that she will be starting in the future Alcohol Use Standard Drinks/Week Comments Not Currently 0 (1 standard drink = 0.6 oz pur e alcohol) [facility] Utilities Answer Date Recorded In [...] Date Recorded PHQ-2 Total Score 0 01/23/2025 [facility] - Occupational Stress Questionnaire Answer [...] money to get more. Sometimes true 10/2024 [facility] IP Transportation Answer D ate Recorded In [...] Anuradha Hooker RMA documented in this encounter Ordered Prescriptions Prescription Sig Dispense Quantity Refills Last Filled Start Date End Date lidocaine (LIDODERM) 5 % Top Adhesive Patch, MedicatedIndicatio ns:Rib pain PLACE 1 PATCH ONTO THE SKIN EVERY 12 HOURS. 10 Patch 04/20/2025 SUMAtriptan (IMITREX) 50 mg Oral TabletIndications: Other migraine, not intractable, without status migrainosus TAKE 1 TABLET BY MOUTH ONCE NEEDED FOR UP TO 1 DOSE. 1 Tablet 04/20/2025 04/20/2025 documented in this encounter Plan of Treatment Upcoming Encounters Date Type Department Care Team (Late st Contact Info) Description 07/04/2025 1:45 PM EST Office Visit SEP Pulmonology [facility] [address] [phone] Franklin Salmeron MD [address] [address] 07/27/2025 11:[address] [facility] [place] [address] [place] [address] Tara Fofana MD [address] [place] [address] 07/30/2025 11:00 AM EST Appointment [place] [address] 07/30/2025 11:40 AM EST [facility]ment [facility] [place] [address] Tara Fofana MD [address] [place] [address] documented as of this encounter Goals Goal Patient Goal Type Associated Problems Recent Progress Patient-Stated? Author Blood Pressure < 140/90 Blood Pressure 132/78(2024 11:49 AM EST) No Nicole Amador LPN Maintain a healthy diet, exercise regularly and maintain an ideal body weight General No Anuradha Haro RMA BMI (Calculated) < 30 General 24.2(05/07/20 11:45 AM EST) No Nicole Amador LPN Stay Tobacco Free Lifestyle No Anuradha Haro RMA HEMOGLOBIN A1C < 7.0 Result Component 6.1( 2:05 PM EST) No Nicole Amador LPN documented as of this encounter Visit Diagnoses Diagnosis Rib pain Chest pain, unspecified Other migraine, not intractable, without status migrainosus documented in this encounter Discontinued Medications Medication Sig Discontinue Reason Start Date End Da te SUMAtriptan (IMITREX) 50 mg Oral TabletIndications:Other migraine, not intractable, without status migrainosus Take 1 Tablet by mouth once as needed for up to 1 dose. 10/19/2024 04/20/2025 lidocaine (LIDODERM) 5 % Top Adhesive Patch, MedicatedIndications:Rib pain Place 1 Patch onto the skin every 12 hours. 03/22/2025 04/20/2025 documented as of this encounter Care Teams Cyber Defense Analyst Relationship Specialty Start Date End Date Radha Wise DO [address] [place], [place] [phone] PCP - General Family Medicine 10/02/23 Kathryn Newell MD Physician Internal Medicine-Gastroenter ology 11/27/14 Cristóbal Carr MD [address] [place] [address] [facility] [place] [address] Physician Internal Medicine-Cardiovascu lar Disease 02/13/22 Naz Lara, RN Oncology Nurse Navigator 10/13/2404/14 Jinny Resendiz, FISH FILLETER Design And Sales Consultant 10/16/24 Corry Bansal, KEVIN Registered Nurse 02/07/25 documented as of this encounter
--- OUTSIDE RECORDS SUMMARY | 2025-06-08 12:20 | XMS_ITS | Encounter Summary ---
Author Organization [place] [address] Care Team Providers Care Finish Carpenter Name Role Phone Kathryn Newell MD Unavailable [phone] Cristóbal Carr MD Unavailable [phone] Radha Wise DO Primary Care Provider [phone] Naz Lara RN Unavailable Resendizseptember SURVEILLANCE SYSTEMS ANALYST Unavailable [phone] Corry Bansal RN Unavailable [phone] Encounter Details Date Type Department Care Team (Late st Contact Info) Description 04/13/2025 Abstract [facility] [address] [place] [phone] Radha Wise DO [address] [place] [address] Social History Tobacco Use Types Packs/Day Years Used Date Smoking Tobacco: Every Day Cigarettes 0.8 49.1 Started: 04/17/1976; Last attempted to quit: 01/21/2025 Smokeless Tobacco: Never Comments:She has nicotine pa tches that she will be starting in the future Alcohol Use Standard Drinks/Week Comments Not Currently 0 (1 standard drink = 0.6 oz pur e alcohol) [facility] Utilities Answer Date Recorded In [...] Date Recorded PHQ-2 Total Score 0 01/23/2025 [facility] - Occupational Stress Questionnaire Answer Date Recorded [...] money to get more. Sometimes true 10/2024 [facility] IP Transportation Answer D ate [...] Assessment Author No 06/23/2019 4:41 PM JAY Adame s Anuradha Molly ELIO * Does this person have difficulty dressing [...] No 06/23/2019 4:41 PM Anuradha Hooker MollyELIO documented in this encounter Plan of Treatment Upcoming Encounters Date Type Department Care Team (Late st Contact Info) Description 07/04/2025 1:45 PM EST Office Visit SEP Pulmonology [facility] [address] [phone] Franklin Salmeron MD [address] [address] 07/27/2025 11:00 AM EST Appointment [facility] [address] [facility] [address] [place] [address] Tara Fofana MD [address] [place] [phone] 07/30/2025 11:00 AM EST Appointment [facility] [place] [address] 07/30/2025 11:40 AM EST Appointment [facility] [place], [place] [phone] Tara Fofana MD [address] [place] [address] documented as of this encounter Goals Goal [...] Name Priority Date/Time Associated Diagnosis Comments CBC Routine 04/05/2025 documented in this encounter Results * (ABNORMAL) CBC (04/05/2025) WBC 10.1 X10(3)/MCL SEP OFFICE RBC 4.21 4.00 - 5.20 X10(6)/MCL SEP OFFICE Hemoglobin 12.4 GM/DL SEP OFFICE Hematocrit 38.4 % SEP OFFICE MCV 91.2 82.0 - 108.0 FL SEP OFFICE MCH 29.5 26.0 - 34.0 PG SEP OFFICE MCHC 32 30 - 37 GM/DL SEP OFFICE RDW 47.0(A) 11.5 - 14.5 % SEP OFFICE Platelet 325 150 - 399 X10(3)/MCL SEP OFFICE MPV 9.7 7.5 - 11.5 FL SEP OFFICE Blood VENOUS BLOOD / Unknown 04/05/2025 us Historical Provider HEMATOLOGY ORDERABLES Final Result SEP OFFICE documented in this encounter Visit Diagnoses Not on filedocumented in this encounter Care Teams Finish Carpenter Relationship Specialty Start Date End Date Radha Wise DO [employer] [address] PCP - General Family Medicine 10/02/23 Kathryn Newell MD Physician Internal Medicine-Gastroenter ology 11/27/14 Cristóbal Carr MD [address] [place] [address] [place] [address] Physician Internal Medicine-Cardiovascu lar Disease 02/13/22 Naz Lara, RN Oncology Nurse Navigator 10/13/2404/14 Jinny Resendiz, SURVEILLANCE SYSTEMS ANALYST Tree Worker 10/16/24 Corry Bansal, KEVIN Registered Nurse 02/07/25 documented as of this encounter
--- OUTSIDE RECORDS SUMMARY | 2025-06-08 12:20 | XMS_ITS | Encounter Summary ---
Author Organization [place] [address] Care Team Providers Care Motorcycle Subassembly Repairer Name Role Phone Kathryn Newell MD Unavailable [phone] Cristóbal Carr MD Unavailable [phone] Radha Wise DO Primary Care Provider + [phone] Naz Lara RN Unavailable Martín September CABIN CREW Unavailable [phone] Corry Bansal RN Unavailable Reason for Visit * Reason Comments Lung Cancer Follow-up Encounter Details Date Type Department Care Team (Late st Contact Info) Description 04/18/2025 Patient Outreach [facility] [place] [phone] Tara Fofana MD [address] [place] [address] [phone] Lung Cancer; Follow-up Social History Tobacco Use Types Packs/Day Years Used Date Smoking Tobacco: Every Day Cigarettes 0.8 49.1 Started: 04/17/1976; Last attempted to quit: 01/21/2025 Smokeless Tobacco: Never Comments:She has nicotine pa tches that she will be starting in the future Alcohol Use Standard Drinks/Week Comments Not Currently 0 (1 standard drink = 0.6 oz pur e alcohol) [facility] Utilities Answer Date Recorded In the past [...] Date Recorded PHQ-2 Total Score 0 01/23/2025 [facility] of Occupat ional Health - Occupational Stress [...] to get more. Sometimes true 10/2024 [facility] IP Transportation Answer D ate Recorded In [...] Anuradha Hooker RMA documented in this encounter Progress Notes * Naz Lara RN - 04/18/2025 9:56 AM EDT Navigation Assessment Chief complaint: Chief Complaint Patient presents with Lung Cancer Follow-up Current Status: Active Diagnosis: Lung Cancer - Adenocarcinoma Visit Type: Documentation Only Reason: Coordination of Care Message sent to med onc to determine plan for treatment. Per chart review, planning to begin tx ~ 04/19 Follow-up Plan Med/Onc;Infusion TBD Onc NN will continue to follow patient. Plans to follow-up on C1 of tx. documented in this encounter Miscellaneous Notes * Telephone Encounter - Corry Bansal RN - 04/25/2025 3:22 PM EST Pt electing to not proceed with systemic therapy. Plan for surveillance, sent msg to scheduling to call pt to schedule f/up to discuss surveillance and answer pts questions (pt sent messages via [employer]). * Telephone Encounter - Corry Bansal RN - 04/19/2025 11:30 AM EDT I sent a [employer] msg yesterday which has not been read and LVM for pt just now. * Telephone Encounter - Corry Bansal RN - 04/18/2025 12:02 PM EDT Mychart msg sent to pt in another encounter. Will further advise once I hear back from pt. * Telephone Encounter - Lakshmi Dolan - 04/18/2025 10:25 AM EDT Please advise when D1C1 should be scheduled * Telephone Encounter - Corry Bansal RN - 04/18/2025 10:00 AM EDT Have not spoken to pt this week, was planning on reaching out to pt today or tomorrow if I had not heard from her to see if she is ready to schedule. documented in this encounter Plan of Treatment Upcoming Encounters Date Type Department Care Team (Late st Contact Info) Description 07/04/2025 1:45 PM EST Office Visit SEP Pulmonology [facility] [address] [phone] Franklin Salmeron MD [address] [address] 07/27/2025 11:[address] [facility] [place] [place] [address] [place] [address] Tara Fofana MD [address] [place] [address] 07/30/2025 11:00 AM EST Appointment [place] [address] 07/30/2025 11:40 AM EST [facility]ment [facility] [place] [address] Tara Fofana MD [address] [place] [address] documented as of this encounter Goals Goal Patient Goal Type Associated Problems Recent Progress Patient-Stated? Author Blood Pressure < 140/90 Blood Pressure 132/78(2024 11:49 AM EST) No Nicole Amador, FIXED ROUTE BUS OPERATOR Maintain a healthy diet, exercise regularly and maintain an ideal body weight General No Anuradha Haro RMA BMI (Calculated) < 30 General 24.2(05/07/20 11:45 AM EST) No Nicole Amador, FIXED ROUTE BUS OPERATOR Stay Tobacco Free Lifestyle No Anuradha Haro RMA HEMOGLOBIN A1C < 7.0 Result Component 6.1( 2:05 PM EST) No Nicole Amador FIXED ROUTE BUS OPERATOR documented as of this encounter Visit Diagnoses Not on filedocumented in this encounter Care Teams Motorcycle Subassembly Repairer Relationship Specialty Start Date End Date Radha Wise DO [address] [place], [place] [phone] PCP - General Family Medicine 10/02/23 Kathryn Newell MD Physician Internal Medicine-Gastroenter ology 11/27/14 Cristóbal Carr MD [address] [place] [address] Physician Internal Medicine-Cardiovascu lar Disease 02/13/22 Naz Lara, RN Oncology Nurse Navigator 10/13/2404/14 Jinny Resendiz, CABIN CREW Lapel Padder 10/16/24 Corry Bansal, RN Registered Nurse 02/07/25 documented as of this encounter
--- OUTSIDE RECORDS SUMMARY | 2025-06-08 12:20 | XMS_ITS | Encounter Summary ---
Author Organization [facility] Address [address] [place] [address] Care Team Providers Care Ethylbenzene Converter Operator Name Role Phone Kathryn Newell MD Unavailable [phone] Cristóbal Carr MD Unavailable [phone] Radha Wise DO Primary Care Provider Naz Lara RN Unavailable Resendizseptember FITTER UP Unavailable [phone] Corry Bansal RN Unavailable [phone] Tara Fofana MD Unavailable [phone] Encounter Details Date Type Department Care Team (Late st Contact Info) Description 03/21/2025 Orders Only [facility] [place] [address] [place], [place] [phone] Kymberly Ventura, RT Post-thoracotomy pain (Primary Dx) Social History Tobacco Use Types Packs/Day Years Used Date Smoking Tobacco: Former Cigarettes 0.8 48.8 1 - 01/21/2025 Smokeless Tobacco: Never Alcohol Use Standard Drinks/Week Comments Not Currently 0 (1 standard drink = 0.6 oz pur e alcohol) [facility] Utilities Answer Date Recorded In the [...] Date Recorded PHQ-2 Total Score 0 01/23/2025 [facility] of Occupat ional Health - Occupational [...] money to get more. Sometimes true 10/2024 [facility] IP Transportation Answer D ate Recorded [...] No 06/23/2019 4:41 PM EST Anuradha Angel MollyELIO * Because of a physical, mental or emotional condition, does this person have difficulty doing errands alone such as visiting a doctor's office or shopping? Answer Date of Assessment Author No 06/23/2019 4:41 PM EST Anuradha Angel RMA documented as of this encounter Mental Status * Because of a physical, mental or emotional condition, does this person have serious difficulty concentrating, remembering or making decisions? Answer Entry Date Author No 06/23/2019 4:41 PM EST Anuradha Angel RMA documented in this encounter Plan of Treatment Upcoming Encounters Date Type Department Care Team (Late st Contact Info) Description 07/04/2025 1:45 PM EST Office Visit SEP Pulmonology [facility] [address] [phone] Franklin Salmeron MD [address] [address] 07/27/2025 11:[address] [place] [address] [place] [address] Tara Fofana MD [address] [place] [address] 07/30/2025 11:00 AM EST Appointment [facility] [place], [place] [phone] 07/30/2025 11:40 AM EST Appointment [facility] [place], [place] [phone] Tara Fofana MD [address] [place] [phone] documented as of this encounter Goals Goal Patient Goal Type Associated Problems Recent Progress Patient-Stated? Author Blood Pressure < 140/90 Blood Pressure 132/78(11/17/ 2025 11:49 AM EST) No Nicole Amador LPN Maintain a healthy diet, exercise regularly and maintain an ideal body weight General No Anuradha Haro, RMA BMI (Calculated) < 30 General 24.2(05/07/20 25 11:45 AM EST) No Nicole Amador, MINE INSPECTOR Stay Tobacco Free Lifestyle No Anuradha Haro, RMA HEMOGLOBIN A1C < 7.0 Result Component 6.1( 2:05 PM EST) No Nicole Amador MINE INSPECTOR documented as of this encounter Visit Diagnoses Diagnosis Post-thoracotomy pain- Primary Acute post-thoracotomy pain documented in this encounter Care Teams Ethylbenzene Converter Operator Relationship Specialty Start Date End Date Radha Wise DO [address] [employer] [place], [place] [phone] PCP - General Family Medicine 10/02/23 Kathryn Newell MD Physician Internal Medicine-Gastroenter ology 11/27/14 Cristóbal Carr MD [address] [facility] [address] [place] [address] Physician Internal Medicine-Cardiovascu lar Disease 02/13/22 Naz Lara, RN Oncology Nurse Navigator 10/13/2404/14 Jinny Resendiz MSW Software Product Manager 10/16/24 Corry Bansal, KEVIN Registered Nurse 02/07/25 Tara Fofana MD [employer] [place], [place] [phone] Internal Medicine-Hematology and Oncology 04/30/25 documented as of this encounter
--- OUTSIDE RECORDS SUMMARY | 2025-06-08 12:20 | XMS_ITS | Encounter Summary ---
Author Organization [place] [address] Care Team Providers Care Imaging Technician Name Role Phone Kathryn Newell MD Unavailable [phone] Cristóbal Carr MD Unavailable [phone] Radha Wise DO Primary Care Provider [phone] Naz Lara RN Unavailable Resendizseptember CAR SALESMAN Unavailable [phone] Corry Bansal RN Unavailable [phone] Tara Fofana MD Unavailable Reason for Visit * Reason Onset Date Comments Schedule Appointment 04/18/2025 Follow-up 04/18/2025 Encounter Details Date Type Department Care Team (Late st Contact Info) Description 04/18/2025 Telephone [facility] [place], [place] [phone] Tara Fofana MD [address] [place] [phone] Schedule Appointment; Follow-up Social History Tobacco Use Types Packs/Day Years Used Date Smoking Tobacco: Every Day Cigarettes 0.8 49.1 Started: 04/17/1976; Last attempted to quit: 01/21/2025 Smokeless Tobacco: Never Comments:She has nicotine pa tches that she will be starting in the future Alcohol Use Standard Drinks/Week Comments Not Currently 0 (1 standard drink = 0.6 oz pur e alcohol) [facility] Utilities Answer Date Recorded In the [...] Date Recorded PHQ-2 Total Score 0 01/23/2025 [facility] of Occupat ional Health - Occupational Stress [...] money to get more. Sometimes true 10/[address] [facility] IP Transportation Answer D ate Recorded In [...] Assessment Author No 06/23/2019 4:41 PM Anuradha Hooker, RMA * Does this person have serious difficulty walking or climbing stairs? Answer Date of Assessment Author No 06/23/2019 4:41 PM Anuradha Hooker, RMA * Does this person have difficulty dressing or bathing? Answer Date of Assessment Author No 06/23/2019 4:41 PM Anuradha Hooker, RMA * Because of a physical, mental or emotional condition, does this person have difficulty doing errands alone such as visiting a doctor's office or shopping? Answer Date of Assessment Author No 06/23/2019 4:41 PM Anuradha Hooker, ZENIAA documented as of this encounter Mental Status * Because of a physical, mental or emotional condition, does this person have serious difficulty concentrating, remembering or making decisions? Answer Entry Date Author No 06/23/2019 4:41 PM Anuradha Hooker, ZENIAA documented in this encounter Miscellaneous Notes * Telephone Encounter - Corry Bansal RN - 04/30/2025 1:03 PM EST Called pt, LVM lab appt not needed, and to come at 340pm for OV, call [phone] for questions. * Telephone Encounter - Corry Bansal RN - 04/19/2025 11:29 AM EDT LVM for pt to return call. * Telephone Encounter - Corry Bansal RN - 04/18/2025 11:58 AM EDT Last week pt was in office for f/up and chemo teach. Pt said she would let us know when ready to schedule chemo. Have not heard back from pt, aayush msg sent to pt to check in. documented in this encounter Plan of Treatment Upcoming Encounters Date Type Department Care Team (Late st Contact Info) Description 07/04/2025 1:45 PM EST Office Visit [facility] Pulmonology [facility] [address] [phone] Franklin Salmeron MD [address] [address] 07/27/2025 11:00 AM EST Appointment [facility] [address] [place] [address] Tara Fofana MD [address] [place] [address] 07/30/2025 11:00 AM EST Appointment [place] [address] 07/30/2025 11:40 AM EST Appointment [facility] [place] [address] Tara Fofana MD [address] [place] [address] documented as of this encounter Goals Goal [...] on filedocumented in this encounter Care Teams Imaging Technician Relationship Specialty Start Date End Date Radha Wise DO [address] [place] [phone] PCP - General Family Medicine 10/02/23 Kathryn Newell MD Physician Internal Medicine-Gastroenter ology 11/27/14 Cristóbal Carr MD [address] [place] [address] Physician Internal Medicine-Cardiovascu lar Disease 02/13/22 Naz Lara, RN Oncology Nurse Navigator 10/13/2404/14 Jinny Resendiz MSW Grain Elevator Superintendent 10/16/24 Corry Bansal, RN Registered Nurse 02/07/25 Tara Fofana MD [address] [employer] [place], [place] [phone] Internal Medicine-Hematology and Oncology 04/30/25 documented as of this encounter
--- OUTSIDE RECORDS SUMMARY | 2025-06-08 12:20 | XMS_ITS | Encounter Summary ---
Author Organization [facility] Address [address] [place] [address] Care Team Providers Care Glass Products Inspector Name Role Phone Kathryn Newell MD Unavailable [phone] Cristóbal Carr MD Unavailable [phone] Radha Wise DO Primary Care Provider + [phone] Naz Lara RN Unavailable Martín September LEATHER TANNER Unavailable [phone] Corry Bansal RN Unavailable [phone] Reason for Visit * Reason Onset Date Comments Schedule Appointment 03/19/2025 Follow-up 03/19/2025 Encounter Details Date Type Department Care Team (Late Contact Info) Description 03/19/2025 Telephone [facility] [place] [address] [place] [phone] Kymberly Ventura, RT Schedule Appointment; Follow-up Social History Tobacco Use Types Packs/Day Years Used Date Smoking Tobacco: Former Cigarettes 0.8 48.8 1 - 01/21/2025 Smokeless Tobacco: Never Alcohol Use Standard Drinks/Week Comments Not Currently 0 (1 standard drink = 0.6 oz pur e alcohol) [facility] Utilities Answer Date Recorded [...] Date Recorded PHQ-2 Total Score 0 01/23/2025 [facility] of Occupat ional Health - Occupational Stress [...] money to get more. Sometimes true 10/2024 [facility] IP Transportation Answer D ate Recorded [...] 06/23/2019 4:41 PM Anuradha Hooker Molly ELIO * Because of a physical, mental or [...] Anuradha Hooker MollyELIO documented in this encounter Miscellaneous Notes * Telephone Encounter - Kymberly Ventura RT - 03/29/2025 9:42 AM EDT F/u neurolysis Left message * Telephone Encounter - Kymberly Ventura RT - 03/28/2025 11:01 AM EDT F/U CT intercostal NEUROLYSIS/ done 03-27-25 Not able to leave message * Telephone Encounter - Kymberly Ventura RT - 03/20/2025 9:18 AM EDT Left message to schedule CT neurolysis * Telephone Encounter - Kymberly Ventura RT - 03/19/2025 1:57 PM EDT Left message to schedule neurolysis/ 03-27-25 1030/12 Anesthesia/ Mimi Bermudezk confirmed documented in this encounter Plan of Treatment Upcoming Encounters Date Type Department Care Team (Late st Contact Info) Description 07/04/2025 1:45 PM EST Office Visit SEP Pulmonology [facility] [address] [address] Franklin Salmeron MD [address] [address] 07/27/2025 11:[address] [facility] [place] [facility] [address] [place] [address] Tara Fofana MD [address] [place] [address] [phone] 07/30/2025 11:00 AM EST Appointment [facility] [place], [place] [phone] 07/30/2025 11:40 AM EST [facility]ointment [facility] [place] [address] Tara Fofana MD [address] [place] [address] [phone] documented as of this encounter Goals Goal Patient Goal Type Associated Problems Recent Progress Patient-Stated? Author Blood Pressure < 140/90 Blood Pressure 132/78(2024 11:49 AM EST) No Nicole Amador LPN Maintain a healthy diet, exercise regularly and maintain an ideal body weight General No Anuradha Haro, ZENIAA BMI (Calculated) < 30 General 24.2(05/07/20 11:45 AM EST) No Nicole Amador LPN Stay Tobacco Free Lifestyle No Anuradha Haro, RMA HEMOGLOBIN A1C < 7.0 Result Component 6.1( 2:05 PM EST) No Nicole Amador LPN documented as of this encounter Visit Diagnoses Not on filedocumented in this encounter Care Teams Glass Products Inspector Relationship Specialty Start Date End Date Radha Wise DO [place], [place] [phone] PCP - General Family Medicine 10/02/23 Kathryn Newell MD Physician Internal Medicine-Gastroenter ology 11/27/14 Cristóbal Carr MD [address] [place] [address] Physician Internal Medicine-Cardiovascu lar Disease 02/13/22 Naz Lara, RN Oncology Nurse Navigator 10/13/2404/14 Jinny Resendiz MSW Wellness Educator 10/16/24 Corry Bansal, RN Registered Nurse 02/07/25 documented as of this encounter
--- OUTSIDE RECORDS SUMMARY | 2025-06-08 12:20 | XMS_ITS | Encounter Summary ---
Author Organization [place] [address] Care Team Providers Care Fuel Oil Clerk Name Role Phone Kathryn Newell MD Unavailable [phone] Cristóbal Carr MD Unavailable [phone] Radha Wise DO Primary Care Provider [phone] Naz Lara RN Unavailable Resendizseptember MARKETING REPORTING ANALYST Unavailable [phone] Corry Bansal RN Unavailable [phone] Encounter Details Date Type Department Care Team (Late st Contact Info) Description 04/09/2025 Orders Only [facility] 1 [place] [address] Cleveland Brand MD [address] [place] [address] [address] [place] [address] Adenocarcinoma of left lung (HCC) (Primary Dx) Social History Tobacco Use Types Packs/Day Years Used Date Smoking Tobacco: Every Day Cigarettes 0.8 49.1 Started: 04/17/1976; Last attempted to quit: 01/21/2025 Smokeless Tobacco: Never Comments:She has nicotine pa tches that she will be starting in the future Alcohol Use Standard Drinks/Week Comments Not Currently 0 (1 standard drink = 0.6 oz pur e alcohol) [facility] Utilities Answer Date Recorded In the past [...] Date Recorded PHQ-2 Total Score 0 01/23/2025 [facility] of Occupat ional Health - Occupational [...] money to get more. Sometimes true 10/2024 [facility] IP Transportation Answer D ate Recorded [...] 06/23/2019 4:41 PM Anuradha Hooker MollyELIO documented as of this encounter Mental Status * Because of a physical, mental or emotional condition, does this person have serious difficulty concentrating, remembering or making decisions? Answer Entry Date Author No 06/23/2019 4:41 PM Anuradha Hooker MollyELIO documented in this encounter Ordered Prescriptions Prescription Sig Dispense Quantity Refills Last Filled Start Date End Date ketorolac (TORADOL) 10 mg Oral TabletIndications: Adenocarcinoma of left lung (HCC) Take 1 Tablet by mouth every 6 hours for 4 days. 16 Tablet 04/09/2025 04/13/2025 documented in this encounter Plan of Treatment Upcoming Encounters Date Type Department Care Team (Late st Contact Info) Description 07/04/2025 1:45 PM EST Office Visit SEP Pulmonology [facility] [address] [phone] Franklin Salmeron MD [address] [address] 07/27/2025 11:[address] [facility] [place] [facility] [address] [place] [address] Tara Fofana MD [address] [place] [address] 07/30/2025 11:00 AM EST Appointment [facility] [place], [place] [phone] 07/30/2025 11:40 AM EST Appointment [facility] [place], [place] [phone] Tara Fofana MD 1 [place] [address] documented as of this encounter Goals Goal Patient Goal Type Associated Problems Recent Progress Patient-Stated? Author Blood Pressure < 140/90 Blood Pressure 132/78(2024 11:49 AM EST) No Nicole Amador LPN Maintain a healthy diet, exercise regularly and maintain an ideal body weight General No Anuradha Haro, RMA BMI (Calculated) < 30 General 24.2(05/07/20 11:45 AM EST) No Nicole Amador CHEESE TESTER Stay Tobacco Free Lifestyle No Anuradha Haro, RMA HEMOGLOBIN A1C < 7.0 Result Component 6.1( 2:05 PM EST) No Nicole Amador LPN documented as of this encounter Visit Diagnoses Diagnosis Adenocarcinoma of left lung (HCC)- Primary documented in this encounter Care Teams Fuel Oil Clerk Relationship Specialty Start Date End Date Radha Wise DO [address] [place] [address] PCP - General Family Medicine 10/02/23 Kathryn Newell MD Physician Internal Medicine-Gastroenter ology 11/27/14 Cristóbal Carr MD [facility] [facility] [place] [address] Physician Internal Medicine-Cardiovascu lar Disease 02/13/22 Naz Lara, RN Oncology Nurse Navigator 10/13/2404/14 Jinny Resendiz, REJI Process Description Writer 10/16/24 Corry Bansal, RN Registered Nurse 02/07/25 documented as of this encounter
--- OUTSIDE RECORDS SUMMARY | 2025-06-08 12:20 | XMS_ITS | Encounter Summary ---
Author Organization [place] [address] Care Team Providers Care Wet End Operator Name Role Phone Kathryn Newell MD Unavailable [phone] Cristóbal Carr MD Unavailable [phone] Radha Wise DO Primary Care Provider [phone] Naz Lara RN Unavailable [phone] Martín September ACTIVITIES DIRECTOR Unavailable [phone] Corry Bansal RN Unavailable [phone] Reason for Visit * Reason Onset Date Comments Schedule Appointment 04/25/2025 Follow Up A ppointment Scheduled Encounter Details Date Type Department Care Team (Late Contact Info) Description 04/25/2025 Telephone [facility] [place] [phone] Tara Fofana MD [address] [place], [place] [phone] Schedule Appointment (Follow Up Appointment Scheduled) Social History Tobacco Use Types Packs/Day Years [...] Date Recorded PHQ-2 Total Score 0 01/23/2025 [facility] of Occupat ional Health - Occupational Stress [...] money to get more. Sometimes true 10/2024 [facility] IP Transportation Answer D ate [...] Angel RMA * Does this person have difficulty [...] Anuradha Angel RMA documented in this encounter Miscellaneous Notes * Telephone Encounter - Corry Bansal RN - 04/25/2025 3:55 PM EST Lab appt not needed, canceled and let pt know via [employer]. * Telephone Encounter - Ashley Escalera, Clerical Staff - 04/25/2025 3:28 PM EST Patient's appointment has been scheduled for 04/30 at 3:15 for labs and 3:[address] Fofana. * Telephone Encounter - Bernie Dick CNA - 04/25/2025 2:51 PM EST LVM for patient to call [phone] to schedule MD OV with Dr. Fofana in the next week or so per in basket. documented in this encounter Plan of Treatment Upcoming Encounters Date Type Department Care Team (Late st Contact Info) Description 07/04/2025 1:45 PM EST Office Visit SEP Pulmonology [facility] [address] [address] Franklin Salmeron MD [address] [address] 07/27/2025 11:[address] [facility] [place] [address] [place] [address] Tara Fofana MD [address] [place] [address] 07/30/2025 11:00 AM EST Appointment [facility] [place] [address] 07/30/2025 11:40 AM EST Appointment [facility] [place] [address] Tara Fofana MD [address] [place] [address] documented as of this encounter Goals Goal [...] on filedocumented in this encounter Care Teams Wet End Operator Relationship Specialty Start Date End Date Radha Wise DO [address] [place], [place] [phone] PCP - General Family Medicine 10/02/23 Kathryn Newell MD Physician Internal Medicine-Gastroenter ology 11/27/14 Cristóbal Carr MD [address] [place] [address] Physician Internal Medicine-Cardiovascu lar Disease 02/13/22 Naz Lara, RN Oncology Nurse Navigator 10/13/2404/14 Jinny Resendiz, REJI Ob/Gyn Physician 10/16/24 Corry Bansal, RN Registered Nurse 02/07/25 documented as of this encounter
--- OUTSIDE RECORDS SUMMARY | 2025-06-08 12:21 | XMS_ITS | Encounter Summary ---
Author Organization [place] [address] Care Team Providers Care Wood Gluer Name Role Phone Kathryn Newell MD Unavailable [phone] Cristóbal Carr MD Unavailable [phone] Radha Wise DO Primary Care Provider [phone] Resendizseptember OBSTETRICS TECH Unavailable [phone] Corry Bansal RN Unavailable [phone] Tara Fofana MD Unavailable [phone] Reason for Visit * Reason Onset Date Comments Medication Refill 05/31/2025 Encounter Details Date Type Department Care Team (Late st Contact Info) Description 05/31/2025 Refill [facility] [place] [phone] Tara Fofana MD [address] [place] [address] [phone] Medication Refill Social History Tobacco Use Types Packs/Day Years Used Date Smoking Tobacco: Every Day Cigarettes 0.8 49.1 Started: 04/17/1976; Last attempted to quit: 01/21/2025 Smokeless Tobacco: Never Comments:She has nicotine pa tches that she will be starting in the future Alcohol Use Standard Drinks/Week Comments Not Currently 0 (1 standard drink = 0.6 oz pur e alcohol) [facility] Utilities Answer Date Recorded In [...] Date Recorded PHQ-2 Total Score 0 01/23/2025 [facility] of Occupat ional Health - Occupational Stress [...] money to get more. Sometimes true 10/2024 [facility] IP Transportation Answer D ate Recorded In [...] 1 Capsule by mouth 2 times daily. 05/31/2025 documented in this encounter Miscellaneous Notes * Telephone Encounter - Corry Bansal RN - 05/31/2025 3:36 PM EST Received refill request for Gabapentin. Chart reviewed. Per last visit note on 04/30/25: Post-op pain: Start Gabapentin 300mg bid - start with once a day dose x 1 week and then build up to twice a day. Last script of 60 capsules + 2 refills sent on 04/30/25. Called pts pharmacy and refills still available and they will process one for pt. Called and spoke to pt and let her know - she VU. Script refused. Next OV 07/30/25. Sent script to MD to sign to add back on to chart for review as 04/30/25 script fell off med list. documented in this encounter Plan of Treatment Upcoming Encounters Date Type Department Care Team (Late st Contact Info) Description 07/04/2025 1:45 PM EST Office Visit SEP Pulmonology [facility] [address] [address] Franklin aSlmeron MD 651 [facility] [address] [place] [address] 07/27/2025 11:[address] [address] [address] [place] [address] Tara Fofana MD [address] [place] [address] [phone] 07/30/2025 11:00 AM EST Appointment [place] [address] 07/30/2025 11:40 AM EST Appointment [facility] [place], [place] [phone] Tara Fofana MD [address] [place] [address] [phone] documented as of this encounter Goals Goal [...] Primary documented in this encounter Care Teams [place] Gluer Relationship Specialty Start Date End Date Radha Wise DO [address] [place] [address] PCP - General Family Medicine 10/02/23 Kathryn Newell MD Physician Internal Medicine-Gastroenterolog y 11/27/14 Cristóbal Carr MD [address] [place] [address] Physician Internal Medicine-Cardiovascular Disease 02/13/22 Jinny Resendiz, OBSTETRICS TECH Race Engine Builder 10/16/24 Corry Bansal, RN Registered Nurse 02/07/25 Tara Fofana MD [address] [place] [address] [phone] Internal Medicine-Hematology and Oncology 04/30/25 documented as of this encounter
--- OUTSIDE RECORDS SUMMARY | 2025-06-08 12:21 | XMS_ITS | Encounter Summary ---
Author Organization [facility] [place] [address] Care Team Providers Care Systems Librarian Name Role Phone Kathryn Newell MD Unavailable [phone] Cristóbal Carr MD Unavailable [phone] Radha Wise DO Primary Care Provider [phone] Resendizseptember BARREL DEDENTING MACHINE OPERATOR Unavailable [phone] Corry Bansal RN Unavailable [phone] Tara Fofana MD Unavailable [phone] Encounter Details Date Type Department Care Team (Latest Contact Info) Description 05/07/2025 Travel Social History Tobacco Use Types Packs/Day Years Used Date Smoking Tobacco: Every Day Cigarettes 0.8 49.1 Started: 04/17/1976; Last attempted to quit: 01/21/2025 Smokeless Tobacco: Never Comments:She has nicotine pa tcrebecca that she will be starting in the future Alcohol Use Standard Drinks/Week Comments Not Currently 0 (1 standard drink = 0.6 oz pur e alcohol) [facility] Utilities Answer Date Recorded In the [...] Score 0 01/23/2025 [facility] - Occupational Stress Questionnaire Answer Date Recorded [...] money to get more. Sometimes true 10/2024 [facility] IP Transportation Answer D ate Recorded In [...] EST Office Visit SEP Pulmonology [facility] [address] [phone] Franklin Salmeron MD [address] [address] 07/27/2025 11:[address] [facility] [place] [address] [place] [address] Tara Fofana MD [address] [place] [address] [phone] 07/30/2025 11:00 AM EST Appointment [facility] [place], [place] [phone] 07/30/2025 11:40 AM EST Appointment [facility] [place], [place] [phone] Tara Fofana MD [address] [place] [address] [phone] documented as of this encounter Goals Goal Patient Goal Type Associated Problems Recent Progress Patient-Stated? Author Blood Pressure < 140/90 Blood Pressure 132/78(2024 11:49 AM EST) No Nicole Amador LPN Maintain a healthy diet, exercise regularly and maintain an ideal body weight General No Anuradha Haro RMA BMI (Calculated) < 30 General 24.2(05/07/20 25 11:45 AM EST) No MarjorieNicole, WOOL WASHER FEEDER Stay Tobacco Free Lifestyle No Estrellita Anuradha ELIO Barnes HEMOGLOBIN A1C < 7.0 Result Component 6.1( 5 2:05 PM EST) No Nicole Amador WOOL WASHER FEEDER documented as of this encounter Visit Diagnoses Not on filedocumented in this encounter Care Teams Systems Librarian Relationship Specialty Start Date End Date Radha Wise DO [address] [employer] [place], [place] [phone] PCP - General Family Medicine 10/02/23 Kathryn Newell MD Physician Internal Medicine-Gastroenterolog y 11/27/14 Cristóbal Carr MD [address] [facility] [place] [address] Physician Internal Medicine-Cardiovascular Disease 02/13/22 Jinny Resendiz, BARREL DEDENTING MACHINE OPERATOR Ramp Lead 10/16/24 Corry Bansal, RN Registered Nurse 02/07/25 Tara Fofana MD [address] [place] [address] [phone] Internal Medicine-Hematology and Oncology 04/30/25 documented as of this encounter
--- OUTSIDE RECORDS SUMMARY | 2025-06-08 12:21 | XMS_ITS | Encounter Summary ---
Author Organization [place] [address] Care Team Providers Care Manager Room Name Role Phone Celeste Gamez MD Primary Care Provi patito Unavailable Kathryn Newell MD Unavailable [phone] Cristóbal Carr MD Unavailable [phone] Radha Wise DO Primary Care Provider Naz Lara RN Unavailable [phone] September RESIDENTIAL COUNSELOR Unavailable Corry Bansal RN Unavailable [phone] Tara Fofana MD Unavailable [phone] Encounter Details Date Type Department Care Team (Late st Contact Info) Description 01/12/2020 Orders Only SEP Gastro [facility] [address] [facility] [address] [place] [address] Kathryn Newell MD [address] [facility] [place] [address] Social History Tobacco Use Types Packs/Day Years Used Date Smoking Tobacco: Every Day Cigarettes 0.5 49.1 Started: 04/17/1976 Smokeless Tobacco: Never Alcohol Use Standard Drinks/Week Comments No 0 (1 standard drink = 0.6 oz pur e alcohol) PHQ-2 Answer Date Recorded PHQ-2 Score 0 11/08/2018 Comments No Sex and Gender Information Value Date Recorded Sex Assigned at Not on file Legal Sex Female 5:11 AM EDT Gender Identity Not on file Sexual Orientation Not on file COVID-19 Exposure Response Date Recorded In the last month, have you been in contact with someone who was confirmed or suspected to have Coronavirus / COVID-19? No / Unsure 01/08/2020 12:00 PM EDT documented as of this encounter Functional Status [...] Anuradha Hooker RMA documented in this encounter Plan of Treatment Upcoming Encounters Date Type Department Care Team (Late st Contact Info) Description 07/04/2025 1:45 PM EST Office Visit SEP Pulmonology [facility] [address] [phone] Franklin Salmeron MD [address] [address] 07/27/2025 11:[address] [address] [place] [address] Tara Fofana MD [address] [place] [address] 07/30/2025 11:00 AM EST Appointment [place] [address] 07/30/2025 11:40 AM EST Appointment [facility] [place] [address] Tara Fofana MD [address] [place] [address] documented as of this encounter Goals Goal [...] Procedure Name Priority Date/Time Associated Diagnosis Comments [facility] EGD Routine 01/12/2020 7:45 AM EDT documented in this encounter Results * [facility] EGD (01/12/2020 7:45 AM EDT) 01/12/2020 7:45 AM EDT Impressions [facility] - 01/12/2020 8:18 AM EDT Duodenal bezoar. Gastric food. Normal mucosa in the whole esophagus. Plan: Findings consistent with gastroparesis causing epigastric pain. Small, frequent meals, start Reglan. This section is an excerpt of the full report. Kathryn Newell MD GI PROCEDURE ORDERABLES Final Result [facility] [address] [place] [phone] documented in this encounter Visit Diagnoses Not on filedocumented in this encounter Additional Health Concerns Infection Onset Date Last Indicated Resolved Time R/O COVID-19 12/23/2024 12/23/2024 12/23/2024 3:04 PM EDT documented as of this encounter Care Teams Manager Room Relationship Specialty Start Date End Date Celeste Gamez MD PCP - General Family Medicine 10/05/14 10/01/23 Radha Wise DO [address] [place] [address] PCP - General Family Medicine 10/02/23 Kathryn Newell MD Physician Internal Medicine-Gastroenter ology 11/27/14 Cristóbal Carr MD [facility] [address] [place] [address] Physician Internal Medicine-Cardiovascu lar Disease 02/13/22 Naz Lara, RN Oncology Nurse Navigator 10/13/24 04/30/25 Jinny Resendiz, RESIDENTIAL COUNSELOR Cafeteria Assistant 10/16/24 Corry Bansal, KEVIN Registered Nurse 02/07/25 Tara Fofana MD 1 [place], [place] [phone] Internal Medicine-Hematology and Oncology 04/30/25 documented as of this encounter
--- OUTSIDE RECORDS SUMMARY | 2025-06-08 12:21 | XMS_ITS | Clinical Summary ---
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 [phone] Corry Bansal RN Unavailable [phone] Tara Fofana MD Unavailable [phone] Allergies No known active allergies Medications Blood-Glucose Meter Misc KitIndications:Gl ucose intolerance (impaired glucose tolerance) Use to check blood sugars up to twice daily 1 Kit 02/14/20 22 Active Lancets Misc MiscIndications:G lucose intolerance (impaired glucose tolerance) Use to check blood sugars up to twice daily 100 Each 11 02/14/20 22 Active EASY TOUCH ALCOHOL PREP PADS Top Pads, MedicatedIndicati ons:Glucose intolerance (impaired glucose tolerance) USE WHEN CHECK BLOOD SUGARS UP TO TWICE DAILY 100 Each 11 04/28/20 23 Active citalopram (CELEXA) 20 mg Oral TabletIndications :REBEKAH (generalized anxiety disorder) Take 1 Tablet by mouth daily. 90 Tablet 3 03/27/20 24 Active montelukast (SINGULAIR) 10 mg Oral TabletIndications :Seasonal allergic rhinitis, unspecified trigger Take 1 Tablet by mouth nightly. at bedtime 90 Tablet 3 04/13/20 24 Active FREESTYLE LITE STRIPS Misc StripIndications: Glucose intolerance (impaired glucose tolerance) USE TO CHECK BLOOD SUGARS UP TO TWICE DAILY 100 Strip 11 04/18/20 24 Active pantoprazole (PROTONIX) 40 mg Oral Tablet, Delayed Release (E.C.) Take 1 Tablet by mouth 2 times daily. 90 Tablet 3 09/21/19 25 Active amLODIPine (NORVASC) 10 mg Oral Tablet TAKE 1 TABLET BY MOUTH EVERY DAY 100 Tablet 1 09/27/19 25 Active REPATHA SURECLICK 140 mg/mL SubQ Pen Injector INJECT 140 MG SUBCUTANEOUSLY EVERY 2 WEEKS 09/19/19 25 Active metoprolol succinate (TOPROL-XL) 25 mg Oral Tablet Sustained Release 24 hr Take 25 mg by mouth every morning. 09/05/19 25 Active folic acid (FOLVITE) 1 mg Oral Tablet TAKE 1 TABLET BY MOUTH EVERY DAY 100 Tablet 1 02/28/20 25 Active rosuvastatin (CRESTOR) 40 mg Oral TabletIndications :Other hyperlipidemia Take 1 Tablet by mouth nightly for 360 days. 90 Tablet 3 03/08/20 25 2025 Active acetaminophen 325 mg Oral Tab Take by mouth every 4 hours as needed for Pain. Active aspirin 81 mg Oral Tablet, Delayed Release (E.C.) Take 1 Tablet by mouth every morning. 03/29/20 25 Active clopidogreL (PLAVIX) 75 mg Oral TabletIndications :Coronary artery disease involving [place] coronary artery of [place] heart with angina pectoris Take 1 Tablet by mouth daily. 03/29/20 25 Active potassium chloride SA (KLOR-CON M) 10 mEq Oral Tab Sust.Rel. Particle/CrystalI ndications:[place] lemia TAKE 1 TABLET BY MOUTH EVERY DAY 30 Tablet 04/06/20 25 Active dexAMETHasone (DECADRON) 4 mg Oral TabletIndications :Adenocarcinoma of left lung (HCC) Take 1 tablet (4 mg) orally twice daily day before chemotherapy and days 2, 3, 4 each cycle (skip day 1 as will receive IV in treatment suite). 24 Tablet 1 04/12/20 25 Active prochlorperazine (COMPAZINE) 10 mg Oral TabletIndications :Adenocarcinoma of left lung (HCC) Take 1 tablet by mouth every 6 hours as needed for nausea and vomiting. 30 Tablet 5 04/12/20 25 Active lidocaine (LIDODERM) 5 % Top Adhesive Patch, MedicatedIndicati ons:Rib pain PLACE 1 PATCH ONTO THE SKIN EVERY 12 HOURS. 10 Patch 04/20/20 25 Active ALPRAZolam (XANAX) 0.25 mg Oral TabletIndications :REBEKAH (generalized anxiety disorder) Take 1 Tablet by mouth 2 times daily as needed. for anxiety 60 Tablet 2 05/21/20 25 Active albuterol-ipratro pium (DUO-NEB) 3 mg-0.5 mg(2.5 mg base)/3 mL Inhl Solution for NebulizationIndic ations:COPD with acute exacerbation (HCC) Take 3 mL by nebulization every 6 hours as needed for Shortness of Breath. 12 mL 1 05/22/20 25 Active dapagliflozin propanediol (FARXIGA) 10 mg Oral Tablet Take 1 Tablet by mouth daily. 90 Tablet 05/22/20 25 Active albuterol (PROAIR HFA) 90 mcg/actuation Inhl HFA Aerosol InhalerIndication s:Shortness of breath,Tobacco abuse INHALE 2 PUFFS BY MOUTH EVERY 4 HOURS NEEDED FOR WHEEZE 8.5 Each 2 05/28/20 25 Active gabapentin (NEURONTIN) 300 mg Oral CapsuleIndication s:Adenocarcinoma of left lung (HCC) Take 1 Capsule by mouth 2 times daily. 05/31/20 25 Active dapagliflozin propanediol (FARXIGA) 10 mg Oral Tablet Take 1 Tablet by mouth daily. 90 Tablet 11/28/19 25 2024 Discontin ued(Reord er) albuterol-ipratro pium (DUO-NEB) 3 mg-0.5 mg(2.5 mg base)/3 mL Inhl Solution for NebulizationIndic ations:COPD with acute exacerbation (HCC) Take 3 mL by nebulization every 6 hours as needed for Shortness of Breath. 12 mL 1 03/09/20 25 2024 Discontin ued(Reord er) ALPRAZolam (XANAX) 0.25 mg Oral TabletIndications :REBEKAH (generalized anxiety disorder) Take 1 Tablet by mouth 2 times daily as needed. for anxiety 60 Tablet 2 03/22/20 25 2024 Discontin ued(Reord er) gabapentin (NEURONTIN) 300 mg Oral CapsuleIndication s:Adenocarcinoma of left lung (HCC) Take 1 Capsule by mouth 2 times daily for 30 days. 60 Capsule 2 04/30/202024 Hospital, Clinic, or Other Facility Administered Medication Ordered Dose Route Frequency Start Date End Date Status cyanocobalamin injection 1,000 mcgIndications:Low serum vitamin B12 1000 mcg IM EVERY 30 DAYS 10/29/2023 Acti ve Active Problems Patient Care Coordination No te Formatting of this note migh t be different from the original. CSA updated 08/10/24 UDS: 08/10/24 Compliance: 08/10/24 Problem Noted Date Diagnosed Date Abdominal aneurysm 03/08/2025 Aortic valve regurgitation 03/08/2025 Benign paroxysmal positional vertigo 03/08/2025 Chronic pain of both knees 03/08/2024 Assessment & Plan (03/08/2024 12:23 PM EDT): Suspected osteoarthritis Limit use of NSAIDs given plavix use May need referral to ortho for possible injection vs surgery Other chest pain 12/24/2023 Overview (12/24/2023): Seen at [facility] After evaluation at [facility] it was felt patient may be having pain related to possible vasospasms and treatment with Ranexa was discussed. At [facility] her lung nodule and CT scan were reviewed. It was also discussed with her the mural thrombus. , no further anticoagulation needed at this time. It was recommended she repeat scan in 6 months. Lasix was resumed at that time with low-dose potassium supplement given the history of Lasix induced hypokalemia. Adenocarcinoma of left lung 11/25/2023 Overview (09/04/2024): Seen on CT report from [facility]. Spiculated left upper lobe nodule, 7 mm in size follow-up in [address] scan (around 04/2024) CT follow up ordered by [facility] Assessment & Plan (04/30/2025 4:13 PM EST): Orders: CBC WITH DIFF; Future COMPREHENSIVE METABOLIC PANEL; Future gabapentin (NEURONTIN) 300 mg Oral Capsule; Take 1 Capsule by mouth 2 times daily for [address] CHEST ABDOMEN PELVIS WO ORAL WITH IV CONTRAST; Future Assessment & Plan (12/06/2023 3:44 PM EDT): Based off of imaging report recommended CT scan around 05/10/2024 Repeat imaging sooner if signs and symptoms occur Low serum vitamin B12 10/25/2023 Controlled substance agreement signed 10/22/2023 Assessment & Plan (08/10/2024 2:06 PM EST): Up to date today Discussed xanax can decrease respiration rates and to hold this medication close to bed while concern for night time breathing is present. She verbalized understanding Orders: DRUGS OF ABUSE WITH REFLEX TO CONFIRMATION, URINE; Future COMPLIANCE BENZODIAZEPINE PANEL QUANT ONLY, URINE; Future Prediabetes 10/22/2023 Assessment & Plan (08/10/2024 2:06 PM EST): Orders: HEMOGLOBIN A1C; Future Assessment & Plan (03/08/2024 12:23 PM EDT): Repeat A1c in six months Diet controlled Primary hypertension 02/16/2022 Assessment & Plan (03/08/2024 12:24 PM EDT): Goal BP: <130/80 - at goal Medication Management: - a reassessment of the patients current diagnoses, medications, labs, potential SE, appropriate dose and risks assessed and discussed today Continue valsartan Centrilobular emphysema 11/09/2018 Assessment & Plan (01/19/2025 9:18 AM EDT): Can try Trelegy instead of anoro due to ER visit for COPD exacerbation Orders: glqyoycfsuv-nbpyydftf-lweczqar (TRELEGY ELLIPTA) 100-62.5-25 mcg Inhl Disk with Device; Inhale 1 Puff into the lungs daily. Assessment & Plan (07/24/2024 1:47 PM EST): Orders: umeclidinium-vilanteroL (ANORO ELLIPTA) 62.5-25 mcg/actuation Inhl Disk with Device; Inhale 1 Puff into the lungs daily. Atherosclerosis of aorta 11/09/2018 Overview (11/09/2018): Per ct Chest [facility] 11/02/18 Diastolic dysfunction 11/09/2018 Overview (12/06/2023): LVEF 63% Perfusion stress test normal History of Clostridium difficile infection 09/13 REBEKAH (generalized anxiety disorder) 09/24/2016 Assessment & Plan (08/10/2024 2:06 PM EST): Continue celexa Continue xanax as needed Assessment & Plan (10/25/2023 7:42 AM EDT): Celexa 20mg Follow up in a few weeks See how patient is doing on xanax Assessment & Plan (08/10/2023 9:11 AM EST): Goal: achieve mental health wellness where ADLs, family, social and work relationships are optimal Addressed: - Current stressors contributing to sx explored and discussed Compliance: - compliant with medications Advice: - remain compliant with follow up and medications Medication Management: - medication management decisions took place at today's visit (see orders) - responding as expected State Prescription Drug Monitoring Program (i.e BALWINDER, INSPECT, OARS): - Last Successful PDMP Review: 08/10/2023 8:49 AM by Romulo Saldaña MD Urine Drug Screen: - urine drug screen completed in the last year - update today Controlled Substatnce Contract: - completed and on file Coronary artery disease invo lving [place] coronary artery of [place] heart with angina pectoris 06/23/2016 Overview (03/15/2019): RCA stent 10/2017 - Lilly (velocity shooter), [facility] Stent 09/2018 Mixed hyperlipidemia 10/03/2014 Overview (11/01/2019): Goal per cardiology for LDL is 55 Tobacco abuse 06/06/2014 Migraine Overview (07/28/2019): Stable on imitrex prn Resolved Problems Problem Noted Date Diagnosed Date Resolved Date Post-operative state 01/22/2025 025 Infrarenal abdominal aortic aneurysm (AAA) without rupture 11/18/2023 10/12/2024 Overview (10/12/2024): Noted on report from [facility] 10/2023 Aorta ultrasound 11/2023- not well visualized due to bowel CT follow up ordered by [facility] CTA 09/2024 reported no AAA Assessment & Plan (03/08/2024 12:25 PM EDT): - continue to monitor and optimize blood pressure control - continue to monitor and optimize lipids Consider follow up ultrasound for visualization Upper abdominal pain 12/10/2020 024 Overview (12/10/2020): Added automatically from request for surgery [id number] Nausea 12/10/2020 10/22/2023 Overview (12/10/2020): Added automatically from request for surgery [id number] Glucose intolerance (impaire d glucose tolerance) 07/28/2017 10/22/2023 Tinea pedis of both feet 06/23/201608/2023 Chest pain 04/16/2016 10/22/2023 Dysphagia 10/29/2014 10/22/2023 Abdominal pain 10/03/2014 04/16/2016 Encounters Date Type Department Care Team Description 06/01/2025 Abstract [facility] [address] [place] [address] Radha Wise DO 05/31/2025 9:00 AM EST - 05/31/2025 11:59 PM EST Hospital Encounter [facility] [address] [place] [address] Jose De Jesus Gregory MD Infrarenal abdominal aortic aneurysm (AAA) without rupture Discharge Disposition: Home or Self Care 05/31/2025 Refill [facility] [place] [address] Tara Fofana MD Medication Refill 05/28/2025 Refill [facility] [place] [address] [place] [address] Radha Wise, DO Medication Refill 05/21/2025 Refill [facility] [place] [address] [place] [address] Radha Wise, DO Medication Refill 05/21/2025 Refill [facility] [place] [address] [place] [address] Radha Wise, DO Medication Refill 05/21/2025 Refill [facility] [place] [address] [place] [address] Radha Wise, DO Medication Refill 05/07/2025 11:30 AM EST Office Visit [facility] [address] [facility] [address] [place] [address] Jose De Jesus Gregory MD Infrarenal abdominal aortic aneurysm (AAA) without rupture (Primary Dx) 05/07/2025 Travel 05/01/2025 Patient Outreach [facility] [place] [address] Naz Lara, RN Lung Cancer; Follow-up (Case status change/surveillance) 04/30/2025 3:40 PM EST - 04/30/2025 11:59 PM EST Hospital Encounter [facility] [place] [address] Radha Wise, Tara Awan MD Adenocarcinoma of left lung (HCC) (Primary Dx) Discharge Disposition: Home or Self Care 04/30/2025 Telephone [facility] [place] [id number] Tara Fofana MD Schedule Appointment 04/25/2025 Telephone [facility] [place] [address] Tara Fofana MD Schedule Appointment (Follow Up Appointment Scheduled) 04/19/2025 Refill [facility] [address] [place] [phone] Radha Wise DO Medication Refill 04/18/2025 Telephone [facility] [place] [address] Tara Fofana MD Schedule Appointment; Follow-up 04/18/2025 Patient Outreach [place] [address] Tara Fofana MD Lung Cancer; Follow-up 04/13/2025 Abstract [facility] [place] [facility] [address] [place] [phone] Radha Wise DO 04/12/2025 2:57 PM EDT - 04/12/2025 11:59 PM EDT Hospital Encounter [facility] [place] [id number] Radha Wise DO Adenocarcinoma of left lung (HCC) (Primary Dx) Discharge Disposition: Home or Self Care 04/12/2025 2:57 PM EDT - 04/12/2025 11:59 PM EDT Hospital Encounter [facility] [place] [id number] Radha Wise DO Riaz, Muhammad Kashif, MD Adenocarcinoma of left lung (HCC) (Primary Dx) Discharge Disposition: Home or Self Care 04/12/2025 2:45 PM EDT - 04/12/2025 2:56 PM EDT Hospital Encounter [place] [address] Radha Wise DO Adenocarcinoma of lung, unspecified laterality (HCC) Discharge Disposition: Home or Self Care 04/10/2025 Telephone [facility] [address] [place] [address] [address] [place] [address] Jose De Jesus Gregory MD Other 04/09/2025 1:00 PM EDT - 04/09/2025 11:59 PM EDT Hospital Encounter [address] [place] [address] Tara Fofana MD Adenocarcinoma of lung, unspecified laterality (HCC) Discharge Disposition: Home or Self Care 04/09/2025 Orders Only [facility] [address] [place] [address] [place] [address] Cleveland Brand MD Adenocarcinoma of left lung (HCC) (Primary Dx) 04/06/2025 Telephone [facility] [address] [place] [address] Kymberly Ventura, RT Follow-up 04/05/2025 Refill [facility] [address] [place] [address] Radha Wise, DO Medication Refill 04/03/2025 Patient Outreach [facility] [place] [address] Naz Lara RN Lung Cancer; Follow-up; Status Update 04/02/2025 Telephone [facility] [address] [place] [address] Kymberly Ventura, RT Follow-up 03/30/2025 9:20 AM EDT Office Visit [facility] [place] [address] [place] [phone] Radha Wise, DO Hypokalemia (Primary Dx); Angular cheilosis 03/30/2025 Results Follow-Up [facility] [place] [address] [place] [phone] Radha Wise, DO BASIC METABOLIC PANEL 03/30/2025 Orders Only [facility] [place] [address] [place] [address] Radha Wise, DO 03/29/2025 Travel 03/27/2025 2:53 PM EDT - 03/27/2025 11:59 PM EDT Hospital Encounter [facility] [place] [address] Cleveland Brand MD Discharge Disposition: Home or Self Care 03/27/2025 12:20 PM EDT - 03/27/2025 2:52 PM EDT Hospital Encounter [facility] [place] [address] Lori Cornelius PA-C Discharge Disposition: Home or Self Care 03/27/2025 12:05 PM EDT Anesthesia Event [place] [address] Tonny Mae, DO RecordOlivia, COAL GASIFICATION TECHNICIAN 03/27/2025 10:19 AM EDT - 03/27/2025 12:19 PM EDT Hospital Encounter [place] [address] Cleveland Brand MD Heusner, James A, MD Post-thoracotomy pain; Coronary artery disease involving [place] coronary artery of [place] heart with angina pectoris Discharge Disposition: Home or Self Care 03/27/2025 Travel 03/26/2025 2:00 PM EDT Office Visit [place] [address] [place] [address] Radha Wise, DO Post-thoracotomy pain 03/26/2025 Travel 03/22/2025 Orders Only [place] [address] [place] [address] Radha Wise, DO Rib pain (Primary Dx) 03/22/2025 Refill [place] [address] [place] [address] Radha Wise, DO Medication Refill 03/22/2025 Refill [place] [address] [place] [address] Radha Wise, DO Medication Refill 03/21/2025 Orders Only [facility] [address] [place] [address] Kymberly Ventura, RT Post-thoracotomy pain (Primary Dx) 03/21/2025 Orders Only [facility] [address] [place] [address] Kymberly Ventura, RT Post-thoracotomy pain (Primary Dx) 03/21/2025 Telephone [facility] [address] [place] [address] Kymberly Ventura, RT Confirmation 03/20/2025 Refill [facility] [address] [place] [address] Jared Lock MD Medication Refill 03/20/2025 Refill [facility] [address] [place] [address] Jared Lock MD Medication Refill 03/20/2025 Telephone [facility] [address] [place] [address] Jared Lock MD Medication Refill 03/20/2025 Telephone [facility] [address] [place] [address] Britta Timmons NA Schedule Appointment (Port placement ) 03/19/2025 Telephone [facility] [address] [place] [address] Kymberly Ventura, RT Schedule Appointment; Follow-up 03/19/2025 Orders Only [facility] [address] [place] [address] Kymberly Ventura, RT Post-thoracotomy pain (Primary Dx) 03/16/2025 Orders Only [facility] [address] [place] [address] Kymberly Ventura, RT Post-thoracotomy pain (Primary Dx) 03/16/2025 Refill [facility] [address] [place] [address] Jared Lock MD Medication Refill 03/15/2025 Telephone [facility] [address] [place] [address] Kymberly Ventura, RT Follow-up 03/14/2025 9:48 AM EDT - 03/14/2025 11:59 PM EDT Hospital Encounter [facility] [address] [place] [address] Cleveland Brand MD Discharge Disposition: Home or Self Care 03/14/2025 8:54 AM EDT - 03/14/2025 9:47 AM EDT Hospital Encounter [facility] [address] [place] [address] Cleveland Brand MD Post-thoracotomy pain Discharge Disposition: Home or Self Care 03/14/2025 7:39 AM EDT - 03/14/2025 8:53 AM EDT Hospital Encounter [facility] [place] [facility] [address] [place] [address] Cleveland Brand MD Post-thoracotomy pain Discharge Disposition: Home or Self Care 03/09/2025 Results Follow-Up [facility] [address] [place] [phone] Radha Wise, VITAMIN B12/ FOLIC ACID, COMPREHENSIVE METABOLIC PANEL, CBC WITH DIFF from Last 3 Months Surgical History Surgery Date Site/Laterality Comments HYSTERECTOMY, TOTAL 1980s severe dysplasia of cervix COLONOSCOPY 06/21/2010 - 06/20/2011 normal BREAST BIOPSY 10/17/2014 Right us biopsy right UPPER GASTROINTESTINAL ENDOSCOPY 10/29/2014 N/A ESOPHAGOGASTRODUODENOSC OPY with biopsy, brushings and COLONOSCOPY with biopsy; Surgeon: Kathryn Newell MD; Location: [facility]; Service: Endoscopy COLONOSCOPY 10/29/2014 N/A Surgeon: Kathryn Newell MD; Location: [facility]; Service: Endoscopy CORONARY ANGIOPLASTY WITH STENT PLACEMENT 11/04/2017 2 stents placed+ 1 stent APPENDECTOMY THORACOSCOPY 01/22/2025 Left left Robotic Assisted thoracic Surgery left upper lobe lobectomy with mediastinal lymph node dissection; Surgeon: Jared Lock MD; Location: [facility]; Service: Thoracic LYMPH NODE DISSECTION 01/22/2025 Left Surgeon: Jared Lock MD; Location: [facility]; Service: Thoracic BRONCHOSCOPY 10/31/2024 IR US GUIDED NEEDLE PLACEMENT 03/27/2025 IR US GUIDED NEEDLE PLACEMENT [facility] Medical History Medical History Date Comments Migraine Cervical dysplasia Hyperlipidemia CAD (coronary artery disease) 3 stents COPD (chronic obstructive pu lmonary disease) (HCC) Prediabetes GERD (gastroesophageal reflux disease) Infrarenal abdominal aortic aneurysm (AAA) without rupture 11/18/2023 Noted on report from [facility] mccracken 10/2023 Aorta ultrasound 11/2023- not well visualized due to bowel CT follow up ordered by [facility] CTA 09/2024 reported no AAA Lung nodule Pneumonia history Bronchitis, chronic (HCC) Angina pectoris Hypertension Arthritis Urinary tract infection in the p ast Adenocarcinoma of left lung (HCC) 01/2025 Anemia Clotting disorder no specific na me was given but thin blood Motion sickness Anxiety Chest discomfort 10/04/2024 admitted Hypertensive heart disease w ithout heart failure History of atherosclerotic heart disease Bilateral chronic knee pain Heart murmur ? Emphysema lung (HCC) Bruises easily GOMEZ (dyspnea on exertion) since surgery 01/22/2025 Generalized weakness since surge ry 01/22/2025 Loss of appetite 01/2025 Nausea occasional since surgery 01/22/2025 Hypokalemia 01/2025 Rib pain 03/2025 left ribs and un patito left breast Family History Medical History Relation Name Comments Esophageal Cancer Brother 1 Liver Disease Brother 1 Early Brother 2 Boating acciden t High Blood Pressure Daughter 2 Other Father issues with norman creas Other Mother pneumonia Diabetes Sister 2 Asthma Sister 4 Mental Illness Son 2 Anesth Problems Neg Hx Relation Name Status Comments Brother 1 Brother 2 Brother 3 Alive Daughter 2 Father Mother Sister 1 Alive Sister 2 Alive Sister 3 Alive Sister 4 Son 2 Alive Social History Tobacco Use Types Packs/Day Years [...] drink = 0.6 oz pur e alcohol) [facility] Utilities Answer Date Recorded In the past 12 months has [employer], gas, oil, or water [employer] threatened to shut off services in your home? No 01/23/2025 Overall Financial Resource Strain (CARDIA) Answe r Date Recorded How hard is it for you to pa y for the very basics like food, housing, medical care, and heating? Somewhat hard 01/23/2025 PHQ-2 Answer Date Recorded PHQ-2 Total Score 0 01/23/2025 [facility] [place] of Occupat ional Health - Occupational Stress [...] money to get more. Sometimes true 10/2024 [facility] HRSN [facility] IP Transportation Answer D ate Recorded [...] on file Sexual Orientation Not on file Last Filed Vital Signs Vital Sign Reading Time Taken Comments Blood Pressure 132/78 05/07/2025 11:49 AM EST Pulse 90 05/07/2025 11:45 AM EST Temperature 36.5 C (97.7 F) 05/07/2025 11:45 AM EST Respiratory Rate 16 04/30/2025 3:45 PM EST Oxygen Saturation 98% 04/30/2025 3:45 PM EST Inhaled Oxygen Concentration - - Weight 59.9 kg (132 lb) 05/07/2025 11:45 AM EST Height 157.5 cm (5' 2 ) 05/07/2025 11:45 AM EST Body Mass Index 24.14 05/07/2025 11:45 AM EST Plan of Treatment Upcoming Encounters Date Type Department Care Team (Late st Contact Info) Description 07/04/2025 1:45 PM EST Office Visit [facility] [address] [address] Franklin Salmeron MD [address] [address] 07/27/2025 11:[address] [facility] [address] [place] [address] Tara Fofana MD [address] [place] [address] 07/30/2025 11:00 AM EST Appointment [facility] [place], [place] [id number] 07/30/2025 11:40 AM EST Appointment [facility] [place] [address] Tara Fofana MD [address] [place] [address] [id number] Health Maintenance Due Date Last Done Comments COVID-19 Vaccine (#1) 1960 DTaP/TDaP/Td (1 - Tdap) 1979 Pneumococcal Vaccine 50+ (1 of 2 - PCV) 1979 Zoster (1 of 2) 1979 FIT 2005 Sigmoidoscopy 2005 Virtual Colonography 2005 RSV or 60+ (1 - Risk 50-74 years 1-dose series) 2010 Colonoscopy 10/29/2024 10/29/2014, 05/05/2002 Influenza Vaccine (#1) 2025 7 (Declined), 03/01/2015 (Declined), 07/19/2014 (Declined) Annual Wellness Exam 08/10/2025 08/10/2024, 08/10/19 24 Breast Cancer Screening 09/08/2025 09/09/19 24, 01/24/2021, 04/11/2019, Additional history exists Cologuard 12/26/2027 12/25/2024, 12/25/2024 Colon Cancer Screening 12/26/2027 Hepatitis C Screening Completed 09/12/2018, 017 Low Dose Lung Cancer Screening Discontinued 01/24/2025, 12/23/2024, 10/10/2024, Additional history exists Hepatitis B Vaccine Aged Out No longe r eligible based on patient's age to complete this topic Meningococcal B Vaccine Aged Out No l onger eligible based on patient's age to complete this topic Goals Goal Patient Goal Type Associated Problems [...] 2:05 PM EST) No Nicole Amador LPN Medical Devices Implanted Type Area Saddle Stitcher Device Identifier Shelf Expiration Date Model / Serial / Lot Heart Stents X3 R Breast Marker Procedures Procedure Name Priority Date/Time Associated Diagnosis Comments SCANNED LABS 06/05/2025 10:19 AM EST VA US AORTA ILIAC IVC COMPLETE Routine 05/31/2025 9:33 AM EST Infrarenal abdominal aortic aneurysm (AAA) without rupture CBC Routine 05/31/2025 COMPREHENSIVE METABOLIC PANEL STAT 04/12/2025 2:56 PM EDT Adenocarcinoma of lung, unspecified laterality (HCC) CBC WITH DIFF STAT 04/12/2025 2:56 PM EDT Adenocarcinoma of lung, unspecified laterality (HCC) MRI BRAIN W WO CONTRAST MARCO ANTONIO 04/09/2025 3:41 PM EDT Adenocarcinoma of lung, unspecified laterality (HCC) CBC Routine 04/05/2025 BASIC METABOLIC PANEL Routine 03/30/2025 9:48 AM EDT Hypokalemia IR US GUIDED NEEDLE PLACEMENT MARCO ANTONIO 03/27/2025 3:24 PM EDT XR CHEST AP PORTABLE Routine 03/27/2025 3:[address] CRYOABLATION UPPER EXTREMITY NERVE Routine 03/27/2025 2:37 PM EDT Post-thoracotomy pain INTRAOP AIRWAY PLACEMENT Routine 03/27/2025 12:15 PM EDT BASIC METABOLIC PANEL STAT 03/27/2025 11:11 AM EDT Post-thoracotomy pain PT / INR STAT 03/26/2025 2:02 PM EDT Post-thoracotomy pain CBC WITH DIFF STAT 03/26/2025 2:02 PM EDT Post-thoracotomy pain XR CHEST AP PORTABLE Timed 03/14/2025 10:00 AM EDT IR INJECTION ANESTHETIC AGENT INTERCOSTAL NERVE MULTIPLE Routine 03/14/2025 9:44 AM EDT Post-thoracotomy pain PT / INR STAT 03/14/2025 8:15 AM EDT Post-thoracotomy pain CT ANGIOGRAM PULMONARY W CONTRAST STAT 01/24/2025 12:33 PM EDT COLOGUARD Routine 12/25/2024 10:55 AM EDT Screening for colon cancer MM MAMMO DIGITAL VANITA SCREEN BILAT Routine 09/09/2023 9:24 AM EDT Encounter for screening mammogram for malignant neoplasm of breast ACUTE HEPATITIS PANEL Routine 09/12/2018 4:20 PM EDT Diarrhea, unspecified type Exposure to hepatitis B GMED EGD-COLONOSCOPY Routine 10/29/2014 7:45 AM EDT from Last 3 Months or Most Recently Relevant to Health Maintenance Results * SCANNED LABS (06/05/2025 10:19 AM EST) 06/05/2025 10:1 9 AM EST Unknown Provider HEMATOLOGY ORDERABLES Final Res ult * VA US AORTA ILIAC IVC COMPLETE [...] artery and superior mesenteric artery appear widelypatent. Result [facility] Jose De Jesus Gregory MD [facility] VASCULAR ORDERABLES Fin al Result * (ABNORMAL) CBC (05/31/2025) Only the most recent of2 resultswithin the time period is included. WBC 13.4 X10(3)/MCL SEP OFFICE RBC 4.34 4.00 - 5.20 X10(6)/MCL SEP OFFICE Hemoglobin 12.5 GM/DL SEP OFFICE Hematocrit 39.4 % SEP OFFICE MCV 90.8 82.0 - 108.0 FL SEP OFFICE MCH 28.8 26.0 - 34.0 PG SEP OFFICE MCHC 32 30 - 37 GM/DL SEP OFFICE RBC 13.40(A) 4.00 - 5.20 X10(6)/MCL SEP OFFICE Platelet 349 150 - 399 X10(3)/MCL SEP OFFICE MPV 9.6 7.5 - 11.5 FL SEP OFFICE Blood VENOUS BLOOD / Unknown 05/31/2025 Result [facility] Historical Provider HEMATOLOGY ORDERABLES Final Result SEP OFFICE * (ABNORMAL) CBC WITH DIFF (04/12/2025 2:56 PM EDT) Only the most recent of2 resultswithin the time period is included. WBC 8.5 3.7 - 10.3 x10(3)/mcL 04/12/2025 3:10 PM EDT [facility] RBC 4.32 3.90 - 5.20 x10(6)/mcL 04/12/2025 3:10 PM EDT [facility] Hgb 12.8 11.2 - 15.7 g/dL 04/12/2025 3:10 PM EDT [facility] Hct 39.6 34.0 - 45.0 % 04/12/2025 3:10 PM EDT [facility] MCV 91.7 80.0 - 100.0 fL 04/12/2025 3:10 PM EDT [facility] MCH 29.6 26.0 - 34.0 pg 04/12/2025 3:10 PM EDT [facility] MCHC 32.3 30.7 - 35.5 g/dL 04/12/2025 3:10 PM EDT [facility] RDW 13.7 <=14.9 % 04/12/2025 3:10 PM EDT [facility] Platelet 370(H) 155 - 369 x10(3)/mcL 04/12/2025 3:10 PM EDT [facility] MPV 9.6 8.8 - 12.5 fL 04/12/2025 3:10 PM EDT [facility] Neut # Prelim 4.1 1.6 - 6.1 x10(3)/mcL 04/12/2025 3:10 PM EDT [facility] Comment:Preliminary automate d absolute neutrophil count. Value may change if manual differential is indicated. Neut Percent 48.4 % 04/12/2025 3:10 PM EDT [facility] Comment:Neutrophils equals s egs plus bands Imm Gran% 0.1 % 04/12/2025 3:10 PM EDT [facility] Comment:Automated count of m etamyelocytes, myelocytes and promyelocytes. Lymph Percent 35.0 % 04/12/2025 3:10 PM EDT [facility] [place] Percent 8.3 % 04/12/2025 3:10 PM EDT [facility] Eos Percent 7.8 % 04/12/2025 3:10 PM EDT [facility] Baso Percent 0.4 % 04/12/2025 3:10 PM EDT [facility] Neut # 4.1 1.6 - 6.1 x10(3)/[facility] 04/12/2025 3:10 PM EDT [facility] Comment:Neutrophils equals s egs plus bands IMMGRAN# 0.0 0.0 - 0.1 x10(3)/[facility] 04/12/2025 3:10 PM EDT [facility] Comment:Automated count of m etamyelocytes, myelocytes and promyelocytes. An absolute IG <0.1 is reported as 0.0. Lymph # 3.0 1.2 - 3.9 x10(3)/[facility] 04/12/2025 3:10 PM EDT [facility] [place] # 0.7 0.3 - 0.9 x10(3)/[facility] 04/12/2025 3:10 PM EDT [facility] Eos# 0.7(H) 0.0 - 0.5 x10(3)/[facility] 04/12/2025 3:10 PM EDT [facility] Baso # 0.0 0.0 - 0.1 x10(3)/[facility] 04/12/2025 3:10 PM EDT [facility] Blood VENOUS BLOOD / Unknown Venipuncture / Unknown 04/12/2025 2:56 PM EDT 04/12/2025 2:56 PM EDT us Tara Fofana MD HEMATOLOGY ORDERABLES Fi nal Result [facility] [address] [id number] * (ABNORMAL) COMPREHENSIVE METABOLIC PANEL (04/12/2025 2:56 PM EDT) Sodium 142 136 - 145 mmol/L 04/12/2025 3:25 PM EDT [facility] Potassium 3.8 3.5 - 5.0 mmol/L 04/12/2025 3:25 PM EDT [facility] Chloride 107 98 - 107 mmol/L 04/12/2025 3:25 PM EDT [facility] Total CO2 22 22 - 29 mmol/L 04/12/2025 3:25 PM EDT [facility] Anion Gap 13 7 - 16 mmol/L 04/12/2025 3:25 PM EDT [facility] Calcium 9.5 8.8 - 10.4 mg/dL 04/12/2025 3:25 PM EDT [facility] Glucose Lvl 116(H) 70 - 99 mg/dL 04/12/2025 3:25 PM EDT [facility] BUN 9 8 - 23 mg/dL 04/12/2025 3:25 PM EDT [facility] Creatinine 0.82 0.51 - 1.30 mg/dL 04/12/2025 3:25 PM EDT [facility] Albumin 4.4 3.2 - 4.6 gm/dL 04/12/2025 3:25 PM EDT [facility] Total Protein 7.4 6.4 - 8.3 gm/dL 04/12/2025 3:25 PM EDT [facility] Bili Total 0.3 0.2 - 1.3 mg/dL 04/12/2025 3:25 PM EDT [facility] ALT 9 <=41 U/L 04/12/2025 3:25 PM EDT [facility] AST 9 <=40 U/L 04/12/2025 3:25 PM EDT [facility] Alk Phos 120 36 - 123 U/L 04/12/2025 3:25 PM EDT [facility] eGFR (CKD-EPIcr 2020) 79 >=60 mL/min/1.7 3 m2 04/12/2025 3:25 PM EDT [facility] Comment:Estimated GFR was ca lculated using the CKD-EPIcr (2020) equation refit without race. The equation is recommended by the National Kidney Foundation - [place] [employer] of Nephrology Task Force. Blood VENOUS BLOOD / Unknown Venipuncture / Unknown 04/12/2025 2:56 PM EDT 04/12/2025 2:56 PM EDT us Tara Fofana MD CHEMISTRY ORDERABLES [place] [address] * MRI BRAIN W WO CONTRAST (04/09/2025 [...] sinuses, mastoids, and orbits unremarkable. Procedure Note Blas Galvan MD - 04/09/2025 MRI BRAIN W [...] of the ordering clinician. Tara Fofana MD [facility] MRI ORDERABLES Final Result * (ABNORMAL) BASIC METABOLIC PANEL (03/30/2025 9:48 AM EDT) Only the most recent of2 resultswithin the time period is included. Sodium 142 136 - 145 mmol/L 03/30/2025 3:46 PM EDT [facility] Potassium 3.5 3.5 - 5.0 mmol/L 03/30/2025 3:46 PM EDT [facility] Chloride 108(H) 98 - 107 mmol/L 03/30/2025 3:46 PM EDT [facility] Total CO2 20(L) 22 - 29 mmol/L 03/30/2025 3:46 PM EDT [facility] Anion Gap 14 7 - 16 mmol/L 03/30/2025 3:46 PM EDT [facility] Calcium 9.1 8.8 - 10.4 mg/dL 03/30/2025 3:46 PM EDT [facility] Glucose Lvl 112(H) 70 - 99 mg/dL 03/30/2025 3:46 PM EDT [facility] BUN 9 8 - 23 mg/dL 03/30/2025 3:46 PM EDT [facility] Creatinine 0.77 0.51 - 1.30 mg/dL 03/30/2025 3:46 PM EDT [facility], [facility] eGFR (CKD-EPIcr 2020) 85 >=60 mL/min/1.7 3 m2 03/30/2025 3:46 PM EDT [facility] Comment:Estimated GFR was ca lculated using the CKD-EPIcr (2020) equation refit without race. The equation is recommended by the National Kidney Foundation - [place] [employer] of Nephrology Task Force. Blood VENOUS BLOOD / Unknown Venipuncture / Unknown 03/30/2025 9:48 AM EDT 03/30/2025 9:48 AM EDT us Radha Wise DO CHEMISTRY ORDERABLES Final R esult [facility], [facility] [address] [facility], [place] [address] * IR US GUIDED NEEDLE PLACEMENT (03/27/2025 3:24 PM EDT) Anatomical Region Laterality Modality Interventional R adiology Impressions 03/27/2025 3:19 PM EDT Ultrasound utilized during CT guided cryoneurolysis of left 8th-10 ICNs. See that report for further details. Narrative 03/27/2025 3:19 PM EDT IR US GUIDED NEEDLE PLACEMENT 03/27/2025 HISTORY: -Cryo Procedure Note Cleveland Brand MD - 03/27/2025 IR US GUIDED NEEDLE PLACEMENT 03/27/2025 HISTORY: -Cryo IMPRESSION: Ultrasound utilized during CT guided cryoneurolysis of left 8th-10 ICNs. See that report for further details. us Lori Cornelius PA-C IMG IR ORDERABLES Fi nal Result * XR CHEST AP PORTABLE (03/27/2025 3:17 PM EDT) Only the most recent of2 resultswithin the time period is included. Anatomical Region Laterality Modality Chest Radiographic Alycia ging 03/27/2025 3:17 PM EDT Impressions 03/27/2025 3:26 PM EDT Lungs clear. Heart size normal. No acute disease. No evidence of pneumothorax. Stable appearance of chest in comparison to prior study of 03/14/2025. Narrative 03/27/2025 3:26 PM EDT XR CHEST AP PORTABLE Clinical: -r/oPTX Procedure Note Adam Montano MD - 03/27/2025 XR CHEST AP PORTABLE Clinical: -r/oPTX IMPRESSION: Lungs clear. Heart size normal. No acute disease. No evidence of pneumothorax. Stable appearance of chest in comparison to prior studyof 03/14/2025. Cleveland Brand MD IMG DIAGNOSTIC IMAGING ORDERA BLES Final Result * CT CRYOABLATION UPPER EXTREMITY NERVE (03/27/2025 2:37 PM EDT) Anatomical Region Laterality Modality Computed Tomogra phy 03/27/2025 2:37 PM EDT Impressions 03/27/2025 3:[address]-guided cryoneurolysis the left eighth-10th rib intercostal nerves. Narrative 03/27/2025 3:[address] AND ULTRASOUND-GUIDED CRYONEUROLYSIS LEFT EIGHTH-10TH INTERCOSTAL NERVES X 01/07/2025 HISTORY: G89.12-Acute post-thoracotomy [id number] TECHNICAL: The procedure was performed by Dr. Brand the Department of radiology. Consent was obtained from the patient. After establishing proper prep and drape 1% lidocaine was used to achieve local anesthesia. Mac anesthesia was provided by the department of anesthesia. Under CT guidance and ultrasound guidance the left eighth-10th ribs were identified. Varian cryoprobes (ice rods) were advanced to the level of the intercostal nerve VIII-10th level. Cryoneurolysis was performed with an 8 minute freeze-3 minutes passive thaw-3 minute freeze-3 minute passive thaw protocol. No immediate complications. 3-D imaging performed to ensure proper positioning. Procedure Note Cleveland Brand MD - 03/27/2025 CT AND ULTRASOUND-GUIDED CRYONEUROLYSIS LEFT EIGHTH-10TH INTERCOSTALNERVES X 01/07/2025 HISTORY: G89.12-Acute post-thoracotomy [id number] TECHNICAL: The procedure was performed by Dr. Brand the Department of radiology. Consent was obtained from the patient. After establishingproper prep and drape 1% lidocaine was used to achieve local anesthesia. Macanesthesia was provided by the department of anesthesia. Under CT guidance andultrasound guidance the left eighth-10th ribs were identified. Varian cryoprobes (icerods) were advanced to the level of the intercostal nerve VIII-10th level. Cryoneurolysis was performed with an 8 minute freeze-3 minutes passivethaw-3 minute freeze-3 minute passive thaw protocol. No immediate complications.3-D imaging performed to ensure proper positioning. IMPRESSION: Uncomplicated CT-guided cryoneurolysis the left eighth-10th rib intercostal nerves. Cleveland Brand MD IMG CT ORDERABLES Final Resul t * INTRAOP AIRWAY PLACEMENT (03/27/2025 12:15 PM EDT) Narrative [facility] - 03/27/2025 12:15 PM EDT Blas Morel MD 03/27/2025 12:19 PM Intraop Airway Placement: Date/Time: 03/27/2025 12:15 PM Airway type: Nasal cannula salter Blas Morel MD [place] ANESTHESIA Final Result [facility] [address] [id number] * (ABNORMAL) PT / INR (03/26/2025 2:02 PM EDT) Only the most recent of2 resultswithin the time period is included. PT 10.1(L) 10.5 - 13.6 second(s) 03/26/2025 7:54 PM EDT [facility] INR 0.88(L) 0.91 - 1.18 (ratio) 03/26/2025 7:54 PM EDT [facility] Comment: Level of Therapy Indications Target INR Range Standard Dose Treatment and prophylaxis of venous 2.0 - 3.0 thrombosis, pulmonary embolism High Dose High risk patients with mechanical 2.5 - 3.5 heart valves Blood VENOUS BLOOD / Unknown Venipuncture / Unknown 03/26/2025 2:02 PM EDT 03/26/2025 2:02 PM EDT us Cleveland Brand MD HEMATOLOGY ORDERABLES Final R esult [facility]REF[facility] [address] , [place] [address] * IR INJECTION ANESTHETIC AGENT INTERCOSTAL NERVE MULTIPLE (03/14/2025 9:44 AM EDT) Anatomical Region Laterality Modality Interventional R adiology 03/14/2025 9:44 AM EDT Impressions 03/14/2025 2:03 PM EDT Uncomplicated left eighth-10th intercostal nerve blocks. Narrative 03/14/2025 2:03 PM EDT ULTRASOUND AND FLUOROSCOPICALLY GUIDED LEFT INTERCOSTAL NERVE BLOCK X3 TODAY HISTORY: G89.12-Acute post-thoracotomy [id number] TECHNICAL: The procedure was performed by Dr. Brand the Department of radiology. Consent was obtained from the patient. After establishing proper prep and drape 1% lidocaine was used to achieve local anesthesia. Moderate sedation was also administered monitored by interventional radiology nurse. Moderate sedation time 20 minutes. Physician procedure time 20 minutes. Thoracotomy scar identified. This is approximately located at the level of the ninth rib. For that reason the left eighth ninth and 10th ribs were marked. Under ultrasound and fluoroscopic guidance 22-gauge needles were advanced into the region of the intercostal nerve at these levels. Intercostal nerve block performed with a total of 120 mg of Depo-Medrol, 6 cc 0.5% but bupivacaine and 4 cc 1% lidocaine. There were no immediate complications. Postprocedure radiograph revealed no evidence of a pneumothorax. Procedure Note Cleveland Brand MD - 03/14/2025 ULTRASOUND AND FLUOROSCOPICALLY GUIDED LEFT INTERCOSTAL NERVE BLOCK [id number] HISTORY: G89.12-Acute post-thoracotomy [id number] TECHNICAL: The procedure was performed by Dr. Brand the Department of radiology. Consent was obtained from the patient. After establishingproper prep and drape 1% lidocaine was used to achieve local anesthesia. Moderatesedation was also administered monitored by interventional radiology nurse.Moderate sedation time 20 minutes. Physician procedure time 20 minutes. Thoracotomy scar identified. This is approximately located at the level ofthe ninth rib. For that reason the left eighth ninth and 10th ribs weremarked. Under ultrasound and fluoroscopic guidance 22-gauge needles were advancedinto the region of the intercostal nerve at these levels. Intercostal nerveblock performed with a total of 120 mg of Depo-Medrol, 6 cc 0.5% but bupivacaineand 4 cc 1% lidocaine. There were no immediate complications. Postprocedure radiograph revealedno evidence of a pneumothorax. IMPRESSION: Uncomplicated left eighth-10th intercostal nerve blocks. us Attef Jordi Brand MD IMG IR ORDERABLES Final Resul t * CT ANGIOGRAM PULMONARY W CONTRAST (01/24/2025 12:33 PM EDT) Anatomical Region Laterality Modality Chest Computed Tomogra phy 01/24/2025 12:3 3 PM EDT Impressions 01/24/2025 1:[address] evidence of pulmonary thromboembolic disease. 2. Postoperative changes of recent left upper lobectomy and mediastinal lymph node dissection. 3. Small anterior left-sided hydropneumothorax with left-sided chest tubes in situ. 4. Multifocal bilateral airspace disease, left greater than right, compatible with pneumonia. - Note: Radiology results need to be interpreted within a comprehensive clinical context. If you have questions about the radiology report, please contact the office of the ordering clinician. Narrative 01/24/2025 1:[address] PULMONARY ANGIOGRAM, 01/24/2025 12:33 PM CLINICAL HISTORY: -Rule out PE s/p RATS SOHAM lobectomy. COMPARISON: Portable chest x-ray 01/24/2025; CT coronary arteries with IV contrast 12/23/2024; PET/CT 10/23/2024 TECHNIQUE: PE protocol CT angiogram of the chest using Isovue 370 IV contrast as recorded in EPIC. 2-D multiplanar reconstructions and 3-D MIP reconstructions reviewed. Dose 1 : CT DLP Total : 157.37 mGycm DLP Spiral Max : 141.42 mGycm Maximum CTDI Vol : 11.57 mGy FINDINGS: CT PULMONARY ANGIOGRAPHY: Adequate visualization of the pulmonary arteries to the segmental/subsegmental level. No acute pulmonary embolism. SUPPORT DEVICES: Large bore as well as small bore left-sided chest tubes are in situ. LOWER CERVICAL REGION: The visualized portion of the lower cervical region is unremarkable. LYMPH NODES: There is no thoracic adenopathy. PLEURAL SPACES/DIAPHRAGM: Left-sided chest tubes as previously mentioned. Small anterior left-sided hydropneumothorax pleural separation involving the gas component measuring up to 1.4 cm. No right pleural effusion. No right pleural space gas. HEART AND GREAT VESSELS: Leftward shift of the mediastinal structures secondary to expected left lung volume loss following surgery. Cardiac size is normal. No pericardial effusion. Thoracic aorta is normal in caliber with scattered mild calcified and noncalcified plaque, most prominent involving the descending segment. Coronary artery calcification: Moderate. LUNGS: Patient is status post left upper lobectomy and mediastinal lymph node dissection performed 01/2025. Final pathology is currently pending. Expected left lung volume loss. Background mild emphysema. Scattered left lower lobe ill-defined groundglass, reticular, and nodular/consolidative opacities with basilar predominance compatible with pneumonia. Vague groundglass and reticular opacities are also seen involving the right upper lobe, right middle lobe, right lower lobe likely related to similar infectious/inflammatory process. No suspicious pulmonary nodule within the aerated lung parenchyma. UPPER GI TRACT: The esophagus is grossly unremarkable. BODY WALL: No suspicious osseous lesion. UPPER ABDOMEN: Unremarkable except for diffuse hepatic steatosis. Procedure Note Vance Morley MD - 01/24/2025 CT PULMONARY ANGIOGRAM, 01/24/2025 12:33 PM CLINICAL HISTORY: -Rule out PE s/p RATS SOHAM lobectomy. COMPARISON: Portable chest x-ray 01/24/2025; CT coronary arteries with IV contrast 12/23/2024; PET/CT 10/23/2024 TECHNIQUE: PE protocol CT angiogram of the chest using Isovue 370 IVcontrast as recorded in EPIC. 2-D multiplanar reconstructions and 3-D MIP reconstructions reviewed. Dose 1 : CT DLP Total : 157.37 mGycm DLP Spiral Max : 141.42 mGycm Maximum CTDI Vol : 11.57 mGy FINDINGS: CT PULMONARY ANGIOGRAPHY: Adequate visualization of the pulmonary arteriesto the segmental/subsegmental level. No acute pulmonary embolism. SUPPORT DEVICES: Large bore as well as small bore left-sided chest tubesare in situ. LOWER CERVICAL REGION: The visualized portion of the lower cervical regionis unremarkable. LYMPH NODES: There is no thoracic adenopathy. PLEURAL SPACES/DIAPHRAGM: Left-sided chest tubes as previously mentioned.Small anterior left-sided hydropneumothorax pleural separation involving thegas component measuring up to 1.4 cm. No right pleural effusion. No rightpleural space gas. HEART AND GREAT VESSELS: Leftward shift of the mediastinal structuressecondary to expected left lung volume loss following surgery. Cardiac size isnormal. No pericardial effusion. Thoracic aorta is normal in caliber with scatteredmild calcified and noncalcified plaque, most prominent involving thedescending segment. Coronary artery calcification: Moderate. LUNGS: Patient is status post left upper lobectomy and mediastinal lymphnode dissection performed 01/2025. Final pathology is currently pending.Expected left lung volume loss. Background mild emphysema. Scattered left lowerlobe ill-defined groundglass, reticular, and nodular/consolidative opacitieswith basilar predominance compatible with pneumonia. Vague groundglass andreticular opacities are also seen involving the right upper lobe, right middle lobe,right lower lobe likely related to similar infectious/inflammatory process. No suspicious pulmonary nodule within the aerated lung parenchyma. UPPER GI TRACT: The esophagus is grossly unremarkable. BODY WALL: No suspicious osseous lesion. UPPER ABDOMEN: Unremarkable except for diffuse hepatic steatosis. IMPRESSION: 1. No CT evidence of pulmonary thromboembolic disease. 2. Postoperative changes of recent left upper lobectomy and mediastinallymph node dissection. 3. Small anterior left-sided hydropneumothorax with left-sided chesttubes in situ. 4. Multifocal bilateral airspace disease, left greater than right,compatible with pneumonia. - Note: Radiology results need to be interpreted within a comprehensiveclinical context. If you have questions about the radiology report, please contactthe office of the ordering clinician. Tomasa Yeh APRN IMG CT ORDERABLES Final Res ult * OGWILLY (12/25/2024 10:55 AM EDT) [facility] Negative Negative [facility] Comment: The Cologuard (TM) test was performed on this specimen. NEGATIVE TEST RESULT. A negative Cologuard result indicates a low likelihood that a colorectal cancer (CRC) or advanced adenoma (adenomatous polyps with more advanced pre-malignant features) is present. The chance that a person with a negative Cologuard test has a colorectal cancer is less than 1 in 1500 (negative predictive value >99.9%) or has an advanced adenoma is less than 5.3% (negative predictive value 94.7%). These data are based on a prospective cross-sectional study of 10,000 individuals at average risk for colorectal cancer who were screened with both Cologuard and colonoscopy. (Morgan Cowart. et al, N Engl J Med 2014;370(14):0319-1365) The normal value (reference range) for this assay is negative. COLOGUARD RE-SCREENING RECOMMENDATION: Periodic colorectal cancer screening is an important part of preventive healthcare for asymptomatic individuals at average risk for colorectal cancer. Following a negative Cologuard result, the [place] [employer] Society and U.S. Multi-Society Task Force screening guidelines recommend a Cologuard re-screening interval of 3 years. References: [place] [employer] Guideline for Colorectal Cancer Screening: https://www.cancer.org/cancer/tsdew-thsdjx-dvcdcb/etfvhvznz-iykksowjb-lrwbytl/ac s-rec ommendations.html.; Nathaniel QUINTERO, Brandon LOZANO, Matthew EchevarriaK, Colorectal Cancer Screening: Recommendations for Physicians and Patients from the U.S. Multi-Society Task Force on Colorectal Cancer Screening , Am J Gastroenterology 2017; 112:1164-3966. TEST DESCRIPTION: Composite algorithmic analysis of stool DNA-biomarkers with hemoglobin immunoassay. Quantitative values of individual biomarkers are not reportable and are not associated with individual biomarker result reference ranges. Cologuard is intended for colorectal cancer screening of adults of either sex, 45 years or older, who are at average-risk for colorectal cancer (CRC). Cologuard has been approved for use by the U.S. FDA. The performance of Cologuard was established in a cross sectional study of average-risk adults aged 50-84. Cologuard performance in patients ages 45 to 49 years was estimated by sub-group analysis of near-age groups. Colonoscopies performed for a positive result may find as the most clinically significant lesion: colorectal cancer [4.0%], advanced adenoma (including sessile serrated polyps greater than or equal to 1cm diameter) [20%] or non- advanced adenoma [31%]; or no colorectal neoplasia [45%]. These estimates are derived from a prospective cross-sectional screening study of 10,000 individuals at average risk for colorectal cancer who were screened with both Cologuard and colonoscopy. (Morgan Cowart. et al, N Engl J Med 2014;370(14):0085-1368.) Cologuard may produce a false negative or false positive result (no colorectal cancer or precancerous polyp present at colonoscopy follow up). A negative Cologuard test result does not guarantee the absence of CRC or advanced adenoma (pre-cancer). The current Cologuard screening interval is every 3 years. ([place] [employer] and U.S. Multi-Society Task Force). Cologuard performance data in a 10,000 patient pivotal study using colonoscopy as the reference method can be accessed at the following location: www.[employer]/results. Additional description of the Cologuard test process, warnings and precautions can be found at www.[employer]idi[employer].com. Stool 12/25/2024 10:5 5 AM EDT 12/26/2024 2:02 PM EDT Radha Wise DO [place] SCIENCE - ORDERABLES F inal Result [place] [employer], [address] [employer] [address] [facility] [address] * MM MAMMO DIGITAL VANITA SCREEN BILAT (09/09/2023 9:24 AM EDT) Anatomical Region Laterality Modality Breast Bilateral Mammography 09/10/2023 8:0 9 AM EDT Impressions 09/10/2023 8:09 AM EDT Negative ([id number]) ~ RECOMMENDATION: Routine screening mammogram in 1 year. ~ DISCLAIMER * Any patient with a palpable abnormality, unexplained by breast imaging, should be managed on clinical basis by the attending physician. * Breast imaging has a false negative rate of 15%. * The patient was notified by mail of the results of this examination. *The patient's information was entered into a reminder system with a target due date for the next mammogram, in accordance with the [place] [employer] and the Society of Breast Imaging recommendations. Narrative 09/10/2023 8:09 AM EDT Procedure:MM MAMMO DIGITAL VANITA SCREEN BILAT ~ Reason for exam: screening, asymptomatic. Z12.31-Encounter for screening mammogram for malignant neoplasm of kvmqsl-DPI-66-CM ~ MM MAMMO DIGITAL VANITA SCREEN BILAT Bilateral CC and MLO view(s) were taken. The breast tissue is heterogeneously dense. This may lower the sensitivity of mammography. Prior study comparison: Compared with prior studies the most recent being 01/24/21, 04/11/19 No mammographic evidence of malignancy. ~ Procedure Note Jenae Long MD - 09/10/2023 Procedure:MM MAMMO DIGITAL VANITA SCREEN BILAT ~ Reason for exam: screening, asymptomatic. Z12.31-Encounter for screening mammogram for malignant neoplasm of ksbfud-ODO-69-CM ~ MM MAMMO DIGITAL VANITA SCREEN BILAT Bilateral CC and MLO view(s) were taken. The breast tissue is heterogeneously dense. This may lower thesensitivity of mammography. Prior study comparison: Compared with prior studies the most recentbeing 01/24/21, 04/11/19 No mammographic evidence of malignancy. ~ IMPRESSION: Negative ([id number]) ~ RECOMMENDATION: Routine screening mammogram in 1 year. ~ DISCLAIMER * Any patient with a palpable abnormality, unexplained by breast imaging, should be managed on clinical basis by the attending physician. * Breast imaging has a false negative rate of 15%. * The patient was notified by mail of the results of this examination. *The patient's information was entered into a reminder system with atarget due date for the next mammogram, in accordance with the [place] [employer] and the Society of Breast Imaging recommendations. us Romulo Saldaña MD IMG MAMMOGRAPHY ORDERABLES Fin al Result * ACUTE HEPATITIS PANEL (09/12/2018 4:20 PM EDT) Hep Bs Ag Non-Reacti ve Non-Reacti ve 09/12/2018 8:37 PM EDT [facility] Hep B Core IgM Non-Reacti ve Non-Reacti ve 09/12/2018 8:37 PM EDT [facility] Hep A IgM Non-Reacti ve Non-Reacti ve 09/12/2018 8:37 PM EDT [facility] Hep C Ab Non-Reacti ve Non-Reacti ve 09/12/2018 8:37 PM EDT [facility] Blood Venipuncture / Unknown 09/12/2018 4:20 PM EDT 09/12/2018 4:20 PM EDT us Roseanna Ashley COAL GASIFICATION TECHNICIAN CHEMISTRY ORDERABLES Inga l Result [facility] [address] [facility], [place] [address] * [facility] EGD-COLONOSCOPY (10/29/2014 7:45 AM EDT) 10/29/2014 7:45 AM EDT Impressions [facility] - 10/29/2014 8:50 AM EDT Plan: Await pathology results This section is an excerpt of the full report. us Kathryn Newell MD GI PROCEDURE ORDERABLES Final Result Performing Organization Address City/[facility] [address]/ZIP Co de Phone Number [facility] [address] [place] [address] from Last 3 Months or Most Recently Relevant to Health Maintenance Insurance [employer] [facility] [place] [address] [id number] [place] [address] Advance Directives For more information, please contact: [phone] * Full Code (Latest Code Status on File) Date Activated Date Inactivated Comments 01/22/2025 3:45 PM 01/30/2025 4:33 PM Care Teams Drum Builder Relationship Specialty Start Date End Date Radha Wise DO [address] [place] [id number] PCP - General Family Medicine 10/02/23 Kathryn Newell MD Physician Internal Medicine-Gastroenterolog y 11/27/14 Cristóbal Carr MD 1210 [facility] 36 [facility] [place] [id number] Physician Internal Medicine-Cardiovascular Disease 02/13/22 Jinny eRsendiz, FINISHED METAL REPAIRER Receiving Coordinator 10/16/24 Corry Bansal, RN Registered Nurse 02/07/25 Tara Fofana MD [address] [place] [address] Internal Medicine-Hematology and Oncology 04/30/25
--- OUTSIDE RECORDS SUMMARY | 2025-06-08 12:21 | XMS_ITS | Encounter Summary ---
Author Organization [place] [address] Care Team Providers Care Craps Manager Name Role Phone Kathryn Newell MD Unavailable [phone] Cristóbal Carr MD Unavailable [phone] Radha Wise DO Primary Care Provider [phone] Naz Lara RN Unavailable Resendizseptember MANAGER COMMERCIAL REAL ESTATE Unavailable [phone] Corry Bansal RN Unavailable [phone] Tara Fofana MD Unavailable [phone] Reason for Visit * Reason Onset Date Comments Schedule Appointment 04/30/2025 Encounter Details Date Type Department Care Team (Late Contact Info) Description 04/30/2025 Telephone [facility] On[facility] [place], [place] [id number] Tara Fofana MD [address] [place] [phone] Schedule Appointment Social History Tobacco Use Types Packs/Day Years Used Date Smoking Tobacco: Every Day Cigarettes 0.8 49.1 Started: 04/17/1976; Last attempted to quit: 01/21/2025 Smokeless Tobacco: Never Comments:She has nicotine pa tches that she will be starting in the future Alcohol Use Standard Drinks/Week Comments Not Currently 0 (1 standard drink = 0.6 oz pur e alcohol) [facility] Utilities Answer Date Recorded In [...] Date Recorded PHQ-2 Total Score 0 01/23/2025 [facility] of Occupat ional Health - Occupational Stress [...] money to get more. Sometimes true 10/2024 [facility] IP Transportation Answer D ate Recorded [...] Author No 06/23/2019 4:41 PM Anuradha Hooker, ELIO * Is the person blind or does he/she have serious difficulty seeing even when wearing glasses? Answer Date of Assessment Author No 06/23/2019 4:41 PM Anuradha Hooker, ZENIAA * Does this person have serious difficulty walking or climbing stairs? Answer Date of Assessment Author No 06/23/2019 4:41 PM Anuradha Hooker RMA * Does this person have difficulty dressing or bathing? Answer Date of Assessment Author No 06/23/2019 4:41 PM Anuradha Hooker, ZENIAA * Because of a physical, mental or [...] Author No 06/23/2019 4:41 PM Anuradha Hooker, ELIO documented in this encounter Miscellaneous Notes * Telephone Encounter - Lakshmi Dolan - 04/30/2025 4:32 PM EST Spoke to patient and scheduled appointments She is agreeable * Telephone Encounter - Corry Bansal RN - 04/30/2025 4:18 PM EST Please schedule scan, lab and MD appts in 3 months. documented in this encounter Plan of Treatment Upcoming Encounters Date Type Department Care Team (Late st Contact Info) Description 07/04/2025 1:45 PM EST Office Visit SEP Pulmonology [facility] [address] [phone] Franklin Salmeron MD 651 [facility] 19 [place] [address] 07/27/2025 11:[address] [facility] [address] [address] Tara Fofana MD [address] [place] [address] 07/30/2025 11:00 AM EST Appointment [place] [address] 07/30/2025 11:40 AM EST Appointment [facility] [place] [address] Tara Fofana MD [address] [place] [address] documented as of this encounter Goals Goal [...] on filedocumented in this encounter Care Teams Craps Manager Relationship Specialty Start Date End Date Radha Wise DO [address] [place], [place] [phone] PCP - General Family Medicine 10/02/23 Kathryn Newell MD Physician Internal Medicine-Gastroenter ology 11/27/14 Cristóbal Carr MD 1210 [facility] 36 [place] [phone] Physician Internal Medicine-Cardiovascu lar Disease 02/13/22 Naz Lara, RN Oncology Nurse Navigator 10/13/2404/14 Martín Jinny Shelli, MANAGER COMMERCIAL REAL ESTATE Billing Representative 10/16/24 Corry Bansal, RN Registered Nurse 02/07/25 Tara Fofana MD 1 [place] [address] Internal Medicine-Hematology and Oncology 04/30/25 documented as of this encounter
--- OUTSIDE RECORDS SUMMARY | 2025-06-08 12:21 | XMS_ITS | Encounter Summary ---
Author Organization [place] [address] Care Team Providers Care Health Analyst Name Role Phone Kathryn Newell MD Unavailable [phone] Cristóbal Carr MD Unavailable [phone] Radha Wise DO Primary Care Provider [phone] Resendizseptember BAG SEALER Unavailable [phone] Corry Bansal RN Unavailable [phone] Tara Fofana MD Unavailable [phone] Reason for Referral * Medication Prior Authorization - Closed Specialty Diagnoses / Procedures Referred By Contac t Referred To Contact Radha Wise DO [address] [place] [address] Phone: tel: fax: Referral ID Status Reason Start Date Expiration Date Visits Re quested Visits Authorized [id number] Closed 1 1 Reason for Visit * Reason Onset Date Comments Medication Refill 05/21/2025 Encounter Details Date Type Department Care Team (Late st Contact Info) Description 05/21/2025 Refill [facility] [address] [place] [address] Radha Wise DO [address] [place] [address] Medication Refill Social History Tobacco Use Types Packs/Day Years Used Date Smoking Tobacco: Every Day Cigarettes 0.8 49.1 Started: 04/17/1976; Last attempted to quit: 01/21/2025 Smokeless Tobacco: Never Comments:She has nicotine pa tches that she will be starting in the future Alcohol Use Standard Drinks/Week Comments Not Currently 0 (1 standard drink = 0.6 oz pur e alcohol) [facility] Utilities Answer Date Recorded In [...] money to get more. Sometimes true 10/2024 [facility] IP Transportation Answer D ate Recorded [...] Author No 06/23/2019 4:41 PM Anuradha Hooker RMJordi * Is the person blind or does [...] Author No 06/23/2019 4:41 PM Anuradha Hooker RMJordi documented in this encounter Ordered Prescriptions Prescription Sig Dispense Quantity Refills Last Filled Start Date End Date dapagliflozin propanediol (FARXIGA) 10 mg Oral Tablet Take 1 Tablet by mouth daily. 90 Tablet 05/22/2025 documented in this encounter Miscellaneous Notes * Telephone Encounter - Jinny Montero CPhT - 05/22/2025 2:11 PM EST Farxiga Future Visit: N/A Last Assessed Visit: 08/10/24(AWV or similar dx) Follow-Up Date: 02/07/25 This patient requires the following labs/vitals. Routing to the office. A1c (6 months) and Lipid panel (12 months) documented in this encounter Plan of Treatment Upcoming Encounters Date Type Department Care Team (Late st Contact Info) Description 07/04/2025 1:45 PM EST Office Visit SEP Pulmonology [facility] [address] [facility] Building [address] [place] [phone] Franklin Salmeron MD [address] [address] 07/27/2025 11:[address] [facility] [place] [place] [address] [place] [address] Tara Fofana MD [address] [place] [phone] 07/30/2025 11:00 AM EST Appointment [place] [address] 07/30/2025 11:40 AM EST Appointment [facility] [place] [address] Tara Fofana MD [address] [place] [address] documented as of this encounter Goals Goal [...] Stay Tobacco Free Lifestyle No Anuradha Haro, ELIO HEMOGLOBIN A1C < 7.0 Result Component 6.1( 2:05 PM EST) No Nicole Amador LPN documented as of this encounter Visit Diagnoses Not on filedocumented in this encounter Discontinued Medications Medication Sig Discontinue Reason Start Date End Da te dapagliflozin propanediol (FARXIGA) 10 mg Oral Tablet Take 1 Tablet by mouth daily. Reorder 11/27/2024 05/21/2025 documented as of this encounter Care Teams Health Analyst Relationship Specialty Start Date End Date Radha Wise DO 79 [place], [place] [phone] PCP - General Family Medicine 10/02/23 Kathryn Newell MD Physician Internal Medicine-Gastroenterolog y 11/27/14 Cristóbal Carr MD [address] [place] [address] [place], [place] [phone] Physician Internal Medicine-Cardiovascular Disease 02/13/22 Jinny Resendiz MSW Rotary Soil Stabilizer 10/16/24 Corry Bansal, RN Registered Nurse 02/07/25 Tara Fofana MD [address] [place] [address] Internal Medicine-Hematology and Oncology 04/30/25 documented as of this encounter
--- OUTSIDE RECORDS SUMMARY | 2025-06-08 12:21 | XMS_ITS | Encounter Summary ---
Author Organization [place] [address] Care Team Providers Care Hospice Volunteer Name Role Phone Kathryn Newell MD Unavailable [phone] Cristóbal Carr MD Unavailable [phone] Radha Wise DO Primary Care Provider [phone] ResendizSeptember FRUIT PACKER FACE AND FILL Unavailable [phone] Corry Bansal RN Unavailable [phone] Tara Fofana MD Unavailable [phone] Reason for Visit * Reason Onset Date Comments Medication Refill 05/28/2025 Encounter Details Date Type Department Care Team (Late st Contact Info) Description 05/28/2025 Refill [facility] [address] [place] [address] Radha Wise DO [address] [place] [phone] Medication Refill Social History Tobacco Use Types Packs/Day Years Used Date Smoking Tobacco: Every Day Cigarettes 0.8 49.1 Started: 04/17/1976; Last attempted to quit: 01/21/2025 Smokeless Tobacco: Never Comments:She has nicotine pa tches that she will be starting in the future Alcohol Use Standard Drinks/Week Comments Not Currently 0 (1 standard drink = 0.6 oz pur e alcohol) [facility] Utilities Answer Date Recorded In the [...] Recorded PHQ-2 Total Score 0 01/23/2025 [facility] of Occupat ional Health - Occupational Stress [...] money to get more. Sometimes true 10/2024 [facility] IP Transportation Answer D [...] Assessment Author No 06/23/2019 4:41 PM EST McCandles s, Anuradha Mloly, RMA * Does this person have serious [...] Telephone Encounter - Jinny Montero CPhT - 05/30/2025 7:30 AM EST Pantoprazole Refill requested too soon. Refill denied. Last sent on 09/20/24 for a 90 day supply with 3 refills. Pt notified via [employer] (Cuponium) if active. documented in this encounter Plan of Treatment Upcoming Encounters Date Type Department Care Team (Late st Contact Info) Description 07/04/2025 1:45 PM EST Office Visit SEP Pulmonology [facility] [address] [phone] Franklin Salmeron MD [address] [address] 07/27/2025 11:[address] [facility] [place] [address] [place] [address] Tara Fofana MD [address] [place] [address] 07/30/2025 11:00 AM EST Appointment [facility] [place], [place] [phone] 07/30/2025 11:40 AM EST Appointment [facility] [place], [place] [phone] Tara Fofana MD [address] [place] [phone] documented as of this encounter Goals Goal [...] on filedocumented in this encounter Care Teams Hospice Volunteer Relationship Specialty Start Date End Date Radha Wise DO [address] [place] [phone] PCP - General Family Medicine 10/02/23 Kathryn Newell MD Physician Internal Medicine-Gastroenterolog y 11/27/14 Cristóbal Carr MD 1210 [facility] [place], [place] [phone] Physician Internal Medicine-Cardiovascular Disease 02/13/22 Jinny Resendiz, FRUIT PACKER FACE AND FILL Corporate Banking Officer 4/28/25 Corry Bansal, RN Registered Nurse 02/07/25 Tara Fofana MD 1 [place] [address] Internal Medicine-Hematology and Oncology 04/30/25 documented as of this encounter
--- OUTSIDE RECORDS SUMMARY | 2025-06-08 12:21 | XMS_ITS | Encounter Summary ---
Author Organization [place] [address] Care Team Providers Care Cath Lab Name Role Phone Kathryn Newell MD Unavailable [phone] Cristóbal Carr MD Unavailable [phone] Radha Wise DO Primary Care Provider [phone] Naz Lara RN Unavailable [phone] September PARK WORKER SUPERVISOR Unavailable [phone] Corry Bansal RN Unavailable [phone] Tara Fofana MD Unavailable Encounter Details Date Type Department Care Team (Late st Contact Info) Description 03/09/2025 Results Follow-Up [facility] [address] [place] [phone] Radha Wise DO [address] [place] [address] VITAMIN B12/ FOLIC ACID, COMPREHENSIVE METABOLIC PANEL, CBC WITH DIFF Social History Tobacco Use Types Packs/Day Years Used Date Smoking Tobacco: Former Cigarettes 0.8 48.8 1 - 01/21/2025 Smokeless Tobacco: Never Alcohol Use Standard Drinks/Week Comments Not Currently 0 (1 standard drink = 0.6 oz pur e alcohol) [facility] Utilities Answer Date Recorded In [...] Date Recorded PHQ-2 Total Score 0 01/23/2025 [facility] - Occupational Stress Questionnaire Answer Date Recorded [...] money to get more. Sometimes true 10/2024 [facility] IP Transportation Answer D ate Recorded In [...] Refills Last Filled Start Date End Date potassium chloride SA (KLOR-CON M) 10 mEq Oral Tab Sust.Rel. Particle/CrystalIn dications:Hypokale pati Take 1 Tablet by mouth daily. 30 Tablet 03/13/2025 04/06/2025 potassium chloride (KLOR-CON M) 20 mEq Oral Tab Sust.Rel. Particle/CrystalIn dications:Hypokale pati Take 1 Tablet by mouth 2 times daily for 3 days. 6 Tablet 03/09/2025 03/12/2025 documented in this encounter Plan of Treatment Upcoming Encounters Date Type Department Care Team (Late st Contact Info) Description 07/04/2025 1:45 PM EST Office Visit SEP Pulmonology [facility] [address] [phone] Franklin Salmeron MD [address] [address] 07/27/2025 11:[address] [facility] [place] [facility] [address] [place] [address] Tara Fofana MD [address] [place] [address] 07/30/2025 11:00 AM EST Appointment [facility] [place], [place] [phone] 07/30/2025 11:40 AM EST Appointment [facility] [place] [address] Tara Fofana MD [address] [place] [address] documented as of this encounter Goals Goal [...] as of this encounter Visit Diagnoses Diagnosis Hypokalemia- Primary Hypopotassemia documented in this encounter Care Teams Cath Lab Relationship Specialty Start Date End Date Radha Wise DO [address] [place], [place] [phone] PCP - General Family Medicine 10/02/23 Kathryn Newell MD Physician Internal Medicine-Gastroenter ology 11/27/14 Cristóbal Carr MD [address] [place] [address] 36 [place] [address] Physician Internal Medicine-Cardiovascu lar Disease 02/13/22 Naz Lara, RN Oncology Nurse Navigator 10/13/2404/14 Jinny Resendiz, PARK WORKER SUPERVISOR Equipment Installer 10/16/24 Corry Bansal, RN Registered Nurse 02/07/25 Tara Fofana MD 1 [place] [address] Internal Medicine-Hematology and Oncology 04/30/25 documented as of this encounter
--- OUTSIDE RECORDS SUMMARY | 2025-06-08 12:21 | XMS_ITS | Encounter Summary ---
Author Organization [place] [address] Care Team Providers Care Doweler Name Role Phone Kathryn Newell MD Unavailable [phone] Cristóbal Carr MD Unavailable [phone] Radha Wise DO Primary Care Provider [phone] Resendizseptember RUSSIAN LANGUAGE PROFESSOR Unavailable [phone] Corry Bansal RN Unavailable [phone] Tara Fofana MD Unavailable [phone] Encounter Details Date Type Department Care Team (Late st Contact Info) Description 06/01/2025 Abstract [facility] [address] [place] [phone] Radha Wise, DO [address] [place] [id number] Social History Tobacco Use Types Packs/Day Years Used Date Smoking Tobacco: Every Day Cigarettes 0.8 49.1 Started: 04/17/1976; Last attempted to quit: 01/21/2025 Smokeless Tobacco: Never Comments:She has nicotine pa tches that she will be starting in the future Alcohol Use Standard Drinks/Week Comments Not Currently 0 (1 standard drink = 0.6 oz pur e alcohol) [facility] Utilities Answer Date Recorded In the [...] Date Recorded PHQ-2 Total Score 0 01/23/2025 [facility] Occupat ional Health - Occupational [...] money to get more. Sometimes true 10/2024 [facility] IP Transportation Answer D ate Recorded [...] Assessment Author No 06/23/2019 4:41 PM EST Deep king Anuradha Molly ELIO * Does this person have difficulty dressing or bathing? Answer Date of Assessment Author No 06/23/2019 4:41 PM Anuradha Hooker MollyELIO * Because of a physical, mental [...] Hooker Molly ELIO documented in this encounter Plan of Treatment Upcoming Encounters Date Type Department Care Team (Late st Contact Info) Description 07/04/2025 1:45 PM EST Office Visit SEP Pulmonology [facility] [address] [phone] Franklin Salmeron MD [address] [address] 07/27/2025 11:[address] [facility] [address] [place] [address] Tara Fofana MD [address] [place] [phone] 07/30/2025 11:00 AM EST Appointment [place] [address] 07/30/2025 11:40 AM EST [facility]ment [facility] [place] [address] Tara Fofana MD [address] [place] [address] documented as of this encounter Goals Goal [...] Priority Date/Time Associated Diagnosis Comments CBC Routine 05/31/2025 documented in this encounter Results * (ABNORMAL) CBC (05/31/2025) WBC 13.4 X10(3)/MCL SEP OFFICE RBC 4.34 [...] OFFICE Blood VENOUS BLOOD / Unknown 05/31/2025 us Historical Provider HEMATOLOGY ORDERABLES Final Result SEP OFFICE documented in this encounter Visit Diagnoses Not on filedocumented in this encounter Care Teams Doweler Relationship Specialty Start Date End Date Radha Wise [place] [address] PCP - General Family Medicine 10/02/23 Kathryn Newell MD Physician Internal Medicine-Gastroenterolog y 11/27/14 Cristóbal Carr MD [address] [place] [address] Physician Internal Medicine-Cardiovascular Disease 02/13/22 Jinny Resendiz, RUSSIAN LANGUAGE PROFESSOR Parts Sales Manager 10/16/24 Corry Bansal, RN Registered Nurse 02/07/25 Tara Fofana MD [address] [place], [place] [phone] Internal Medicine-Hematology and Oncology 04/30/25 documented as of this encounter
--- OUTSIDE RECORDS SUMMARY | 2025-06-08 12:21 | XMS_ITS | Encounter Summary ---
Author Organization [place] [address] Care Team Providers Care Banking And Finance Instructor Name Role Phone Kathryn Newell MD Unavailable [phone] Cristóbal Carr MD Unavailable [phone] Radha Wise DO Primary Care Provider [phone] Resendizseptember MARINE WATER TENDER Unavailable [phone] Corry Bansal RN Unavailable [phone] Tara Fofana MD Unavailable [phone] Reason for Visit * Reason Comments Lung Cancer Follow-up Case status changesu rveillance Encounter Details Date Type Department Care Team (Late st Contact Info) Description 05/01/2025 Patient Outreach [facility] [place] [phone] Naz Lara, RN Lung Cancer; Follow-up (Case status change/surveillance) Social History Tobacco Use Types Packs/Day Years Used Date Smoking Tobacco: Every Day Cigarettes 0.8 49.1 Started: 04/17/1976; Last attempted to quit: 01/21/2025 Smokeless Tobacco: Never Comments:She has nicotine pa tches that she will be starting in the future Alcohol Use Standard Drinks/Week Comments Not Currently 0 (1 standard drink = 0.6 oz pur e alcohol) [facility] Utilities Answer Date Recorded In the [...] Date Recorded PHQ-2 Total Score 0 01/23/2025 [facility] - [facility]ational Stress Questionnaire Answer [...] money to get more. Sometimes true 10/2024 [facility] IP Transportation Answer D ate [...] Progress Notes * Naz Lara RN - 05/01/2025 10:42 AM EST Navigation Assessment Chief complaint: Chief Complaint Patient presents with Lung Cancer Follow-up Case status change surveillance Current Status: Closed Diagnosis: Lung Cancer - Adenocarcinoma Visit Type: MyChart Reason: Follow-Up;Exit Interview Assessment: Treatment Treatment decisions Intervention: Pt has elected not to pursue adjuvant chemo. Planning for repeat scan and f/u in 3 months. [employer] Chow Holdingshart sent to touch base and close case at this time Follow-up Plan CT;Med/Onc 07/27, 07/30 Exit interview completed via [employer] message . No barriers or care coordination needs noted at thistime. Patient has Onc NN contact information. Onc NN remains available to patient and providers as needed. Care Team updated on case status change to closed with request to inform Onc NN of any needsor changes to care. documented in this encounter Plan of Treatment Upcoming Encounters Date Type Department Care Team (Late st Contact Info) Description 07/04/2025 1:45 PM EST Office Visit SEP Pulmonology [facility] [address] [address] Franklin Salmeron MD [address] [address] 07/27/2025 11:[address] [facility] [address] [place] [address] Tara Fofana MD [address] [place] [address] 07/30/2025 11:00 AM EST Appointment [place] [address] 07/30/2025 11:40 AM EST [facility]ointment [facility] [place] [address] Tara Fofana MD [address] [place] [address] documented as of this encounter Goals Goal Patient Goal Type Associated Problems Recent Progress Patient-Stated? Author Blood Pressure < 140/90 Blood Pressure 132/78(2024 11:49 AM EST) No Nicole Amador STUDIO SET UP WORKER Maintain a healthy diet, exercise regularly and maintain an ideal body weight General No Anuradha Haro, ZENIAA BMI (Calculated) < 30 General 24.2(05/07/20 25 11:45 AM EST) No Nicole Amador, STUDIO SET UP WORKER Stay Tobacco Free Lifestyle No Anuradha Haro, RMA HEMOGLOBIN A1C < 7.0 Result Component 6.1( 5 2:05 PM EST) No Nicole Amador LPN documented as of this encounter Visit Diagnoses Not on filedocumented in this encounter Care Teams Banking And Finance Instructor Relationship Specialty Start Date End Date Radha Wise [place], [place] [phone] PCP - General Family Medicine 10/02/23 Kathryn Newell MD Physician Internal Medicine-Gastroenterolog y 11/27/14 Cristóbal Carr MD [address] [place], [place] [phone] Physician Internal Medicine-Cardiovascular Disease 02/13/22 Jinny Resendiz, MARINE WATER TENDER Quality Assurance Advisor 10/16/24 Corry Bansal, RN Registered Nurse 02/07/25 Tara Fofana MD [address] [place] [address] Internal Medicine-Hematology and Oncology 04/30/25 documented as of this encounter
--- OUTSIDE RECORDS SUMMARY | 2025-06-08 12:21 | XMS_ITS ---
Author Organization [facility] Address [address] [place] [address] Phone Care Team Providers Care Computer Applications Developer Name Role Phone Kathryn Newell MD Unavailable [phone] Cristóbal Carr MD Unavailable [phone] Radha Wise DO Primary Care Provider [phone] September TUBULAR STOCK GLASS BULB MACHINE FORMER Unavailable [phone] Corry Bansal RN Unavailable [phone] Tara Fofana MD Unavailable Active Problems Patient Care Coordination No te [...] chest pain 12/24/2023 Overview (12/24/2023): Seen at [facility] After evaluation at [facility] it was felt patient may be having pain related to possible vasospasms and treatment with Ranexa was discussed. At [facility] her lung nodule and CT scan were reviewed. It was also discussed with her the mural thrombus. , no further anticoagulation needed at this time. It was recommended she repeat scan in 6 months. Lasix was resumed at that time with low-dose potassium supplement given the history of Lasix induced hypokalemia. Adenocarcinoma of left lung 11/25/2023 Overview (09/04/2024): Seen on CT report from [facility]. Spiculated left upper lobe nodule, 7 mm in size follow-up in [address] scan (around 04/2024) CT follow up ordered by [facility] Assessment & Plan (04/30/2025 4:13 PM EST): [...] to ER visit for COPD exacerbation Orders: cfrnyeecbtk-udpbmurie-fgigexys (TRELEGY ELLIPTA) 100-62.5-25 mcg Inhl Disk with Device; Inhale 1 Puff into the lungs daily. Assessment & Plan (07/24/2024 1:47 PM EST): Orders: umeclidinium-vilanteroL (ANORO ELLIPTA) 62.5-25 mcg/actuation Inhl Disk with Device; Inhale 1 Puff into the lungs daily. Atherosclerosis of aorta 11/09/2018 Overview (11/09/2018): Per ct Chest 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 Stent 09/2018 Mixed hyperlipidemia 10/03/2014 Overview (11/01/2019): Goal per cardiology for LDL is 55 Tobacco abuse 06/06/2014 Migraine Overview (07/28/2019): Stable on imitrex prn Current Treatment and Therapy Plans ONC CARBOplatin (5) + pemetrexed (500) Q21D x 4 - 6* Plan Start Date:03/06/2025 Plan Provider:Tara Fofana MD Linked Problems Adenocarcinoma of left lung (HCC) Treatment Medications Current Day (Day 1 , Cycle 1 - Planned for 04/13/2025) Next Day (Day 1, Cycle 2 - Planned for 05/04/2025) CARBOplatin (PARAPLATIN)PEMEtrexed (ALIMTA) CARBOplatin (PARAPLATIN) in sodium chloride 0.9 % 250 mL chemo infusionPEMEtrexed disodium (ALIMTA) 800 mg in sodium chloride 0.9 % 100 mL chemo infusion CARBOplatin (PARAPLATIN) in sodium chloride 0.9 % 250 mL chemo infusionPEMEtrexed disodium (ALIMTA) 800 mg in sodium chloride 0.9 % 100 mL chemo infusion Past Treatment and Therapy Plans No past plan information found. Resolved Problems Problem Noted Date Diagnosed Date Resolved Date Post-operative state 01/22/2025 025 Infrarenal abdominal aortic aneurysm (AAA) without rupture 11/18/2023 10/12/2024 Overview (10/12/2024): Noted on report from [facility] 10/2023 Aorta ultrasound 11/2023- not well visualized due to bowel CT follow up ordered by [facility] CTA 09/2024 reported no AAA Assessment & Plan (03/08/2024 12:25 PM EDT): - continue to monitor and optimize blood pressure control - continue to monitor and optimize lipids Consider follow up ultrasound for visualization Upper abdominal pain 12/10/2020 024 Overview (12/10/2020): Added automatically from request for surgery [id number] Nausea 12/10/2020 10/22/2023 Overview (12/10/2020): Added automatically from request for surgery [id number] Glucose intolerance (impaire d glucose tolerance) 07/28/2017 10/22/2023 Tinea pedis of both feet 06/23/201608/2023 Chest pain 04/16/2016 10/22/2023 Dysphagia 10/29/2014 10/22/2023 Abdominal pain 10/03/2014 04/16/2016
--- OUTSIDE RECORDS SUMMARY | 2025-06-08 12:21 | XMS_ITS | Encounter Summary ---
Author Organization [place] [address] Care Team Providers Care Machine Binder Stripper Name Role Phone Kathryn Newell MD Unavailable Cristóbal Carr MD Unavailable [phone] Radha Wise DO Primary Care Provider [phone] Naz Lara RN Unavailable September DEPARTMENT SUPERVISOR Unavailable [phone] Corry Bansal RN Unavailable [phone] Tara Fofana MD Unavailable Reason for Visit * Reason Onset Date Comments Results 03/30/2025 BMP Encounter Details Date Type Department Care Team (Late Contact Info) Description 03/30/2025 Results Follow-Up [facility] [address] [place] [address] Radha Wise DO [address] [place] [address] BASIC METABOLIC PANEL Social History Tobacco Use Types Packs/Day Years Used Date Smoking Tobacco: Every Day Cigarettes 0.8 49.1 Started: 04/17/1976; Last attempted to quit: 01/21/2025 Smokeless Tobacco: Never Comments:She has nicotine pa tches that she will be starting in the future Alcohol Use Standard Drinks/Week Comments Not Currently 0 (1 standard drink = 0.6 oz pur e alcohol) [facility] Utilities Answer Date Recorded In the [...] Date Recorded PHQ-2 Total Score 0 01/23/2025 [facility] [place] of Occupat ional Health - Occupational Stress [...] Sometimes true 10/2024 [facility] IP Transportation Answer [...] 06/23/2019 4:41 PM Anuradha Hooker, ELIO * Does this person have serious difficulty [...] encounter Miscellaneous Notes * Telephone Encounter - Neema Chiang RMA - 04/02/2025 1:03 PM EDT Select the most appropriate reason for this telephone message: Patient Calling for Results Patient called for results on Lab BMP Which Provider ordered the test? DO Wise Date of test: 03/30/25 Advised patient of: see below result. Patient Instructions/ Questions: Patient/caller was given test results, voiced understanding. No need for call back, patient/caller had no additional questions. Thank you. Medications Ordered/Pended (if yes, list medication): No Medications/Orders Needed (if yes, list orders): Yes Please order future potassium lab for 3-6 month f/u. Thank you. Pharmacy Location Verified: Yes [id number] [place] [address] [facility] [phone] Other: Results given to patient Radha Hdz DO Billie 03/30/2025 4:20 PM EDT Continue daily potassium supplement until otherwise instructed Likely will be a chronic supplement for her We need to check potassium every 3-6 months Please order future potassium lab for 3-6 month f/u. Thank you. documented in this encounter Plan of Treatment Upcoming Encounters Date Type Department Care Team (Late st Contact Info) Description 07/04/2025 1:45 PM EST Office Visit SEP Pulmonology [facility] [address] [address] Franklin Salmeron MD [address] [address] 07/27/2025 11:00 AM EST Appointment [facility] [address] [facility] [address] [place] [address] Tara Fofana MD [address] [place] [address] [phone] 07/30/2025 11:00 AM EST Appointment [facility] [place], [place] [phone] 07/30/2025 11:40 AM EST [facility]ointment [facility] [place] [address] Tara Fofana MD [address] [place] [address] [phone] Scheduled Orders Name Type Priority Associated Diagnoses Orde r Schedule BASIC METABOLIC PANEL Lab Routine Hypokalemia 1 Occurrences starting 04/02/2025 until 04/02/2026 documented as of this encounter Goals Goal [...] Result Component 6.1( 5 2:05 PM EST) Nicole Haddad LPN documented as of this encounter Visit Diagnoses Diagnosis Hypokalemia- Primary Hypopotassemia documented in this encounter Care Teams Machine Binder Stripper Relationship Specialty Start Date End Date Radha Wise DO [address] [place], [place] [phone] PCP - General Family Medicine 10/02/23 Kathryn Newell MD Physician Internal Medicine-Gastroenter ology 11/27/14 Cristóbal Carr MD [address] [facility] [place], [place] [phone] Physician Internal Medicine-Cardiovascu lar Disease 02/13/22 Naz Lara, RN Oncology Nurse Navigator 10/13/2404/14 Jinny Resendiz, DEPARTMENT SUPERVISOR Quartz Cutter 10/16/24 Corry Bansal, RN Registered Nurse 02/07/25 Tara Fofana MD [address] [place] [address] [phone] Internal Medicine-Hematology and Oncology 04/30/25 documented as of this encounter
--- OUTSIDE RECORDS SUMMARY | 2025-06-08 12:21 | XMS_ITS | Encounter Summary ---
Author Organization [place] [address] Care Team Providers Care Pattern Molder Name Role Phone Kathryn Newell MD Unavailable [phone] Cristóbal Carr MD Unavailable [phone] Radha Wise DO Primary Care Provider [phone] ResendizSeptember SEAFOOD PACKER Unavailable [phone] Corry Bansal RN Unavailable [phone] Tara Fofana MD Unavailable [phone] Reason for Visit * Reason Onset Date Comments Medication Refill 05/21/2025 Encounter Details Date Type Department Care Team (Late st Contact Info) Description 05/21/2025 Refill [facility] [address] [place] [address] Radha Wise DO [address] [employer] [place] [phone] Medication Refill Social History Tobacco Use Types Packs/Day Years Used Date Smoking Tobacco: Every Day Cigarettes 0.8 49.1 Started: 04/17/1976; Last attempted to quit: 01/21/2025 Smokeless Tobacco: Never Comments:She has nicotine pa tches that she will be starting in the future Alcohol Use Standard Drinks/Week Comments Not Currently 0 (1 standard drink = 0.6 oz pur e alcohol) [facility] Utilities Answer Date Recorded In the past [...] money to get more. Sometimes true 10/2024 [facility] IP Transportation Answer D ate Recorded [...] 06/23/2019 4:41 PM EST McCandles s, Anuradha Molly, RMA * Does this person have serious [...] Refills Last Filled Start Date End Date ALPRAZolam (XANAX) 0.25 mg Oral TabletIndications: REBEKAH (generalized anxiety disorder) Take 1 Tablet by mouth 2 times daily as needed. for anxiety 60 Tablet 2 05/21/2025 documented in this encounter Miscellaneous Notes * Telephone Encounter - Albania Chavez MA - 05/21/2025 8:59 AM EST Kael:PDMP not electronically reviewed on this encounter. Last resulted compliance panel date: 08/12/2023 Last fill:03/22/2025 Last visit:03/30/2025 Upcoming appt: na documented in this encounter Plan of Treatment Upcoming Encounters Date Type Department Care Team (Late st Contact Info) Description 07/04/2025 1:45 PM EST Office Visit SEP Pulmonology [facility] [address] [phone] Franklin Salmeron MD [address] [address] 07/27/2025 11:[address] [facility] [place] [place] [address] [place] [address] Tara Fofana MD [address] [place] [address] 07/30/2025 11:00 AM EST Appointment [facility] [place], [place] [phone] 07/30/2025 11:40 AM EST Appointment [facility] [place] [address] Tara Fofana MD [address] [place] [address] documented as of this encounter Goals Goal [...] as of this encounter Visit Diagnoses Diagnosis REBEKAH (generalized anxiety disorder) Generalized anxiety disorder documented in this encounter Discontinued Medications Medication Sig Discontinue Reason Start Date End Da te ALPRAZolam (XANAX) 0.25 mg Oral TabletIndications:REBEKAH (generalized anxiety disorder) Take 1 Tablet by mouth 2 times daily as needed. for anxiety Reorder 03/22/2025 05/21/2025 documented as of this encounter Care Teams Pattern Molder Relationship Specialty Start Date End Date Radha Wise DO [address] [place], [place] [phone] PCP - General Family Medicine 10/02/23 Kathryn Newell MD Physician Internal Medicine-Gastroenterolog y 11/27/14 Cristóbal Carr MD [address] [place] [address] Physician Internal Medicine-Cardiovascular Disease 02/13/22 Jinny Resendiz, SEAFOOD PACKER Java Application Engineer 10/16/24 Corry Bansal, RN Registered Nurse 02/07/25 Tara Fofana MD [address] [place], [place] [phone] Internal Medicine-Hematology and Oncology 04/30/25 documented as of this encounter
--- OUTSIDE RECORDS SUMMARY | 2025-06-08 12:21 | XMS_ITS | Encounter Summary ---
Author Organization [place] [address] Care Team Providers Care Full Fashioned Garment Knitter Name Role Phone Kathryn Newell MD Unavailable [phone] Cristóbal Carr MD Unavailable [phone] Radha Wise DO Primary Care Provider [phone] ResendizSeptember ELECTRIC RAZOR MECHANIC Unavailable [phone] Corry Bansal RN Unavailable [phone] Tara Fofana MD Unavailable [phone] Reason for Visit * Reason Onset Date Comments Medication Refill 05/21/2025 Encounter Details Date Type Department Care Team (Late st Contact Info) Description 05/21/2025 Refill [facility] [address] [place] [address] Radha Wise DO [address] [place] [phone] Medication Refill Social History Tobacco Use Types Packs/Day Years Used Date Smoking Tobacco: Every Day Cigarettes 0.8 49.1 Started: 04/17/1976; Last attempted to quit: 01/21/2025 Smokeless Tobacco: Never Comments:She has nicotine pa tches that she will be starting in the future Alcohol Use Standard Drinks/Week Comments Not Currently 0 (1 standard drink = 0.6 oz pur e alcohol) [facility] Utilities Answer Date Recorded In the past [...] Date Recorded PHQ-2 Total Score 0 01/23/2025 [facility] Occupat ional Health - Occupational [...] money to get more. Sometimes true 10/2024 [facility] IP Transportation Answer D ate Recorded [...] Refills Last Filled Start Date End Date albuterol-ipratro pium (DUO-NEB) 3 mg-0.5 mg(2.5 mg base)/3 mL Inhl Solution for NebulizationIndic ations:COPD with acute exacerbation (HCC) Take 3 mL by nebulization every 6 hours as needed for Shortness of Breath. 12 mL 1 05/22/2025 documented in this encounter Miscellaneous Notes * Telephone Encounter - Jinny Montero CPhT - 05/22/2025 2:09 PM EST Duo-Neb Refill request deferred to the office: Last prescription sent on 03/09/25. Unsure if refills are appropriate. qty unclear documented in this encounter Plan of Treatment Upcoming Encounters Date Type Department Care Team (Late st Contact Info) Description 07/04/2025 1:45 PM EST Office Visit SEP Pulmonology [facility] [address] [phone] Franklin Salmeron MD [address] [address] 07/27/2025 11:[address] [facility] [place] [place] [address] [place] [address] Tara Fofana MD [address] [place] [address] 07/30/2025 11:00 AM EST Appointment [place] [address] 07/30/2025 11:40 AM EST [facility]ointment [facility] [place] [address] Tara Fofana MD [address] [place] [address] documented as of this encounter Goals Goal [...] as of this encounter Visit Diagnoses Diagnosis COPD with acute exacerbation (HCC) Obstructive chronic bronchitis with exacerbation documented in this encounter Discontinued Medications Medication Sig Discontinue Reason Start Date End Da te albuterol-ipratropium (DUO-NEB) 3 mg-0.5 mg(2.5 mg base)/3 mL Inhl Solution for NebulizationIndication s:COPD with acute exacerbation (HCC) Take 3 mL by nebulization every 6 hours as needed for Shortness of Breath. Reorder 03/09/2025 05/21/2025 documented as of this encounter Care Teams Full Fashioned Garment Knitter Relationship Specialty Start Date End Date Radha Wise DO [address] [place], [place] [phone] PCP - General Family Medicine 10/02/23 Kathryn Newell MD Physician Internal Medicine-Gastroenterolog y 11/27/14 Cristóbal Carr MD [address] [place], [place] [phone] Physician Internal Medicine-Cardiovascular Disease 02/13/22 Jinny Resendiz, ELECTRIC RAZOR MECHANIC Coat Joiner Lockstitch 10/16/24 Corry Bansal, RN Registered Nurse 02/07/25 Tara Fofana MD [address] [place] [address] [phone] Internal Medicine-Hematology and Oncology 04/30/25 documented as of this encounter
--- OUTSIDE RECORDS SUMMARY | 2025-06-08 12:21 | XMS_ITS | Encounter Summary ---
Author Organization [place] [address] Care Team Providers Care Management Developer Name Role Phone Kathryn Newell MD Unavailable [phone] Cristóbal Carr MD Unavailable [phone] Radha Wise DO Primary Care Provider + [phone] Naz Lara RN Unavailable ResendizSeptember GRANITE INSTALLER Unavailable [phone] Jeffy Bansal RN Unavailable [phone] Reason for Visit * Reason Comments Lung Cancer Follow-up Status Update Encounter Details Date Type Department Care Team (Late st Contact Info) Description 04/03/2025 Patient Outreach [facility] [place], [place] [id number] Naz Lara, RN Lung Cancer; Follow-up; Status Update Social History Tobacco Use Types Packs/Day Years Used Date Smoking Tobacco: Every Day Cigarettes 0.8 49.1 Started: 04/17/1976; Last attempted to quit: 01/21/2025 Smokeless Tobacco: Never Comments:She has nicotine pa tches that she will be starting in the future Alcohol Use Standard Drinks/Week Comments Not Currently 0 (1 standard drink = 0.6 oz pur e alcohol) [facility] Utilities Answer Date Recorded In the [...] Recorded PHQ-2 Total Score 0 01/23/2025 [facility] - Occupational Stress Questionnaire Answer [...] money to get more. Sometimes true 10/2024 [facility] IP Transportation Answer D ate Recorded [...] Progress Notes * Naz Lara RN - 04/03/2025 3:03 PM EDT Navigation Assessment Chief complaint: Chief Complaint Patient presents with Lung Cancer Follow-up Status Update Current Status: Active Diagnosis: Lung Cancer - Adenocarcinoma Visit Type: Telephone - outgoing Reason: Follow-Up Assessment: Treatment Treatment decisions Intervention: ONN attempted to reach pt again today to check in and discuss follow up with med onc. No answer. VMleft. Noted in chart that pt still having significant pain, so ONN requested a call back or mychartmessage in order to discuss further, and if she would like to schedule a follow up so she does not miss tx window. Follow-up Plan Med/Onc TBD Onc NN will continue to follow patient. documented in this encounter Miscellaneous Notes * Telephone Encounter - Jeffy Bansal RN - 04/10/2025 10:02 AM EDT Noted. Labs ordered. * Addendum Note - Jeffy Bansal RN - 04/10/2025 10:02 AM EDTAddended by: JEFFY BANSAL on: 04/10/2025 10:02 AM Modules accepted: Orders * Telephone Encounter - Bernie Dick CNA - 04/10/2025 10:01 AM EDT Scheduled OV, Lab & Teach with patient. * Telephone Encounter - Jeffy Bansal RN - 04/10/2025 9:39 AM EDT Pt still has not r/s f/up with Dr. Fofana and teach with this RN. Pt did go to mri brain yesterday. Per Dr. Fofana, the cut off for adjuvant chemo is 3 months, pt had surgery 01/22, so if pt wants to proceed with tx, need to r/s mickei. Please attempt to reach pt again to schedule lab appt, appt with teach following. * Telephone Encounter - Jeffy Bansal RN - 04/04/2025 8:39 AM EDT Noted. documented in this encounter Plan of Treatment Upcoming Encounters Date Type Department Care Team (Late st Contact Info) Description 07/04/2025 1:45 PM EST Office Visit SEP Pulmonology [facility] [address] [phone] Franklin Salmeron MD [address] [address] 07/27/2025 11:[address] [facility] [place] [address] [place] [address] Tara Fofana MD [address] [place] [address] 07/30/2025 11:00 AM EST Appointment [facility] [place], [place] [phone] 07/30/2025 11:40 AM EST Appointment [facility] Oncology [place], [place] [phone] Tara Fofana MD [address] [place] [address] documented as of this encounter Goals Goal [...] documented as of this encounter Results * (ABNORMAL) COMPREHENSIVE METABOLIC PANEL (04/12/2025 2:56 PM EDT) Sodium 142 136 - 145 mmol/L 04/12/2025 3:25 PM EDT [facility] Potassium 3.8 3.5 - 5.0 mmol/L 04/12/2025 3:25 PM EDT [facility] Chloride 107 98 - 107 mmol/L 04/12/2025 3:25 PM EDT [facility] Total CO2 22 22 - 29 mmol/L 04/12/2025 3:25 PM EDT [facility] Anion Gap 13 7 - 16 mmol/L 04/12/2025 3:25 PM EDT [facility] Calcium 9.5 8.8 - 10.4 mg/dL 04/12/2025 3:25 PM EDT [facility] Glucose Lvl 116(H) 70 - 99 mg/dL 04/12/2025 3:25 PM EDT [facility] BUN 9 8 - 23 mg/dL 04/12/2025 3:25 PM EDT [facility] Creatinine 0.82 0.51 - 1.30 mg/dL 04/12/2025 3:25 PM EDT [facility] Albumin 4.4 3.2 - 4.6 gm/dL 04/12/2025 3:25 PM EDT [facility] Total Protein 7.4 6.4 - 8.3 gm/dL 04/12/2025 3:25 PM EDT [facility] Bili Total 0.3 0.2 - 1.3 mg/dL 04/12/2025 3:25 PM EDT [facility] ALT 9 <=41 U/L 04/12/2025 3:25 PM EDT [facility] AST 9 <=40 U/L 04/12/2025 3:25 PM EDT [facility] Alk Phos 120 36 - 123 U/L 04/12/2025 3:25 PM EDT [facility] eGFR (CKD-EPIcr 2020) 79 >=60 mL/min/1.7 3 m2 04/12/2025 3:25 PM EDT [facility] Comment:Estimated GFR was ca lculated using the CKD-EPIcr (2020) equation refit without race. The equation is recommended by the National Kidney Foundation - [place] [employer] of Nephrology Task Force. Blood VENOUS BLOOD / Unknown Venipuncture / Unknown 04/12/2025 2:56 PM EDT 04/12/2025 2:56 PM EDT us Tara Fofana MD CHEMISTRY ORDERABLES Fin al Result [facility] [address] [place] [address] * (ABNORMAL) CBC WITH DIFF (04/12/2025 2:56 PM EDT) WBC 8.5 3.7 - 10.3 x10(3)/mcL 04/12/2025 3:[address] [facility] RBC 4.32 3.90 - 5.20 x10(6)/mcL 04/12/2025 3:10 PM EDT [facility] Hgb 12.8 11.2 - 15.7 g/dL 04/12/2025 3:[address] [facility] Hct 39.6 34.0 - 45.0 % 04/12/2025 3:10 PM EDT [facility] MCV 91.7 80.0 - 100.0 fL 04/12/2025 3:[address] [facility] MCH 29.6 26.0 - 34.0 pg 04/12/2025 3:[address] [facility] MCHC 32.3 30.7 - 35.5 g/dL 04/12/2025 3:[address] [facility] RDW 13.7 <=14.9 % 04/12/2025 3:[address] [facility] Platelet 370(H) 155 - 369 x10(3)/mcL 04/12/2025 3:[address] [facility] MPV 9.6 8.8 - 12.5 fL 04/12/2025 3:[address] [facility] Neut # Prelim 4.1 1.6 - 6.1 x10(3)/mcL 04/12/2025 3:10 PM EDT [facility] Comment:Preliminary automate d absolute neutrophil count. Value may change if manual differential is indicated. Neut Percent 48.4 % 04/12/2025 3:10 PM EDT [facility] Comment:Neutrophils equals s egs plus bands Imm Gran% 0.1 % 04/12/2025 3:10 PM EDT [facility] Comment:Automated count of m etamyelocytes, myelocytes and promyelocytes. Lymph Percent 35.0 % 04/12/2025 3:10 PM EDT [facility] [place] Percent 8.3 % 04/12/2025 3:10 PM EDT [facility] Eos Percent 7.8 % 04/12/2025 3:10 PM EDT [facility] Baso Percent 0.4 % 04/12/2025 3:10 PM EDT [facility] Neut # 4.1 1.6 - 6.1 x10(3)/[facility] 04/12/2025 3:10 PM EDT [facility] Comment:Neutrophils equals s egs plus bands IMMGRAN# 0.0 0.0 - 0.1 x10(3)/mcL 04/12/2025 3:10 PM EDT [facility] Comment:Automated count of m etamyelocytes, myelocytes and promyelocytes. An absolute IG <0.1 is reported as 0.0. Lymph # 3.0 1.2 - 3.9 x10(3)/[facility] 04/12/2025 3:10 PM EDT [facility] [place] # 0.7 0.3 - 0.9 x10(3)/[facility] 04/12/2025 3:10 PM EDT [facility] Eos# 0.7(H) 0.0 - 0.5 x10(3)/mcL 04/12/2025 3:10 PM EDT [facility] Baso # 0.0 0.0 - 0.1 x10(3)/[facility] 04/12/2025 3:10 PM EDT [facility] Blood VENOUS BLOOD / Unknown Venipuncture / Unknown 04/12/2025 2:56 PM EDT 04/12/2025 2:56 PM EDT Tara Fofana MD HEMATOLOGY ORDERABLES Fi nal Result [facility] [address] [place] [address] documented in this encounter Visit Diagnoses Diagnosis Adenocarcinoma of lung, unspecified laterality (HCC)- Primary documented in this encounter Care Teams Management Developer Relationship Specialty Start Date End Date Radha Wise DO [address] [place] [address] PCP - General Family Medicine 10/02/23 Kathryn Newell MD Physician Internal Medicine-Gastroenter ology 11/27/14 Cristóbal Carr MD [address] [place] [address] [place] [address] Physician Internal Medicine-Cardiovascu lar Disease 02/13/22 Naz Lara, RN Oncology Nurse Navigator 10/13/2404/14 Jinny Resendiz MSW Distribution Collection Operator 10/16/24 Jeffy Bansal, RN Registered Nurse 02/07/25 documented as of this encounter
--- OUTSIDE RECORDS SUMMARY | 2025-06-08 12:21 | XMS_ITS | Encounter Summary ---
Author Organization [place] [address] Care Team Providers Care Automobile Parker Name Role Phone Kathryn Newell MD Unavailable [phone] Cristóbal Carr MD Unavailable [phone] Radha Wise DO Primary Care Provider [phone] Naz Lara RN Unavailable September CLINICAL INFORMATICS MANAGER Unavailable [phone] Jeffy Fair RN Unavailable Reason for Referral * MRI/CAT Scan (Urgent) - Closed Specialty Diagnoses / Procedures Referred By Contac t Referred To Contact Radiology Diagnoses Adenocarcinoma of lung, unspecified laterality (HCC) Procedures MRI BRAIN W WO CONTRAST Tara Fofana MD [address] [place] [address] Phone: tel: fax: [facility] [address] [facility] [place] [address] Phone: tel: Referral ID Status Reason Start Date Expiration Date Visits Re quested Visits Authorized [id number] Closed 03/01/2025 03/01/2026 1 1 Reason for Visit * Reason Onset Date Comments Reschedule 03/01/2025 Encounter Details Date Type Department Care Team (Late st Contact Info) Description 03/01/2025 Telephone [facility] [place] [address] Tara Fofana MD [address] [place], [place] [id number] Reschedule Social History Tobacco Use Types Packs/Day Years Used Date Smoking Tobacco: Former Cigarettes 0.8 48.8 1 - 01/21/2025 Smokeless Tobacco: Never Alcohol Use Standard Drinks/Week Comments Not Currently 0 (1 standard drink = 0.6 oz pur e alcohol) [facility] Utilities Answer Date Recorded In the [...] Date Recorded PHQ-2 Total Score 0 01/23/2025 [facility] [place] [facility] - Occupational Stress [...] money to get more. Sometimes true 10/2024 [facility] IP Transportation Answer D ate [...] No 06/23/2019 4:41 PM Anuradha Hooker, RMA documented as of this encounter Mental Status * Because of a physical, mental or emotional condition, does this person have serious difficulty concentrating, remembering or making decisions? Answer Entry Date Author No 06/23/2019 4:41 PM Anuradha Hooker RMA documented in this encounter Miscellaneous Notes * Telephone Encounter - Jeffy Fair RN - 04/10/2025 10:07 AM EDT Pt is r/s for 04/12. See other encounter. * Telephone Encounter - Jeffy Fair RN - 03/29/2025 3:41 PM EDT Pt has not called back to r/s appts. Routing to NN for assistance, to see if there are any barriersor things we can do to help get pt rescheduled. Needs f/up with Dr. Fofana and teach with me and portplacement with thoracic surgery. * Telephone Encounter - Jeffy Fair RN - 03/21/2025 2:20 PM EDT Per chart review, pain medication refilled by TS yesterday. * Telephone Encounter - Jeffy Fair RN - 03/02/2025 8:53 AM EDT Will f/up after nerve block has been completed. * Telephone Encounter - Britta Timmons NA - 03/01/2025 3:42 PM EDT Surgery been cx'ed * Telephone Encounter - Bernie Dick CNA - 03/01/2025 3:17 PM EDT CS called patient and she refused to schedule MRI. She will call back if she changes her mind. * Telephone Encounter - Jeffy Fair RN - 03/01/2025 2:30 PM EDT Noted. FYI to scheduling, pt will need mri brain, f/up with Dr. Fofana and teach with me right after f/up after NB 03/14. * Telephone Encounter - Yolanda Ruelas RN - 03/01/2025 11:09 AM EDT Spoke to patient. Addressed pain complaints, taking meds as prescribed. Spoke to Ale @ Dr. Brand's office. She is unable to move up nerve block with Dr. Brand r/to no earlier appts available @ this time. Alisa is aware and would like to reschedule port, brain mri and f/up with Dr. Brigido epsteinerve block completed. Yuri please find date after 03/14 for port placement. * Telephone Encounter - Jeffy Fair RN - 03/01/2025 10:11 AM EDT Thoracic, please call pt to address pain. * Telephone Encounter - Bernie Dick CNA - 03/01/2025 9:49 AM EDT Called patient to schedule and she stated that she cannot get out of bed due to being in so much pain. She said she sent a message to Thoracic nurse letting them know. She states will go to ED today if she does not hear back. She states she does not want to schedule any thing else until they find out what is causing her pain. I let her know I would send a message for someone to call her. * Addendum Note - Jeffy Fair RN - 03/01/2025 9:38 AM EDTAddended by: JEFFY FAIR on: 03/01/2025 09:38 AM Modules accepted: Orders * Telephone Encounter - Jeffy Fair RN - 03/01/2025 9:38 AM EDT Reordered mickie per MD. * Telephone Encounter - Lakshmi Dolan - 03/01/2025 9:36 AM EDT Please reorder MRI * Telephone Encounter - Jeffy Fair RN - 03/01/2025 9:22 AM EDT Pt needs MRI brain r/s (was scheduled for this am), f/up with Dr. Fofana and teach with this RN, all same day due to pt distance from [facility] to thoracic as pt has port placement scheduled for Wednesday. documented in this encounter Plan of Treatment Upcoming Encounters Date Type Department Care Team (Late st Contact Info) Description 07/04/2025 1:45 PM EST Office Visit SEP Pulmonology [facility] [address] [phone] Franklin Salmeron MD [address] [address] 07/27/2025 11:00 AM EST Appointment [facility] [address] [place] [address] Tara Fofana MD [address] [place] [phone] 07/30/2025 11:00 AM EST Appointment [facility] [place], [place] [phone] 07/30/2025 11:40 AM EST Appointment [facility] Medical Oncology [place], [place] [phone] Tara Fofana MD [address] [place] [phone] documented as of this encounter Goals Goal Patient Goal Type Associated Problems Recent Progress Patient-Stated? Author Blood Pressure < 140/90 Blood Pressure 132/78(2024 11:49 AM EST) No Nicole Amador LPN Maintain a healthy diet, exercise regularly and maintain an ideal body weight General No EstrellitaAnuradha Molly, RMA BMI (Calculated) < 30 General 24.2(05/07/20 25 11:45 AM EST) No Nicole Amador, HAM STRIPPER Stay Tobacco Free Lifestyle No Andrey Haroey Molly, RMA HEMOGLOBIN A1C < 7.0 Result Component 6.1( 2:05 PM EST) No Nicole Amador LPN documented as of this encounter Results * MRI BRAIN W [...] please contactthe office of the ordering clinician. Pachecotacos Fofana MD IM MRI ORDERABLES Final Result documented in this encounter Visit Diagnoses Diagnosis Adenocarcinoma of lung, unspecified laterality (HCC)- Primary Adenocarcinoma of lung, unspecified laterality (HCC) documented in this encounter Care Teams Automobile Parker Relationship Specialty Start Date End Date Radha Wise DO [address] [place] [address] PCP - General Family Medicine 10/02/23 Kathryn Newell MD Physician Internal Medicine-Gastroenter ology 11/27/14 Cristóbal Carr MD [address] [place], [place] [phone] Physician Internal Medicine-Cardiovascu lar Disease 02/13/22 Naz Lara, RN Oncology Nurse Navigator 10/13/2404/14 Jinny Resendiz MSW Machine Washer 10/16/24 Jeffy Fair, RN Registered Nurse 02/07/25 documented as of this encounter
[2025-06-08 13:18] LABS: Hematocrit 34.0 % (37.0-47.0); Hemoglobin 11.0 g/dL (12.2-16.2); Immature Granulocytes % 0.4 %; Mean Corpuscular HGB Conc 32.4 g/dL (31.8-35.4); Mean Corpuscular Hemoglobin 29.3 pg (27.0-31.2); Mean Corpuscular Volume 90.7 fl (81-99); Nucleated Red Blood Cells % 0 %; Platelet Count 382 K/mm3 (142-424); Red Blood Count 3.75 M/mm3 (4.20-5.40); Red Cell Distribution Width-SD 46.6 fL; White Blood Count 11.6 K/mm3 (4.8-10.8)
[2025-06-08 13:22] LABS: Albumin Level 4.5 g/dl (3.5-5.0); Chloride 110 mmol/L (98-107); Sodium 141 mmol/L (136-145)
[2025-06-08 13:24] LABS: Potassium 3.0 mmoL/L (3.5-5.1)
[2025-06-08 13:25] LABS: Alanine Aminotransferase 32 U/L (12-78); Albumin/Globulin Ratio 1.6 (1.1-1.8); Alkaline Phosphatase 104 U/L (38-126); Anion Gap 12.0 mEq/L (5-15); Aspartate Amino Transferase 33 U/L (14-36); Bilirubin,Total 0.3 mg/dl (0.2-1.3); Blood Urea Nitrogen 3 mg/dl (7-17); Carbon Dioxide 22 mmol/L (22.0-30.0); Creatinine Clearance Estimated 53 mL/min (50-200); Creatinine,Serum 0.70 mg/dl (0.52-1.04); Estimated Glomerular Filt Rate 84 ml/min (>60); GFR (African American) 102 ML/MIN (>60); Globulin 2.9 g/dL (1.3-3.2); Total Protein,Serum 7.4 g/dl (6.3-8.2)
[2025-06-08 13:26] LABS: Calcium 9.4 mg/dl (8.4-10.2); Glucose 95 mg/dl (74-100)
== END 2025-06-08 23:59 | disposition home or self-care (01) ==
LOC: PREOP 12:18
PROVIDERS: PCP Student in an Organized Health Care Education/Training Program; Visit Provider Surgery
DX: Z01.812 Encounter for preprocedural laboratory examination (principal)
CPT/HCPCS: 80053; 85025

== ENCOUNTER 2025-06-13 18:24 | Emergency (ER) | payer OTHER, SELFPAY ==
--- OUTSIDE RECORDS SUMMARY | 2025-04-30 15:40 | XMS_ITS | Encounter Summary ---
Author Organization [place] [address] Care Team Providers Care Cellophane Bag Machine Operator Name Role Phone Kathryn Newell MD Unavailable [phone] Cristóbal Carr MD Unavailable [phone] Radha Wise DO Primary Care Provider [phone] Naz Lara RN Unavailable [phone] September SILK PRESSER Unavailable [phone] Corry Bansal RN Unavailable [phone] Tara Fofana MD Unavailable [phone] Reason for Referral * MRI/CAT Scan (Routine) - Pending Review Specialty Diagnoses / Procedures Referred By Contac t Referred To Contact Radiology Diagnoses Adenocarcinoma of left lung (HCC) Procedures CT CHEST ABDOMEN PELVIS WO ORAL WITH IV CONTRAST Tara Fofana MD [address] [place] [address] Phone: tel: fax: Referral ID Status Reason Start Date Expiration Date V isits Requested Visits Authorized [id number] Pending Review 04/30/2025 04/30/2026 1 1 Reason for Visit * Reason Comments Follow-up Adenocarcinoma of le ft lung Encounter Details Date Type Department Care Team (Latest Contact Info) Description 04/30/2025 3:40 PM EST - 04/30/2025 11:59 PM EST Hospital Encounter [facility] Medical Oncology [address] [place], [place] [phone] Radha Wise DO [address] [place], [place] [phone] Tara Fofana MD [address] [place] [phone] Adenocarcinoma of left lung (HCC) (Primary Dx) [...] drink = 0.6 oz pur e alcohol) [facility] Utilities Answer Date Recorded In the past [...] Date Recorded PHQ-2 Total Score 0 01/23/2025 [facility] [place] of Occupat ional Health - Occupational Stress [...] money to get more. Sometimes true 10/2024 [facility] IP Transportation Answer D ate Recorded [...] every morning. 5 Blood-Glucose Meter [facility] KitIndications:Gluc ose intolerance (impaired glucose tolerance) Use to check blood sugars up to twice daily 1 Kit 2 citalopram (CELEXA) 20 mg Oral TabletIndications:G AD (generalized anxiety disorder) Take 1 Tablet by mouth daily. 90 Tablet 3 4 clopidogreL (PLAVIX) 75 mg Oral TabletIndications:C oronary artery disease involving ely shoshone coronary artery of ely shoshone heart with angina pectoris Take 1 Tablet [...] Tablet 1 5 FREESTYLE LITE STRIPS [facility] StripIndications:Gl ucose intolerance (impaired glucose tolerance) USE TO CHECK BLOOD SUGARS UP TO TWICE DAILY 100 Strip 11 4 Lancets [facility] MiscIndications:Glu cose intolerance (impaired glucose tolerance) Use [...] were not included. Patient: Alisa Dan CSN: [id number] Date of : 1960 Age: 64 y.o. Date of Service: 04/30/2025 HEMATOLOGY/ONCOLOGY FOLLOW-UP NOTE Primary optical mechanic apprentice/oncologist: No care steam frame operator to display CANCER DIAGNOSIS: pT1bN1 - Lung [...] mg Oral Tablet FREESTYLE LITE STRIPS [facility] Strip Lancets [facility] lidocaine (LIDODERM) 5 % Top Adhesive Patch, [...] and CAD s/p PCI recently diagnosed with [id number] Lung adenocarcinoma of left side s/p surgery [...] Fofana MD Hematology and Medical Oncology [facility] documented in this encounter Plan of Treatment Upcoming Encounters Date Type Department Care Team (Late st Contact Info) Description 07/04/2025 1:45 PM EST Office Visit SEP Pulmonology [facility] [address] [phone] Franklin Salmeron MD [address] [address] 07/27/2025 11:00 AM EST Appointment [facility] [address] [place] [address] Tara Fofana MD [address] [place] [phone] 07/30/2025 11:00 AM EST Appointment [facility] [place], [place] [phone] 07/30/2025 11:40 AM EST Appointment [facility] [place] [address] Tara Fofana MD [address] [place] [phone] Scheduled Orders Name Type Priority Associated Diagnoses [...] Primary documented in this encounter Care Teams Cellophane Bag Machine Operator Relationship Specialty Start Date End Date Radha Wise DO [address] [place] [address] PCP - General Family Medicine 10/02/23 Kathryn Newell MD Physician Internal Medicine-Gastroenter ology 11/27/14 Cristóbal Carr MD [address] [facility] [address] [place] [address] Physician Internal Medicine-Cardiovascu lar Disease 02/13/22 Naz Lara, RN Oncology Nurse Navigator 10/13/2404/14 Jinny Resendiz MSW Photography Instructor 10/16/24 Corry Bansal, KEVIN Registered Nurse 02/07/25 Tara Fofana MD [address] [place] [address] [phone] Internal Medicine-Hematology and Oncology 04/30/25 documented as of this encounter
--- OUTSIDE RECORDS SUMMARY | 2025-05-07 11:30 | XMS_ITS | Encounter Summary ---
Author Organization [place] [address] Care Team Providers Care Dry Cleaning Machine Operator Name Role Phone Kathryn Newell MD Unavailable [phone] Cristóbal Carr MD Unavailable [phone] Radha Wise DO Primary Care Provider + [phone] September DATA WAREHOUSE SPECIALIST Unavailable [phone] Corry Bansal RN Unavailable [phone] Tara Fofana MD Unavailable [phone] Reason for Referral * Vascular Imaging (Routine) - Closed Specialty Diagnoses / Procedures Referred By Contac t Referred To Contact Radiology Diagnoses Infrarenal abdominal aortic aneurysm (AAA) without rupture Procedures [facility] AORTA ILIAC IVC COMPLETE Jose De Jesus Gregory MD [address] [place] [address] Phone: tel: fax: [facility] [address] [place] [address] Phone: tel: fax: Referral ID Status Reason Start Date Expiration Date Visits Re quested Visits Authorized [id number] Closed 05/07/2025 05/07/2027 1 1 Reason for Visit * Reason Comments Abdominal Aortic Aneurysm New Patient ca rdiology consult Encounter Details Date Type Department Care Team (Late st Contact Info) Description 05/07/2025 11:30 AM EST Office Visit SEP Vascular Surg Edg [address] [place] [address] Jose De Jesus Gregory MD [address] [place] [address] Infrarenal abdominal aortic aneurysm (AAA) without [...] drink = 0.6 oz pur e alcohol) [facility] Utilities Answer Date Recorded In the past 12 months has e [employer], gas, oil, or water [employer] threatened to shut off services in your home? No 01/23/2025 Overall Financial Resource Strain (CARDIA) Answe r Date Recorded How hard is it for you to pa y for the very basics like food, housing, medical care, and heating? Somewhat hard 01/23/2025 PHQ-2 Answer Date Recorded PHQ-2 Total Score 0 01/23/2025 [facility] [place] of Occupat ional Health - Occupational Stress [...] money to get more. Sometimes true 10/2024 [facility] [address] IP Transportation Answer D ate Recorded In [...] EST Subjective: We have been asked by [facility] to provide initial consultation on Alisa History of Present Illness The patient is a 64 y.o. female: Aorta/Iliac Aneurysm diagnosed on CT reportedly. States referring provider was going to send images. No previous abdominal surgeries. No family history of aneurysm. Takes ASA, statin, and Plavix daily. Daily smoker .5 ppd. HPI Scans were at [facility]. Lamps Tester And Inspector Dr. Barrera. [facility]. Patients past medical, family and social histories [...] anxiety disorder) 09/24/2016 Coronary artery disease involving newhalen coronary artery of [place]en heart with angina pectoris 06/23/2016 Mixed hyperlipidemia [...] without rupture 11/18/2023 Noted on report from [facility] 10/2023 Aorta ultrasound 11/2023- not well visualized due to bowel CT follow up ordered by [facility] CTA 09/2024 reported no AAA Loss [...] scan please give us a call @ [phone] documented in this encounter Plan of Treatment Upcoming Encounters Date Type Department Care Team (Late st Contact Info) Description 07/04/2025 1:45 PM EST Office Visit SEP Pulmonology [facility] [address] [phone] Franklin Salmeron MD [address] [address] 07/27/2025 11:[address] [facility] [place] [facility] [address] [place] [address] Tara Fofana MD [address] [place] [phone] 07/30/2025 11:00 AM EST Appointment [facility] [place], [place] [phone] 07/30/2025 11:40 AM EST Appointment [facility] [place] [address] Tara Fofana MD [address] [place] [phone] documented as of this encounter Goals Goal [...] artery appear widelypatent. us Jose De Jesus Gregory MD IMG VASCULAR ORDERABLES Fin al Result documented in this encounter Visit Diagnoses Diagnosis Infrarenal abdominal aortic aneurysm (AAA) without rupture- Primary Infrarenal abdominal aortic aneurysm (AAA) without rupture documented in this encounter Care Teams Dry Cleaning Machine Operator Relationship Specialty Start Date End Date Radha Wise DO [address] [place] [address] PCP - General Family Medicine 10/02/23 Kathryn Newell MD Physician Internal Medicine-Gastroenterolog y 11/27/14 Cristóbal Carr MD [address] [place], [place] [id number] Physician Internal Medicine-Cardiovascular Disease 02/13/22 Jinny Resendiz, DATA WAREHOUSE SPECIALIST Orthoptist 10/16/24 Corry Bansal, RN Registered Nurse 02/07/25 Tara Fofana MD [address] [place] [address] Internal Medicine-Hematology and Oncology 04/30/25 documented as of this encounter
--- OUTSIDE RECORDS SUMMARY | 2025-05-31 09:00 | XMS_ITS | Encounter Summary ---
Author Organization [place] [address] Care Team Providers Care Pipeline Gang Supervisor Name Role Phone Kathryn Newell MD Unavailable [phone] Cristóbal Carr MD Unavailable [phone] Radha Wise DO Primary Care Provider + [phone] September INDUSTRIAL SAFETY AND HEALTH MANAGER Unavailable [phone] Corry Bansal RN Unavailable [phone] Tara Fofana MD Unavailable [phone] Reason for Referral * Vascular Imaging (Routine) - Closed Specialty Diagnoses / Procedures Referred By Contac t Referred To Contact Radiology Diagnoses Infrarenal abdominal aortic aneurysm (AAA) without rupture Procedures [facility] AORTA ILIAC IVC COMPLETE Jose De Jesus Gregory MD [address] [place] [address] Phone: tel: fax: [facility] [address] [facility] [place] [address] Phone: tel: fax: Referral ID Status Reason Start Date Expiration Date Visits Re quested Visits Authorized [id number] Closed 05/07/2025 05/07/2027 1 1 Reason for Visit * Vascular Imaging (Routine) - Closed Specialty Diagnoses / Procedures Referred By Contac t Referred To Contact Radiology Diagnoses Infrarenal abdominal aortic aneurysm (AAA) without rupture Procedures [facility]C COMPLETE Jose De Jesus Gregory MD [address] [place] [address] [place] [address] Phone: tel: fax: [facility] [address] [place] [address] Phone: tel: fax: Referral ID Status Reason Start Date Expiration Date Visits Re quested Visits Authorized [id number] Closed 05/07/2025 05/07/2027 1 1 Encounter Details Date Type Department Care Team (Latest Contact Info) Description 05/31/2025 9:00 AM EST - 05/31/2025 11:59 PM EST Hospital Encounter [facility] [address] [place] [address] Jose De Jesus Gregory MD [address] [place] [address] [place] [address] Infrarenal abdominal aortic aneurysm (AAA) without rupture [...] drink = 0.6 oz pur e alcohol) [facility] Utilities Answer Date Recorded In the [...] Date Recorded PHQ-2 Total Score 0 01/23/2025 [facility] [place] of Occupat ional Health - Occupational Stress [...] money to get more. Sometimes true 10/2024 [facility] IP Transportation Answer D ate Recorded In [...] by mouth every morning. 5 Blood-Glucose Meter [facility] KitIndications:Gluc ose intolerance (impaired glucose tolerance) Use to check blood sugars up to twice daily 1 Kit 2 citalopram (CELEXA) 20 mg Oral TabletIndications:G AD (generalized anxiety disorder) Take 1 Tablet by mouth daily. 90 Tablet 3 4 clopidogreL (PLAVIX) 75 mg Oral TabletIndications:C oronary artery disease involving mechoopda coronary artery of mechoopda heart with angina pectoris Take 1 Tablet [...] EST Office Visit [facility] Pulmonology CV [address] [facility] Building [address] [place] [phone] Franklin Salmeron MD [address] [address] 07/27/2025 11:[address] [address] [place] [address] Tara Fofana MD [address] [place] [phone] 07/30/2025 11:00 AM EST Appointment [facility] [place], [place] [phone] 07/30/2025 11:40 AM EST Appointment [facility] [place] [address] Tara Fofana MD [address] [place] [phone] documented as of this encounter Goals Goal [...] Procedure Name Priority Date/Time Associated Diagnosis Comments [facility] AORTA ILIAC IVC COMPLETE Routine 05/31/2025 9:33 AM EST Infrarenal abdominal aortic aneurysm (AAA) without rupture documented in this encounter Results * [facility] AORTA ILIAC IVC COMPLETE (05/31/2025 9:33 AM [...] rupture documented in this encounter Care Teams Pipeline Gang Supervisor Relationship Specialty Start Date End Date Radha Wise DO [address] [place] [phone] PCP - General Family Medicine 10/02/23 Kathryn Newell MD Physician Internal Medicine-Gastroenterolog y 11/27/14 Cristóbal Carr MD [address] [place] [address] Physician Internal Medicine-Cardiovascular Disease 02/13/22September E, INDUSTRIAL SAFETY AND HEALTH MANAGER Proof Machine Operator 10/16/24 Corry Bansal, RN Registered Nurse 02/07/25 Tara Fofana MD [address] [place] [address] Internal Medicine-Hematology and Oncology 04/30/25 documented as of this encounter
--- OUTSIDE RECORDS SUMMARY | 2025-06-13 18:43 | XMS_ITS | Encounter Summary ---
Author Organization [place] [address] Care Team Providers Care Sourcing Associate Name Role Phone Kathryn Newell MD Unavailable [phone] Cristóbal Carr MD Unavailable [phone] Radha Wise DO Primary Care Provider [phone] Resendizseptember BRAKE LINER Unavailable [phone] Corry Bansal RN Unavailable [phone] Tara Fofana MD Unavailable [phone] Reason for Visit * Reason Onset Date Comments Medication Refill 06/13/2025 Encounter Details Date Type Department Care Team (Late st Contact Info) Description 06/13/2025 Refill [facility] [place] [address] [place] [address] Radha Wise DO [address] [employer] [place] [id number] Medication Refill Social History Tobacco Use Types Packs/Day Years Used Date Smoking Tobacco: Every Day Cigarettes 0.8 49.1 Started: 04/17/1976; Last attempted to quit: 01/21/2025 Smokeless Tobacco: Never Comments:She has nicotine pa tches that she will be starting in the future Alcohol Use Standard Drinks/Week Comments Not Currently 0 (1 standard drink = 0.6 oz pur e alcohol) [facility] Utilities Answer Date Recorded In [...] Date Recorded PHQ-2 Total Score 0 01/23/2025 [facility] - Occupational [...] Sometimes true 10/2024 [facility] IP Transportation Answer D ate Recorded In [...] 1:45 PM EST Office Visit SEP Pulmonology [facility] [address] [address] Franklin Salmeron MD [address] [address] 07/27/2025 11:[address] [place] [facility] [address] [place] [address] Tara Fofana MD [address] [place] [address] 07/30/2025 11:00 AM EST Appointment [facility] [place], [place] [phone] 07/30/2025 11:40 AM EST Appointment [facility] [place] [address] Tara Fofana MD [address] [place] [address] documented as of this encounter Goals Goal Patient Goal Type Associated Problems Recent Progress Patient-Stated? Author Blood Pressure < 140/90 Blood Pressure 132/78(2024 11:49 AM EST) No Nicole Amador LPN Maintain a healthy diet, exercise regularly and maintain an ideal body weight General No Anuradha Haro Molly, RMA BMI (Calculated) < 30 General 24.2(05/07/20 11:45 AM EST) No Nicole Amador LPN Stay Tobacco Free Lifestyle No Anuradha Haro, RMA HEMOGLOBIN A1C < 7.0 Result Component 6.1( 2:05 PM EST) No Nicole Amador LPN documented as of this encounter Visit Diagnoses Diagnosis COPD with acute exacerbation (HCC) Obstructive chronic bronchitis with exacerbation documented in this encounter Care Teams Sourcing Associate Relationship Specialty Start Date End Date Radha Wise DO [employer] [place], [place] [phone] PCP - General Family Medicine 10/02/23 Kathryn Newell MD Physician Internal Medicine-Gastroenterolog y 11/27/14 Cristóbal Carr MD [address] [place] [address] Physician Internal Medicine-Cardiovascular Disease 02/13/22 ResendizSeptember Shelli, BRAKE LINER Stock Feeder 10/16/24 Corry Bansal, KEVIN Registered Nurse 02/07/25 Tara Fofana MD [address] [place] [phone] Internal Medicine-Hematology and Oncology 04/30/25 documented as of this encounter
--- OUTSIDE RECORDS SUMMARY | 2025-06-13 18:43 | XMS_ITS | Encounter Summary ---
Author Organization [place] [address] Care Team Providers Care Supervisor Wound Name Role Phone Kathryn Newell MD Unavailable [phone] Cristóbal Carr MD Unavailable [phone] Radha Wise DO Primary Care Provider [phone] Naz Lara RN Unavailable Resendizseptember MICROBIOLOGY TECHNICIAN Unavailable [phone] Corry Bansal RN Unavailable [phone] Reason for Visit * Reason Comments Medication Refill Encounter Details Date Type Department Care Team (Late st Contact Info) Description 04/19/2025 Refill [facility] [place] [address] [place] [address] Radha Wise DO [address] [employer] [place] [phone] Medication Refill Social History Tobacco Use Types Packs/Day Years Used Date Smoking Tobacco: Every Day Cigarettes 0.8 49.1 Started: 04/17/1976; Last attempted to quit: 01/21/2025 Smokeless Tobacco: Never Comments:She has nicotine pa tches that she will be starting in the future Alcohol Use Standard Drinks/Week Comments Not Currently 0 (1 standard drink = 0.6 oz pur e alcohol) [facility] Utilities Answer Date Recorded In the [...] Date Recorded PHQ-2 Total Score 0 01/23/2025 [facility] - Occupational Stress Questionnaire [...] 10/2024 [facility] IP Transportation Answer D ate Recorded In [...] Visit SEP Pulmonology [facility] [address] [phone] rFanklin Salmeron MD [address] [address] 07/27/2025 11:[address] [facility] [place] [address] [place] [address] Tara Fofana MD [address] [place] [address] 07/30/2025 11:00 AM EST Appointment [place] [address] 07/30/2025 11:40 AM EST Appointment [facility] [place] [address] Tara Fofana MD [address] [place] [address] documented as of this encounter Goals Goal [...] documented as of this encounter Care Teams Supervisor Wound Relationship Specialty Start Date End Date Radha Wise DO [address] [place], [place] [phone] PCP - General Family Medicine 10/02/23 Kathryn Newell MD Physician Internal Medicine-Gastroenter ology 11/27/14 Cristóbal Carr MD [address] [facility] [place] [address] Physician Internal Medicine-Cardiovascu lar Disease 02/13/22 Naz Lara, RN Oncology Nurse Navigator 10/13/2404/14 Jinny Resendiz, MICROBIOLOGY TECHNICIAN Recruitment Director 10/16/24 Corry Bansal, KEVIN Registered Nurse 02/07/25 documented as of this encounter
--- OUTSIDE RECORDS SUMMARY | 2025-06-13 18:43 | XMS_ITS | Encounter Summary ---
Author Organization [facility] Address [address] [place] [address] Care Team Providers Care Edge Setter Name Role Phone Kathryn Newell MD Unavailable [phone] Cristóbal Carr MD Unavailable [phone] Radha Wise DO Primary Care Provider Naz Lara RN Unavailable Resendizseptember EXECUTIVE PRODUCER Unavailable [phone] Corry Bansal RN Unavailable [phone] Tara Fofana MD Unavailable [phone] Encounter Details Date Type Department Care Team (Late st Contact Info) Description 03/21/2025 Orders Only [facility] [place] [address] [place], [place] [id number] Kymberly Ventura, RT Post-thoracotomy pain (Primary Dx) Social History Tobacco Use Types Packs/Day Years Used Date Smoking Tobacco: Former Cigarettes 0.8 48.8 1 - 01/21/2025 Smokeless Tobacco: Never Alcohol Use Standard Drinks/Week Comments Not Currently 0 (1 standard drink = 0.6 oz pur e alcohol) [facility] Utilities Answer Date Recorded In the past [...] Date Recorded PHQ-2 Total Score 0 01/23/2025 [facility] Occupat ional Health - [...] money to get more. Sometimes true 10/2024 [facility] IP Transportation Answer D ate [...] 1:45 PM EST Office Visit [facility]P Pul[facility] [address] [address] Franklin Salmeron MD [address] [address] 07/27/2025 11:[address] [facility] [place] [address] [place] [address] Tara Fofana MD [address] [place] [address] 07/30/2025 11:00 AM EST Appointment [facility] [place], [place] [phone] 07/30/2025 11:40 AM EST Appointment [facility] [place], [place] [phone] Tara Fofana MD [address] [place] [address] [phone] documented as of this encounter Goals Goal Patient Goal Type Associated Problems Recent Progress Patient-Stated? Author Blood Pressure < 140/90 Blood Pressure 132/78(11/17/ 2025 11:49 AM EST) No Nicole Amador LPN Maintain a healthy diet, exercise regularly and maintain an ideal body weight General No Anuradha Haro, RMA BMI (Calculated) < 30 General 24.2(05/07/20 25 11:45 AM EST) No Nicole Amador, LABORATORY SECRETARY Stay Tobacco Free Lifestyle No Anuradha Haro, RMA HEMOGLOBIN A1C < 7.0 Result Component 6.1( 2:05 PM EST) No Nicole Amador LABORATORY SECRETARY documented as of this encounter Visit Diagnoses Diagnosis Post-thoracotomy pain- Primary Acute post-thoracotomy pain documented in this encounter Care Teams Edge Setter Relationship Specialty Start Date End Date Radha Wise DO [address] [place], [place] [phone] PCP - General Family Medicine 10/02/23 Kathryn Newell MD Physician Internal Medicine-Gastroenter ology 11/27/14 Cristóbal Carr MD 1210 [facility] 36 [place] [address] Physician Internal Medicine-Cardiovascu lar Disease 02/13/22 Naz Lara, RN Oncology Nurse Navigator 10/13/2404/14 Jinny Resendiz MSW Corn Detasseler Machine Operator 10/16/24 Corry Bansal, KEVIN Registered Nurse 02/07/25 Tara Fofana MD Written [place], [place] [phone] Internal Medicine-Hematology and Oncology 04/30/25 documented as of this encounter
--- OUTSIDE RECORDS SUMMARY | 2025-06-13 18:44 | XMS_ITS | Encounter Summary ---
Author Organization [place] [address] Care Team Providers Care Milieu Manager Name Role Phone Kathryn Newell MD Unavailable [phone] Cristóbal Carr MD Unavailable [phone] Radha Wise DO Primary Care Provider [phone] Naz Lara RN Unavailable Resendizseptember DIGITAL SALES MANAGER Unavailable [phone] Corry Bansal RN Unavailable [phone] Tara Fofana MD Unavailable Reason for Visit * Reason Onset Date Comments Schedule Appointment 04/30/2025 Encounter Details Date Type Department Care Team (Late Contact Info) Description 04/30/2025 Telephone [facility] [place], [place] [phone] Tara Fofana MD [address] [place] [address] [phone] Schedule Appointment Social History Tobacco Use Types Packs/Day Years Used Date Smoking Tobacco: Every Day Cigarettes 0.8 49.1 Started: 04/17/1976; Last attempted to quit: 01/21/2025 Smokeless Tobacco: Never Comments:She has nicotine pa tches that she will be starting in the future Alcohol Use Standard Drinks/Week Comments Not Currently 0 (1 standard drink = 0.6 oz pur e alcohol) [facility] Utilities Answer Date Recorded In the past [...] Date Recorded PHQ-2 Total Score 0 01/23/2025 [facility] Occupat ional Health - [...] more. Sometimes true 10/2024 [facility] IP Transportation Answer D ate [...] PM EST Office Visit [facility] [address] [place] [address] [phone] Franklin Salmeron MD 651 [facility] 19 [place] [address] 07/27/2025 11:[address] [address] [address] Tara Fofana MD [address] [place] [address] 07/30/2025 11:00 AM EST Appointment [place] [address] 07/30/2025 11:40 AM EST Appointment [facility] [place] [address] Tara Fofana MD [address] [place] [address] documented as of this encounter Goals Goal [...] on filedocumented in this encounter Care Teams Milieu Manager Relationship Specialty Start Date End Date Radha Wise DO [address] [place], [place] [phone] PCP - General Family Medicine 10/02/23 Kathryn Newell MD Physician Internal Medicine-Gastroenter ology 11/27/14 Cristóbal Carr MD 1210 [facility] 36 [place] [phone] Physician Internal Medicine-Cardiovascu lar Disease 02/13/22 Naz Lara, RN Oncology Nurse Navigator 10/13/2404/14 Martín Jinny Shelli, DIGITAL SALES MANAGER Geophysical Party Chief 10/16/24 Corry Bansal, RN Registered Nurse 02/07/25 Tara Fofana MD 1 [place] [address] Internal Medicine-Hematology and Oncology 04/30/25 documented as of this encounter
--- OUTSIDE RECORDS SUMMARY | 2025-06-13 18:44 | XMS_ITS | Encounter Summary ---
Author Organization [place] [address] Care Team Providers Care Timber Setter Name Role Phone Kathryn Newell MD Unavailable [phone] Cristóbal Carr MD Unavailable [phone] Radha Wise DO Primary Care Provider [phone] Naz Lara RN Unavailable [phone] September GUSSET MAKER Unavailable [phone] Corry Bansal RN Unavailable [phone] Tara Fofana MD Unavailable Encounter Details Date Type Department Care Team (Late st Contact Info) Description 03/09/2025 Results Follow-Up [facility] [address] [place] [address] Radha Wise DO [address] [place] [address] VITAMIN B12/ FOLIC ACID, COMPREHENSIVE METABOLIC PANEL, CBC WITH DIFF Social History Tobacco Use Types Packs/Day Years Used Date Smoking Tobacco: Former Cigarettes 0.8 48.8 1 - 01/21/2025 Smokeless Tobacco: Never Alcohol Use Standard Drinks/Week Comments Not Currently 0 (1 standard drink = 0.6 oz pur e alcohol) [facility] Utilities Answer Date Recorded In the [...] Recorded PHQ-2 Total Score 0 01/23/2025 [facility] - Occupational Stress Questionnaire Answer [...] get more. Sometimes true 10/2024 [facility] IP Transportation Answer D [...] 1:45 PM EST Office Visit SEP Pulmonology [facility] [address] [phone] Franklin Salmeron MD [address] [address] 07/27/2025 11:[address] [facility] [place] [address] [place] [address] Tara Fofana MD [address] [place] [address] 07/30/2025 11:00 AM EST Appointment [facility] [place], [place] [phone] 07/30/2025 11:40 AM EST Appointment [facility] [place] [address] Tara Fofana MD [address] [place] [address] documented as of this encounter Goals Goal [...] Hypopotassemia documented in this encounter Care Teams Timber Setter Relationship Specialty Start Date End Date Radha Wise DO [address] [place], [place] [phone] PCP - General Family Medicine 10/02/23 Kathryn Newell MD Physician Internal Medicine-Gastroenter ology 11/27/14 Cristóbal Carr MD [address] [place] [address] 36 [place] [address] Physician Internal Medicine-Cardiovascu lar Disease 02/13/22 Naz Lara, RN Oncology Nurse Navigator 10/13/2404/14 Jinny Resendiz, GUSSET MAKER New Accounts Representative 10/16/24 Corry Bansal, RN Registered Nurse 02/07/25 Tara Fofana MD 1 [place] [address] Internal Medicine-Hematology and Oncology 04/30/25 documented as of this encounter
--- OUTSIDE RECORDS SUMMARY | 2025-06-13 18:44 | XMS_ITS | Encounter Summary ---
Author Organization [place] [address] Care Team Providers Care Streetcar Repairer Name Role Phone Kathryn Newell MD Unavailable [phone] Cristóbal Carr MD Unavailable [phone] Radha Wise DO Primary Care Provider [phone] Naz Lara RN Unavailable [phone] Martín September PHARMACOGNOSIST Unavailable [phone] Corry Bansal RN Unavailable [phone] Reason for Visit * Reason Onset Date Comments Other 04/10/2025 Encounter Details Date Type Department Care Team (Late st Contact Info) Description 04/10/2025 Telephone [facility] Vascular Surg [facility] 20 [facility] [address] [place] [address] Jose De Jesus Gregory MD [address] [place] [address] [phone] Other Social History Tobacco Use Types Packs/Day Years Used Date Smoking Tobacco: Every Day Cigarettes 0.8 49.1 Started: 04/17/1976; Last attempted to quit: 01/21/2025 Smokeless Tobacco: Never Comments:She has nicotine pa tches that she will be starting in the future Alcohol Use Standard Drinks/Week Comments Not Currently 0 (1 standard drink = 0.6 oz pur e alcohol) [facility] Utilities Answer Date Recorded In the [...] Date Recorded PHQ-2 Total Score 0 01/23/2025 [facility] - Occupational Stress Questionnaire Answer Date Recorded [...] money to get more. Sometimes true 10/2024 [facility] IP Transportation Answer D ate Recorded [...] 04/10/2025 8:44 AM EDT Received referral fro [facility] for aorta aneurysm the results are suppose [...] 1:45 PM EST Office Visit SEP Pulmonology [facility] [address] [phone] Franklin Salmeron MD [address] [address] 07/27/2025 11:[address] [facility] [place] [facility] [address] [place] [address] Tara Fofana MD [address] [place] [address] 07/30/2025 11:00 AM EST Appointment [place] [address] 07/30/2025 11:40 AM EST Appointment [facility] [place] [address] Tara Fofana MD [address] [place] [address] documented as of this encounter Goals Goal [...] on filedocumented in this encounter Care Teams Streetcar Repairer Relationship Specialty Start Date End Date Radha Wise DO [address] [place] [address] PCP - General Family Medicine 10/02/23 Kathryn Newell MD Physician Internal Medicine-Gastroenter ology 11/27/14 Cristóbal Carr MD [address] [place] [address] [facility] [place] [address] Physician Internal Medicine-Cardiovascu lar Disease 02/13/22 Naz Lara, RN Oncology Nurse Navigator 10/13/2404/14 Jinny Resendiz MSW Assistant Prosecuting Attorney 10/16/24 Corry Bansal, RN Registered Nurse 02/07/25 documented as of this encounter
--- OUTSIDE RECORDS SUMMARY | 2025-06-13 18:44 | XMS_ITS | Encounter Summary ---
Author Organization [place] [address] Care Team Providers Care Marketing Executive Name Role Phone Kathryn Newell MD Unavailable [phone] Cristóbal Carr MD Unavailable [phone] Radah Wise DO Primary Care Provider [phone] Resendizseptember DEVELOPMENTAL THERAPIST Unavailable [phone] Corry Bansal RN Unavailable [phone] Tara Fofana MD Unavailable [phone] Encounter Details Date Type Department Care Team (Late st Contact Info) Description 06/11/2025 Abstract [facility] [address] [place] [phone] Radha Wise, DO [address] [place] [phone] Social History Tobacco Use Types Packs/Day Years Used Date Smoking Tobacco: Every Day Cigarettes 0.8 49.1 Started: 04/17/1976; Last attempted to quit: 01/21/2025 Smokeless Tobacco: Never Comments:She has nicotine pa tches that she will be starting in the future Alcohol Use Standard Drinks/Week Comments Not Currently 0 (1 standard drink = 0.6 oz pur e alcohol) [facility] Utilities Answer Date Recorded In [...] Date Recorded PHQ-2 Total Score 0 01/23/2025 [facility] of Occupat ional Health - [...] money to get more. Sometimes true 10/2024 [facility] IP Transportation Answer D ate Recorded [...] EST Office Visit SEP Pulmonology [facility] [address] [phone] Franklin Salmeron MD [address] [address] 07/27/2025 11:[address] [facility] [place] [address] [place] [address] Tara Fofana MD [address] [place] [address] [phone] 07/30/2025 11:00 AM EST Appointment [place] [address] 07/30/2025 11:40 AM EST Appointment [facility] [place] [address] Tara Fofana MD [address] [place] [address] documented as of this encounter Goals Goal [...] Priority Date/Time Associated Diagnosis Comments CBC Routine 06/08/2025 COMPREHENSIVE METABOLIC PANEL Routine 06/08/2025 documented in this encounter Results * (ABNORMAL) CBC (06/08/2025) WBC 11.6 X10(3)/MCL SEP OFFICE RBC 3.75(A) 4.00 - 5.20 X10(6)/MCL SEP OFFICE Hemoglobin 11.0 GM/DL SEP OFFICE Hematocrit 34.0 % SEP OFFICE MCV 90.7 82.0 - 108.0 FL SEP OFFICE MCH 29.3 26.0 - 34.0 PG SEP OFFICE MCHC 32 30 - 37 GM/DL SEP OFFICE RBC 14.00(A) 4.00 - 5.20 X10(6)/MCL SEP OFFICE Platelet 382 150 - 399 X10(3)/MCL SEP OFFICE MPV 9.9 7.5 - 11.5 FL SEP OFFICE Blood VENOUS BLOOD / Unknown 06/08/2025 us Historical Provider HEMATOLOGY ORDERABLES Final Result SEP OFFICE * (ABNORMAL) COMPREHENSIVE METABOLIC PANEL (06/08/2025) Sodium 141 137 - 147 MMOL/L SEP OFFICE Potassium 3.0(A) 3.4 - 5.3 MMOL/L SEP OFFICE Chloride 110(A) 99 - 108 MMOL/L SEP OFFICE CO2 22 MMOL/L SEP OFFICE Anion Gap 12.0 MMOL/L SEP OFFICE BUN 3(A) 4 - 21 MG/DL SEP OFFICE Creatinine 0.7 0.5 - 1.1 MG/DL SEP OFFICE GFR Afr Am 102 SEP OFFICE Estimated GFR 84 SEP OFFICE Glucose 95 60 - 200 MG/DL SEP OFFICE Calcium 9.40 8.70 - 10.70 MG/DL SEP OFFICE Bili Total 0.3 MG/DL SEP OFFICE AST 33 13 - 35 IU/L SEP OFFICE ALT 32 7 - 35 IU/L SEP OFFICE Total Protein 7.4 6.4 - 8.2 GM/DL SEP OFFICE Albumin 4.5 GM/DL SEP OFFICE Globulin 2.9 G/DL(CALC) SEP OFFICE Albumin/Globuli n Ratio 1.6 (CALC) SEP OFFICE Alk Phos 104 25 - 125 IU/L SEP OFFICE Blood VENOUS BLOOD / Unknown 06/08/2025 us Historical Provider CHEMISTRY ORDERABLES Final R esult SEP OFFICE documented in this encounter Visit Diagnoses Not on filedocumented in this encounter Care Teams Marketing Executive Relationship Specialty Start Date End Date Radha Wise DO [address] [place] [address] PCP - General Family Medicine 10/02/23 Kathryn Newell MD Physician Internal Medicine-Gastroenterolog y 11/27/14 Cristóbal Carr MD [address] [place] [address] [place], [place] [phone] Physician Internal Medicine-Cardiovascular Disease 02/13/22 Jinny Resendiz, DEVELOPMENTAL THERAPIST Spiral Runner 10/16/24 Corry Bansal, RN Registered Nurse 02/07/25 Tara Fofana MD 1 [place] [address] Internal Medicine-Hematology and Oncology 04/30/25 documented as of this encounter
--- OUTSIDE RECORDS SUMMARY | 2025-06-13 18:44 | XMS_ITS | Encounter Summary ---
Author Organization [place] [address] Care Team Providers Care Tiller Worker Name Role Phone Kathryn Newell MD Unavailable [phone] Cristóbal Carr MD Unavailable [phone] Radha Wise DO Primary Care Provider [phone] Resendizseptember MEDICAID NURSE Unavailable [phone] Corry Bansal RN Unavailable [phone] Tara Fofana MD Unavailable [phone] Reason for Referral * Medication Prior Authorization - Closed Specialty Diagnoses / Procedures Referred By Contac t Referred To Contact Radha Wise DO [address] [place] [address] Phone: tel: fax: Referral ID Status Reason Start Date Expiration Date Visits Re quested Visits Authorized [id number] Closed 1 1 Reason for Visit * Reason Onset Date Comments Medication Refill 05/21/2025 Encounter Details Date Type Department Care Team (Late st Contact Info) Description 05/21/2025 Refill [facility] [address] [place] [address] Radha Wise DO [address] [place] [address] Medication Refill Social History Tobacco Use Types Packs/Day Years Used Date Smoking Tobacco: Every Day Cigarettes 0.8 49.1 Started: 04/17/1976; Last attempted to quit: 01/21/2025 Smokeless Tobacco: Never Comments:She has nicotine pa tches that she will be starting in the future Alcohol Use Standard Drinks/Week Comments Not Currently 0 (1 standard drink = 0.6 oz pur e alcohol) [facility] Utilities Answer Date Recorded In [...] PHQ-2 Total Score 0 01/23/2025 [facility] of Occupat ional Health - [...] money to get more. Sometimes true 10/2024 [facility] IP Transportation Answer D ate Recorded [...] EST Office Visit SEP Pulmonology [facility] 651 [facility] Building [address] [place] [phone] Franklin Salmeron MD [address] [address] 07/27/2025 11:[address] [facility] [place] [facility] [address] [place] [address] Tara Fofana MD [address] [place] [address] [phone] 07/30/2025 11:00 AM EST Appointment [place] [address] 07/30/2025 11:40 AM EST Appointment [facility] [place] [address] Tara Fofana MD [address] [place] [address] documented as of this encounter Goals Goal [...] documented as of this encounter Care Teams Tiller Worker Relationship Specialty Start Date End Date Radha Wise DO 79 [place], [place] [phone] PCP - General Family Medicine 10/02/23 Kathryn Newell MD Physician Internal Medicine-Gastroenterolog y 11/27/14 Cristóbal Carr MD [address] [place] [address] [place], [place] [phone] Physician Internal Medicine-Cardiovascular Disease 02/13/22 Jinny Resendiz MSW Septic Technician 10/16/24 Corry Bansal, RN Registered Nurse 02/07/25 Tara Fofana MD [address] [place] [address] Internal Medicine-Hematology and Oncology 04/30/25 documented as of this encounter
--- OUTSIDE RECORDS SUMMARY | 2025-06-13 18:44 | XMS_ITS | Encounter Summary ---
Author Organization [place] [address] Care Team Providers Care Potato Chip Maker Name Role Phone Kathryn Newell MD Unavailable [phone] Cristóbal Carr MD Unavailable [phone] Radha Wise DO Primary Care Provider [phone] Resendizseptember LOGISTICS LOSS PREVENTION MANAGER Unavailable [phone] Corry Bansal RN Unavailable [phone] Tara Fofana MD Unavailable [phone] Reason for Visit * Reason Comments Lung Cancer Follow-up Case status changesu rveillance Encounter Details Date Type Department Care Team (Late st Contact Info) Description 05/01/2025 Patient Outreach [facility] INT ONC [place] [phone] Naz Lara, RN Lung Cancer; Follow-up (Case [...] drink = 0.6 oz pur e alcohol) [facility] Utilities Answer Date Recorded In the past [...] 0 01/23/2025 [facility] - Occupational Stress Questionnaire Answer [...] money to get more. Sometimes true 10/2024 [facility] IP Transportation Answer D ate Recorded [...] repeat scan and f/u in 3 months. [employer]hart sent to touch base and close case at this time Follow-up Plan CT;Med/Onc 07/27, 07/30 Exit interview completed via [employer] message . No barriers or care coordination [...] Office Visit SEP Pulmonology [facility] [address] [phone] Franklin Salmeron MD [address] [address] 07/27/2025 11:[address] [facility] [address] [facility] [address] [place] [address] Tara Fofana MD [address] [place] [address] 07/30/2025 11:00 AM EST Appointment [place] [address] 07/30/2025 11:40 AM EST Appointment [facility] [place] [address] Tara Fofana MD [address] [place] [address] documented as of this encounter Goals Goal Patient Goal Type Associated Problems Recent Progress Patient-Stated? Author Blood Pressure < 140/90 Blood Pressure 132/78(2024 11:49 AM EST) No Nicole Amador POTATO CHIP MAKER Maintain a healthy diet, exercise regularly and maintain an ideal body weight General No Anuradha Haro, ZENIAA BMI (Calculated) < 30 General 24.2(05/07/20 25 11:45 AM EST) No Nicole Amador, POTATO CHIP MAKER Stay Tobacco Free Lifestyle No Anuradha Haro, RMA HEMOGLOBIN A1C < 7.0 Result Component 6.1( 5 2:05 PM EST) No Nicole Amador LPN documented as of this encounter Visit Diagnoses Not on filedocumented in this encounter Care Teams Potato Chip Maker Relationship Specialty Start Date End Date Radha Wise DO [place], [place] [phone] PCP - General Family Medicine 10/02/23 Kathryn Newell MD Physician Internal Medicine-Gastroenterolog y 11/27/14 Cristóbal Carr MD [address] [place] [address] [place], [place] [phone] Physician Internal Medicine-Cardiovascular Disease 02/13/22 Jinny Resedniz, LOGISTICS LOSS PREVENTION MANAGER Tuber Helper 10/16/24 Corry Bansal, RN Registered Nurse 02/07/25 Tara Fofana MD 1 [place] [address] Internal Medicine-Hematology and Oncology 04/30/25 documented as of this encounter
--- OUTSIDE RECORDS SUMMARY | 2025-06-13 18:44 | XMS_ITS | Encounter Summary ---
Author Organization [place] [address] Care Team Providers Care Chargemaster Specialist Name Role Phone Kathryn Newell MD Unavailable [phone] Cristóbal Carr MD Unavailable [phone] Radha Wise DO Primary Care Provider [phone] ResendizSeptember CALCULATING MACHINE OPERATOR Unavailable [phone] Corry Bansal RN Unavailable [phone] Tara Fofana MD Unavailable [phone] Reason for Visit * Reason Onset Date Comments Medication Refill 05/28/2025 Encounter Details Date Type Department Care Team (Late st Contact Info) Description 05/28/2025 Refill [facility] [address] [place] [address] Radha Wise DO [address] [place] [id number] Medication Refill Social History Tobacco Use Types [...] Date Recorded PHQ-2 Total Score 0 01/23/2025 [facility] Occupat ional Health - [...] to get more. Sometimes true 10/2024 [facility] IP Transportation Answer D ate Recorded [...] supply with 3 refills. Pt notified via [employer] if active. documented in this encounter Plan of Treatment Upcoming Encounters Date Type Department Care Team (Late st Contact Info) Description 07/04/2025 1:45 PM EST Office Visit [facility]P Pulmonology [facility] [address] [phone] Franklin Salmeron MD [address] [address] 07/27/2025 11:[address] [facility] [place] [address] [place] [address] Tara Fofana MD [address] [place] [address] 07/30/2025 11:00 AM EST Appointment [facility] [place], [place] [phone] 07/30/2025 11:40 AM EST Appointment [facility] [place] [address], [place] [phone] Tara Fofana MD [address] [place] [address] [phone] documented as of this encounter Goals Goal [...] on filedocumented in this encounter Care Teams Chargemaster Specialist Relationship Specialty Start Date End Date Radha Wise DO [address] [place] [address] [phone] PCP - General Family Medicine 10/02/23 Kathryn Newell MD Physician Internal Medicine-Gastroenterolog y 11/27/14 Cristóbal Carr MD 1210 [facility] [address] [place], [place] [address] Physician Internal Medicine-Cardiovascular Disease 02/13/22 Jinny Resendiz, CALCULATING MACHINE OPERATOR Food Production Associate 4/28/25 Corry Bansal, RN Registered Nurse 02/07/25 Tara Fofana MD [address] [place] [address] Internal Medicine-Hematology and Oncology 04/30/25 documented as of this encounter
--- OUTSIDE RECORDS SUMMARY | 2025-06-13 18:44 | XMS_ITS | Encounter Summary ---
Author Organization [place] [address] Care Team Providers Care Combatant Swimmer Name Role Phone Kathryn Newell MD Unavailable [phone] Cristóbal Carr MD Unavailable [phone] Radha Wise DO Primary Care Provider [phone] ResendizSeptember NEUROBIOLOGIST Unavailable [phone] Corry Bansal RN Unavailable [phone] Tara Fofana MD Unavailable [phone] Reason for Visit * Reason Onset Date Comments Medication Refill 05/21/2025 Encounter Details Date Type Department Care Team (Late st Contact Info) Description 05/21/2025 Refill [facility] [address] [place] [address] Radha Wise DO [address] [place] [phone] Medication Refill Social History Tobacco Use Types Packs/Day Years Used Date Smoking Tobacco: Every Day Cigarettes 0.8 49.1 Started: 04/17/1976; Last attempted to quit: 01/21/2025 Smokeless Tobacco: Never Comments:She has nicotine pa tches that she will be starting in the future Alcohol Use Standard Drinks/Week Comments Not Currently 0 (1 standard drink = 0.6 oz pur e alcohol) [facility] Utilities Answer Date Recorded In [...] Date Recorded PHQ-2 Total Score 0 01/23/2025 [facility] of Occupat ional Health - Occupational [...] money to get more. Sometimes true 10/2024 [facility] IP Transportation Answer D ate Recorded In [...] 1:45 PM EST Office Visit SEP Pulmonology [facility] [address] [phone] Franklin Salmeron MD [address] [address] 07/27/2025 11:[address] [facility] [address] [place] [address] [place] [address] Tara Fofana MD [address] [place] [address] 07/30/2025 11:00 AM EST Appointment [facility] [place], [place] [phone] 07/30/2025 11:40 AM EST [facility]ointment [facility] [place] [address] Tara Fofana MD [address] [place] [address] documented as of this encounter Goals Goal [...] documented as of this encounter Care Teams Combatant Swimmer Relationship Specialty Start Date End Date Radha Wise DO [address] [place], [place] [phone] PCP - General Family Medicine 10/02/23 Kathryn Newell MD Physician Internal Medicine-Gastroenterolog y 11/27/14 Cristóbal Carr MD [address] [place] [address] [place] [address] Physician Internal Medicine-Cardiovascular Disease 02/13/22 Jinny Resendiz, NEUROBIOLOGIST Base Manager 10/16/24 Corry Bansal, RN Registered Nurse 02/07/25 Tara Fofana MD [address] [place], [place] [phone] Internal Medicine-Hematology and Oncology 04/30/25 documented as of this encounter
--- OUTSIDE RECORDS SUMMARY | 2025-06-13 18:44 | XMS_ITS ---
Author Organization [facility] Address [address] [place] [address] Phone Care Team Providers Care Supervisor Sewing Department Name Role Phone Kathryn Newell MD Unavailable [phone] Cristóbal Carr MD Unavailable [phone] Radha Wise DO Primary Care Provider [phone] September DOCUMENT CONTROLLER Unavailable [phone] Corry Bansal RN Unavailable [phone] Tara Fofana MD Unavailable [phone] Active Problems Patient Care Coordination No te [...] chest pain 12/24/2023 Overview (12/24/2023): Seen at [facility] After evaluation at [facility] it was felt patient may be having pain related to possible vasospasms and treatment with Ranexa was discussed. At [facility] her lung nodule and CT scan [...] Overview (09/04/2024): Seen on CT report from [facility]. Spiculated left upper lobe nodule, 7 mm in size follow-up in [address] scan (around 04/2024) CT follow up ordered by [facility] Assessment & Plan (04/30/2025 4:13 PM [...] to ER visit for COPD exacerbation Orders: dktffyqaebw-kyusszgsa-prtspzrk (TRELEGY ELLIPTA) 100-62.5-25 mcg Inhl Disk with Device; Inhale 1 Puff into the lungs daily. Assessment & Plan (07/24/2024 1:47 PM EST): Orders: umeclidinium-vilanteroL (ANORO ELLIPTA) 62.5-25 mcg/actuation Inhl Disk with Device; Inhale 1 Puff into the lungs daily. Atherosclerosis of aorta 11/09/2018 Overview (11/09/2018): Per ct Chest 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 Stent 09/2018 Mixed hyperlipidemia 10/03/2014 Overview (11/01/2019): [...] 10/12/2024 Overview (10/12/2024): Noted on report from [facility] 10/2023 Aorta ultrasound 11/2023- not well visualized due to bowel CT follow up ordered by [facility] CTA 09/2024 reported no AAA Assessment & Plan (03/08/2024 12:25 PM EDT): - continue to monitor and optimize blood pressure control - continue to monitor and optimize lipids Consider follow up ultrasound for visualization Upper abdominal pain 12/10/2020 024 Overview (12/10/2020): Added automatically from request for surgery [id number] Nausea 12/10/2020 10/22/2023 Overview (12/10/2020): Added automatically from request for surgery [id number] Glucose intolerance (impaire d glucose tolerance) 07/28/2017 10/22/2023 Tinea pedis of both feet 06/23/201608/2023 Chest pain 04/16/2016 10/22/2023 Dysphagia 10/29/2014 10/22/2023 Abdominal pain 10/03/2014 04/16/2016
--- OUTSIDE RECORDS SUMMARY | 2025-06-13 18:44 | XMS_ITS | Encounter Summary ---
Author Organization [place] [address] Care Team Providers Care District Sales Manager Name Role Phone Kathryn Newell MD Unavailable [phone] Cristóbal Carr MD Unavailable [phone] Radha Wise DO Primary Care Provider [phone] Naz Lara RN Unavailable Martín September VISUAL DESIGN LEAD Unavailable [phone] Corry Bansal RN Unavailable [phone] Reason for Visit * Reason Onset Date Comments Schedule Appointment 04/25/2025 Follow Up A ppointment Scheduled Encounter Details Date Type Department Care Team (Late Contact Info) Description 04/25/2025 Telephone [facility] [place] [phone] Tara Fofana MD [address] [place], [place] [phone] Schedule Appointment (Follow Up Appointment Scheduled) Social History Tobacco Use Types Packs/Day Years Used Date Smoking Tobacco: Every Day Cigarettes 0.8 49.1 Started: 04/17/1976; Last attempted to quit: 01/21/2025 Smokeless Tobacco: Never Comments:She has nicotine pa tches that she will be starting in the future Alcohol Use Standard Drinks/Week Comments Not Currently 0 (1 standard drink = 0.6 oz pur e alcohol) [facility] Utilities Answer Date Recorded [...] Date Recorded PHQ-2 Total Score 0 01/23/2025 [facility] of Occupat ional Health - Occupational Stress [...] money to get more. Sometimes true 10/2024 [facility] IP Transportation Answer [...] needed, canceled and let pt know via [employer]. * Telephone Encounter - Ashley Escalera, Clerical Staff - 04/25/2025 3:28 PM EST Patient's appointment has been scheduled for 04/30 at 3:15 for labs and 3:[address] Fofana. * Telephone Encounter - Bernie Dick CNA - 04/25/2025 2:51 PM EST LVM for patient to call [phone] to schedule MD OV with Dr. Fofana in the next week or so per in basket. documented in this encounter Plan of Treatment Upcoming Encounters Date Type Department Care Team (Late st Contact Info) Description 07/04/2025 1:45 PM EST Office Visit SEP Pulmonology [facility] [address] [phone] Franklin Salmeron MD [address] [address] 07/27/2025 11:[address] [facility] [address] [facility] [address] [place] [address] Tara Fofana MD [address] [place] [address] 07/30/2025 11:00 AM EST Appointment [place] [address] 07/30/2025 11:40 AM EST Appointment [facility] [place] [address] Tara Fofana MD [address] [place] [address] documented as of this encounter Goals Goal [...] on filedocumented in this encounter Care Teams District Sales Manager Relationship Specialty Start Date End Date Radha Wise DO [address] [place], [place] [phone] PCP - General Family Medicine 10/02/23 Kathryn Newell MD Physician Internal Medicine-Gastroenter ology 11/27/14 Cristóbal Carr MD [address] [place] [address] [place] [address] Physician Internal Medicine-Cardiovascu lar Disease 02/13/22 Naz Lara, RN Oncology Nurse Navigator 10/13/2404/14 Jinny Resendiz, REJI Animal Treatment Investigator 10/16/24 Corry Bansal, RN Registered Nurse 02/07/25 documented as of this encounter
--- OUTSIDE RECORDS SUMMARY | 2025-06-13 18:44 | XMS_ITS | Encounter Summary ---
Author Organization [place] [address] Care Team Providers Care Scholarship Counselor Name Role Phone Kathryn Newell MD Unavailable [phone] Cristóbal Carr MD Unavailable [phone] Radha Wise DO Primary Care Provider [phone] Resendizseptember LOC[employer] COMPANY FLATBED TRUCK DRIVER Unavailable [phone] Corry Bansal RN Unavailable [phone] Tara Fofana MD Unavailable [phone] Reason for Visit * Reason Onset Date Comments Medication Refill 05/31/2025 Encounter Details Date Type Department Care Team (Late st Contact Info) Description 05/31/2025 Refill [facility] [place] [phone] Tara Fofana MD [address] [place] [address] [phone] Medication Refill Social History Tobacco Use Types Packs/Day Years Used Date Smoking Tobacco: Every Day Cigarettes 0.8 49.1 Started: 04/17/1976; Last attempted to quit: 01/21/2025 Smokeless Tobacco: Never Comments:She has nicotine pa tches that she will be starting in the future Alcohol Use Standard Drinks/Week Comments Not Currently 0 (1 standard drink = 0.6 oz pur e alcohol) [facility] Utilities Answer Date Recorded In the [...] Date Recorded PHQ-2 Total Score 0 01/23/2025 [facility] of Occupat ional Health - [...] money to get more. Sometimes true 10/2024 [facility] IP Transportation Answer D ate [...] Office Visit SEP Pulmonology [facility] [address] [address] Franklin Salmeron MD [address] [facility] [address] [place] [address] 07/27/2025 11:[address] [facility] [address] [facility] [address] [place] [address] Tara Fofana MD [address] [place] [address] [phone] 07/30/2025 11:00 AM EST Appointment [facility] [place] [address] 07/30/2025 11:40 AM EST Appointment [facility] [place], [place] [phone] Tara Fofana MD [address] [place] [address] [phone] documented as of this encounter Goals Goal [...] Primary documented in this encounter Care Teams Scholarship Counselor Relationship Specialty Start Date End Date Radha Wise DO [address] [place] [address] PCP - General Family Medicine 10/02/23 Kathryn Newell MD Physician Internal Medicine-Gastroenterolog y 11/27/14 Cristóbal Carr MD [address] [place] [address] Physician Internal Medicine-Cardiovascular Disease 02/13/22 Jinny Resendiz, LOCAL COMPANY FLATBED TRUCK DRIVER Cryptographic Machine Operator 10/16/24 Corry Bansal, RN Registered Nurse 02/07/25 Tara Fofana MD [address] [place] [address] [phone] Internal Medicine-Hematology and Oncology 04/30/25 documented as of this encounter
--- OUTSIDE RECORDS SUMMARY | 2025-06-13 18:44 | XMS_ITS | Encounter Summary ---
Author Organization [place] [address] Care Team Providers Care Jack Tamp Operator Name Role Phone Kathryn Newell MD Unavailable [phone] Cristóbal Carr MD Unavailable [phone] Radha Wise DO Primary Care Provider [phone] ResendizSeptember VIRTUAL OFFICE ASSISTANT Unavailable [phone] Corry Bansal RN Unavailable [phone] Tara Fofana MD Unavailable [phone] Reason for Visit * Reason Onset Date Comments Medication Refill 05/21/2025 Encounter Details Date Type Department Care Team (Late st Contact Info) Description 05/21/2025 Refill [facility] [address] [place] [address] Radha Wise DO [address] [place] [phone] Medication Refill Social History Tobacco Use Types Packs/Day Years Used Date Smoking Tobacco: Every Day Cigarettes 0.8 49.1 Started: 04/17/1976; Last attempted to quit: 01/21/2025 Smokeless Tobacco: Never Comments:She has nicotine pa tches that she will be starting in the future Alcohol Use Standard Drinks/Week Comments Not Currently 0 (1 standard drink = 0.6 oz pur e alcohol) [facility] Utilities Answer Date Recorded In the past [...] Date Recorded PHQ-2 Total Score 0 01/23/2025 [facility] of Occupat ional Health - Occupational [...] money to get more. Sometimes true 10/2024 [facility] IP Transportation Answer D ate Recorded [...] 1:45 PM EST Office Visit SEP Pulmonology [facility] [address] [phone] Franklin Salmeron MD [address] [address] 07/27/2025 11:[address] [facility] [place] [address] [place] [address] Tara Fofana MD [address] [place] [address] 07/30/2025 11:00 AM EST Appointment [place] [address] 07/30/2025 11:40 AM EST Appointment [facility] [place] [address] Tara Fofana MD [address] [place] [address] documented as of this encounter Goals Goal [...] documented as of this encounter Care Teams Jack Tamp Operator Relationship Specialty Start Date End Date Radha Wise DO 79 [place], [place] [phone] PCP - General Family Medicine 10/02/23 Kathryn Newell MD Physician Internal Medicine-Gastroenterolog y 11/27/14 Cristóbal Carr MD [address] [place], [place] [phone] Physician Internal Medicine-Cardiovascular Disease 02/13/22 Jinny Resendiz, VIRTUAL OFFICE ASSISTANT Production Inspector 10/16/24 Corry Bansal, RN Registered Nurse 02/07/25 Tara Fofana MD [address] [place] [address] [phone] Internal Medicine-Hematology and Oncology 04/30/25 documented as of this encounter
--- OUTSIDE RECORDS SUMMARY | 2025-06-13 18:44 | XMS_ITS | Encounter Summary ---
Author Organization [place] [address] Care Team Providers Care Strike Planning Applications Name Role Phone Kathryn Newell MD Unavailable [phone] Cristóbal Carr MD Unavailable [phone] Radha Wise DO Primary Care Provider [phone] Naz Lara RN Unavailable Martín September PROSTHETIC MAKEUP DESIGNER Unavailable [phone] Corry Bansal RN Unavailable [phone] Reason for Visit * Reason Comments Lung Cancer Follow-up Encounter Details Date Type Department Care Team (Late st Contact Info) Description 04/18/2025 Patient Outreach [facility]C [place] [phone] Tara Fofana MD [address] [place] [address] [phone] Lung Cancer; Follow-up Social History Tobacco Use Types Packs/Day Years Used Date Smoking Tobacco: Every Day Cigarettes 0.8 49.1 Started: 04/17/1976; Last attempted to quit: 01/21/2025 Smokeless Tobacco: Never Comments:She has nicotine pa tches that she will be starting in the future Alcohol Use Standard Drinks/Week Comments Not Currently 0 (1 standard drink = 0.6 oz pur e alcohol) [facility] Utilities Answer Date Recorded In the [...] Date Recorded PHQ-2 Total Score 0 01/23/2025 [facility] of Occupat ional Health - Occupational [...] true 10/2024 [facility] IP Transportation Answer D ate Recorded In [...] answer pts questions (pt sent messages via [employer]). * Telephone Encounter - Corry Bansal RN - 04/19/2025 11:30 AM EDT I sent a [employer] msg yesterday which has not been read [...] 1:45 PM EST Office Visit SEP Pulmonology [facility] [address] [phone] Franklin Salmeron MD [address] [address] 07/27/2025 11:[address] [facility] [place] [facility] [address] [place] [address] Tara Fofana MD [address] [place] [address] 07/30/2025 11:00 AM EST Appointment [place] [address] 07/30/2025 11:40 AM EST Appointment [facility] [place] [address] Tara Fofana MD [address] [place] [address] documented as of this encounter Goals Goal Patient Goal Type Associated Problems Recent Progress Patient-Stated? Author Blood Pressure < 140/90 Blood Pressure 132/78(2024 11:49 AM EST) No Nicole Amador, SENIOR INFRASTRUCTURE ARCHITECT Maintain a healthy diet, exercise regularly and maintain an ideal body weight General No Anuradha Haro RMA BMI (Calculated) < 30 General 24.2(05/07/20 11:45 AM EST) No Nicole Amador, SENIOR INFRASTRUCTURE ARCHITECT Stay Tobacco Free Lifestyle No Anuradha Haro RMA HEMOGLOBIN A1C < 7.0 Result Component 6.1( 2:05 PM EST) No Nicole Amador SENIOR INFRASTRUCTURE ARCHITECT documented as of this encounter Visit Diagnoses Not on filedocumented in this encounter Care Teams Strike Planning Applications Relationship Specialty Start Date End Date Radha Wise DO [address] [place], [place] [phone] PCP - General Family Medicine 10/02/23 Kathryn Newell MD Physician Internal Medicine-Gastroenter ology 11/27/14 Cristóbal Carr MD [address] [place] [address] Physician Internal Medicine-Cardiovascu lar Disease 02/13/22 Naz Lara, RN Oncology Nurse Navigator 10/13/2404/14 Jinny Resendiz, PROSTHETIC MAKEUP DESIGNER Recordings Librarian 10/16/24 Corry Bansal, RN Registered Nurse 02/07/25 documented as of this encounter
--- OUTSIDE RECORDS SUMMARY | 2025-06-13 18:44 | XMS_ITS | Encounter Summary ---
Author Organization [place] [address] Care Team Providers Care Termite Treater Name Role Phone Kathryn Newell MD Unavailable [phone] Cristóbal Carr MD Unavailable [phone] Rahda Wise DO Primary Care Provider [phone] Resendizseptember CARD PROCESSING CLERK Unavailable [phone] Corry Bansal RN Unavailable [phone] Tara Fofana MD Unavailable [phone] Encounter Details Date Type Department Care Team (Late st Contact Info) Description 06/01/2025 Abstract [facility] [address] [place] [phone] Radha Wise, DO [address] [place] [phone] Social History Tobacco Use Types Packs/Day Years Used Date Smoking Tobacco: Every Day Cigarettes 0.8 49.1 Started: 04/17/1976; Last attempted to quit: 01/21/2025 Smokeless Tobacco: Never Comments:She has nicotine pa tches that she will be starting in the future Alcohol Use Standard Drinks/Week Comments Not Currently 0 (1 standard drink = 0.6 oz pur e alcohol) [facility] Utilities Answer Date Recorded In the [...] PHQ-2 Total Score 0 01/23/2025 [facility] of Occupat ional Health - [...] money to get more. Sometimes true 10/2024 [facility] IP Transportation Answer D [...] EST Office Visit SEP Pulmonology [facility] [address] [phone] Franklin Salmeron MD [address] [place] [address] [address] 07/27/2025 11:[address] [facility] [place] [place] [address] [place] [address] Tara Fofana MD [address] [place] [address] [phone] 07/30/2025 11:00 AM EST Appointment [place] [address] 07/30/2025 11:40 AM EST Appointment [facility] [place] [address] Tara Fofana MD [address] [place] [address] documented as of this encounter Goals Goal [...] on filedocumented in this encounter Care Teams Termite Treater Relationship Specialty Start Date End [place] [address] PCP - General Family Medicine 10/02/23 Kathryn Newell MD Physician Internal Medicine-Gastroenterolog y 11/27/14 Cristóbal Carr MD [address] [place] [address] Physician Internal Medicine-Cardiovascular Disease 02/13/22 Jinny Resendiz, CARD PROCESSING CLERK Deckhand Oyster Dredge 10/16/24 Corry Bansal, RN Registered Nurse 02/07/25 Tara Fofana MD [address] [place], [place] [phone] Internal Medicine-Hematology and Oncology 04/30/25 documented as of this encounter
--- OUTSIDE RECORDS SUMMARY | 2025-06-13 18:44 | XMS_ITS | Encounter Summary ---
Author Organization [place] [address] Care Team Providers Care Marketing Operations Specialist Name Role Phone Celeset Gamez MD Primary Care Provi patito Unavailable Kathryn Newell MD Unavailable [phone] Cristóbal Carr MD Unavailable [phone] Radha Wise DO Primary Care Provider Naz Lara RN Unavailable [phone] September HALFTONE OPERATOR Unavailable [phone] Crory Bansal RN Unavailable [phone] Tara Fofana MD Unavailable [phone] Encounter Details Date Type Department Care Team (Late st Contact Info) Description 01/12/2020 Orders Only SEP Gastro [facility] [address] [facility] [address] [facility] [place] [address] Kathryn Newell MD [address] [facility] [place] [address] Social History Tobacco Use Types Packs/Day Years Used Date Smoking Tobacco: Every Day Cigarettes 0.5 49.2 Started: 04/17/1976 Smokeless Tobacco: Never Alcohol Use [...] EST Office Visit SEP Pulmonology [facility] [address] [id number] Franklin Salmeron MD [address] [address] 07/27/2025 11:[address] [address] [address] Tara Fofana MD [address] [place] [id number] 07/30/2025 11:00 AM EST Appointment [facility] [address] 07/30/2025 11:40 AM EST [facility]ointment [facility] [place] [address] Tara Fofana MD [address] [place] [phone] documented as of this encounter Goals Goal [...] AM EDT) 01/12/2020 7:45 AM EDT Impressions [facility] - 01/12/2020 8:18 AM EDT Duodenal bezoar. Gastric food. Normal mucosa in the whole esophagus. Plan: Findings consistent with gastroparesis causing epigastric pain. Small, frequent meals, start Reglan. This section is an excerpt of the full report. Kathryn Newell MD GI PROCEDURE ORDERABLES Final Result [facility] [address] [id number] documented in this encounter Visit Diagnoses Not on filedocumented in this encounter Additional Health Concerns Infection Onset Date Last Indicated Resolved Time R/O COVID-19 12/23/2024 12/23/2024 12/23/2024 3:04 PM EDT documented as of this encounter Care Teams Marketing Operations Specialist Relationship Specialty Start Date End Date Celeste Gamez MD PCP - General Family Medicine 10/05/14 10/01/23 Radha Wise DO [address] [place] [id number] PCP - General Family Medicine 10/02/23 Kathryn Newell MD Physician Internal Medicine-Gastroenter ology 11/27/14 Cristóbal Carr MD [facility] [address] [place] [address] Physician Internal Medicine-Cardiovascu lar Disease 02/13/22 Naz Lara, RN Oncology Nurse Navigator 10/13/24 04/30/25 Jinny Resendiz, HALFTONE OPERATOR Embryology Professor 10/16/24 Corry Bansal, KEVIN Registered Nurse 02/07/25 Tara Fofana MD [address] [place], [place] [id number] Internal Medicine-Hematology and Oncology 04/30/25 documented as of this encounter
--- OUTSIDE RECORDS SUMMARY | 2025-06-13 18:44 | XMS_ITS | Clinical Summary ---
Author Organization [facility] jose graul [facility] Address [address] [place] [address] Phone Care Team Providers Care Drill Runner Helper Name Role Phone Kathryn Newell MD Unavailable [phone] Cristóbal Carr MD Unavailable [phone] Radha Wise DO Primary Care Provider [phone] September AUTOMOTIVE COLLISION REPAIR INSTRUCTOR Unavailable [phone] Corry Bansal RN Unavailable [phone] Tara Fofana MD Unavailable Allergies No known active allergies Medications Blood-Glucose [...] mg Oral TabletIndications :Coronary artery disease involving [place] coronary artery of [place] heart with angina pectoris Take 1 Tablet [...] chest pain 12/24/2023 Overview (12/24/2023): Seen at [facility] After evaluation at [facility] it was felt patient may be having pain related to possible vasospasms and treatment with Ranexa was discussed. At [facility] her lung nodule and CT scan [...] Overview (09/04/2024): Seen on CT report from [facility]. Spiculated left upper lobe nodule, 7 mm in size follow-up in [address] scan (around 04/2024) CT follow up ordered by [facility] Assessment & Plan (04/30/2025 4:13 PM [...] to ER visit for COPD exacerbation Orders: drsxmnxtxis-rgbmojkgu-tlikouax (TRELEGY ELLIPTA) 100-62.5-25 mcg Inhl Disk with Device; Inhale 1 Puff into the lungs daily. Assessment & Plan (07/24/2024 1:47 PM EST): Orders: umeclidinium-vilanteroL (ANORO ELLIPTA) 62.5-25 mcg/actuation Inhl Disk with Device; Inhale 1 Puff into the lungs daily. Atherosclerosis of aorta 11/09/2018 Overview (11/09/2018): Per ct Chest [facility] 11/02/18 Diastolic dysfunction 11/09/2018 Overview (12/06/2023): [...] on file Coronary artery disease invo lving [place] coronary artery of [place] heart with angina pectoris 06/23/2016 Overview (03/15/2019): RCA stent 10/2017 - Lilly (mental health worker), [facility] Stent 09/2018 Mixed hyperlipidemia 10/03/2014 Overview (11/01/2019): Goal per cardiology for LDL is 55 Tobacco abuse 06/06/2014 Migraine Overview (07/28/2019): Stable on imitrex prn Resolved Problems Problem Noted Date Diagnosed Date Resolved Date Post-operative state 01/22/2025 025 Infrarenal abdominal aortic aneurysm (AAA) without rupture 11/18/2023 10/12/2024 Overview (10/12/2024): Noted on report from [facility] 10/2023 Aorta ultrasound 11/2023- not well visualized due to bowel CT follow up ordered by [facility]A 09/2024 reported no AAA Assessment & Plan (03/08/2024 12:25 PM EDT): - continue to monitor and optimize blood pressure control - continue to monitor and optimize lipids Consider follow up ultrasound for visualization Upper abdominal pain 12/10/2020 024 Overview (12/10/2020): Added automatically from request for surgery [id number] Nausea 12/10/2020 10/22/2023 Overview (12/10/2020): Added automatically from request for surgery [id number] Glucose intolerance (impaire d glucose tolerance) 07/28/2017 10/22/2023 Tinea pedis of both feet 06/23/201608/2023 Chest pain 04/16/2016 10/22/2023 Dysphagia 10/29/2014 10/22/2023 Abdominal pain 10/03/2014 04/16/2016 Encounters Date Type Department Care Team Description 06/13/2025 Refill SEP [place] [facility] [place] [phone] Radha Wise, DO Medication Refill 06/11/2025 Abstract SEP [place] [facility] [address] Radha Wise, DO 06/01/2025 Abstract SEP [place] [address] [place] [address] Radha Wise, DO 05/31/2025 9:00 AM EST - 05/31/2025 11:59 PM EST Hospital Encounter [facility] [address] [place] [address] Jose De Jesus Gregory MD Infrarenal abdominal aortic aneurysm (AAA) without rupture Discharge Disposition: Home or Self Care 05/31/2025 Refill [facility] [place] [address] Tara Fofana MD Medication Refill 05/28/2025 Refill SEP [facility] [address] [place] [address] Radha Wise, DO Medication Refill 05/21/2025 Refill SEP [facility] [address] [place] [address] Radha Wise, DO Medication Refill 05/21/2025 Refill SEP [facility] [address] [place] [address] Radha Wise, DO Medication Refill 05/21/2025 Refill SEP [place] [address] [place] [address] Radha Wise, DO Medication Refill 05/07/2025 11:30 AM EST Office Visit [facility] [address] [place] [address] [address] [place] [phone] Jose De Jesus Gregory MD Infrarenal abdominal aortic aneurysm (AAA) without rupture (Primary Dx) 05/07/2025 Travel 05/01/2025 Patient Outreach [facility] [place] [address] Naz Lara, KEVIN Lung Cancer; Follow-up (Case status change/surveillance) 04/30/2025 3:40 PM EST - 04/30/2025 11:59 PM EST Hospital Encounter [facility] [place] [address] Radha Wise, DO Tara Fofana MD Adenocarcinoma of left lung (HCC) (Primary Dx) Discharge Disposition: Home or Self Care 04/30/2025 Telephone [facility] [place] [address] Tara Fofana MD Schedule Appointment 04/25/2025 Telephone [facility] [place] [address] Tara Fofana MD Schedule Appointment (Follow Up Appointment Scheduled) 04/19/2025 Refill SEP [place] [address] [place] [phone] Radha Wise DO Medication Refill 04/18/2025 Telephone [facility] [place] [address] Tara Fofana MD Schedule Appointment; Follow-up 04/18/2025 Patient Outreach [place] [address] Tara Fofana MD Lung Cancer; Follow-up 04/13/2025 Abstract SEP [facility] [address] [place] [address] Radha Wise DO 04/12/2025 2:57 PM EDT - 04/12/2025 11:59 PM EDT Hospital Encounter [facility] [place] [address] Radha Wise DO Adenocarcinoma of left lung (HCC) (Primary Dx) Discharge Disposition: Home or Self Care 04/12/2025 2:57 PM EDT - 04/12/2025 11:59 PM EDT Hospital Encounter [facility] [place] [address] Radha Wise DO Riaz, Muhammad Kashif, MD Adenocarcinoma of left lung (HCC) (Primary Dx) Discharge Disposition: Home or Self Care 04/12/2025 2:45 PM EDT - 04/12/2025 2:56 PM EDT Hospital Encounter [place] [address] Radha Wise DO Adenocarcinoma of lung, unspecified laterality (HCC) Discharge Disposition: Home or Self Care 04/10/2025 Telephone [facility] [address] [facility] [address] [place] [address] Jose De Jesus Gregory MD Other 04/09/2025 1:00 PM EDT - 04/09/2025 11:59 PM EDT Hospital Encounter [facility] MRI [address] [place] [address] Tara Fofana MD Adenocarcinoma of lung, unspecified laterality (HCC) Discharge Disposition: Home or Self Care 04/09/2025 Orders Only [facility] [address] [place] [address] Cleveland Brand MD Adenocarcinoma of left lung (HCC) (Primary Dx) 04/06/2025 Telephone [facility] [place] [address] [place] [address] Kymberly Ventura, RT Follow-up 04/05/2025 Refill [place] [address] [place] [address] Radha Wise, DO Medication Refill 04/03/2025 Patient Outreach [facility] [place] [id number] Naz Lara, KEVIN Lung Cancer; Follow-up; Status Update 04/02/2025 Telephone [facility] [place] [address] [place] [address] Kymberly Ventura, RT Follow-up 03/30/2025 9:20 AM EDT Office Visit STEPHANIE [place] [facility] [place] [phone] Radha Wise DO Hypokalemia (Primary Dx); Angular cheilosis 03/30/2025 Results Follow-Up [facility] [place] [facility] [place] [phone] Radha Wise, BASIC METABOLIC PANEL 03/30/2025 Orders Only [facility] [place] [facility] [place] [phone] Radha Wise, 03/29/2025 Travel 03/27/2025 2:53 PM EDT - 03/27/2025 11:59 PM EDT Hospital Encounter EDG XRAY [facility] [place] [facility] [place] [address] Cleveland Brand MD Discharge Disposition: Home or Self Care 03/27/2025 12:20 PM EDT - 03/27/2025 2:52 PM EDT Hospital Encounter EDG IR [facility] [place] [address] Lori Cornelius PA-C Discharge Disposition: Home or Self Care 03/27/2025 12:05 PM EDT Anesthesia Event [facility] [place] [address] Tonny Mae, DO Olivia Johnston, FARM CONTRACTOR BUYER 03/27/2025 10:19 AM EDT - 03/27/2025 12:19 PM EDT Hospital Encounter [facility] [place] [address] Cleveland Brand MD Heusner, James A, MD Post-thoracotomy pain; Coronary artery disease involving [place] coronary artery of [place] heart with angina pectoris Discharge Disposition: Home or Self Care 03/27/2025 Travel 03/26/2025 2:00 PM EDT Office Visit [place] [address] [place] [phone] Radha Wise, DO Post-thoracotomy pain 03/26/2025 Travel 03/22/2025 Orders Only [place] [address] [place] [address] Radha Wise, DO Rib pain (Primary Dx) 03/22/2025 Refill [place] [address] [place] [phone] Radha Wise, DO Medication Refill 03/22/2025 Refill [place] [address] [place] [address] Radha Wsie, DO Medication Refill 03/21/2025 Orders Only [facility] [place] [address] [place] [phone] Kymberly Ventura, RT Post-thoracotomy pain (Primary Dx) 03/21/2025 Orders Only [facility] [place] [address] [place] [address] Kymberly Ventura, RT Post-thoracotomy pain (Primary Dx) 03/21/2025 Telephone [facility] [place] [address] [place] [address] Kymberly Ventura, RT Confirmation 03/20/2025 Refill [facility] [address] [place] [address] Jared Lock MD Medication Refill 03/20/2025 Refill [facility] [address] [place] [address] Jared Lock MD Medication Refill 03/20/2025 Telephone [facility] [address] [place] [address] Jared Lock MD Medication Refill 03/20/2025 Telephone [facility] [address] [place] [address] Britta Timmons NA Schedule Appointment (Port placement ) 03/19/2025 Telephone [facility] [place] [address] [place] [address] Kymberly Ventura, RT Schedule Appointment; Follow-up 03/19/2025 Orders Only [facility] [place] [address] [place] [address] Kymberly Ventura, RT Post-thoracotomy pain (Primary Dx) 03/16/2025 Orders Only [facility] [place] [address] [place] [address] Kymberly Ventura, RT Post-thoracotomy pain (Primary Dx) 03/16/2025 Refill [facility] [address] [place] [address] Jared Lock MD Medication Refill 03/15/2025 Telephone [facility] [place] [address] [place] [address] Kymberly Ventura, RT Follow-up 03/14/2025 9:48 AM EDT - 03/14/2025 11:59 PM EDT Hospital Encounter [facility] [address] [place] [address] Cleveland Brand MD Discharge Disposition: Home or Self Care 03/14/2025 8:54 AM EDT - 03/14/2025 9:47 AM EDT Hospital Encounter [facility] IR [address] [place] [address] Cleveland Brand MD Post-thoracotomy pain Discharge Disposition: Home or Self Care 03/14/2025 7:39 AM EDT - 03/14/2025 8:53 AM EDT Hospital Encounter [facility] [address] [place] [address] Cleveland Brand MD Post-thoracotomy pain Discharge Disposition: Home or Self Care from Last 3 Months Surgical History Surgery [...] Recorded In the past 12 months has [employer] electric, gas, oil, or water company threatened to shut off services in your home? No 01/23/2025 Overall Financial Resource Strain (CARDIA) Answe r Date Recorded How hard is it for you to pa y for the very basics like food, housing, medical care, and heating? Somewhat hard 01/23/2025 PHQ-2 Answer Date Recorded PHQ-2 Total Score 0 01/23/2025 Citizen Of [place] [facility] Occupat ional [facility] - Occupational [...] money to get more. Sometimes true 10/2024 [facility] HRSN CMS IP Transportation Answer D ate Recorded In [...] EST Office Visit SEP Pulmonology [facility] [address] [address] Franklin Salmeron MD [address] [facility] [address] [place] [address] 07/27/2025 11:[address] [facility] [address] [address], [place] [address] Tara Fofana MD [address] [place] [address] 07/30/2025 11:00 AM EST Appointment [place] [address] 07/30/2025 11:40 AM EST Appointment [facility] [place] [address] Tara Fofana MD [address] [place] [address] Health Maintenance Due Date Last Done Comments [...] Amador LPN Medical Devices Implanted Type Area Audit Practice Intern Device Identifier Shelf Expiration Date Model / Serial / Lot Heart Stents X3 R Breast Marker Procedures Procedure Name Priority Date/Time Associated Diagnosis Comments CBC Routine 06/08/2025 COMPREHENSIVE METABOLIC PANEL Routine 06/08/2025 SCANNED LABS 06/05/2025 10:19 AM EST VA [...] Recently Relevant to Health Maintenance Results * (ABNORMAL) CBC (06/08/2025) Only the most recent of3 resultswithin the time period is included. WBC 11.6 X10(3)/MCL SEP OFFICE RBC 3.75(A) [...] OFFICE * (ABNORMAL) COMPREHENSIVE METABOLIC PANEL (06/08/2025) Only the most recent of2 resultswithin the time period is included. Sodium 141 137 - 147 MMOL/L SEP [...] CHEMISTRY ORDERABLES Final R esult SEP OFFICE * SCANNED LABS (06/05/2025 10:19 AM EST) [...] MD IMG VASCULAR ORDERABLES Fin al Result * (ABNORMAL) CBC WITH DIFF (04/12/2025 2:56 PM EDT) Only the most recent of2 resultswithin the time period is included. WBC 8.5 3.7 - 10.3 x10(3)/mcL 04/12/2025 3:10 PM EDT [facility] RBC 4.32 3.90 - 5.20 x10(6)/mcL 04/12/2025 3:10 PM EDT [facility] Hgb 12.8 11.2 - 15.7 g/dL 04/12/2025 3:10 PM EDT [facility] Hct 39.6 34.0 - 45.0 % 04/12/2025 3:10 PM EDT [facility] MCV 91.7 80.0 - 100.0 fL 04/12/2025 3:10 PM EDT [facility] MCH 29.6 26.0 - 34.0 pg 04/12/2025 3:10 PM EDT [facility] MCHC 32.3 30.7 - 35.5 g/dL 04/12/2025 3:10 PM EDT [facility] RDW 13.7 <=14.9 % 04/12/2025 3:10 PM EDT [facility] Platelet 370(H) 155 - 369 x10(3)/mcL 04/12/2025 3:10 PM EDT [facility] MPV 9.6 8.8 - 12.5 fL 04/12/2025 3:10 PM EDT [facility] Neut # Prelim 4.1 1.6 - 6.1 x10(3)/mcL 04/12/2025 3:10 PM EDT [facility] Comment:Preliminary automate d absolute neutrophil count. Value may change if manual differential is indicated. Neut Percent 48.4 % 04/12/2025 3:10 PM EDT [facility] Comment:Neutrophils equals s egs plus bands Imm Gran% 0.1 % 04/12/2025 3:10 PM EDT [facility] Comment:Automated count of m etamyelocytes, myelocytes and promyelocytes. Lymph Percent 35.0 % 04/12/2025 3:10 PM EDT [facility] [place] Percent 8.3 % 04/12/2025 3:10 PM EDT [facility] Eos Percent 7.8 % 04/12/2025 3:10 PM EDT [facility] Baso Percent 0.4 % 04/12/2025 3:10 PM EDT [facility] Neut # 4.1 1.6 - 6.1 x10(3)/mcL 04/12/2025 3:10 PM EDT [facility] Comment:Neutrophils equals s egs plus bands IMMGRAN# 0.0 0.0 - 0.1 x10(3)/mcL 04/12/2025 3:10 PM EDT [facility] Comment:Automated count of m etamyelocytes, myelocytes and promyelocytes. An absolute IG <0.1 is reported as 0.0. Lymph # 3.0 1.2 - 3.9 x10(3)/mcL 04/12/2025 3:10 PM EDT [facility] [place] # 0.7 0.3 - 0.9 x10(3)/[facility] 04/12/2025 3:10 PM EDT [facility] Eos# 0.7(H) 0.0 - 0.5 x10(3)/[facility] 04/12/2025 3:10 PM EDT [facility] Baso # 0.0 0.0 - 0.1 x10(3)/[facility] 04/12/2025 3:10 PM EDT [facility] Blood VENOUS BLOOD / Unknown Venipuncture / Unknown 04/12/2025 2:56 PM EDT 04/12/2025 2:56 PM EDT us Tara Fofana MD HEMATOLOGY ORDERABLES Fi nal Result [facility] [address] [place] [id number] * MRI BRAIN W WO CONTRAST (04/09/2025 [...] please contactthe office of the ordering clinician. us Tara Fofana MD [facility] MRI ORDERABLES Final Result * (ABNORMAL) BASIC METABOLIC PANEL (03/30/2025 9:48 AM EDT) Only the most recent of2 resultswithin the time period is included. Sodium 142 136 - 145 mmol/L 03/30/2025 3:46 PM EDT [facility] Potassium 3.5 3.5 - 5.0 mmol/L 03/30/2025 3:46 PM EDT [facility] Chloride 108(H) 98 - 107 mmol/L 03/30/2025 3:46 PM EDT [facility] Total CO2 20(L) 22 - 29 mmol/L 03/30/2025 3:46 PM EDT [facility] Anion Gap 14 7 - 16 mmol/L 03/30/2025 3:46 PM EDT [facility] Calcium 9.1 8.8 - 10.4 mg/dL 03/30/2025 3:46 PM EDT [facility] Glucose Lvl 112(H) 70 - 99 mg/dL 03/30/2025 3:46 PM EDT [facility] BUN 9 8 - 23 mg/dL 03/30/2025 3:46 PM EDT [facility] Creatinine 0.77 0.51 - 1.30 mg/dL 03/30/2025 3:46 PM EDT [facility] eGFR (CKD-EPIcr 2020) 85 >=60 mL/min/1.7 3 m2 03/30/2025 3:46 PM EDT [facility] Comment:Estimated GFR was ca lculated using the CKD-EPIcr (2020) equation refit without race. The equation is recommended by the National Kidney Foundation - [place] [employer] of Nephrology Task Force. Blood VENOUS BLOOD / Unknown Venipuncture / Unknown 03/30/2025 9:48 AM EDT 03/30/2025 9:48 AM EDT us Radha Wise DO CHEMISTRY ORDERABLES Final R esult [facility] [address] [facility] , [place] [address] * IR US GUIDED NEEDLE PLACEMENT (03/27/2025 [...] chest in comparison to prior studyof 03/14/2025. us Cleveland Brand MD IMG DIAGNOSTIC IMAGING ORDERA BLES Final Result * CT CRYOABLATION UPPER EXTREMITY NERVE (03/27/2025 2:37 PM EDT) Anatomical Region Laterality Modality Computed Tomogra phy 03/27/2025 2:37 PM EDT Impressions 03/27/2025 3:[address]-guided cryoneurolysis the left eighth-10th rib intercostal nerves. Narrative 03/27/2025 3:[address] AND ULTRASOUND-GUIDED CRYONEUROLYSIS LEFT EIGHTH-10TH INTERCOSTAL NERVES X 01/07/2025 HISTORY: G89.12-Acute post-thoracotomy [id number] TECHNICAL: The procedure was performed by Dr. [...] EIGHTH-10TH INTERCOSTALNERVES X 01/07/2025 HISTORY: G89.12-Acute post-thoracotomy [id number]-[id number]-25-CM TECHNICAL: The procedure was performed by Dr. [...] cryoneurolysis the left eighth-10th rib intercostal nerves. us Cleveland Brand MD IMG CT ORDERABLES Final Resul t * INTRAOP AIRWAY PLACEMENT (03/27/2025 12:15 PM EDT) Narrative [facility] - 03/27/2025 12:15 PM EDT Blas Morel MD 03/27/2025 12:19 PM Intraop Airway Placement: Date/Time: 03/27/2025 12:15 PM Airway type: Nasal cannula salter us Blas Morel MD MS ANESTHESIA Final Result Performing Organization Address [facility]/ZIP Co de Phone Number [facility] [address] [place], [place] [id number] * (ABNORMAL) PT / INR (03/26/2025 2:02 PM EDT) Only the most recent of2 resultswithin the time period is included. PT 10.1(L) 10.5 - 13.6 second(s) 03/26/2025 7:54 PM EDT [facility] INR 0.88(L) 0.91 - 1.18 (ratio) 03/26/2025 7:54 PM EDT [facility] Comment: Level of Therapy Indications Target INR Range Standard Dose Treatment and prophylaxis of venous 2.0 - 3.0 thrombosis, pulmonary embolism High Dose High risk patients with mechanical 2.5 - 3.5 heart valves Blood VENOUS BLOOD / Unknown Venipuncture / Unknown 03/26/2025 2:02 PM EDT 03/26/2025 2:02 PM EDT us Cleveland Brand MD HEMATOLOGY ORDERABLES Final R esult Performing Organization Address [facility] Co de Phone Number [facility] [address] [place] [address], [place] [address] * IR INJECTION ANESTHETIC AGENT INTERCOSTAL NERVE MULTIPLE (03/14/2025 9:44 AM EDT) Anatomical Region Laterality Modality Interventional R adiology 03/14/2025 9:44 AM EDT Impressions 03/14/2025 2:03 PM EDT Uncomplicated left eighth-10th intercostal nerve blocks. Narrative 03/14/2025 2:03 PM EDT ULTRASOUND AND FLUOROSCOPICALLY GUIDED LEFT INTERCOSTAL NERVE BLOCK X3 TODAY HISTORY: G89.12-Acute post-thoracotomy [id number]-[id number]-59-CM TECHNICAL: The procedure was performed by Dr. [...] AND FLUOROSCOPICALLY GUIDED LEFT INTERCOSTAL NERVE BLOCK [id number] HISTORY: G89.12-Acute post-thoracotomy [id number]-CM TECHNICAL: The procedure was performed by Dr. [...] IMPRESSION: Uncomplicated left eighth-10th intercostal nerve blocks. Cleveland Brand MD [facility] IR ORDERABLES Final Resul t * CT [...] Isovue 370 IV contrast as recorded in [employer]. 2-D multiplanar reconstructions and 3-D MIP reconstructions [...] using Isovue 370 IVcontrast as recorded in [employer]. 2-D multiplanar reconstructions and 3-D MIP reconstructions [...] office of the ordering clinician. Tomasa Yeh FARM CONTRACTOR BUYER IMG CT ORDERABLES Final Res ult * COLOGUARD (12/25/2024 10:55 AM EDT) COLOGUARD CLINICAL REPORT Negative Negative [employer] Comment: The Cologuard (TM) test was performed [...] screened with both Cologuard and colonoscopy. (Morgan Arizmendi al, N Engl J Med 2014;370(14):7044-7957) The normal value (reference range) for this assay is negative. COLOGUARD RE-SCREENING RECOMMENDATION: Periodic colorectal cancer screening is an important part of preventive healthcare for asymptomatic individuals at average risk for colorectal cancer. Following a negative Cologuard result, the [place] Cancer Society and U.S. Multi-Society Task Force screening guidelines recommend a Cologuard re-screening interval of 3 years. References: [place] [employer] Guideline for Colorectal Cancer Screening: https://www.cancer.org/cancer/tfuga-uuwfqa-nkeiir/amywixerh-wtmwsdmzs-mntluew/ac s-rec ommendations.html.; Nathaniel QUINTERO, Brandon LOZANO, Matthew MESSER, Colorectal Cancer Screening: Recommendations for Physicians and Patients from the U.S. Multi-Society Task Force on Colorectal Cancer Screening , Am J Gastroenterology 2017; 112:4057-6463. TEST DESCRIPTION: Composite algorithmic analysis of stool [...] screened with both Cologuard and colonoscopy. (Morgan Coburn et al, N Engl J Med 2014;370(14):6750-6644.) Cologuard may produce a false negative or false positive result (no colorectal cancer or precancerous polyp present at colonoscopy follow up). A negative Cologuard test result does not guarantee the absence of CRC or advanced adenoma (pre-cancer). The current Cologuard screening interval is every 3 years. ([place] Cancer Society and U.S. Multi-Society Task Force). Cologuard performance data in a 10,000 patient pivotal study using colonoscopy as the reference method can be accessed at the following location: www.[employer]ant[employer]/results. Additional description of the Cologuard test process, warnings and precautions can be found at www.cologuard.com. Stool 12/25/2024 10:5 5 AM EDT 12/26/2024 2:02 PM EDT us Radha Wilder Wise DO [employer] - ORDERABLES F inal Result [place], [address] [address], [facility] [employer] [address] [place] [address] * MM MAMMO DIGITAL VANITA SCREEN BILAT (09/09/2023 9:24 AM EDT) Anatomical Region Laterality Modality Breast Bilateral Mammography 09/10/2023 8:09 AM EDT Impressions 09/10/2023 8:09 AM EDT Negative ([id number]) ~ RECOMMENDATION: Routine screening mammogram in 1 [...] the next mammogram, in accordance with the [employer] and the Society of Breast Imaging recommendations. Narrative 09/10/2023 8:09 AM EDT Procedure:MM MAMMO DIGITAL VANITA SCREEN BILAT ~ Reason for exam: screening, asymptomatic. Z12.31-Encounter for screening mammogram for malignant neoplasm of clropo-PIJ-60-CM ~ MM MAMMO DIGITAL VANITA SCREEN BILAT [...] for screening mammogram for malignant neoplasm of [id number]-[id number]-CM ~ MM MAMMO DIGITAL VANITA SCREEN BILAT Bilateral CC and MLO view(s) were taken. The breast tissue is heterogeneously dense. This may lower thesensitivity of mammography. Prior study comparison: Compared with prior studies the most recentbeing 01/24/21, 04/11/19 No mammographic evidence of malignancy. ~ IMPRESSION: Negative ([id number]) ~ RECOMMENDATION: Routine screening mammogram in 1 [...] the next mammogram, in accordance with the [place] and the Society of Breast Imaging recommendations. Romulo Saldaña MD IMG MAMMOGRAPHY ORDERABLES Fin al Result * ACUTE HEPATITIS PANEL (09/12/2018 4:20 PM EDT) Hep Bs Ag Non-Reacti ve Non-Reacti ve 09/12/2018 8:37 PM EDT [facility] Hep B Core IgM Non-Reacti ve Non-Reacti ve 09/12/2018 8:37 PM EDT [facility] Hep A IgM Non-Reacti ve Non-Reacti ve 09/12/2018 8:37 PM EDT [facility] Hep C Ab Non-Reacti ve Non-Reacti ve 09/12/2018 8:37 PM EDT [facility] Blood Venipuncture / Unknown 09/12/2018 4:20 PM EDT 09/12/2018 4:20 PM EDT Roseanna Ashley FARM CONTRACTOR BUYER CHEMISTRY ORDERABLES Inga l Result [facility] [address] [facility] [address], [place] [place] [address] * [facility] EGD-COLONOSCOPY (10/29/2014 7:45 AM EDT) 10/29/2014 7:45 AM EDT Impressions [facility] - 10/29/2014 8:50 AM EDT Plan: Await pathology results This section is an excerpt of the full report. us Kathryn Newell MD GI PROCEDURE ORDERABLES Final Result [facility] [address] [place] [address] from Last 3 Months or Most Recently Relevant to Health Maintenance [place] [address] [id number] [place] [address] [facility] [address] [facility] [place] Advance Directives For more information, please contact: [phone] * Full Code (Latest Code Status on File) Date Activated Date Inactivated Comments 01/22/2025 3:45 PM 01/30/2025 4:33 PM Care Teams Drill Runner Helper Relationship Specialty Start Date End Date Radha Wise DO [address] [place], [place] [id number] PCP - General Family Medicine 10/02/23 Kathryn Newell MD Physician Internal Medicine-Gastroenterolog y 11/27/14 Cristóbal Carr MD [facility] [facility] [place], [place] [phone] Physician Internal Medicine-Cardiovascular Disease 02/13/22 Jinny Resendiz, AUTOMOTIVE COLLISION REPAIR INSTRUCTOR Yard Loader Operator 10/16/24 Corry Bansal, RN Registered Nurse 02/07/25 Tara Foafna MD [address] [place] [id number] Internal Medicine-Hematology and Oncology 04/30/25
--- OUTSIDE RECORDS SUMMARY | 2025-06-13 18:44 | XMS_ITS | Encounter Summary ---
Author Organization [place] [address] Care Team Providers Care Manager Work Name Role Phone Kathryn Newell MD Unavailable [phone] Cristóbal Carr MD Unavailable [phone] Radha Wise DO Primary Care Provider [phone] Naz Lara RN Unavailable Resendizseptember MAIL DISTRIBUTION SCHEME EXAMINER Unavailable [phone] Corry Bansal RN Unavailable [phone] Tara Fofana MD Unavailable [phone] Reason for Visit * Reason Onset Date Comments Schedule Appointment 04/18/2025 Follow-up 04/18/2025 Encounter Details Date Type Department Care Team (Late st Contact Info) Description 04/18/2025 [facility]phone [facility] [place], [place] [phone] Tara Fofana MD [address] [place] [address] [phone] Schedule Appointment; Follow-up Social History Tobacco Use Types Packs/Day Years Used Date Smoking Tobacco: Every Day Cigarettes 0.8 49.1 Started: 04/17/1976; Last attempted to quit: 01/21/2025 Smokeless Tobacco: Never Comments:She has nicotine pa tches that she will be starting in the future Alcohol Use Standard Drinks/Week Comments Not Currently 0 (1 standard drink = 0.6 oz pur e alcohol) [facility] Utilities Answer Date Recorded In the [...] Date Recorded PHQ-2 Total Score 0 01/23/2025 [facility] [place] of Occupat ional Health - Occupational Stress [...] money to get more. Sometimes true 10/2024 [facility] IP Transportation Answer D ate Recorded [...] to come at 340pm for OV, call [phone] for questions. * Telephone Encounter - Corry [...] EST Office Visit [facility] Pulmonology CV [address] [phone] Franklin Salmeron MD [address] [address] 07/27/2025 11:00 AM EST Appointment [facility] [address] [place] [address] Tara Fofana MD [address] [place] [address] 07/30/2025 11:00 AM EST Appointment [place] [address] 07/30/2025 11:40 AM EST [facility]ointment [facility] [place] [address] Tara Fofana MD [address] [place] [phone] documented as of this encounter Goals Goal Patient Goal Type Associated Problems Recent Progress Patient-Stated? Author Blood Pressure < 140/90 Blood Pressure 132/78(2024 11:49 AM EST) No Nicole Amador LPN Maintain a healthy diet, exercise regularly and maintain an ideal body weight General No Anuradha Haor, RMA BMI (Calculated) < 30 General 24.2(05/07/20 11:45 AM EST) No Nicole Amador LPN Stay Tobacco Free Lifestyle No Anuradha Haro, RMA HEMOGLOBIN A1C < 7.0 Result Component 6.1( 2:05 PM EST) No Nicole Amador LPN documented as of this encounter Visit Diagnoses Not on filedocumented in this encounter Care Teams Manager Work Relationship Specialty Start Date End Date Radha Wise DO [address] [place] [id number] PCP - General Family Medicine 10/02/23 Kathryn Newell MD Physician Internal Medicine-Gastroenter ology 11/27/14 Cristóbal Carr MD [address] [place] [address] [place] [address] Physician Internal Medicine-Cardiovascu lar Disease 02/13/22 Naz Lara, RN Oncology Nurse Navigator 10/13/2404/14 Jinny Resendiz MSW Paediatrician 10/16/24 Corry Bansal, RN Registered Nurse 02/07/25 Tara Fofana MD [address] [place], [place] [phone] Internal Medicine-Hematology and Oncology 04/30/25 documented as of this encounter
--- OUTSIDE RECORDS SUMMARY | 2025-06-13 18:44 | XMS_ITS | Encounter Summary ---
Author Organization [place] [address] Care Team Providers Care Fire Extinguisher Charger Name Role Phone Kathryn Newell MD Unavailable [phone] Cristóbal Carr MD Unavailable [phone] Radha Wise DO Primary Care Provider [phone] Naz Lara RN Unavailable September PICK OUT HAND Unavailable [phone] Corry Bansal RN Unavailable [phone] Tara Fofana MD Unavailable Reason for Visit * Reason Onset Date Comments Results 03/30/2025 BMP Encounter Details Date Type Department Care Team (Late Contact Info) Description 03/30/2025 Results Follow-Up [facility] [address] [place] [phone] Radha Wise DO [address] [place] [address] BASIC METABOLIC PANEL [...] = 0.6 oz pur e alcohol) [facility] Utilities Answer Date Recorded In the [...] Date Recorded PHQ-2 Total Score 0 01/23/2025 [facility] [place] of Occupat ional Health - Occupational Stress [...] money to get more. Sometimes true 10/2024 [facility] IP Transportation Answer D ate Recorded In [...] Location Verified: Yes [id number] [place] [address] [facility] [phone] Other: Results given to patient Radha Hdz [...] EST Office Visit [facility] Pulmonology CV [address] [phone] Franklin Salmeron MD [address] [address] 07/27/2025 11:00 AM EST Appointment [facility] [address] [place] [address] Tara Fofana MD [address] [place] [address] [phone] 07/30/2025 11:00 AM EST Appointment [facility] [place], [place] [phone] 07/30/2025 11:40 AM EST [facility]ment [facility] [place] [address] Tara Fofana MD [address] [place] [address] [phone] Scheduled Orders Name Type Priority Associated Diagnoses [...] Hypopotassemia documented in this encounter Care Teams Fire Extinguisher Charger Relationship Specialty Start Date End Date Radha Wise DO [address] [place], [place] [id number] PCP - General Family Medicine 10/02/23 Kathryn Newell MD Physician Internal Medicine-Gastroenter ology 11/27/14 Cristóbal Carr MD [address] [facility] [address] [place], [place] [phone] Physician Internal Medicine-Cardiovascu lar Disease 02/13/22 Naz Lara, RN Oncology Nurse Navigator 10/13/2404/14 Jinny Resendiz, PICK OUT HAND Assistant Infant Toddler Teacher 10/16/24 Corry Bansal, RN Registered Nurse 02/07/25 Tara Fofana MD [address] [place] [phone] Internal Medicine-Hematology and Oncology 04/30/25 documented as of this encounter
--- OUTSIDE RECORDS SUMMARY | 2025-06-13 18:44 | XMS_ITS | Encounter Summary ---
Author Organization [facility] [place] [address] Care Team Providers Care Cotton Acreage Measurer Name Role Phone Kathryn Newell MD Unavailable [phone] Cristóbal Carr MD Unavailable [phone] Radha Wise DO Primary Care Provider [phone] Resendizseptember PERMIT AGENT Unavailable [phone] Corry Bansal RN Unavailable [phone] Tara Fofana MD Unavailable [phone] Encounter Details Date Type Department Care Team [...] 0.6 oz pur e alcohol) [facility] Utilities Answer Date Recorded In the past [...] Date Recorded PHQ-2 Total Score 0 01/23/2025 [facility] - Occupational Stress Questionnaire Answer Date [...] more. Sometimes true 10/2024 [facility] IP Transportation Answer D ate Recorded [...] 1:45 PM EST Office Visit SEP Pulmonology [facility] [address] [phone] Franklin Salmeron MD [address] [address] 07/27/2025 11:[address] [facility] [address] [address] [place] [address] Tara Fofana MD [address] [place] [address] [phone] 07/30/2025 11:00 AM EST Appointment [facility] [place], [place] [phone] 07/30/2025 11:40 AM EST Appointment [facility] [place], [place] [phone] Tara Fofana MD [address] [place] [address] [phone] documented as of this encounter Goals Goal Patient Goal Type Associated Problems Recent Progress Patient-Stated? Author Blood Pressure < 140/90 Blood Pressure 132/78(2024 11:49 AM EST) No Nicole Amador LPN Maintain a healthy diet, exercise regularly and maintain an ideal body weight General No Anuradha Haro RMA BMI (Calculated) < 30 General 24.2(05/07/20 25 11:45 AM EST) No MarjorieNicole, STEREO PLOTTER OPERATOR Stay Tobacco Free Lifestyle No Estrellita Anuradha ELIO Barnes HEMOGLOBIN A1C < 7.0 Result Component 6.1( 5 2:05 PM EST) No Nicole Amador STEREO PLOTTER OPERATOR documented as of this encounter Visit Diagnoses Not on filedocumented in this encounter Care Teams Cotton Acreage Measurer Relationship Specialty Start Date End Date Radha Wise DO [address] [employer] [address] [place], [place] [phone] PCP - General Family Medicine 10/02/23 Kathryn Newell MD Physician Internal Medicine-Gastroenterolog y 11/27/14 Cristóbal Carr MD [address] [facility] [address] [place] [address] Physician Internal Medicine-Cardiovascular Disease 02/13/22 Jinny Resendiz, PERMIT AGENT Fruit Pitter 10/16/24 Corry Bansal, RN Registered Nurse 02/07/25 Tara Fofana MD [address] [place] [phone] Internal Medicine-Hematology and Oncology 04/30/25 documented as of this encounter
[2025-06-13 18:45] VITALS: BP 141/70; PULSE 111; RESP 20; TEMP 37.9; O2SAT 98; BMI 23.8
[2025-06-13 18:50] VITALS: O2SAT 100
[2025-06-13 18:56] LABS: Coronavirus 19, PCR Not Detected (NotDetected); Influenza B, PCR Not Detected (NotDetected)
--- NOTE | 2025-06-13 19:00 | CT_ITS ---
PROCEDURE INFORMATION: Exam: CTA Chest With Contrast Exam date and time: 06/13/2025 8:03 PM Age: 64 years old Clinical indication: Shortness of breath; Additional info: Shortness of breath, HX of cancer TECHNIQUE: Imaging protocol: Computed tomographic angiography of the chest with contrast. Exam focused on the arteries. 3D rendering (Not supervised by radiologist): MIP and/or 3D reconstructed images were created by the technologist. Radiation optimization: All CT scans at this facility use at least one of these dose optimization techniques: automated exposure control; mA and/or kV adjustment per patient size (includes targeted exams where dose is matched to clinical indication); or iterative reconstruction. Contrast material: ISOVUE 370; Contrast volume: 70 ml; Contrast route: INTRAVENOUS (IV); COMPARISON: CT ANGIO CHEST 05/31/2025 4:31 PM FINDINGS: Pulmonary arteries: No pulmonary emboli. Aorta: The aorta demonstrates severe atherosclerotic disease. Chronic focal infrarenal abdominal aortic dissection. Celiac and mesenteric arteries: Mild chronic SMA stenosis. Lungs: Status post left upper lobectomy. Mild to moderate centrilobular and paraseptal emphysema. Mild scarring and atelectasis in the lower lungs. Pleural spaces: Subtle left pleural thickening, chronic. Heart: Unremarkable. No cardiomegaly. No pericardial effusion. Coronary arteries: Coronary artery calcifications. Lymph nodes: Unremarkable. No enlarged lymph nodes. Kidneys: Low attenuation renal lesions measuring up to 1.6 cm in diameter are incompletely characterized, but are likely cysts. No followup imaging is warranted. Bones/joints: Unremarkable. No acute fracture. Soft tissues: Unremarkable. IMPRESSION: No pulmonary emboli. COMMENTS: 1. Consistent with the [place] [employer]'s Incidental Findings Committee white paper (J Am [place] Radiol 2018): Any incidental renal lesion less than 1 cm or classified as too small to characterize, or any incidental cystic renal lesion characterized as simple-appearing, is likely benign. No follow-up imaging is recommended for these lesions per consensus recommendations based on imaging criteria. 2. The presence of pulmonary emphysema on CT is an independent risk factor for lung cancer. In the absence of a history or active diagnosis of lung cancer, it is recommended that this patient with emphysema be evaluated for enrollment in a low dose CT lung cancer screening program.
--- NOTE | 2025-06-13 19:07 | HMH.EDGENADL ---
Discharge Plan Disposition Patient Disposition: Home, Self-Care Condition: Good Prescriptions Prescriptions: No Action sumatriptan succinate 50 mg tablet 50 mg PO DAILYP PRN (Reason: migraines) famotidine 40 mg tablet 40 mg PO BID Patient Comments: TAKE 1 TABLET BY MOUTH TWICE A DAY citalopram [Celexa] 20 mg tablet 20 mg PO DAILY Patient Comments: TAKE 1 TABLET BY MOUTH EVERY DAY folic acid 1 mg tablet 1 mg PO DAILY Patient Comments: TAKE 1 TABLET BY MOUTH EVERY DAY clopidogrel 75 mg tablet 75 mg PO DAILY metoprolol succinate 25 mg tablet extended release 24 hr 25 mg PO DAILY Qty: 90 3RF rosuvastatin [Crestor] 40 mg tablet 40 mg PO DAILY Qty: 90 3RF Anoro Ellipta 62.5-25 mcg/actuation blister with device 1 inh inhalation DAILY Patient Comments: TAKE 1 PUFF BY MOUTH EVERY DAY montelukast 10 mg tablet 10 mg PO HS Patient Comments: TAKE 1 TABLET BY MOUTH NIGHTLY. AT BEDTIME dapagliflozin propanediol [Farxiga] 10 mg tablet 10 mg PO DAILY Patient Comments: TAKE 1 TABLET BY MOUTH EVERY DAY amlodipine 10 mg tablet 10 mg PO DAILY Qty: 30 5RF Rx Instructions: TAKE ONE TABLET BY MOUTH TWICE DAILY Repatha SureClick 140 mg/mL pen injector 140 mg SQ Q2W 90 Days Qty: 7 3RF potassium chloride [Klor-Con M20] 20 mEq tablet,ER particles/crystals 20 meq PO DAILY Qty: 30 2RF aspirin 81 MG tablet,delayed release (DR/EC) 81 mg PO DAILY pantoprazole 40 MG tablet,delayed release (DR/EC) 40 mg PO DAILY alprazolam 0.25 mg tablet 0.25 mg PO BID PRN (Reason: Anxiety) meclizine 25 mg tablet 25 mg PO Q6HP PRN (Reason: dizziness) Qty: 30 1RF albuterol sulfate 90 mcg/actuation HFA aerosol inhaler 2 inh inhalation Q6H PRN (Reason: shortness of breath or wheezing) Qty: 8.5 0RF fluticasone propionate [Flonase Allergy Relief] 50 mcg/actuation spray,suspension 1 spray intranasal DAILY Rx Instructions: administer into each nostril daily gabapentin 300 mg capsule 300 mg PO BID Referrals Follow up/Referrals: Radha Wise DO [Primary Care Provider, Family Practice] - See instructions Activity Restrictions/Add. Instructions Additional Instructions/Restrictions: You have the flu, you may continue to feel short of breath and have body aches and chills over the next several days. Take Tylenol and ibuprofen for your symptoms continue to stay orally hydrated. Return to the emergency department for any acute or worsening symptoms. Clinical Impressions Clinical Impression: Influenza A Print Language Print Language: Croatian Discharge ED Provider: Porsche Norwood General Adult HPI General Chief complaint: Upper Respiratory Infection Stated complaint: cough fever shortness of breath Time Seen by Provider: 06/13/25 18:35 Mode of Arrival: Ambulatory Source of Information: Patient, Relative and Parent(s) Description of Symptoms (Recalled from ER Triage Doc. by RN): patient presents to the ED for SOA, cough, sore throat, and fever of 102 at home. patient took ibuprofen prior to arrival. recent exposure to flu, strep throat. presents with 2 other family members for similar symptoms. History of Present Illness HPI narrative: Patient is a 64-year-old female who presents to the emergency department with shortness of breath sore throat cough and fever at home. Patient states that her son and grandson have both been sick. Patient states that she has been feeling very weak. Patient states that she is not having any significant chest pain and her symptoms have been present for the last couple days. Patient denies any abdominal pain vomiting or diarrhea. Patient denies any significant headache but does report a mild throb. Patient did take some ibuprofen prior to arrival did not take any Tylenol. Patient denies any significant cardiac or pulmonary problems but patient is a current smoker. Related Data Home Medications ?Medication ?Instructions ?Recorded ?Confirmed aspirin 81 mg tablet,delayed 81 mg PO DAILY heart health 10/14/17 06/08/25 release Held on 06/02/25. Instructions: pending surgical removal of Gallbladder pantoprazole 40 mg tablet,delayed 40 mg PO DAILY GERD 10/14/17 06/08/25 release alprazolam 0.25 mg tablet 0.25 mg PO BID PRN Anxiety 04/26/18 06/08/25 sumatriptan succinate 50 mg tablet 50 mg PO DAILYP PRN migraines 10/31/19 06/08/25 clopidogrel 75 mg tablet 75 mg PO DAILY antiplatelet 10/14/20 06/08/25 Held on 06/02/25. Instructions: pending surgical removal of Gallbladder fluticasone propionate 50 1 spray intranasal DAILY . 02/25/23 06/08/25 mcg/actuation nasal spray,suspension (Flonase Allergy Relief) citalopram 20 mg tablet (Celexa) 20 mg PO DAILY 11/16/23 06/08/25 famotidine 40 mg tablet 40 mg PO BID 11/16/23 06/08/25 folic acid 1 mg tablet 1 mg PO DAILY 11/16/23 06/08/25 umeclidinium 62.5 mcg-vilanterol 1 inh inhalation DAILY 09/18/24 06/08/25 25 mcg/actuation powdr for inhalation (Anoro Ellipta) dapagliflozin propanediol 10 mg 10 mg PO DAILY 04/05/25 06/08/25 tablet (Farxiga) montelukast 10 mg tablet 10 mg PO HS 04/05/25 06/08/25 gabapentin 300 mg capsule 300 mg PO BID 05/31/25 06/08/25 Previous Rx's ?Medication ?Instructions ?Recorded amlodipine 10 mg tablet 10 mg PO DAILY High blood pressure 03/19/22 Held on 06/02/25. #30 tabs Instructions: pending surgical removal of Gallbladder meclizine 25 mg tablet 25 mg PO Q6HP PRN dizziness #30 10/05/22 tabs albuterol sulfate 90 mcg/actuation 2 inh inhalation Q6H PRN shortness 11/04/22 aerosol inhaler of breath or wheezing #8.5 grams metoprolol succinate 25 mg 25 mg PO DAILY #90 tabs 09/04/24 tablet,extended release 24 hr rosuvastatin 40 mg tablet (Crestor) 40 mg PO DAILY #90 tabs 09/04/24 Held on 06/02/25. Instructions: pending surgical removal of Gallbladder evolocumab 140 mg/mL subcutaneous 140 mg SQ Q2W 90 days #7 mL 01/09/25 pen injector (Repatha SureClick) potassium chloride 20 mEq 20 meq PO DAILY #30 tabs 06/08/25 tablet,extended release(part/cryst) (Klor-Con M) Allergies Allergy/AdvReac Type Severity Reaction Status Date / Time No Known Allergies Allergy Verified 06/08/25 12:40 PFS PFS Disclaimer: The information contained in this section may have been updated after the patient was seen, as this information can be updated by other users. Medical History (Updated 06/13/25 @ 21:51 by Porsche Norwood DO) COPD (chronic obstructive pulmonary disease) Atypical angina Acid reflux HLD (hyperlipidemia) HHD (hypertensive heart disease) Surgical History (Updated 06/08/25 @ 12:39 by Alka Mixon RN) Hx of endoscopic retrograde cholangiopancreatography Hx of hysterectomy Hx of appendectomy Acute cholecystitis Family History (Updated 06/08/25 @ 12:39 by Alka Mixon RN) Other No significant family history Social History (Updated 06/08/25 @ 12:39 by Alka Mixon RN) Smoking Status: Never smoker second hand exposure: No alcohol intake: never substance use type: denies use current occupational status: unemployed and disabled Travel in the last 8 weeks?: None household members: significant other housing: house current occupational exposures/hazards: No Have you lived/traveled outside [place] in past 30 days?: No Contact w/someone who lives/traveled outside [place] past 30 days?: No Exposure to someone with infectious disease in past 14 days?: No Do you have a fever (greater than 100.4 F or 38 C)?: Yes Have you tested positive for COVID-19?: No Exposed to someone with COVID-19 in past 14 days?: No Do you have a sore throat?: Yes Do you have a cough?: Yes Do you have any weakness?: Yes Do you have any diarrhea?: Yes Are you experiencing any unusual bleeding?: No Do you have any muscle aches/pain?: No Do you have any abdominal pain?: No Are you experiencing loss of taste or smell?: No Other Medical History Have you received the Flu Vaccine for this season: No Have you received the Pneumonia Vaccine: No ROS Obtained: Yes All systems reviewed & no additional complaints except as documented and Yes Systems reviewed as appropriate & no additional complaints except as documented Physical Exam General General appearance: alert and in no apparent distress Head Head exam: atraumatic, normocephalic and normal inspection Eye Eye exam: Present normal appearance, PERRL and EOMI; Absent scleral icterus ENT ENT exam: Present normal exam and normal external ear exam Neck Neck exam: Present normal inspection and full ROM Chest Chest inspection: Present normal inspection and symmetric chest wall rise Respiratory Respiratory exam: Present normal lung sounds bilaterally and wheezes (expiratory wheezing); Absent respiratory distress Cardiovascular Cardiovascular exam: Present normal rhythm, tachycardia and normal heart sounds Abdominal Exam Abdominal exam: Present soft and distention; Absent tenderness, guarding or rebound Extremities Exam Extremities exam: Present normal inspection and full ROM Back Exam Back exam: Present normal inspection and full ROM Neurological Exam Neurological exam: Present alert and oriented X3 Psychiatric Psychiatric exam: Present normal affect and normal mood Skin Skin exam: Present warm and dry Medical Decision Making Medical Records Medical records reviewed: Yes I reviewed the patient's medical records. Screening: Per USPSTF and CDC recommendations, given the prevalence of disease in our region, it is our hospital?s policy to screen for HIV and viral Hepatitis for all patients aged 18 and over and those with ongoing risk factors. Kael Inquiry Pt receiving controlled substance: No Vital Signs: 06/13/25 18:45 06/13/25 18:50 06/13/25 22:14 Temperature 100.3 F H 98.6 F Temperature Source Oral Oral Pulse Rate 99 H Pulse Rate [Bilateral Radial] 111 H Respiratory Rate 20 18 Blood Pressure 120/52 L Blood Pressure [Right Arm] 141/70 H Blood Pressure Mean [Right Arm] 93 Blood Pressure Source Automatic Cuff Blood Pressure Source [Right Arm] Automatic Cuff Blood Pressure Position Sitting Blood Pressure Position [Right Arm] Sitting 02 Sat by Pulse Oximetry 98 100 Oxygen Delivery Method Room Air Room Air Room Air Lab Data Lab results reviewed: Yes I reviewed the patient's lab results. Lab Results 06/13/25 18:42: SARS-CoV-2 (PCR) Not detected, Influenza A Untype (PCR) Detected A, Influenza Type B (PCR) Not detected, Group A Strep Rapid Negative 06/13/25 19:13: WBC 10.6, RBC 3.53 L, Hgb 10.4 L, Hct 32.3 L, MCV 91.5, MCH 29.5, MCHC 32.2, RDW 14.0, Plt Count 312, MPV 9.5, Neut % (Auto) 82.7 H, Lymph % (Auto) 6.7 L, Warrick % (Auto) 8.9, Eos % (Auto) 0.9, Baso % (Auto) 0.5, Neut # (Auto) 8.8 H, Lymph # (Auto) 0.7, Warrick # (Auto) 0.9, Eos # (Auto) 0.1, Baso # (Auto) 0.1, Sodium 140, Potassium 3.5, Chloride 110 H, Carbon Dioxide 18 L, Anion Gap 15.5 H, BUN 8, Creatinine 0.80, Estimated Creat Clear 53, Estimated GFR 72, Est GFR ( Amer) 87, Glucose 112 H, Calcium 8.7, Total Bilirubin 0.4, AST 22, ALT 23, Alkaline Phosphatase 101, Troponin I < 0.01, Total Protein 7.0, Albumin 4.2, Globulin 2.8, Albumin/Globulin Ratio 1.5, Lipase 36 06/13/25 19:13 06/13/25 19:13 Orders (Tests/Meds): ED MEDICATIONS Discontinued Medications Generic Name Dose Route Start Last Admin Trade Name Freq PRN Reason Stop Dose Admin Acetaminophen 1,000 mg 06/13/25 19:02 06/13/25 20:02 Acetaminophen 1,000mg/100ml Vial IV 06/13/25 19:03 1,000 mg ONCE ONE Administration Albuterol/Ipratropium 9 ml 06/13/25 19:00 06/13/25 19:45 Ipratropium/Albuterol 3 Ml Neb IH 06/13/25 19:01 9 ml ONCE ONE Administration Dexamethasone 10 mg 06/13/25 21:36 06/13/25 21:47 Dexamethasone 1mg/1ml Intensol 10ml Udc (Er) PO 06/13/25 21:37 10 mg ONCE ONE Administration Sodium Chloride 1,000 mls @ 999 mls/hr 06/13/25 19:00 06/13/25 19:59 Sod Chlor 0.9% 1000ml Bag IV 06/13/25 20:00 999 mls/hr .Q1H1M ONE Administration Iopamidol 70 ml 06/13/25 20:09 06/13/25 20:09 Iopamidol-370 (76%);100ml Bottle IV 06/13/25 20:10 70 ml ONCE ONE Administration Sodium Chloride 10 ml 06/13/25 20:09 06/13/25 20:09 Sodium Chloride 0.9% 10ml Syr (Rad Only) IV 06/13/25 20:10 10 ml ONCE ONE Administration Sodium Chloride 50 ml 06/13/25 20:09 06/13/25 20:09 0.9 % Sodium Chloride 50 Ml Vial IV 06/13/25 20:10 50 ml ONCE ONE Administration ORDERS Category Date Time Status CT angio chest PE protocol Stat Cat Scan 06/13/25 19:00 Completed CBC w/Auto Diff [Complete Blood Count Auto Diff] Stat Lab 06/13/25 19:13 Completed CMP [Comprehensive Metabolic Panel] Stat Lab 06/13/25 19:13 Completed Lipase Stat Lab 06/13/25 19:13 Completed Rapid PCR Covid and Flu A/B Stat Lab 06/13/25 18:42 Completed Strep Scrn Group A (Rapid) Stat Lab 06/13/25 18:42 Completed Trop I [Troponin I] Stat Lab 06/13/25 19:13 Completed Blood Culture Stat Micro 06/13/25 20:00 Received Strep Screen Confirmation Stat Micro 06/13/25 18:42 Received Medical Decision Narrative: Patient is a 64-year-old female with a past medical history of smoking, 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 On arrival, patient was tachycardic, afebrile, vital signs were otherwise unremarkable. Differential includes but not limited to viral syndrome, pneumonia, pulmonary embolism, ACS/PR, electrolyte abnormalities, amongst others. Patient's labs were reviewed and interpreted by myself: CBC showed no leukocytosis, hemoglobin was stable. CMP was unremarkable. Troponin was less than 0.01. Lipase was normal. Respiratory panel was positive for influenza A. CT PE showed no evidence of pulmonary embolism or evidence of pneumonia. Given that patient symptoms have been present for more than 6 hours, single troponin was felt appropriate. EKG was reviewed and interpreted by myself and showed sinus tachycardia without acute ST or T wave changes concerning for ischemia. Symptoms significantly improved after symptomatic management in the emergency department. Patient's tachycardia improved. Given patient's symptoms less than 48 hours, patient was offered Tamiflu which patient declined. Patient was given a dose of dexamethasone in the emergency department. At this time, I felt the patient was stable and appropriate for discharge. Patient was given return precautions and patient was discharged home in stable condition. Critical Care Critical Care Time Critical Care Time: No
[2025-06-13 19:09] LABS: Strep Scrn Group A (Rapid) Negative (Negative)
[2025-06-13 19:22] LABS: Hematocrit 32.3 % (37.0-47.0); Hemoglobin 10.4 g/dL (12.2-16.2); Immature Granulocytes % 0.3 %; Mean Corpuscular HGB Conc 32.2 g/dL (31.8-35.4); Mean Corpuscular Hemoglobin 29.5 pg (27.0-31.2); Mean Corpuscular Volume 91.5 fl (81-99); Nucleated Red Blood Cells % 0 %; Platelet Count 312 K/mm3 (142-424); Red Blood Count 3.53 M/mm3 (4.20-5.40); Red Cell Distribution Width-SD 47.1 fL; White Blood Count 10.6 K/mm3 (4.8-10.8)
[2025-06-13 19:40] LABS: Albumin Level 4.2 g/dl (3.5-5.0); Chloride 110 mmol/L (98-107); Potassium 3.5 mmoL/L (3.5-5.1); Sodium 140 mmol/L (136-145)
[2025-06-13 19:43] LABS: Alanine Aminotransferase 23 U/L (12-78); Albumin/Globulin Ratio 1.5 (1.1-1.8); Alkaline Phosphatase 101 U/L (38-126); Anion Gap 15.5 mEq/L (5-15); Aspartate Amino Transferase 22 U/L (14-36); Bilirubin,Total 0.4 mg/dl (0.2-1.3); Blood Urea Nitrogen 8 mg/dl (7-17); Carbon Dioxide 18 mmol/L (22.0-30.0); Creatinine Clearance Estimated 53 mL/min (50-200); Creatinine,Serum 0.80 mg/dl (0.52-1.04); Estimated Glomerular Filt Rate 72 ml/min (>60); GFR (African American) 87 ML/MIN (>60); Globulin 2.8 g/dL (1.3-3.2); Lipase 36 U/L (23-300); Total Protein,Serum 7.0 g/dl (6.3-8.2)
[2025-06-13 19:43] LABS: Influenza A, PCR Detected (NotDetected)
[2025-06-13 19:44] LABS: Calcium 8.7 mg/dl (8.4-10.2); Glucose 112 mg/dl (74-100)
[2025-06-13] MEDS: IPRATROPIUM/ALBUTEROL 3 ML NEB 9 ML IH (19:45)
--- NOTE | 2025-06-13 19:58 | ECG_ITS ---
APPROVED REPORT Exam: Resting ECG HR:112 bpm ECG Measurements Heart Rate 112 AXES PA 119 P 81 QRSd 85 QRS 80 QT 350 T 55 QTc 416 Conclusion SINUS TACHYCARDIA WITH SHORT PA INTERVAL POSSIBLE RIGHT VENTRICULAR CONDUCTION DELAY [RSR (QR) IN V1/V2] MODERATE ST DEPRESSION [0.05+ mV ST DEPRESSION] ABNORMAL ECG Electronically signed by : ROSSY SHAW, 06/14/2025 07:10:59
[2025-06-13] MEDS: 0.9 % SODIUM CHLORIDE 1000ML 1,000 ML 999 ML IV (19:59)
[2025-06-13] MEDS: ACETAMINOPHEN 1,000MG/100ML VIAL 1000 MG IV (20:02)
[2025-06-13] MEDS: IOPAMIDOL-370 (76%);100ML BOTTLE 70 ML IV (20:09)
[2025-06-13] MEDS: 0.9 % SODIUM CHLORIDE 50 ML VIAL IV (20:09)
[2025-06-13] MEDS: SODIUM CHLORIDE 0.9% 10ML SYR (RAD ONLY) 10 ML IV (20:09)
[2025-06-13 20:15] LABS: Troponin I < 0.01 ng/ml (0.00-0.034)
[2025-06-13] MEDS: DEXAMETHASONE 1MG/1ML INTENSOL 10ML UDC (ER) 10 MG PO (21:47)
[2025-06-13 22:14] VITALS: BP 120/52; PULSE 99; RESP 18; TEMP 37; O2SAT 96
== END 2025-06-13 22:16 | disposition home or self-care (01) ==
PROVIDERS: Emergency Provider Student in an Organized Health Care Education/Training Program; PCP Student in an Organized Health Care Education/Training Program
DX: J10.1 Influenza due to other identified influenza virus with other respiratory manifestations (principal); R06.02 Shortness of breath; R50.9 Fever, unspecified; R00.0 Tachycardia, unspecified; I10 Essential (primary) hypertension; E78.5 Hyperlipidemia, unspecified; Z87.891 Personal history of nicotine dependence
CPT/HCPCS: 71275; 80053; 83690; 84484; 85025; 87040; 87430; 87636; 93005; 96361; 96374; 99285; J0131; J7030; Q9967